=== PATIENT | female | born 1995 | race Caucasian/White ===

== ENCOUNTER 2020-05-17 14:33 | Emergency (ER) | payer OTHER, SELFPAY ==
[2020-05-17 14:35] VITALS: BP 129/78; PULSE 108; RESP 18; TEMP 36.8; O2SAT 99; BMI 38.2
--- NOTE | 2020-05-17 15:22 | XR_ITS ---
EXAMINATION: RIGHT FOOT AND RIGHT ANKLE. CLINICAL INFORMATION: Status post trauma. COMPARISON: None TECHNIQUE: 3 views right foot and 2 views right ankle. FINDINGS: RIGHT FOOT: There is no visible acute fracture, dislocation or subluxation. No bony erosive changes. The soft tissues are normal. RIGHT ANKLE: The ankle mortise and subtalar joints are normal. There is interim medullary tibial onesimo with 2 screws at the base posteriorly likely old tibial fracture not in the [id number]. The soft tissues are normal. XR/XR foot RT min 3V IMPRESSION: Unremarkable right foot exam. No visible fracture or dislocation seen. Unremarkable right ankle exam.
--- NOTE | 2020-05-17 15:22 | ED.LOWEXIN ---
HPI - Extremity Injury (Lower) General Chief Complaint: Extremity Injury, Lower Stated Complaint: FOOT INJ Time Seen by Provider: 05/17/20 15:21 Source: patient Mode of arrival: ambulatory Limitations: no limitations History of Present Illness HPI Narrative: 24 y/o female is presenting to the ER with right foot pain after she dropped a milk crate on in 2 days ago. She has been able to walk but with some discomfort. She had worsening pain today after being on her feet all day at work. She noticed some bruising to the top of her foot. She has history of ankle surgery on this foot and is worried about the hardware inside. She has no weakness, numbness, tingling. MD complaint: foot injury Related Data Allergies Allergy/AdvReac Type Severity Reaction Status Date / Time apricot [APRICOT] Allergy Unknown RASH Unverified 03/30/20 19:20 cephalexin [From KEFLEX] Allergy Unknown RASH Unverified 03/30/20 19:20 Review of Systems Review of Systems: Constitutional: No Fever, No Chills Cardiovascular: No Chest Pain, No SOB Respiratory: No Cough, No Sputum Gastrointestinal: No Nausea, No Vomiting, No Diarrhea, No abdominal Pain Musculoskeletal: + joint pain, No Myalgias Skin: No Skin Lesions, No rash, +bruising Neuro: No Weakness, No Numbness, No Dizziness, No Headache Psych: No Anxiety/Panic, No Depression Heme/Lymph: + Bruising, No Lymphadenopathy PMFSH Past Medical History Medical History Arthritis Asthma Surgical History (Updated 05/17/20 @ 14:36 by Mendy Lee) H/O foot surgery Social History Social History Alcohol intake: never Smoked in Last 30 Days: No Use of substances other than those prescribed or required for medical reasons: No Advance Directives: No Advance Directives Information Provided: Yes Physical Exam Vital Signs: Vital Signs: Vital Signs Temp Pulse Resp BP Pulse Ox 05/17/20 15:29 98.9 F 90 16 119/67 99 05/17/20 14:35 98.2 F 108 H 18 129/78 99 Body Mass Index 38.2 Appearance: Alert. Oriented X3. No acute distress. HEENT: normal inspection CVS: Normal heart rate and rhythm. Pulses normal. Respiratory: No respiratory distress. Skin: Skin warm and dry. Normal skin color. Normal skin turgor. No rashes. Extremities: right ankle with normal ROM, no bony tenderness. NV intact. 3cm hematoma palpable on top of ankle anteriorly, tender to touch. Neuro: Oriented X 3. No motor deficit. No sensory deficit. Course Course Course Narrative: XR shows Unremarkable right foot exam. No visible fracture or dislocation seen. Unremarkable right ankle exam. will place in carmen wrap for comfort. ice/elevation/NSAID management discussed. she is off work tomorrow and able to stay off it. stable for d/c. Critical Care Time Critical Care Time Critical Care Time: No Discharge Plan Discharge Clinical Impression: Contusion of foot, right Qualifiers: Encounter type: initial encounter Qualified Code(s): S90.31XA - Contusion of right foot, initial encounter Patient Disposition: Home, Self-Care Instructions: Contusion in Adults (ED), Hematoma (ED) Additional Instructions: Use ice to the area for 20 minutes at a time several times per day for the next 24-48 hours. Elevate and use CARMEN wrap for compression to help with discomfort and swelling. Weight bearing as tolerated. Take ibuprofen and/or acetaminophen as needed for pain. Follow up with your primary care doctor as needed.
[2020-05-17 15:29] VITALS: BP 119/67; PULSE 90; RESP 16; TEMP 37.2; O2SAT 99
--- NOTE | 2020-05-17 15:31 | XR_ITS ---
EXAMINATION: RIGHT FOOT AND RIGHT ANKLE. CLINICAL INFORMATION: Status post trauma. COMPARISON: None TECHNIQUE: 3 views right foot and 2 views right ankle. FINDINGS: RIGHT FOOT: There is no visible acute fracture, dislocation or subluxation. No bony erosive changes. The soft tissues are normal. RIGHT ANKLE: The ankle mortise and subtalar joints are normal. There is interim medullary tibial onesimo with 2 screws at the base posteriorly likely old tibial fracture not in the [id number]. The soft tissues are normal. XR/XR ankle RT min 3V IMPRESSION: Unremarkable right foot exam. No visible fracture or dislocation seen. Unremarkable right ankle exam.
== END 2020-05-17 17:18 | disposition home or self-care (01) ==
PROVIDERS: Emergency Provider Emergency Medicine
DX: M79.671 Pain in right foot (principal); M25.571 Pain in right ankle and joints of right foot; Z79.899 Other long term (current) drug therapy
CPT/HCPCS: 73610; 73630; 99283; 99284

== ENCOUNTER 2020-07-22 00:05 | Emergency (ER) | payer OTHER, SELFPAY ==
[2020-07-22 00:10] VITALS: BP 101/62; PULSE 110; RESP 22; TEMP 38.6; O2SAT 99; BMI 35.5
--- NOTE | 2020-07-22 00:26 | XR_ITS ---
EXAMINATION: XR CHEST CLINICAL INFORMATION: Chest pain COMPARISON: 04/12/2017 TECHNIQUE: Frontal view of the chest was obtained. FINDINGS: The lungs are well expanded. There is no focal consolidation, edema, or effusion. No pneumothorax. The cardiomediastinal silhouette is within normal limits. No acute osseous abnormality. XR/XR chest 1V IMPRESSION: Clear lungs.
[2020-07-22] MEDS: predniSONE 20 MG TABLET 60 MG PO (01:24)
[2020-07-22] MEDS: Ibuprofen 800 MG TABLET PO (01:24)
--- NOTE | 2020-07-22 01:33 | ED_ITS ---
HPI - URI/Sore Throat General Chief Complaint: Dyspnea Stated Complaint: fever sob body aches Time Seen by Provider: 07/22/20 00:26 Source: EMS Mode of arrival: EMS (Given albuterol neb, Tylenol by EMS.) Limitations: no limitations History of Present Illness HPI Narrative: 24-year-old female presenting via EMS with complaint of cough states yesterday started with rhinorrhea, nasal congestion today developed body aches sense of loss of taste and smell and has been working with patient is to [facility]. She does have history of asthma. MD elicited complaint: cough Consistency: intermittent Severity: moderate Description of mucous: clear Able to tolerate fluids by mouth: Yes Associated symptoms: nasal congestion Related Data Home Medications Medication Instructions Recorded Confirmed albuterol sulfate 90 mcg/actuation INHALATION 05/26/20 aerosol inhaler azithromycin 250 mg tablet mg PO DIRECTED 05/26/20 buspirone 10 mg tablet mg PO 05/26/20 fluticasone furoate 50 2 inh INHALATION DAILY 05/26/20 mcg/actuation blister powder for inhalation ipratropium 0.5 mg-albuterol 3 mg ml INHALATION QID PRN 05/26/20 (2.5 mg base)/3 mL nebulization soln mirtazapine 30 mg tablet 30 mg PO BEDTIME 05/26/20 prednisone 10 mg tablet 10 mg PO BID 05/26/20 prednisone 20 mg tablet mg PO 05/26/20 prednisone 50 mg tablet 50 mg PO DAILY 05/26/20 Previous Rx's Medication Instructions Recorded azithromycin [Zithromax Z-Rashaad] 250 mg PO DAILY 5 Days #6 tab 07/22/20 prednisone 40 mg PO DAILY 5 Days #10 tab 07/22/20 Allergies Allergy/AdvReac Type Severity Reaction Status Date / Time apricot [APRICOT] Allergy Unknown RASH Verified 07/22/20 00:20 cephalexin [From KEFLEX] Allergy Unknown RASH Verified 07/22/20 00:20 Review of Systems Review of Systems: Constitutional: No Weight loss, No Fever, + Chills, No Night Sweats, No Fatigue, No Malaise ENT/Mouth: No Hearing loss, No Ear Pain, No Nasal Congestion, No Sinus Pain, No Hoarseness, No sore throat, + Rhinorrhea, No Swallowing Difficulty Eyes: No Eye Pain, No Swelling, No Redness, No Foreign Body, No Discharge, No Vision Changes Cardiovascular: No Chest Pain, No SOB, No Dyspnea on Exertion, No Orthopnea, No Edema, No Palpitations Respiratory: No Cough, No Sputum, No Wheezing, No Smoke Exposure, No Dyspnea Gastrointestinal: No Nausea, No Vomiting, No Diarrhea, No Constipation, No abdominal Pain, No Hematochezia, No Melena Genitourinary: no irregular bleeding, No Dysuria, No Urinary Frequency, No Hematuria, No Urinary Incontinence, No Urgency Musculoskeletal: No joint pain, No Myalgias, No Joint Swelling Skin: No Skin Lesions, No rash Neuro: No Weakness, No Numbness, No Paresthesias, No Loss of Consciousness, No Dizziness, No Headache Psych: No Social Issues Heme/Lymph: No Bruising, No Bleeding,No Lymphadenopathy Endocrine: No Polyuria, No Polydipsia, No Temperature Intolerance Yes all other systems are reviewed and are negative [facility] Past Medical History Medical History Arthritis Asthma Surgical History H/O foot surgery Social History Social History Alcohol intake: never Advance Directives: No Physical Exam Vital Signs: Vital Signs: Last Vital Signs Temp 101.4 F H 07/22/20 00:10 Pulse 110 H 07/22/20 00:10 Resp 22 H 07/22/20 00:10 BP 101/62 07/22/20 00:10 Pulse Ox 99 07/22/20 00:10 Body Mass Index 35.5 Reviewed Course Course Course Narrative: BIBA from workplace with upper respiratory symptoms and sense of loss of taste and smell for past 1 day for with complaint of cough and body aches for 1 day as well. Given neb treatment in room 4 will we will follow for low-grade tip. For overall nontoxic appearing. Will get chest x-ray, COVID/RSV/flu swab. Hemodynamically stable. Not hypoxic, not tachycardic. Reevaluation(s) Reevaluation #1: Chest x-ray unremarkable. Ambulatory status with gait. Will discharge with prednisone, inhaler and advised to start antibiotic she does not feel better next several days. Will call with COVID/RSV/small results. Given her symptoms could be false early negative if the test is negative and she will quarantine for the full duration. She is comfortable with agreeable plan. Stable for discharge. MDM - URI/Sore Throat Differential Diagnosis Differential diagnosis: Likely upper respiratory infection, viral infection, bronchitis and influenza; Unlikely croup, otitis media, sinusitis and pharyngitis Medical Records Attestation: I reviewed the patient's medical records. Lab Data Attestation: I reviewed the patient's lab results. Discharge Plan Discharge Clinical Impression: Acute viral syndrome Patient Disposition: Home, Self-Care Instructions: Viral Syndrome (ED) Additional Instructions: Based on your symptoms and history we have sent a COVID-19. Although your RESULT IS PENDING at this time. RESULTS should return within 72 hours. At this time you will be contacted with either NEGATIVE OR POSITIVE results. -Please wait until we contact you for your results. At this time you will be okay for discharge. Please plan for self quarantine for up to 14 days. Do not expose yourself to others. You may not go to work. If testing does come back negative you may return to activities as long as you are no longer having any symptoms for at least 3 days. Please continue to follow cold instructions and wash your hands frequently. You may take Tylenol as directed on the bottle for pain or fever. Patient seen in the emergency department and should be excused from work until negative test results AND until 72 hours without any symptoms AND at least 10 days have passed since symptoms first appeared or since last exposure to COVID- 19 positive patient CDC Guidelines for home isolation: - Stay away from others - WEAR A MASK if you are sick AND STAY HOME - Cover your mouth and nose with a tissue when you cough or sneeze. Dispose of tissues in a lined trash can and wash your hands immediately with soap and water for at least 20 seconds. If soap and water are not available, clean hands with alcohol-based hand aluminum boat inspector that contains at least 60% alcohol. - Clean your hands often with soap and water for at least 20 seconds - Avoid touching your eyes, nose and mouth with unwashed hands - Do not share dishes, drinking glasses, cups, eating utensils, towels, or bedding with other people in your home. After using these items, wash them thoroughly with soap and water or put in the capacitor pack press operator. - Clean high-touch surfaces in your isolation area ( sick room and bathroom) every day; let a caregiver clean and disinfect high-touch surfaces in other areas of the home. Clean the area or item with soap and water or another detergent if it is dirty. Then, use a household disinfectant. - Limit contact with pets and animals: If you must care for a pet, wash your hands before and after interacting with them Prescriptions: New azithromycin [Zithromax Z-Rashaad] 250 mg tablet 250 mg PO DAILY 5 Days Qty: 6 RF: 0 prednisone 20 mg tablet 40 mg PO DAILY 5 Days Qty: 10 RF: 0 No Action Arnuity Ellipta 50 mcg/actuation blister with device 2 inh inhalation DAILY RF: 0 prednisone 50 mg tablet 50 mg PO DAILY RF: 0 ipratropium-albuterol 0.5 mg-3 mg(2.5 mg base)/3 mL solution for nebulization inhalation QID PRN (Reason: wheezing) RF: 0 buspirone 10 mg tablet PO RF: 0 mirtazapine 30 mg tablet 30 mg PO BEDTIME RF: 0 prednisone 20 mg tablet PO RF: 0 azithromycin 250 mg tablet PO DIRECTED RF: 0 albuterol sulfate 90 mcg/actuation HFA aerosol inhaler inhalation RF: 0 prednisone 10 mg tablet 10 mg PO BID RF: 0 Referrals: Physician,Unknown [Primary Care Provider] - 1 week (Phone visit with primary care) Stand Alone Forms: Work/School Release
[2020-07-22 02:18] LABS: Influenza A PCR NEGATIVE (Negative); Influenza B PCR NEGATIVE (Negative); Resp Syncy Virus RNA Qual PCR NEGATIVE (Negative)
[2020-07-22 02:22] LABS: SARS COV2 PCR INHOUSE POSITIVE (Negative)
== END 2020-07-22 01:59 | disposition home or self-care (01) ==
PROVIDERS: Nurse Practitioner Primary Care; Emergency Provider Emergency Medicine
DX: U07.1 COVID-19 (principal); J45.909 Unspecified asthma, uncomplicated
CPT/HCPCS: 0241U; 36415; 71045; 99283

== ENCOUNTER 2020-09-13 15:15 | Emergency (ER) | payer OTHER, SELFPAY ==
--- NOTE | ~2020-09-13 | XR_ITS ---
EXAMINATION: XR KNEE, RIGHT CLINICAL INFORMATION: Pain and swelling. COMPARISON: No priors. TECHNIQUE: Four views of the right knee. FINDINGS: Postsurgical changes of intramedullary tibial nail and proximal fixation screws. Hardware components are intact. No perihardware lucency. Lucency through an inferior patellar pole enthesophyte is noted. Mild thickening of the patella tendon. Patella remains approximated. No joint effusion. Alignment is anatomic. Joint spaces are well maintained. No abnormal soft tissue calcification. No soft tissue gas. XR/XR knee RT 3V IMPRESSION: Right knee: 1. Lucency through an inferior patellar pole enthesophyte may reflect sequelae enthesophyte fracture. 2. Patellar tendinosis. 3. No joint effusion. 4. Tibial fixation hardware without abnormality.
[2020-09-13 16:40] VITALS: BP 129/79; PULSE 83; RESP 18; TEMP 36.8; O2SAT 100; BMI 34.7
[2020-09-13 18:40] LABS: MANUAL DIFF FLAG NO
[2020-09-13 18:42] LABS: Basophils Percent Auto 0.4 % (0-2); Eosinophils Absolute Auto 0.1 X10*3/uL (0.0-0.4); Hemoglobin 10.5 g/dl (12.0-16.0); Imm Gran Abs Auto 0.02 X10*3/uL (0.00-0.03); Imm Gran Pct Auto 0.3 % (0.0-0.4); Lymphocytes Absolute Auto 1.9 X10*3/uL (1.2-4.9); Lymphocytes Percent Auto 24.2 % (20-40); Mean Corpuscular HGB Conc 30.9 g/dl (31.0-35.0); Mean Corpuscular Volume 74.4 fL (80-98); Mean Platelet Volume 10.3 fL (9.4-12.3); Monocytes Absolute Auto 0.5 X10*3/uL (0.1-1.2); Monocytes Percent Auto 6.5 % (2-11); Neutrophils Absolute Auto 5.3 X10*3/uL (2.0-8.3); Neutrophils Percent Auto 67.6 % (45-73); Platelet Count 402 X10*3/uL (160-400); Red Blood Count 4.57 X10*6/uL (4.20-5.50); Red Cell Distribution Width 18.6 % (11.0-16.0); White Blood Count 7.8 X10*3/uL (4.8-10.8)
[2020-09-13 19:06] LABS: Anion Gap 12 (12-20); Blood Urea Nitrogen 10 mg/dL (9-16); Calcium 9.4 mg/dL (8.4-10.2); Carbon Dioxide 26 mmol/L (22-29); Chloride 103 mmol/L (96-108); Creatinine Clr Calc Pharmacy 143.8; Estimated Glomerular Filt Rate > 60; Glucose Random 80 mg/dL (60-115); Sodium 137 mmol/L (135-145)
[2020-09-13 20:16] VITALS: BP 127/78; PULSE 83; RESP 18; TEMP 36.8
--- NOTE | 2020-09-13 20:23 | ED.EXTPRO ---
HPI - Extremity Problem General Chief complaint: Extremity Problem Stated complaint: knee swelling Time Seen by Provider: 09/13/20 19:58 Source: patient Mode of arrival: ambulatory Limitations: no limitations History of Present Illness HPI Narrative: This is a 24-year-old female with history of ARIELLA occasionally on iron and history of traumatic proximal tibial fracture from fall while bowling 3 years ago requiring plating who presents ambulatory with complaint of right knee giving out and falling on it which has been going on for some time now last time she fell was 3 weeks ago and has tried to call her orthopedics which is [facility] has long wait times and lives here in [place] and given the knee given out and pain she came to the emergency room today. MD Complaint: extremity pain Onset (ago): week(s) Pain Consistency: intermittent (Mostly worse when she goes upstairs) Location: right Radiation: none Relieving factors: immobilization Exacerbating factors: other (Mostly when she goes upstairs) Associated symptoms: denies other symptoms Related Data Home Medications Medication Instructions Recorded Confirmed albuterol sulfate 90 mcg/actuation INHALATION 05/26/20 aerosol inhaler azithromycin 250 mg tablet mg PO DIRECTED 05/26/20 buspirone 10 mg tablet mg PO 05/26/20 fluticasone furoate 50 2 inh INHALATION DAILY 05/26/20 mcg/actuation blister powder for inhalation ipratropium 0.5 mg-albuterol 3 mg ml INHALATION QID PRN 05/26/20 (2.5 mg base)/3 mL nebulization soln mirtazapine 30 mg tablet 30 mg PO BEDTIME 05/26/20 prednisone 10 mg tablet 10 mg PO BID 05/26/20 prednisone 20 mg tablet mg PO 05/26/20 prednisone 50 mg tablet 50 mg PO DAILY 05/26/20 Previous Rx's Medication Instructions Recorded azithromycin [Zithromax Z-Rashaad] 250 mg PO DAILY 5 Days #6 tab 07/22/20 prednisone 40 mg PO DAILY 5 Days #10 tab 07/22/20 ferrous sulfate 325 mg PO DAILY #30 tab 09/13/20 Allergies Allergy/AdvReac Type Severity Reaction Status Date / Time apricot [APRICOT] Allergy Unknown RASH Verified 07/22/20 00:20 cephalexin [From KEFLEX] Allergy Unknown RASH Verified 07/22/20 00:20 Review of Systems Review of Systems: Constitutional: No Weight loss, No Fever, No Chills, No Night Sweats, No Fatigue, No Malaise ENT/Mouth: No Hearing loss, No Ear Pain, No Nasal Congestion, No Sinus Pain, No Hoarseness, No sore throat, No Rhinorrhea, No Swallowing Difficulty Eyes: No Eye Pain, No Swelling, No Redness, No Foreign Body, No Discharge, No Vision Changes Cardiovascular: No Chest Pain, No SOB, No Dyspnea on Exertion, No Orthopnea, No Edema, No Palpitations Respiratory: No Cough, No Sputum, No Wheezing, No Smoke Exposure, No Dyspnea Gastrointestinal: No Nausea, No Vomiting, No Diarrhea, No Constipation, No abdominal Pain, No Hematochezia, No Melena Genitourinary: No Dysuria, No Urinary Frequency, No Hematuria, No Urinary Incontinence, No Urgency, No Flank Pain, No Urinary Flow Changes, No Hesitancy Musculoskeletal: No joint pain, No Myalgias, No Joint Swelling, as noted per HPI Skin: No Skin Lesions, No rash Neuro: No Weakness, No Numbness, No Paresthesias, No Loss of Consciousness, No Dizziness, No Headache Psych: No Social Issues Heme/Lymph: No Bruising, No Bleeding,No Lymphadenopathy Endocrine: No Polyuria, No Polydipsia, No Temperature Intolerance Yes all other systems are reviewed and are negative [facility] Past Medical History Medical History (Updated 09/13/20 @ 20:30 by Robert Gamboa NP) Anemia Arthritis Asthma Tibia/fibula fracture Surgical History H/O foot surgery Social History Social History Alcohol intake: never Advance Directives: No Advance Directives Information Provided: Yes Physical Exam Vital Signs: Vital Signs: Last Vital Signs Temp 98.2 F 09/13/20 20:16 Pulse 83 09/13/20 20:16 Resp 18 09/13/20 20:16 BP 127/78 09/13/20 20:16 Pulse Ox 100 09/13/20 16:40 Body Mass Index 34.7 Reviewed Const: General: cooperative and healthy appearing; No acute distress or intoxicated appearing Nutritional Appearance: average body habitus Orientation/consciousness: patient oriented x3 HENMT: Head: Yes normal to inspection Ears: hearing grossly normal bilaterally Chest: Chest palpation & inspection: normal inspection of the chest Resp: Effort & Inspection: normal respiratory effort Auscultation: clear to auscultation bilaterally Cardio: Jugular venous distension: no JVD Rhythm: regular rhythm Heart sounds: S1 normal heart sound present and S2 normal heart sound present Skin: General skin exam: no rashes or lesions noted Neuro: General: patient oriented x3 Extrem: General: Yes normal to inspection Right lower extremity: full ROM, normal capillary refill and knee (Negative Homans) Details: normal ROM and other (Well-healed previously surgical scar); no tenderness and no swelling; no edema and joint enlargement noted Course Course Course Narrative: Presenting with right knee given out at times and falling on in less than 3 weeks ago x-ray findings that are not acute also had protocol labs done in triage which shows anemia history of anemia needs a prescription refill for iron. She has no related complaints. No systemic symptoms specifically no dizziness weakness, vaginal or rectal bleeding. Given right knee immobilizer and crutches MDM - Extremity (Nontraumatic) Lab Data Result diagrams: 09/13/20 18:31 09/13/20 18:31 Labs: Lab Results 09/13/20 09/13/20 09/13/20 Range/Units 18:31 18:31 18:31 WBC 7.8 (4.8-10.8) X10*3/uL RBC 4.57 (4.20-5.50) X10*6/uL Hgb 10.5 L (12.0-16.0) g/dl Hct 34.0 L (37-47) % MCV 74.4 L (80-98) fL MCH 23.0 L (27.0-33.0) pg MCHC 30.9 L (31.0-35.0) g/dl RDW 18.6 H (11.0-16.0) % Plt Count 402 H (160-400) X10*3/uL MPV 10.3 (9.4-12.3) fL Immature Gran % (Auto) 0.3 (0.0-0.4) % Neut % (Auto) 67.6 (45-73) % Lymph % (Auto) 24.2 (20-40) % Pershing % (Auto) 6.5 (2-11) % Eos % (Auto) 1.0 (0-4) % Baso % (Auto) 0.4 (0-2) % Lymph # (Auto) 1.9 (1.2-4.9) X10*3/uL Pershing # (Auto) 0.5 (0.1-1.2) X10*3/uL Eos # (Auto) 0.1 (0.0-0.4) X10*3/uL Baso # (Auto) 0.0 (0.0-0.2) X10*3/uL Abs Immat Gran (auto) 0.02 (0.00-0.03) X10*3/uL Absolute Neuts (auto) 5.3 (2.0-8.3) X10*3/uL Absolute Nucleated RBC 0.000 (0.0-0.012) X10*3/uL Nucleated RBC % (auto) 0.0 (0.0-0.2) /100WBC Hold Blue Top SEE NOTE Sodium 137 (135-145) mmol/L Potassium 4.0 (3.3-5.1) mmol/L Chloride 103 (96-108) mmol/L Carbon Dioxide 26 (22-29) mmol/L Anion Gap 12 (12-20) BUN 10 (9-16) mg/dL Creatinine 0.71 (0.5-1.4) mg/dL Estim Creat Clear Calc 143.8 Estimated GFR > 60 Random Glucose 80 (60-115) mg/dL Calcium 9.4 (8.4-10.2) mg/dL Discharge Plan Discharge Clinical Impression: Acute pain of right knee, Anemia Patient Disposition: Home, Self-Care Instructions: Knee Pain (ED), Anemia (ED) Additional Instructions: Knee immobilizer for comfort Crutches for comfort Ice, elevate Remove for exercises and at night Follow-up with orthopedics as discussed Return if any concerns or worsening symptoms Thank you Prescriptions: New ferrous sulfate 325 mg (65 mg iron) tablet 325 mg PO DAILY Qty: 30 RF: 0 No Action azithromycin [Zithromax Z-Rashaad] 250 mg tablet 250 mg PO DAILY 5 Days Qty: 6 RF: 0 prednisone 20 mg tablet 40 mg PO DAILY 5 Days Qty: 10 RF: 0 Arnuity Ellipta 50 mcg/actuation blister with device 2 inh inhalation DAILY RF: 0 prednisone 50 mg tablet 50 mg PO DAILY RF: 0 ipratropium-albuterol 0.5 mg-3 mg(2.5 mg base)/3 mL solution for nebulization inhalation QID PRN (Reason: wheezing) RF: 0 buspirone 10 mg tablet PO RF: 0 mirtazapine 30 mg tablet 30 mg PO BEDTIME RF: 0 prednisone 20 mg tablet PO RF: 0 azithromycin 250 mg tablet PO DIRECTED RF: 0 albuterol sulfate 90 mcg/actuation HFA aerosol inhaler inhalation RF: 0 prednisone 10 mg tablet 10 mg PO BID RF: 0 Referrals: Obie Shanks MD [Physician] - 1 week
== END 2020-09-13 21:44 | disposition home or self-care (01) ==
PROVIDERS: Emergency Provider Emergency Medicine; PCP Internal Medicine
DX: M25.561 Pain in right knee (principal); D64.9 Anemia, unspecified
CPT/HCPCS: 36415; 73562; 80048; 85025; 99283

== ENCOUNTER 2020-10-04 14:26 | Outpatient (REF) | payer OTHER, SELFPAY ==
--- NOTE | ~2020-10-04 | US_ITS ---
EXAMINATION: US VENOUS ULTRASOUND WITH DOPPLER LOWER EXTREMITY, RIGHT CLINICAL INFORMATION: Pain COMPARISON: None TECHNIQUE: Ultrasound of the deep veins is performed from the hip to the calf with compression sonography and color and pulse Doppler assessment. Spectral analysis with color-flow imaging is performed. FINDINGS: There is normal venous compression and respiratory variation and augmented flow. The visualized common femoral vein, superficial femoral vein, profunda femoral vein, popliteal vein, and the trifurcation region shows no evidence of deep venous thrombosis. There is no significant popliteal fossa cyst. US/US venous duplex LE RT IMPRESSION: No DVT demonstrated in the right lower extremity.
== END 2020-10-04 14:27 | disposition home or self-care (01) ==
LOC: HO.HMGCX 14:26
PROVIDERS: PCP Internal Medicine; Visit Provider Internal Medicine
DX: M79.661 Pain in right lower leg (principal)
CPT/HCPCS: 93971

== ENCOUNTER 2020-10-26 10:09 | Outpatient (REF) | payer OTHER, SELFPAY ==
[2020-10-26 12:23] LABS: Alanine Aminotransferase 23 U/L (0-31); Aspartate Amino Transferase 13 U/L (5-31); Cholesterol 157 mg/dL; HDL Cholesterol 38 mg/dL; Iron 20 mcg/dL (30-160); LDL Cholesterol Calculated 106 mg/dl; Percent Iron Saturation 5 % (15-50); Total Iron Binding Capacity 444 mcg/dL (228-428); Triglycerides 65 mg/dL; Unsaturated Iron Binding 424 ug/dL
[2020-10-26 13:02] LABS: Ferritin 15 ng/mL (10-122); Thyroid Stimulating Hormone 0.96 uIU/mL (0.32-4.0); Vitamin D 25-OH Total 12.6 ng/mL (>30)
[2020-10-26 15:16] LABS: CT PCR NOT DETECTED (Not Detect.); NG PCR NOT DETECTED (Not Detect.)
[2020-10-27 07:46] LABS: HBc Num1 0.05 S/CO (0.00-0.79); HIV AB/AG Nonreactive (Nonreactive); HIV Num 1 0.06 S/CO (0.00-0.99); Hepatitis B Core Antibody Nonreactive (Nonreactive); ~HepC Num1 0.19 S/CO (0.00-0.79); ~Hepatitis C Antibody Nonreactive (Nonreactive)
[2020-10-27 08:55] LABS: Syphilis Screen Nonreactive (Nonreactive)
[2020-10-27 10:59] LABS: BV Int Neg Control Negative (Negative); BV Int Pos Control Positive (Positive)
[2020-11-09 05:47] LABS: HPV 16 RNA NOT DETECTED (NOT DETECTED); HPV mRNA E6/E7 rflx Detected (Not Detected)
== END 2020-10-26 10:10 | disposition home or self-care (01) ==
LOC: HO.LAB 10:09
PROVIDERS: PCP Internal Medicine; Visit Provider Advanced Practice Midwife
DX: Z01.419 Encounter for gynecological examination (general) (routine) without abnormal findings (principal); Z11.51 Encounter for screening for human papillomavirus (HPV); Z11.4 Encounter for screening for human immunodeficiency virus [HIV]; D64.9 Anemia, unspecified; Z11.3 Encounter for screening for infections with a predominantly sexual mode of transmission; R10.2 Pelvic and perineal pain; Z20.2 Contact with and (suspected) exposure to infections with a predominantly sexual mode of transmission; N92.0 Excessive and frequent menstruation with regular cycle; M79.661 Pain in right lower leg; M79.89 Other specified soft tissue disorders
CPT/HCPCS: 36415; 80061; 82306; 82728; 83540; 84443; 84450; 84460; 86704; 86780; 86803; 87389; 87480; 87491; 87510; 87591; 87624; 87625; 87660; 88141; 88142

== ENCOUNTER → 2020-11-10 15:22 | Outpatient (BNVA) | payer OTHER, SELFPAY | PROVIDERS: Visit Provider Advanced Practice Midwife ==

== ENCOUNTER 2020-12-13 08:55 | Outpatient (REF) | payer OTHER, SELFPAY ==
--- NOTE | ~2020-12-13 | XR_ITS ---
EXAMINATION: XR LUMBOSACRAL SPINE CLINICAL INFORMATION: Low back pain. COMPARISON: None TECHNIQUE: Three views of the lumbosacral spine. FINDINGS: Mild disc space narrowing is seen at L5-S1. There is normal lumbar lordosis and spinal alignment. The vertebral bodies are intact. The soft tissues are unremarkable. XR/XR lumbar spine 2-3V IMPRESSION: L5-S1 mild disc space narrowing may be degenerative in nature.
--- NOTE | ~2020-12-13 | XR_ITS ---
EXAMINATION: XR PELVIS CLINICAL INFORMATION: Pelvic pain. COMPARISON: None TECHNIQUE: AP view of the pelvis. FINDINGS: The bones and soft tissues are normal. No fracture. Sacroiliac and hip joints are normal. Pubic symphysis is normal. No abnormal soft tissue calcifications. XR/XR pelvis 1-2V IMPRESSION: Unremarkable pelvis.
[2020-12-13 10:56] LABS: MANUAL DIFF FLAG NO
[2020-12-13 11:17] LABS: Basophils Percent Auto 0.3 % (0-2); Eosinophils Absolute Auto 0.1 X10*3/uL (0.0-0.4); Eosinophils Percent Auto 1.4 % (0-4); Hematocrit 30.5 % (37-47); Hemoglobin 9.5 g/dl (12.0-16.0); Imm Gran Abs Auto 0.04 X10*3/uL (0.00-0.03); Imm Gran Pct Auto 0.4 % (0.0-0.4); Lymphocytes Absolute Auto 1.6 X10*3/uL (1.2-4.9); Lymphocytes Percent Auto 17.6 % (20-40); Mean Corpuscular HGB Conc 31.1 g/dl (31.0-35.0); Mean Corpuscular Hemoglobin 22.2 pg (27.0-33.0); Mean Corpuscular Volume 71.3 fL (80-98); Monocytes Absolute Auto 0.6 X10*3/uL (0.1-1.2); Monocytes Percent Auto 6.3 % (2-11); Neutrophils Absolute Auto 6.7 X10*3/uL (2.0-8.3); Platelet Count 407 X10*3/uL (160-400); Red Blood Count 4.28 X10*6/uL (4.20-5.50); Red Cell Distribution Width 17.1 % (11.0-16.0)
[2020-12-13 12:00] LABS: Thyroid Stimulating Hormone 2.33 uIU/mL (0.32-4.0)
[2020-12-13 12:14] LABS: Erythrocyte Sedimentation Rate 38 MM/HR (0-20)
[2020-12-13 12:29] LABS: Alanine Aminotransferase 31 U/L (0-31); Albumin Level 4.3 g/dL (3.5-5.0); Alkaline Phosphatase 80 U/L (39-117); Anion Gap 13 (12-20); Aspartate Amino Transferase 21 U/L (5-31); Bilirubin Total 0.5 mg/dL (0.0-1.0); Blood Urea Nitrogen 10 mg/dL (9-16); C Reactive Protein 3.28 mg/dL (< or = 0.50); Calcium 9.4 mg/dL (8.4-10.2); Carbon Dioxide 27 mmol/L (22-29); Chloride 103 mmol/L (96-108); Estimated Glomerular Filt Rate > 60; Glucose Random 103 mg/dL (60-115); Potassium 4.1 mmol/L (3.3-5.1); Rheumatoid Factor < 15.0 IU/mL (<15.0); Sodium 139 mmol/L (135-145); Total Protein 6.9 g/dL (6.5-8.0)
[2020-12-14 11:47] LABS: Complement C3 169 mg/dL (83-193)
[2020-12-14 12:37] LABS: Anti DNA DS Antibody <1 IU/mL; Antibody to SS-A Antigen <1.0 NEG AI (<1.0 NEG); Antibody to SS-B Antigen <1.0 NEG AI (<1.0 NEG); SM/Ribonucleoprotein Ab <1.0 NEG AI (<1.0 NEG); Smith Protein <1.0 NEG AI (<1.0 NEG)
[2020-12-16 00:11] LABS: HLA B27 Negative (Negative)
[2020-12-17 23:02] LABS: Cyclic Citrullinated Peptide <16 UNITS
[2020-12-18 14:12] LABS: Anti Nuclear Antibody Screen POSITIVE (NEGATIVE)
== END 2020-12-13 08:56 | disposition home or self-care (01) ==
LOC: HO.LAB 08:55
PROVIDERS: Advanced Practice Midwife; PCP Internal Medicine; Visit Provider Student in an Organized Health Care Education/Training Program
DX: M47.819 Spondylosis without myelopathy or radiculopathy, site unspecified (principal); N92.1 Excessive and frequent menstruation with irregular cycle
CPT/HCPCS: 36415; 72100; 72170; 80053; 84443; 85025; 85652; 86038; 86039; 86140; 86160; 86200; 86225; 86235; 86431; 86812; 99202

== ENCOUNTER 2020-12-13 10:20 | Emergency (ER) | payer OTHER, SELFPAY ==
--- NOTE | ~2020-12-13 | XR_ITS ---
EXAMINATION: XR HAND WRIST, LEFT CLINICAL INFORMATION: Pain COMPARISON: None TECHNIQUE: Left hand and wrist are imaged together in 3 large [id number] images. Navicular view of the wrist is also included for a total of 4 views. FINDINGS: Bony mineralization is within normal. The ulnar variance is neutral. There is no fracture or dislocation or destructive process. The carpus, MCP joints, and interphalangeal joints show no focal narrowing or erosive change or chondrocalcinosis. XR/XR hand wrist LT IMPRESSION: Unremarkable left hand and wrist.
[2020-12-13 10:44] VITALS: BP 111/69; PULSE 82; RESP 16; TEMP 36.5; O2SAT 98; BMI 38.2
--- NOTE | 2020-12-13 11:29 | ED.EXTPRO ---
HPI - Extremity Problem General Chief complaint: Extremity Injury, Upper Stated complaint: wrist pain Time Seen by Provider: 12/13/20 11:29 History of Present Illness HPI Narrative: Patient complains of left wrist pain and occasional tingling in the fingers of left 2nd 3rd 4th fingers over past 4-5 days, no acute injury, no numbness or weakness no redness Related Data Home Medications Medication Instructions Recorded Confirmed albuterol sulfate 90 mcg/actuation INHALATION 05/26/20 10/04/20 aerosol inhaler fluticasone furoate 50 2 inh INHALATION DAILY 05/26/20 10/04/20 mcg/actuation blister powder for inhalation ipratropium 0.5 mg-albuterol 3 mg ml INHALATION QID PRN 05/26/20 10/04/20 (2.5 mg base)/3 mL nebulization soln Previous Rx's Medication Instructions Recorded ferrous fumarate 324 mg (106 mg 324 mg PO DAILY #30 tab 10/04/20 iron) tablet fluticasone propionate 110 1 puff INHALATION Q12H #12 g 10/04/20 mcg/actuation HFA aerosol inhaler cholecalciferol (vitamin D3) 1,250 1,250 mcg PO QWEEK 90 Days #13 cap 10/27/20 mcg (50,000 unit) capsule ibuprofen 600 mg PO Q6H PRN #20 tab 12/13/20 Allergies Allergy/AdvReac Type Severity Reaction Status Date / Time apricot [APRICOT] Allergy Unknown RASH Verified 12/13/20 08:59 cephalexin [From KEFLEX] Allergy Unknown RASH Verified 12/13/20 08:59 Review of Systems Review of Systems: Positive for left wrist pain No fever no chills no swelling no redness no warmth no skin rash no weakness no other joint pains Yes all other systems are reviewed and are negative PMFSH Past Medical History Source: nursing notes reviewed Medical History Anemia Arthritis Asthma Closed right tibial fracture COVID-19 Knee pain, right Mild intermittent asthma Pain and swelling of right lower leg Spondyloarthropathy Tibia/fibula fracture Surgical History H/O foot surgery Hx of section Family History Family History Father Diabetes Mother Thyroid disease Social History Social History Alcohol intake: current Patient Tobacco Use Status: Never used Tobacco Gender identity: female Physical Exam Vital Signs: Vital Signs: Last Vital Signs Temp 97.7 F 12/13/20 10:44 Pulse 82 12/13/20 10:44 Resp 16 12/13/20 10:44 BP 111/69 12/13/20 10:44 Pulse Ox 98 12/13/20 10:44 Body Mass Index 38.2 General appearance no acute distress The head is normocephalic atraumatic Neck is supple Respiratory no distress The wrist has normal appearance it does have a full range of motion, there is some tenderness on the volar surface of the wrist it is neurovascular intact distal, there is no redness to the skin no wounds no rashes no motor or sensory deficit, no tendon deficit Skin no rashes Neuro no motor sensory deficit Course Course Course Narrative: X-ray was nondiagnostic Patient is given a Velcro wrist splint and advised it is possible this is tendinitis or carpal tunnel and to follow with Orthopedics for further evaluation Discharge Plan Discharge Clinical Impression: Carpal tunnel syndrome on left Patient Disposition: Home, Self-Care Additional Instructions: Your symptoms could be from carpal tunnel, or possibly tendinitis We gave you a wrist splint use it at night, carpal tunnel sometimes improves if you prevent small movements of the wrist Follow with hand doctor Return any concerns Prescriptions: New ibuprofen 600 mg tablet 600 mg PO Q6H PRN (Reason: pain) Qty: 20 RF: 0 No Action cholecalciferol (vitamin D3) 1,250 mcg (50,000 unit) capsule 1,250 mcg PO QWEEK 90 Days Qty: 13 RF: 0 Arnuity Ellipta 50 mcg/actuation blister with device 2 inh inhalation DAILY RF: 0 ipratropium-albuterol 0.5 mg-3 mg(2.5 mg base)/3 mL solution for nebulization inhalation QID PRN (Reason: wheezing) RF: 0 albuterol sulfate 90 mcg/actuation HFA aerosol inhaler inhalation RF: 0 ferrous fumarate 324 mg (106 mg iron) tablet 324 mg PO DAILY Qty: 30 RF: 5 fluticasone propionate 110 mcg/actuation HFA aerosol inhaler 1 puff inhalation Q12H Qty: 12 RF: 5 Referrals: Lucy Velázquez MD [Physician] - 2 days (Left wrist pain possible carpal tunnel) Stand Alone Forms: Work/School Release Interventions: ED Discharge Assessment Last Done: 12/13/20 12:24 Discharge Date/Time: 12/13/20 12:24
== END 2020-12-13 12:24 | disposition home or self-care (01) ==
PROVIDERS: Emergency Provider Emergency Medicine; PCP Internal Medicine
DX: G56.02 Carpal tunnel syndrome, left upper limb (principal)
CPT/HCPCS: 73110; 73130; 99283

== ENCOUNTER 2021-01-12 10:23 | Emergency (ER) | payer OTHER, SELFPAY ==
--- NOTE | ~2021-01-12 | XR_ITS ---
EXAMINATION: XR ANKLE, RIGHT CLINICAL INFORMATION: Pain COMPARISON: None TECHNIQUE: AP, lateral, and mortise views of the right ankle. FINDINGS: There is an intramedullary tibial onesimo and screws, old intervention. The ankle mortise and subtalar joints are normal. No visible acute fracture or dislocation seen. No abdominal soft tissue swelling seen.. XR/XR ankle RT 2V IMPRESSION: Unremarkable right ankle exam. No visible acute fracture or dislocation seen.
[2021-01-12 10:25] VITALS: BP 137/74; PULSE 73; RESP 18; TEMP 36.9; O2SAT 98; BMI 39.9
--- NOTE | 2021-01-12 12:34 | ED.EXTPRO ---
HPI - Extremity Problem General Chief complaint: Extremity Problem Stated complaint: R FOOT PAIN Time Seen by Provider: 01/12/21 11:03 Source: patient Mode of arrival: ambulatory Limitations: no limitations History of Present Illness HPI Narrative: 25-year-old female here with complaints of right ankle pain since last night with some mild swelling. No injury or trauma recently. She does have a history of a distal tibial fracture with screws and onesimo placement 3 years ago. This was performed out near [place] at a orthopedic office there. She has not followed up with them since. No redness, fevers or chills. Related Data Home Medications Medication Instructions Recorded Confirmed albuterol sulfate 90 mcg/actuation INHALATION 05/26/20 10/04/20 aerosol inhaler fluticasone furoate 50 2 inh INHALATION DAILY 05/26/20 10/04/20 mcg/actuation blister powder for inhalation ipratropium 0.5 mg-albuterol 3 mg ml INHALATION QID PRN 05/26/20 10/04/20 (2.5 mg base)/3 mL nebulization soln Previous Rx's Medication Instructions Recorded ferrous fumarate 324 mg (106 mg 324 mg PO DAILY #30 tab 10/04/20 iron) tablet fluticasone propionate 110 1 puff INHALATION Q12H #12 g 10/04/20 mcg/actuation HFA aerosol inhaler cholecalciferol (vitamin D3) 1,250 1,250 mcg PO QWEEK 90 Days #13 cap 10/27/20 mcg (50,000 unit) capsule ibuprofen 600 mg PO Q6H PRN #20 tab 12/13/20 Allergies Allergy/AdvReac Type Severity Reaction Status Date / Time apricot [APRICOT] Allergy Unknown RASH Verified 12/13/20 08:59 cephalexin [From KEFLEX] Allergy Unknown RASH Verified 12/13/20 08:59 Review of Systems Review of Systems: Yes all other systems are reviewed and are negative Constitutional: Constitutional: Reports no additional constitutional complaints, Denies body ache(s), Denies chills, Denies fever(s), Denies headache(s) and Denies weakness Eyes: Eyes: Reports no additional eye complaints and Denies change in vision ENT: Reports system reviewed and no additional complaints, except as documented, Denies dizziness, Denies headache(s), Denies nasal congestion, Denies nasal discharge and Denies neck pain Cardiovascular: Cardiovascular: Reports no additional cardiovascular complaints, Denies chest pain, Denies leg edema and Denies dyspnea Respiratory: Respiratory: Reports no additional respiratory complaints, Denies cough and Denies dyspnea Gastrointestinal: Gastrointestinal: Reports no additional gastrointestinal complaints, Denies abdominal pain, Denies diarrhea, Denies nausea and Denies vomiting Genitourinary: Genitourinary: Reports no additional female genitourinary complaints and Denies urinary incontinence Musculoskeletal: Musculoskeletal: Reports no additional musculoskeletal complaints, Denies back pain, Reports arthralgias, Denies joint swelling, Denies neck pain, Denies numbness and Denies tingling Integumentary/Breasts: Skin/Breast: Reports system reviewed and no additional complaints, except as docu and Denies rash Neurologic: Reports system reviewed and no additional complaints, except as documented, Denies Abnormal speech present, Denies dizziness, Denies headache(s), Denies numbness, Denies tingling and Denies weakness PMFSH Past Medical History Attestation statement: The following information was validated with the patient. Source: old records reviewed and nursing notes reviewed Medical History Anemia Arthritis Asthma Closed right tibial fracture COVID-19 Knee pain, right Mild intermittent asthma Pain and swelling of right lower leg Spondyloarthropathy Tibia/fibula fracture Surgical History H/O foot surgery Hx of section Family History Family History Father Diabetes Mother Thyroid disease Social History Social History Alcohol intake: current Patient Tobacco Use Status: Never used Tobacco Advance Directives: Yes Advance Directives Information Provided: No Advance Directives on File: No Patient : No Gender identity: female Physical Exam Vital Signs: Vital Signs: Last Vital Signs Temp 98.5 F 01/12/21 10:25 Pulse 73 01/12/21 10:25 Resp 18 01/12/21 10:25 BP 137/74 01/12/21 10:25 Pulse Ox 98 01/12/21 10:25 Body Mass Index 39.9 Const: General: cooperative, healthy appearing, comfortable and no acute distress Orientation/consciousness: patient oriented x3 Limitations: no limitations HENMT: Head: Yes normal to inspection Ears: hearing grossly normal bilaterally General nose exam: Normal external nose present Face and sinus: Yes normal facial exam Mouth: Normal oral and palatal mucosa present Throat: Yes posterior oropharynx normal Eyes: General: appearance normal, both eyes and all related structures Pupils: Equal, round and reactive pupils present Neck: Neck: Yes normal visual inspection Chest: Chest palpation & inspection: normal inspection of the chest Resp: Effort & Inspection: normal respiratory effort Auscultation: clear to auscultation bilaterally Cardio: Rate: regular rate Rhythm: regular rhythm Peripheral pulses: Peripheral pulses 2+ throughout GI: Inspection: Yes normal to inspection Palpation (GI): Soft to palpation and nontender Auscultation: normal bowel sounds Back/Spine/Pelvis: Thoracic/Lumbar Spine: thoracic and lumbar spine normal to inspection Skin: General skin exam: no rashes or lesions noted Neuro: General: patient oriented x3, no focal motor deficits and normal sensation to monofilament Cranial nerves: Yes Equal, round and reactive pupils present Cognition (Neuro): normal cognition Speech: No Abnormal speech present Gait exam (Neuro): Normal gait present Motor exam (neuro): 5/5 motor strength present throughout Extrem: Other: No appreciable swelling there is tenderness to the right anterior ankle and just proximal to this with no obvious deformity or swelling or warmth or redness. Pain with flexion of the foot but is able. Distal pulses palpated General: Yes normal to inspection, Yes no pedal edema and Yes no calf tenderness Course Course Course Narrative: atraumatic right ankle pain with a history of ORIF with rods and screws placed 3 years ago. X-rays reviewed from triage. They show no acute bony abnormality. ?discomfort from hardware. does not appear infected. recommended follow-up outpatient with orthopedics. Placed an Jose wrap and given crutches with instruction. Reviewed worrisome signs and symptoms and [place] to [place] [facility] [place] Comfortable discharge home. Procedures Procedure Narrative Procedure Narrative: Jose wrap, crutches MDM - Extremity (Nontraumatic) Medical Records Attestation: I reviewed the patient's medical records. Lab Data Attestation: I reviewed the patient's lab results. Imaging Data right ankle x-ray: Attestation: I personally reviewed and interpreted this imaging study as follows: Radiologist's impression: FINDINGS: There is an intramedullary tibial onesimo and screws, old intervention. The ankle mortise and subtalar joints are normal. No visible acute fracture or dislocation seen. No abdominal soft tissue swelling seen.. XR/XR ankle RT 2V IMPRESSION: Unremarkable right ankle exam. No visible acute fracture or dislocation seen. Discharge Plan Discharge Clinical Impression: Acute ankle pain Qualifiers: Laterality: right Qualified Code(s): M25.571 - Pain in right ankle and joints of right foot Patient Disposition: Home, Self-Care Instructions: Arthralgia (ED) Additional Instructions: the hardware is intact Ice, elevation, motrin/tylenol as needed Jose wrap and crutches for comfort Prescriptions: No Action cholecalciferol (vitamin D3) 1,250 mcg (50,000 unit) capsule 1,250 mcg PO QWEEK 90 Days Qty: 13 RF: 0 ibuprofen 600 mg tablet 600 mg PO Q6H PRN (Reason: pain) Qty: 20 RF: 0 Arnuity Ellipta 50 mcg/actuation blister with device 2 inh inhalation DAILY RF: 0 ipratropium-albuterol 0.5 mg-3 mg(2.5 mg base)/3 mL solution for nebulization inhalation QID PRN (Reason: wheezing) RF: 0 albuterol sulfate 90 mcg/actuation HFA aerosol inhaler inhalation RF: 0 ferrous fumarate 324 mg (106 mg iron) tablet 324 mg PO DAILY Qty: 30 RF: 5 fluticasone propionate 110 mcg/actuation HFA aerosol inhaler 1 puff inhalation Q12H Qty: 12 RF: 5 Referrals: Obie Shanks MD [Physician] - 2 days Stand Alone Forms: Work/School Release Interventions: ED Discharge Assessment Last Done: 01/12/21 11:43 Discharge Date/Time: 01/12/21 11:44
== END 2021-01-12 11:44 | disposition home or self-care (01) ==
PROVIDERS: Emergency Provider Emergency Medicine Emergency Medical Services; PCP Internal Medicine
DX: M25.571 Pain in right ankle and joints of right foot (principal); J45.20 Mild intermittent asthma, uncomplicated; Z79.899 Other long term (current) drug therapy
CPT/HCPCS: 73600; 99283

== ENCOUNTER 2021-02-08 14:37 | Emergency (ER) | payer OTHER, SELFPAY ==
--- NOTE | ~2021-02-08 | XR_ITS ---
EXAMINATION: XR LUMBOSACRAL SPINE CLINICAL INFORMATION: Pain COMPARISON: None TECHNIQUE: Three views of the lumbosacral spine. FINDINGS: There is normal lumbar segmentation with 5 nonrib-bearing lumbar vertebrae of normal height and normal lumbar lordosis. There is no lumbar vertebral compression, spondylolisthesis, destructive process, or disc narrowing. No erosive changes. The SI joints and visualized sacrum are unremarkable. XR/XR lumbar spine 2-3V IMPRESSION: Unremarkable examination.
[2021-02-08 14:54] VITALS: BP 120/78; PULSE 83; RESP 16; TEMP 36.8; O2SAT 97; BMI 38.2
[2021-02-08] MEDS: Ketorolac Tromethamine 15 MG/ML VIAL 30 MG IM (15:48)
--- NOTE | 2021-02-08 15:48 | ED.BACK ---
HPI - Back Pain/Injury General Chief Complaint: Back Pain/Injury Stated Complaint: low back pain Time Seen by Provider: 02/08/21 15:22 Source: patient Mode of arrival: ambulatory Limitations: no limitations History of Present Illness HPI Narrative: 25-year-old female here with low back pain since last evening. No radiation pain. No numbness or tingling. No bowel or bladder incontinence. No fevers or chills. The patient is ambulatory. Taking Motrin with continued pain. Is complaining some urinary frequency. No dysuria, hematuria. 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 Does not recall any injury. Related Data Home Medications Medication Instructions Recorded Confirmed albuterol sulfate 90 mcg/actuation INHALATION 05/26/20 10/04/20 aerosol inhaler fluticasone furoate 50 2 inh INHALATION DAILY 05/26/20 10/04/20 mcg/actuation blister powder for inhalation ipratropium 0.5 mg-albuterol 3 mg ml INHALATION QID PRN 05/26/20 10/04/20 (2.5 mg base)/3 mL nebulization soln Previous Rx's Medication Instructions Recorded ferrous fumarate 324 mg (106 mg 324 mg PO DAILY #30 tab 10/04/20 iron) tablet fluticasone propionate 110 1 puff INHALATION Q12H #12 g 10/04/20 mcg/actuation HFA aerosol inhaler cholecalciferol (vitamin D3) 1,250 1,250 mcg PO QWEEK 90 Days #13 cap 10/27/20 mcg (50,000 unit) capsule ibuprofen 600 mg tablet 600 mg PO Q6H PRN #20 tab 12/13/20 cyclobenzaprine 10 mg tablet 10 mg PO TID PRN #10 tab 02/08/21 lidocaine 5 % topical patch 1 patch TOPICAL DAILY #15 ea 02/08/21 (Lidoderm) naproxen 500 mg tablet 500 mg PO BID PRN #14 tab 02/08/21 Allergies Allergy/AdvReac Type Severity Reaction Status Date / Time apricot [APRICOT] Allergy Unknown RASH Verified 12/13/20 08:59 cephalexin [From KEFLEX] Allergy Unknown RASH Verified 12/13/20 08:59 Review of Systems Review of Systems: Yes all other systems are reviewed and are negative Constitutional: Constitutional: Reports no additional constitutional complaints, Denies body ache(s), Denies chills, Denies fever(s), Denies headache(s) and Denies weakness Eyes: Eyes: Reports no additional eye complaints and Denies change in vision ENT: Reports system reviewed and no additional complaints, except as documented, Denies dizziness, Denies headache(s), Denies nasal congestion, Denies nasal discharge and Denies neck pain Cardiovascular: Cardiovascular: Reports no additional cardiovascular complaints, Denies chest pain, Denies leg edema and Denies dyspnea Respiratory: Respiratory: Reports no additional respiratory complaints, Denies cough and Denies dyspnea Gastrointestinal: Gastrointestinal: Reports no additional gastrointestinal complaints, Denies abdominal pain, Denies diarrhea, Denies nausea and Denies vomiting Genitourinary: Genitourinary: Reports no additional female genitourinary complaints and Denies urinary incontinence Musculoskeletal: Musculoskeletal: Reports no additional musculoskeletal complaints, Reports back pain, Denies arthralgias, Denies joint swelling, Denies neck pain, Denies numbness and Denies tingling Integumentary/Breasts: Skin/Breast: Reports system reviewed and no additional complaints, except as docu and Denies rash Neurologic: Reports system reviewed and no additional complaints, except as documented, Denies Abnormal speech present, Denies dizziness, Denies headache(s), Denies numbness, Denies tingling and Denies weakness PMFSH Past Medical History Attestation statement: The following information was validated with the patient. Source: old records reviewed and nursing notes reviewed Medical History Anemia Arthritis Asthma Closed right tibial fracture COVID-19 Knee pain, right Mild intermittent asthma Pain and swelling of right lower leg Spondyloarthropathy Tibia/fibula fracture Surgical History H/O foot surgery Hx of section Family History Family History Father Diabetes Mother Thyroid disease Social History Social History Alcohol intake: current Patient Tobacco Use Status: Never used Tobacco Advance Directives: No Advance Directives Information Provided: No Patient : No Gender identity: female Physical Exam Vital Signs: Vital Signs: Last Vital Signs Temp 98.3 F 07/29/21 14:54 Pulse 83 02/08/21 14:54 Resp 16 02/08/21 14:54 BP 120/78 02/08/21 14:54 Pulse Ox 97 02/08/21 14:54 Body Mass Index 38.2 Const: General: cooperative, healthy appearing, comfortable and no acute distress Orientation/consciousness: patient oriented x3 Limitations: no limitations HENMT: Head: Yes normal to inspection Ears: hearing grossly normal bilaterally General nose exam: Normal external nose present Face and sinus: Yes normal facial exam Mouth: Normal oral and palatal mucosa present Throat: Yes posterior oropharynx normal Eyes: General: appearance normal, both eyes and all related structures Pupils: Equal, round and reactive pupils present Neck: Neck: Yes normal visual inspection Chest: Chest palpation & inspection: normal inspection of the chest Resp: Effort & Inspection: normal respiratory effort Auscultation: clear to auscultation bilaterally Cardio: Rate: regular rate Rhythm: regular rhythm Peripheral pulses: Peripheral pulses 2+ throughout GI: Inspection: Yes normal to inspection Palpation (GI): Soft to palpation and nontender Auscultation: normal bowel sounds : General: Yes no CVA tenderness Back/Spine/Pelvis: Other: Midline lumbar tenderness with no step-offs or deformities Pain with lumbar flexion/extension Back: no CVA tenderness Thoracic/Lumbar Spine: thoracic and lumbar spine normal to inspection Skin: General skin exam: no rashes or lesions noted Neuro: General: patient oriented x3, no focal motor deficits and normal sensation to monofilament Cranial nerves: Yes Equal, round and reactive pupils present, Yes Bilaterally intact EOM present, Yes Nystagmus not present and Yes Normal facial strength present Cognition (Neuro): normal cognition Speech: No Abnormal speech present Gait exam (Neuro): Normal gait present Motor exam (neuro): 5/5 motor strength present throughout Sensory Exam: Normal double simultaneous stimulation for sensation Deep tendon reflexes (DTR's): Right patellar reflex intensity grade: 2+ and Left patellar reflex intensity grade: 2+ Extrem: General: Yes normal to inspection Course Course Course Narrative: Atraumatic low back pain for 24 hours. Also complaining of some urinary frequency.. Normal neuro exam. No deficits or red flag symptoms. Will check urine, x-ray and provide analgesia -X-ray shows no acute finding. UA shows micropscopic hematuria. No CVAT, pt currently on her menses so renal colic less likely. Likely lumbar strain Reviewed worrisome signs and symptoms of when to return to the emergency department. Comfortable with discharge home. MDM - Back Pain/Injury Medical Records Attestation: I reviewed the patient's medical records. Lab Data Attestation: I reviewed the patient's lab results. Labs: Lab Results 02/08/21 02/08/21 Range/Units 15:47 15:48 Urine Color YELLOW Urine Appearance HAZY Urine pH 7.0 (5.0-8.0) Ur Specific Mitchell 1.010 (1.005-1.025) Urine Protein TRACE (NEG-TRACE) MG/DL Urine Glucose (UA) NEG (NEG) MG/DL Urine Ketones NEG (NEG) MG/DL Urine Blood 3+ H (NEG) Urine Nitrite NEG (NEG) Ur Leukocyte Esterase NEG (NEG) Urine RBC TNTC H (0) /HPF Urine WBC 0-2 (0-4) /HPF Ur Squamous Epith Cells 2+ /LPF Urine Bacteria NONE /LPF Urine Test NEGATIVE (NEGATIVE) Discharge Plan Discharge Clinical Impression: Strain of lumbar region Patient Disposition: Home, Self-Care Instructions: Low Back Strain (ED), Lower Back Exercises (ED), Core Strengthening Exercises (ED) Additional Instructions: Heat to the area Gentle stretching See PCP Friday if still having pain Prescriptions: New naproxen 500 mg tablet 500 mg PO BID PRN (Reason: pain) Qty: 14 RF: 0 cyclobenzaprine 10 mg tablet 10 mg PO TID PRN (Reason: muscle spasm) Qty: 10 RF: 0 lidocaine [Lidoderm] 5 % adhesive patch,medicated 1 patch topical DAILY Qty: 15 RF: 0 No Action cholecalciferol (vitamin D3) 1,250 mcg (50,000 unit) capsule 1,250 mcg PO QWEEK 90 Days Qty: 13 RF: 0 ibuprofen 600 mg tablet 600 mg PO Q6H PRN (Reason: pain) Qty: 20 RF: 0 Arnuity Ellipta 50 mcg/actuation blister with device 2 inh inhalation DAILY RF: 0 ipratropium-albuterol 0.5 mg-3 mg(2.5 mg base)/3 mL solution for nebulization inhalation QID PRN (Reason: wheezing) RF: 0 albuterol sulfate 90 mcg/actuation HFA aerosol inhaler inhalation RF: 0 ferrous fumarate 324 mg (106 mg iron) tablet 324 mg PO DAILY Qty: 30 RF: 5 fluticasone propionate 110 mcg/actuation HFA aerosol inhaler 1 puff inhalation Q12H Qty: 12 RF: 5 Referrals: Rylie Dawson MD [Primary Care Provider] - 2 days Stand Alone Forms: Work/School Release
[2021-02-08 16:09] LABS: Glucose Urine UA NEG (NEG); Leukocyte Esterase Urine NEG (NEG); Nitrite Urine NEG (NEG); UACC Culture Trigger NO; Urine Blood 3+ (NEG); Urine Ketones NEG (NEG); Urine Protein TRACE MG/DL (NEG-TRACE)
[2021-02-08 16:12] LABS: Appearance Urine HAZY; Color Urine YELLOW
[2021-02-08 16:13] LABS: UPreg QC Valid YES; Urine Pregnancy NEGATIVE (NEGATIVE)
[2021-02-08 16:22] LABS: RBC Urine TNTC /HPF (0); Squamous Epithelial Cell Urine 2+ /LPF; WBC Urine 0-2 /HPF (0-4)
== END 2021-02-08 16:46 | disposition home or self-care (01) ==
PROVIDERS: Nurse Practitioner Family; Emergency Provider Emergency Medicine; PCP Internal Medicine
DX: S39.012A Strain of muscle, fascia and tendon of lower back, initial encounter (principal); X58.XXXA Exposure to other specified factors, initial encounter; Y93.9 Activity, unspecified; Y92.9 Unspecified place or not applicable; Y99.9 Unspecified external cause status; Z79.899 Other long term (current) drug therapy
CPT/HCPCS: 72100; 81001; 81025; 96372; 99283; 99284; J1885

== ENCOUNTER 2021-03-14 13:47 | Outpatient (REF) | payer OTHER, SELFPAY ==
[2021-03-15 02:42] LABS: CT PCR NOT DETECTED (Not Detect.); NG PCR NOT DETECTED (Not Detect.)
== END 2021-03-14 13:48 | disposition home or self-care (01) ==
LOC: HO.LAB 13:47
PROVIDERS: PCP Internal Medicine; Visit Provider Advanced Practice Midwife
DX: Z30.430 Encounter for insertion of intrauterine contraceptive device (principal); Z20.2 Contact with and (suspected) exposure to infections with a predominantly sexual mode of transmission
CPT/HCPCS: 58300; 81025; 87491; 87591

== ENCOUNTER 2021-04-22 03:10 | Emergency (ER) | payer OTHER, SELFPAY ==
[2021-04-22 03:13] VITALS: BP 135/64; PULSE 92; RESP 16; TEMP 36.9; O2SAT 95; BMI 38.9
--- NOTE | 2021-04-22 03:38 | ED.PREGNANCY ---
HPI - General Chief complaint: Vaginal Bleeding Stated complaint: pelvic pain, vaginal bleeding Time Seen by Provider: 04/22/21 03:15 Source: patient Mode of arrival: ambulatory Limitations: no limitations History of Present Illness HPI Narrative: Patient comes to the emergency room complaining of pelvic pain. Patient states that she has had an IUD placed 6 weeks now. Patient states she has had constant cervical pain, but today at work it got much worse. Patient reports intermittent vaginal bleeding, sometimes spotting, sometimes no bleeding, sometimes heavy bleeding. Patient states that the reason that she came to the emergency room is because she wants her IUD to be removed. She can no longer stand it. Patient denies vaginal discharge Related Data Home Medications Medication Instructions Recorded Confirmed albuterol sulfate 90 mcg/actuation INHALATION 05/26/20 10/04/20 aerosol inhaler fluticasone furoate 50 2 inh INHALATION DAILY 05/26/20 10/04/20 mcg/actuation blister powder for inhalation ipratropium 0.5 mg-albuterol 3 mg ml INHALATION QID PRN 05/26/20 10/04/20 (2.5 mg base)/3 mL nebulization soln Previous Rx's Medication Instructions Recorded ferrous fumarate 324 mg (106 mg 324 mg PO DAILY #30 tab 10/04/20 iron) tablet fluticasone propionate 110 1 puff INHALATION Q12H #12 g 10/04/20 mcg/actuation HFA aerosol inhaler cholecalciferol (vitamin D3) 1,250 1,250 mcg PO QWEEK 90 Days #13 cap 10/27/20 mcg (50,000 unit) capsule ibuprofen 600 mg tablet 600 mg PO Q6H PRN #20 tab 12/13/20 cyclobenzaprine 10 mg tablet 10 mg PO TID PRN #10 tab 02/08/21 lidocaine 5 % topical patch 1 patch TOPICAL DAILY #15 ea 02/08/21 (Lidoderm) naproxen 500 mg tablet 500 mg PO BID PRN #14 tab 02/08/21 ibuprofen 600 mg tablet 600 mg PO TID PRN #10 tab 04/22/21 Allergies Allergy/AdvReac Type Severity Reaction Status Date / Time apricot [APRICOT] Allergy Unknown RASH Verified 04/22/21 03:12 cephalexin [From KEFLEX] Allergy Unknown RASH Verified 04/22/21 03:12 Review of Systems Review of Systems: Constitutional : No Weight loss, No Fever, No Chills, No Night Sweats, No Fatigue, No Malaise ENT/Mouth : No Hearing loss, No Ear Pain, No Nasal Congestion, No Sinus Pain, No Hoarseness, No sore throat, No Rhinorrhea, No Swallowing Difficulty Eyes: No Eye Pain, No Swelling, No Redness, No Foreign Body, No Discharge, No Vision Changes Cardiovascular : No Chest Pain, No SOB, No Dyspnea on Exertion, No Orthopnea, No Edema, No Palpitations Respiratory : No Cough, No Sputum, No Wheezing, No Smoke Exposure, No Dyspnea Gastrointestinal : No Nausea, No Vomiting, No Diarrhea, No Constipation, No abdominal Pain, No Hematochezia, No Melena Genitourinary : Complaining of irregular bleeding, No Dysuria, No Urinary Frequency, No Hematuria, No Urinary Incontinence, No Urgency, No Flank Pain, No Urinary Flow Changes, No Hesitancy Musculoskeletal : No joint pain, No Myalgias, No Joint Swelling Skin : No Skin Lesions, No rash Neuro : No Weakness, No Numbness, No Paresthesias, No Loss of Consciousness, No Dizziness, No Headache Psych : No Anxiety/Panic, No Depression, No SI/HI/AH/VH, No Social Issues, Heme/Lymph: No Bruising, No Bleeding,No Lymphadenopathy Endocrine : No Polyuria, No Polydipsia, No Temperature Intolerance PMFSH Past Medical History Medical History Anemia Arthritis Asthma Closed right tibial fracture COVID-19 Knee pain, right Mild intermittent asthma Pain and swelling of right lower leg Spondyloarthropathy Tibia/fibula fracture Surgical History H/O foot surgery Hx of section Family History Family History Father Diabetes Mother Thyroid disease Social History Social History Alcohol intake: current Patient Tobacco Use Status: Never used Tobacco Advance Directives: No Advance Directives Information Provided: Yes Gender identity: Female Physical Exam Vital Signs: Vital Signs: Last Vital Signs Temp 98.4 F 10/10/21 03:13 Pulse 92 04/22/21 03:13 Resp 16 04/22/21 03:13 BP 135/64 04/22/21 03:13 Pulse Ox 95 04/22/21 03:13 Body Mass Index 38.9 Const: Other: Appearance: Alert. Oriented X3. No acute distress. Eyes: Pupils equal, round and reactive to light. ENT: Pharynx normal. Neck: Normal inspection. Neck supple. No lymph nodes noted. No crepitus CVS: Normal heart rate and rhythm. Pulses normal. Normal S1 and S2 Respiratory: No respiratory distress. Breath sounds normal. No Wheezing. No rales Abdomen: Soft and nontender. No rigidity. No distention : Moderate amount of blood in vaginal vault, strings of the IUD are visible Skin: Skin warm and dry. Normal skin color. Normal skin turgor. Extremities: No lower extremity edema. No Lacerations. No Rash Neuro: Oriented X 3. No motor deficit. No sensory deficit. Moving all extermities. No slurred speech. Course Course Course Narrative: I discussed with the patient that if she is having discomfort, we can do imaging to check for IUD position. Patient states that whether the IUDs place correctly, she wants to have it removed. Patient states she has an appointment coming up in 5 days with her OBGYN, but states she cannot wait until then due to the severe discomfort of her IUD. I discussed with the patient that she will have intermittent and likely heavy bleeding, trying to discourage her from doing the procedure today, and encouraged to talk to her curatorial assistant 1st. Patient refused, states that she would really want to have the IUD taken out today. Patient's IUD was removed easily, patient was provided with 600 mg of ibuprofen. Patient instructed to use control such as condoms to prevent MDM - OB/Uterine Contractions Lab Data Labs: Lab Results 04/22/21 04/22/21 Range/Units 03:44 03:44 Urine Color DK YELLOW Urine Appearance HAZY Urine pH 6.0 (5.0-8.0) Ur Specific [place] >= 1.030 H (1.005-1.025) Urine Protein 1+ H (NEG-TRACE) MG/DL Urine Glucose (UA) NEG (NEG) MG/DL Urine Ketones NEG (NEG) MG/DL Urine Blood 3+ H (NEG) Urine Nitrite NEG (NEG) Ur Leukocyte Esterase NEG (NEG) Urine RBC 15-29 H (0) /HPF Urine WBC 0-2 (0-4) /HPF Ur Squamous Epith Cells 2+ /LPF Urine Bacteria NONE /LPF Urine Mucus 2+ /LPF Urine Test NEGATIVE (NEGATIVE) Discharge Plan Discharge Clinical Impression: Encounter for IUD removal Patient Disposition: Home, Self-Care Instructions: Pelvic Pain (ED) Additional Instructions: Please follow-up with your primary care physician tomorrow. If you have any worsening or new symptoms, please return to the emergency room or call 911 Prescriptions: New ibuprofen 600 mg tablet 600 mg PO TID PRN (Reason: fever) Qty: 10 RF: 0 No Action cholecalciferol (vitamin D3) 1,250 mcg (50,000 unit) capsule 1,250 mcg PO QWEEK 90 Days Qty: 13 RF: 0 ibuprofen 600 mg tablet 600 mg PO Q6H PRN (Reason: pain) Qty: 20 RF: 0 naproxen 500 mg tablet 500 mg PO BID PRN (Reason: pain) Qty: 14 RF: 0 cyclobenzaprine 10 mg tablet 10 mg PO TID PRN (Reason: muscle spasm) Qty: 10 RF: 0 lidocaine [Lidoderm] 5 % adhesive patch,medicated 1 patch topical DAILY Qty: 15 RF: 0 Arnuity Ellipta 50 mcg/actuation blister with device 2 inh inhalation DAILY RF: 0 ipratropium-albuterol 0.5 mg-3 mg(2.5 mg base)/3 mL solution for nebulization inhalation QID PRN (Reason: wheezing) RF: 0 albuterol sulfate 90 mcg/actuation HFA aerosol inhaler inhalation RF: 0 ferrous fumarate 324 mg (106 mg iron) tablet 324 mg PO DAILY Qty: 30 RF: 5 fluticasone propionate 110 mcg/actuation HFA aerosol inhaler 1 puff inhalation Q12H Qty: 12 RF: 5
--- NOTE | 2021-04-22 03:45 | PC.NURSE ---
pt to room, chg into gown and MD at bedside for eval. pt requesting the IUD to be removed at this time. pt up to restroom for urine sample sent to lab. will continue to monitor pt.
[2021-04-22 03:54] LABS: Appearance Urine HAZY; Color Urine DK YELLOW; Glucose Urine UA NEG (NEG); Leukocyte Esterase Urine NEG (NEG); Nitrite Urine NEG (NEG); Specific Gravity - Urine >= 1.030 (1.005-1.025); UACC Culture Trigger NO; Urine Blood 3+ (NEG); Urine Ketones NEG (NEG); Urine Protein 1+ MG/DL (NEG-TRACE)
[2021-04-22 04:01] LABS: UPreg QC Valid YES; Urine Pregnancy NEGATIVE (NEGATIVE)
[2021-04-22 04:06] LABS: Squamous Epithelial Cell Urine 2+ /LPF; WBC Urine 0-2 /HPF (0-4)
[2021-04-22 04:07] LABS: Mucus Urine 2+ /LPF
[2021-04-22] MEDS: Ibuprofen 600 MG TABLET PO (04:31)
--- NOTE | 2021-04-22 04:34 | PC.NURSE ---
in room to removed the IUD. Pt tolerated well. pt medicated as per emar for abd pain and cramping. pt awaiting for discharge instructions.
== END 2021-04-22 04:47 | disposition home or self-care (01) ==
PROVIDERS: Emergency Provider Emergency Medicine; PCP Internal Medicine
DX: R10.2 Pelvic and perineal pain (principal); Z30.432 Encounter for removal of intrauterine contraceptive device
CPT/HCPCS: 58301; 81001; 81003; 81025; 99283; 99284

== ENCOUNTER 2021-06-28 18:58 | Emergency (ER) | payer OTHER, SELFPAY ==
[2021-06-28 19:01] VITALS: BP 138/92; PULSE 115; RESP 20; TEMP 36.3; O2SAT 97; BMI 39.1
[2021-06-28 20:21] LABS: Basophils Percent Auto 0.5 % (0-2); Eosinophils Absolute Auto 0.2 X10*3/uL (0.0-0.4); Eosinophils Percent Auto 2.3 % (0-4); Hematocrit 34.4 % (37.0-47.0); Hemoglobin 10.9 g/dl (12.0-16.0); Imm Gran Abs Auto 0.02 X10*3/uL (0.00-0.03); Imm Gran Pct Auto 0.2 % (0.0-0.4); Lymphocytes Absolute Auto 1.3 X10*3/uL (1.2-4.9); Lymphocytes Percent Auto 14.4 % (20-40); MANUAL DIFF FLAG NO; Mean Corpuscular HGB Conc 31.7 g/dl (31.0-35.0); Mean Corpuscular Hemoglobin 23.1 pg (27.0-33.0); Mean Corpuscular Volume 72.9 fL (80.0-98.0); Mean Platelet Volume 9.5 fL (9.4-12.3); Monocytes Absolute Auto 0.6 X10*3/uL (0.1-1.2); Monocytes Percent Auto 7.2 % (2-11); Neutrophils Absolute Auto 6.7 x10*3/uL (2.0-8.3); Neutrophils Percent Auto 75.4 % (45-73); Platelet Count 416 X10*3/uL (160-400); Red Blood Count 4.72 X10*6/uL (4.20-5.50); Red Cell Distribution Width 17.5 % (11.0-16.0); White Blood Count 8.8 X10*3/uL (4.8-10.8)
[2021-06-28 20:34] LABS: Anion Gap 10 (12-20); Blood Urea Nitrogen 10 mg/dL (9-16); Calcium 9.6 mg/dL (8.4-10.2); Carbon Dioxide 29 mmol/L (22-29); Chloride 103 mmol/L (96-108); Estimated Glomerular Filt Rate > 60; Glucose Random 87 mg/dL (60-115); Potassium 3.9 mmol/L (3.3-5.1); Sodium 138 mmol/L (135-145)
[2021-06-28 20:41] LABS: HCG Quantitative < 2 mIU/mL
[2021-06-28 22:55] VITALS: BP 124/73; PULSE 91; RESP 20; O2SAT 99
--- NOTE | 2021-06-28 23:24 | ED_ITS ---
HPI - Female Genitourinary General Chief complaint: Urogenital-Female Stated complaint: abnormal vaginal bleeding Time Seen by Provider: 06/28/21 23:24 Source: patient Mode of arrival: ambulatory Limitations: no limitations History of Present Illness HPI Narrative: 25 years old female not known , who came in for evaluation of excessive Menstrual period. Patient normally get her. At the end of the months yesterday unexpectedly patient had her. , patient is concerned because the. With heavier than normal with more painful cramps than usual, patient also complained of lightheadedness since yesterday, no chest pain no shortness of breath. Related Data Home Medications Medication Instructions Recorded Confirmed albuterol sulfate 90 mcg/actuation INHALATION 05/26/20 10/04/20 aerosol inhaler fluticasone furoate 50 2 inh INHALATION DAILY 05/26/20 10/04/20 mcg/actuation blister powder for inhalation ipratropium 0.5 mg-albuterol 3 mg ml INHALATION QID PRN 05/26/20 10/04/20 (2.5 mg base)/3 mL nebulization soln Previous Rx's Medication Instructions Recorded ferrous fumarate 324 mg (106 mg 324 mg PO DAILY #30 tab 10/04/20 iron) tablet fluticasone propionate 110 1 puff INHALATION Q12H #12 g 10/04/20 mcg/actuation HFA aerosol inhaler cholecalciferol (vitamin D3) 1,250 1,250 mcg PO QWEEK 90 Days #13 cap 10/27/20 mcg (50,000 unit) capsule ibuprofen 600 mg tablet 600 mg PO Q6H PRN #20 tab 12/13/20 cyclobenzaprine 10 mg tablet 10 mg PO TID PRN #10 tab 02/08/21 lidocaine 5 % topical patch 1 patch TOPICAL DAILY #15 ea 02/08/21 (Lidoderm) naproxen 500 mg tablet 500 mg PO BID PRN #14 tab 02/08/21 ibuprofen 600 mg tablet 600 mg PO TID PRN #10 tab 04/22/21 Allergies Allergy/AdvReac Type Severity Reaction Status Date / Time apricot [APRICOT] Allergy Unknown RASH Verified 04/22/21 03:12 cephalexin [From KEFLEX] Allergy Unknown RASH Verified 04/22/21 03:12 Review of Systems Review of Systems: All other systems are reviewed and are negative Constitutional: Reports as per HPI and Reports no additional constitutional complaints Eyes: Reports as per HPI and Reports no additional eye complaints Reports system reviewed and no additional complaints, except as documented Cardiovascular: Reports as per HPI and Reports no additional cardiovascular complaints Respiratory: Reports as per HPI and Reports no additional respiratory complaints Gastrointestinal: Reports as per HPI and Reports no additional gastrointestinal complaints Genitourinary: Reports no additional female genitourinary complaints Musculoskeletal: Reports no additional musculoskeletal complaints Skin/Breast: Reports system reviewed and no additional complaints, except as docu Psychiatric: Reports no additional psychiatric complaints Endocrine: Reports no additional endocrine complaints Hematologic/Lymphatic: Reports no additional hematologic/lymphatic complaints Allergic/Immunologic: Reports no additional allergic/immunologic complaints Reports system reviewed and no additional complaints, except as documented and Reports Abnormal speech present [facility] Past Medical History Medical History Anemia Arthritis Asthma Closed right tibial fracture COVID-19 Knee pain, right Mild intermittent asthma Pain and swelling of right lower leg Spondyloarthropathy Tibia/fibula fracture Surgical History H/O foot surgery Hx of section Family History Family History Father Diabetes Mother Thyroid disease Social History Social History Alcohol intake: current Patient Tobacco Use Status: Never used Tobacco Advance Directives: No Advance Directives Information Provided: No Gender identity: Female Physical Exam Vital Signs: Vital Signs: Last Vital Signs Temp 98.1 F 06/29/21 00:46 Pulse 94 06/29/21 00:46 Resp 16 06/29/21 00:46 BP 119/70 06/29/21 00:46 Pulse Ox 100 06/29/21 00:46 BMI result Body Mass Index 39.1 vital signs have been reviewed as appeared to be correct. Blood pressure normal. Heart rate normal. Respiration rate normal. Temperature normal. Oxygen saturation normal. Appearance: Alert. Oriented X3. No acute distress. Head: Normal external exam. Normocephalic. Atraumatic. No Guillen signs noted. No raccoon eyes noted Eyes: PERRLA. EOMI. Conjunctiva and sclera normal. Eyelids normal. ENT: TM's Normal. Pharynx normal. Uvula midline. Moist mucous membranes. No trismus noted. No drooling noted. No muffled voice noted. Neck: Normal inspection. Neck supple. FROM. No adenopathy. Thyroid Normal. No meningeal signs. No neck mass noted. CVS: Normal heart rate and rhythm. Heart sound normal. No murmurs noted. Pulses normal throughout. Respiratory: No respiratory distress. Painless inspiration. Breath sounds normal. No wheezes/rales/rhonchi noted. Chest nontender. No accessory muscle usage noted or decreased air movement noted. Abdomen: Soft and nontender. Bowel sounds normal in all 4 quadrants. No distention noted. No organomegaly noted. No visible injury noted. pelvic exam: Normal external genitalia inspection, small amount of blood in the vault, no active bleeding from the cervix, no CMT, no palpable adnexa. Back: No CVA tenderness. Full range of motion noted. Skin: Skin warm and dry. Normal skin color. Normal skin turgor. No rashes/lesions/lacerations noted. Extremities: No lower extremity edema. Extremities exhibit normal range of motion. Extremities nontender. Neuro: Oriented X 3. Cranial nerve exam: II-XII are grossly intact No motor deficit. No sensory deficit. Reflexes normal. Course Course Course Narrative: Assessment and plan. 25-year-old female came in for evaluation of menorrhagia, patient hemodynamically stable, no orthostatic discrepancy, CBC appears stable at baseline. test is negative. Discharge the patient follow-up with OBGYN [facility] - Female Genitourinary Medical Records Attestation: I reviewed the patient's medical records. Lab Data Attestation: I reviewed the patient's lab results. Result diagrams: 06/28/21 20:15 06/28/21 20:15 Labs: Lab Results 06/28/21 06/28/21 06/28/21 Range/Units 20:15 20:15 20:15 WBC 8.8 (4.8-10.8) X10*3/uL RBC 4.72 (4.20-5.50) X10*6/uL Hgb 10.9 L (12.0-16.0) g/dl Hct 34.4 L (37.0-47.0) % MCV 72.9 L (80.0-98.0) fL MCH 23.1 L (27.0-33.0) pg MCHC 31.7 (31.0-35.0) g/dl RDW 17.5 H (11.0-16.0) % Plt Count 416 H (160-400) X10*3/uL MPV 9.5 (9.4-12.3) fL Immature Gran % (Auto) 0.2 (0.0-0.4) % Neut % (Auto) 75.4 H (45-73) % Lymph % (Auto) 14.4 L (20-40) % [place] % (Auto) 7.2 (2-11) % Eos % (Auto) 2.3 (0-4) % Baso % (Auto) 0.5 (0-2) % Lymph # (Auto) 1.3 (1.2-4.9) X10*3/uL [place] # (Auto) 0.6 (0.1-1.2) X10*3/uL Eos # (Auto) 0.2 (0.0-0.4) X10*3/uL Baso # (Auto) 0.0 (0.0-0.2) X10*3/uL Abs Immat Gran (auto) 0.02 (0.00-0.03) X10*3/uL Absolute Neuts (auto) 6.7 (2.0-8.3) x10*3/uL Absolute Nucleated RBC 0.000 (0.0-0.012) X10*3/uL Nucleated RBC % (auto) 0.0 (0.0-0.2) /100WBC Sodium 138 (135-145) mmol/L Potassium 3.9 (3.3-5.1) mmol/L Chloride 103 (96-108) mmol/L Carbon Dioxide 29 (22-29) mmol/L Anion Gap 10 L (12-20) BUN 10 (9-16) mg/dL Creatinine 0.74 (0.5-1.4) mg/dL Estim Creat Clear Calc 151.0 Estimated GFR > 60 Random Glucose 87 (60-115) mg/dL Calcium 9.6 (8.4-10.2) mg/dL Beta HCG, Quant < 2 mIU/mL Urine Color Urine Appearance Urine pH (5.0-8.0) Ur Specific [place] (1.005-1.025) Urine Protein (NEG-TRACE) MG/DL Urine Glucose (UA) (NEG) MG/DL Urine Ketones (NEG) MG/DL Urine Blood (NEG) Urine Nitrite (NEG) Ur Leukocyte Esterase (NEG) Urine RBC (0) /HPF Urine WBC (0-4) /HPF Ur Squamous Epith Cells /LPF Urine Bacteria /LPF Urine Test (NEGATIVE) 06/28/21 06/28/21 Range/Units 23:30 23:30 WBC (4.8-10.8) X10*3/uL RBC (4.20-5.50) X10*6/uL Hgb (12.0-16.0) g/dl Hct (37.0-47.0) % MCV (80.0-98.0) fL MCH (27.0-33.0) pg MCHC (31.0-35.0) g/dl RDW (11.0-16.0) % Plt Count (160-400) X10*3/uL MPV (9.4-12.3) fL Immature Gran % (Auto) (0.0-0.4) % Neut % (Auto) (45-73) % Lymph % (Auto) (20-40) % [place] % (Auto) (2-11) % Eos % (Auto) (0-4) % Baso % (Auto) (0-2) % Lymph # (Auto) (1.2-4.9) X10*3/uL [place] # (Auto) (0.1-1.2) X10*3/uL Eos # (Auto) (0.0-0.4) X10*3/uL Baso # (Auto) (0.0-0.2) X10*3/uL Abs Immat Gran (auto) (0.00-0.03) X10*3/uL Absolute Neuts (auto) (2.0-8.3) x10*3/uL Absolute Nucleated RBC (0.0-0.012) X10*3/uL Nucleated RBC % (auto) (0.0-0.2) /100WBC Sodium (135-145) mmol/L Potassium (3.3-5.1) mmol/L Chloride (96-108) mmol/L Carbon Dioxide (22-29) mmol/L Anion Gap (12-20) BUN (9-16) mg/dL Creatinine (0.5-1.4) mg/dL Estim Creat Clear Calc Estimated GFR Random Glucose (60-115) mg/dL Calcium (8.4-10.2) mg/dL Beta HCG, Quant mIU/mL Urine Color STRAW Urine Appearance HAZY Urine pH 6.0 (5.0-8.0) Ur Specific [place] 1.020 (1.005-1.025) Urine Protein TRACE (NEG-TRACE) MG/DL Urine Glucose (UA) NEG (NEG) MG/DL Urine Ketones NEG (NEG) MG/DL Urine Blood 3+ H (NEG) Urine Nitrite NEG (NEG) Ur Leukocyte Esterase NEG (NEG) Urine RBC 76-150 H (0) /HPF Urine WBC 1-4 (0-4) /HPF Ur Squamous Epith Cells 2+ /LPF Urine Bacteria 2+ /LPF Urine Test NEGATIVE (NEGATIVE) Discharge Plan Discharge Clinical Impression: Menorrhagia Patient Disposition: Home, Self-Care Instructions: Menorrhagia (ED) Additional Instructions: follow-up with your OBGYN, return to the emergency departmen if symptoms is getting worse. Prescriptions: No Action cholecalciferol (vitamin D3) 1,250 mcg (50,000 unit) capsule 1,250 mcg PO QWEEK 90 Days Qty: 13 RF: 0 ibuprofen 600 mg tablet 600 mg PO Q6H PRN (Reason: pain) Qty: 20 RF: 0 naproxen 500 mg tablet 500 mg PO BID PRN (Reason: pain) Qty: 14 RF: 0 cyclobenzaprine 10 mg tablet 10 mg PO TID PRN (Reason: muscle spasm) Qty: 10 RF: 0 lidocaine [Lidoderm] 5 % adhesive patch,medicated 1 patch topical DAILY Qty: 15 RF: 0 ibuprofen 600 mg tablet 600 mg PO TID PRN (Reason: fever) Qty: 10 RF: 0 Arnuity Ellipta 50 mcg/actuation blister with device 2 inh inhalation DAILY RF: 0 ipratropium-albuterol 0.5 mg-3 mg(2.5 mg base)/3 mL solution for nebulization inhalation QID PRN (Reason: wheezing) RF: 0 albuterol sulfate 90 mcg/actuation HFA aerosol inhaler inhalation RF: 0 ferrous fumarate 324 mg (106 mg iron) tablet 324 mg PO DAILY Qty: 30 RF: 5 fluticasone propionate 110 mcg/actuation HFA aerosol inhaler 1 puff inhalation Q12H Qty: 12 RF: 5 Referrals: Rylie Dawson MD [Primary Care Provider] - 2 days
[2021-06-28 23:40] LABS: Appearance Urine HAZY; Color Urine STRAW; Glucose Urine UA NEG (NEG); Leukocyte Esterase Urine NEG (NEG); Nitrite Urine NEG (NEG); UACC Culture Trigger NO; Urine Blood 3+ (NEG); Urine Ketones NEG (NEG); Urine Protein TRACE MG/DL (NEG-TRACE)
[2021-06-28 23:42] LABS: UPreg QC Valid YES; Urine Pregnancy NEGATIVE (NEGATIVE)
[2021-06-28 23:45] VITALS: BP 121/83; PULSE 89
[2021-06-28 23:47] VITALS: BP 122/76; PULSE 87
[2021-06-28 23:48] VITALS: BP 116/84; PULSE 92
[2021-06-28 23:50] LABS: Bacteria Urine 2+ /LPF; Squamous Epithelial Cell Urine 2+ /LPF
[2021-06-29 00:46] VITALS: BP 119/70; PULSE 94; RESP 16; TEMP 36.7; O2SAT 100
== END 2021-06-29 01:29 | disposition home or self-care (01) ==
PROVIDERS: Emergency Provider Emergency Medicine; PCP Internal Medicine
DX: N92.0 Excessive and frequent menstruation with regular cycle (principal)
CPT/HCPCS: 36415; 80048; 81001; 81025; 84702; 85025; 99283; 99284

== ENCOUNTER 2021-07-09 10:25 | Outpatient (REF) | payer OTHER, SELFPAY ==
[2021-07-10 09:07] LABS: Rubella IgG Antibody 4.84 Index; Rubeola IgG (Measles) >300.00 AU/mL
[2021-07-11 21:12] LABS: TS Negative Control Passed; TS Panel A 0; TS Panel B 0; TS Positive Control Passed; TSpotTB Negative (Negative)
== END 2021-07-09 10:26 | disposition home or self-care (01) ==
LOC: HO.HMGCLDS 10:25
PROVIDERS: PCP Internal Medicine; Visit Provider Internal Medicine
DX: Z01.84 Encounter for antibody response examination (principal); Z11.1 Encounter for screening for respiratory tuberculosis; Z78.9 Other specified health status
CPT/HCPCS: 36415; 86481; 86735; 86762; 86765

== ENCOUNTER 2021-07-28 04:26 | Emergency (ER) | payer OTHER, SELFPAY ==
--- NOTE | ~2021-07-28 | XR_ITS ---
EXAMINATION: XR CHEST CLINICAL INFORMATION: Cough COMPARISON: 07.22.2020 TECHNIQUE: Frontal view of the chest was obtained. FINDINGS: No significant abnormality is noted involving the heart, lungs, mediastinum, bony thorax or soft tissues. XR/XR chest 1V IMPRESSION: Unremarkable examination.
[2021-07-28 04:34] VITALS: BP 133/77; PULSE 97; RESP 16; TEMP 36.2; O2SAT 95; BMI 37.9
[2021-07-28 04:57] LABS: COVID-19 Test Negative (Negative)
--- NOTE | 2021-07-28 07:58 | ED.URI ---
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 A patient reports that 2 of her patients at work have been positive for COVID. Patient has a past history of asthma, but her albuterol inhaler has her in her nebulizer machine has broken. Patient has been vaccinated and boosted for COVID, and has also had her flu shot. MD elicited complaint: cough Pertinent past history: asthma Onset (ago): day(s) (2) Consistency: constant Severity: moderate Able to tolerate fluids by mouth: Yes Exacerbating factors: nothing Relieving factors: nothing Context: sick contacts Associated symptoms: fever, myalgias, rhinorrhea, nasal congestion, cough, nausea, vomiting and diarrhea Treatments prior to arrival: acetaminophen Related Data Home Medications Medication Instructions Recorded Confirmed albuterol sulfate 90 mcg/actuation INHALATION 05/26/20 10/04/20 aerosol inhaler fluticasone furoate 50 2 inh INHALATION DAILY 05/26/20 10/04/20 mcg/actuation blister powder for inhalation ipratropium 0.5 mg-albuterol 3 mg ml INHALATION QID PRN 05/26/20 10/04/20 (2.5 mg base)/3 mL nebulization soln Previous Rx's Medication Instructions Recorded ferrous fumarate 324 mg (106 mg 324 mg PO DAILY #30 tab 10/04/20 iron) tablet fluticasone propionate 110 1 puff INHALATION Q12H #12 g 10/04/20 mcg/actuation HFA aerosol inhaler cholecalciferol (vitamin D3) 1,250 1,250 mcg PO QWEEK 90 Days #13 cap 10/27/20 mcg (50,000 unit) capsule ibuprofen 600 mg tablet 600 mg PO Q6H PRN #20 tab 12/13/20 cyclobenzaprine 10 mg tablet 10 mg PO TID PRN #10 tab 02/08/21 lidocaine 5 % topical patch 1 patch TOPICAL DAILY #15 ea 02/08/21 (Lidoderm) naproxen 500 mg tablet 500 mg PO BID PRN #14 tab 02/08/21 ibuprofen 600 mg tablet 600 mg PO TID PRN #10 tab 04/22/21 albuterol sulfate 90 mcg/actuation 2 puff INHALATION Q4-6H PRN #8.5 g 07/28/21 aerosol inhaler (ProAir HFA) dexamethasone 6 mg tablet 6 mg PO DAILY 3 Days #3 tab 07/28/21 ondansetron 4 mg disintegrating 4 mg PO Q8H 3 Days #9 tab 07/28/21 tablet Allergies Allergy/AdvReac Type Severity Reaction Status Date / Time apricot [APRICOT] Allergy Unknown RASH Verified 07/28/21 04:34 cephalexin [From KEFLEX] Allergy Unknown RASH Verified 07/28/21 04:34 Review of Systems Constitutional: Constitutional: Reports body ache(s), Reports chills, Reports fatigue, Reports fever(s), Denies headache(s), Reports malaise and Denies weakness Eyes: Eyes: Denies diplopia ENT: Denies dizziness, Denies otalgia, Denies headache(s), Reports nasal congestion, Reports nasal discharge, Reports post nasal drip, Denies sinus pain and Denies sore throat Cardiovascular: Cardiovascular: Denies chest pain, Denies syncope, Denies leg edema, Denies lightheadedness, Denies Loss of Consciousness, Denies palpitations and Denies dyspnea Respiratory: Respiratory: Denies chest congestion, Reports cough, Denies dyspnea and Reports wheezing Gastrointestinal: Gastrointestinal: Denies abdominal pain, Denies hematochezia, Denies constipation, Reports diarrhea, Reports nausea and Reports vomiting Genitourinary: Genitourinary: Reports no additional female genitourinary complaints Musculoskeletal: Musculoskeletal: Reports myalgias Integumentary/Breasts: Skin/Breast: Denies erythema and Denies rash Neurologic: Denies confusion, Denies dizziness, Denies syncope, Denies headache(s) and Denies weakness Psychiatric: Psychiatric: Denies anxiety, Denies confusion and Denies depression Endocrine: Endocrine: Reports fatigue and Denies palpitations Allergic/Immunologic: Allergic/Immunologic: Reports wheezing PMFSH Past Medical History Medical History Anemia Arthritis Asthma Closed right tibial fracture COVID-19 Knee pain, right Mild intermittent asthma Pain and swelling of right lower leg Spondyloarthropathy Tibia/fibula fracture Surgical History H/O foot surgery Hx of section Family History Family History Father Diabetes Mother Thyroid disease Social History Social History Alcohol intake: current Patient Tobacco Use Status: Never used Tobacco Advance Directives: No Patient : No Gender identity: Female Physical Exam Vital Signs: Vital Signs: Last Vital Signs Temp 97.2 F 07/28/21 04:34 Pulse 97 07/28/21 08:47 Resp 20 07/28/21 08:47 BP 133/77 07/28/21 04:34 Pulse Ox 95 07/28/21 04:34 BMI result Body Mass Index 37.9 Const: General: alert, awake and ill appearing (mildly) acutely; No confusion Nutritional Appearance: obese centrally obese Orientation/consciousness: patient oriented x3 and No confusion Limitations: no limitations HENMT: Head: Yes normal to inspection, Yes normocephalic and Yes atraumatic Ears: hearing grossly normal bilaterally, external ears normal, TM normal on the right, EAC's normal and TM abnormal dull and with fluid behind the TM on the left General nose exam: Normal external nose present Face and sinus: Yes normal facial exam and Yes sinuses nontender Mouth: Normal oral and palatal mucosa present and moist mucous membranes Throat: Yes posterior oropharynx abnormal (erythema posteriorally) and Yes postnasal drainage Eyes: Conjunctivae: conjunctivae normal Pupils: Equal, round and reactive pupils present EOM: EOMs intact bilaterally Neck: Neck: Yes full ROM, Yes no lymphadenopathy and Yes supple Resp: Effort & Inspection: normal respiratory effort, able to speak in complete sentences, no audible wheezes, not labored, no nasal flaring and not tachypneic Auscultation: no crackles, no rales, no rhonchi and wheezes inspiratory wheezes and throughout Cardio: Rate: regular rate Rhythm: regular rhythm Heart sounds: S1 normal heart sound present and S2 normal heart sound present GI: Inspection: Yes normal to inspection Palpation (GI): Soft to palpation, nontender, no guarding and not rigid Percussion: Yes normal to percussion Auscultation: normal bowel sounds Skin: General skin exam: no rashes or lesions noted Neuro: General: patient oriented x3 and No confusion Cranial nerves: Yes Equal, round and reactive pupils present Extrem: General: Yes normal to inspection and Yes full ROM Psych: Appearance: grossly normal Affect: normal affect Attitude: cooperative Thought process: Normal thought process present Course Course Course Narrative: 25-year-old female with COVID exposure and COVID like symptoms for 2 the last 48 hours presents for evaluation. On exam, patient looks mildly ill, vital signs are stable, she is RR of 16, and is satting 95% on room air. Not hypoxic, tachypneic, or tachycardic. Afebrile Patient has inspiratory wheezes diffusely throughout. Patient has mild posterior erythema, postnasal drip. Abdominal exam is benign. A rapid antigen COVID test is negative today. Chest x-ray is unremarkable. Will test for flu, given inhaler, Zofran. I would assume this is COVID, and that patient will most likely test positive for COVID in the next 2-3 days Reevaluation(s) Reevaluation #1: Flu negative. On repeat exam, patient is moving more air, but still has inspiratory fine wheezes with rhonchi. Will treat with dexamethasone, prescribe Zofran and albuterol inhaler, will write note for patient to stay out of work for 10 days, as I presume this is COVID, and counseled patient to get a pulse oximeter to monitor her oxygen saturation, and to return if it goes below 89 %, she feels short of breath, or cause chest pain, or worsening symptoms MDM - URI/Sore Throat Lab Data Labs: Lab Results 07/28/21 07/28/21 Range/Units 04:30 08:44 COVID-19 ([facility]) Negative (Negative) COVID-19 Clin Com See Note Influenza Type A ([facility]) Negative (Negative) Influenza Type B ([facility]) Negative (Negative) Influenza A & B Note See Note Discharge Plan Discharge Clinical Impression: COVID-19 Patient Disposition: Home, Self-Care Instructions: COVID-19 (Coronavirus Disease 2019) (ED) Additional Instructions: Although your rapid COVID test came back negative today, you have the symptoms of COVID-19, and you have been exposed to COVID. I would expect in the next 2-3 days, another rapid COVID test will return positive. Therefore, we will treat you as if this is COVID-19, and have the stay out of work for 10 days He stay home nicely, if you are able to buy a pulse oximeter, please monitor oxygen saturation. If you feel worsening shortness of breath or chest pain, please return to the emergency room. Please drink plenty of fluids, take Tylenol. I would like you to use your albuterol inhaler, 2 puffs every 4 hours while your await for the next 3-4 days. Also take Zofran every 8 hours with the next 2 days, this will help with your nausea. Please also take dexamethasone, starting tomorrow morning, this is a steroid suppository to be on his own, this will help with the wheezing. Please call your primary care provider on Friday for follow-up appointment. Please return to emergency room for any other new or concerning symptoms Prescriptions: New dexamethasone 6 mg tablet 6 mg PO DAILY 3 Days Qty: 3 RF: 0 ondansetron 4 mg tablet,disintegrating 4 mg PO Q8H 3 Days Qty: 9 RF: 0 albuterol sulfate [ProAir HFA] 90 mcg/actuation HFA aerosol inhaler 2 puff inhalation Q4-6H PRN (Reason: shortness of breath or wheezing) Qty: 8.5 RF: 0 No Action cholecalciferol (vitamin D3) 1,250 mcg (50,000 unit) capsule 1,250 mcg PO QWEEK 90 Days Qty: 13 RF: 0 ibuprofen 600 mg tablet 600 mg PO Q6H PRN (Reason: pain) Qty: 20 RF: 0 naproxen 500 mg tablet 500 mg PO BID PRN (Reason: pain) Qty: 14 RF: 0 cyclobenzaprine 10 mg tablet 10 mg PO TID PRN (Reason: muscle spasm) Qty: 10 RF: 0 lidocaine [Lidoderm] 5 % adhesive patch,medicated 1 patch topical DAILY Qty: 15 RF: 0 ibuprofen 600 mg tablet 600 mg PO TID PRN (Reason: fever) Qty: 10 RF: 0 Arnuity Ellipta 50 mcg/actuation blister with device 2 inh inhalation DAILY RF: 0 ipratropium-albuterol 0.5 mg-3 mg(2.5 mg base)/3 mL solution for nebulization inhalation QID PRN (Reason: wheezing) RF: 0 albuterol sulfate 90 mcg/actuation HFA aerosol inhaler inhalation RF: 0 ferrous fumarate 324 mg (106 mg iron) tablet 324 mg PO DAILY Qty: 30 RF: 5 fluticasone propionate 110 mcg/actuation HFA aerosol inhaler 1 puff inhalation Q12H Qty: 12 RF: 5 Stand Alone Forms: Work/School Release
[2021-07-28] MEDS: Ondansetron ODT 4 MG TAB.RAPDIS TRANSLINGU (08:40)
[2021-07-28 08:47] VITALS: PULSE 97; RESP 20; O2SAT 95
[2021-07-28] MEDS: Albuterol Sulfate 90 MCG 8 GM INHALER 2 PUFF INHALE (08:47)
[2021-07-28 09:07] LABS: IDNOW Serial# 9DD0AD1C; Influenza A Negative (Negative); Influenza B2 Negative (Negative)
[2021-07-28] MEDS: dexAMETHasone 6 MG TABLET PO (09:56)
[2021-07-28 10:05] VITALS: PULSE 75; RESP 18; O2SAT 99
== END 2021-07-28 10:06 | disposition home or self-care (01) ==
PROVIDERS: Physician Assistant; Emergency Provider Emergency Medicine; PCP Internal Medicine
DX: U07.1 COVID-19 (principal); J45.909 Unspecified asthma, uncomplicated
CPT/HCPCS: 71045; 87502; 87635; 94640; 99283; 99284; J8540

== ENCOUNTER 2021-08-23 19:57 | Emergency (ER) | payer OTHER, SELFPAY ==
[2021-08-23 21:09] VITALS: BP 138/67; PULSE 87; RESP 16; TEMP 36.6; O2SAT 98; BMI 41.6
[2021-08-24 02:00] VITALS: BP 122/82; PULSE 91; RESP 16; TEMP 36.2; O2SAT 99
--- NOTE | 2021-08-24 02:17 | ED.SKABFB ---
HPI - Skin/Abscess/Foreign Bdy General Chief complaint: Skin/Abscess/Foreign Body Stated complaint: rash on back of neck Time Seen by Provider: 08/24/21 02:17 Source: patient Mode of arrival: ambulatory Limitations: no limitations History of Present Illness complaint: rash Onset (ago): day(s) (2) Tetanus up to date: yes Location: neck Severity: mild Quality: pruritic Relieving factors: none Exacerbating factors: none Context: none Associated symptoms: denies other symptoms Treatments prior to arrival: none Related Data Home Medications Medication Instructions Recorded Confirmed albuterol sulfate 90 mcg/actuation INHALATION 05/26/20 10/04/20 aerosol inhaler fluticasone furoate 50 2 inh INHALATION DAILY 05/26/20 10/04/20 mcg/actuation blister powder for inhalation ipratropium 0.5 mg-albuterol 3 mg ml INHALATION QID PRN 05/26/20 10/04/20 (2.5 mg base)/3 mL nebulization soln Previous Rx's Medication Instructions Recorded ferrous fumarate 324 mg (106 mg 324 mg PO DAILY #30 tab 10/04/20 iron) tablet fluticasone propionate 110 1 puff INHALATION Q12H #12 g 10/04/20 mcg/actuation HFA aerosol inhaler cholecalciferol (vitamin D3) 1,250 1,250 mcg PO QWEEK 90 Days #13 cap 10/27/20 mcg (50,000 unit) capsule ibuprofen 600 mg tablet 600 mg PO Q6H PRN #20 tab 12/13/20 cyclobenzaprine 10 mg tablet 10 mg PO TID PRN #10 tab 02/08/21 lidocaine 5 % topical patch 1 patch TOPICAL DAILY #15 ea 02/08/21 (Lidoderm) naproxen 500 mg tablet 500 mg PO BID PRN #14 tab 02/08/21 ibuprofen 600 mg tablet 600 mg PO TID PRN #10 tab 04/22/21 albuterol sulfate 90 mcg/actuation 2 puff INHALATION Q4-6H PRN #8.5 g 07/28/21 aerosol inhaler (ProAir HFA) dexamethasone 6 mg tablet 6 mg PO DAILY 3 Days #3 tab 07/28/21 ondansetron 4 mg disintegrating 4 mg PO Q8H 3 Days #9 tab 07/28/21 tablet hydrocortisone 1 % topical cream 1 appl TOPICAL BID 7 Days #28.35 g 08/24/21 (Cortisone (hydrocortisone)) Allergies Allergy/AdvReac Type Severity Reaction Status Date / Time apricot [APRICOT] Allergy Unknown RASH Verified 07/28/21 04:34 cephalexin [From KEFLEX] Allergy Unknown RASH Verified 07/28/21 04:34 Review of Systems Review of Systems: Constitutional : No Fever, No Chills ENT/Mouth : No sore throat, No Rhinorrhea Eyes: No Eye Pain, No Swelling, No Redness Cardiovascular : No Chest Pain, No SOB Respiratory : No Cough, No Sputum Gastrointestinal : No Nausea, No Vomiting, No Diarrhea, No abdominal Pain Genitourinary : No Dysuria, No Hematuria Musculoskeletal : No joint pain, No Myalgias, No Joint Swelling Skin : No Skin Lesions, positive skin rash Neuro : No Weakness, No Numbness, No Headache PMFSH Past Medical History Attestation statement: The following information was validated with the patient. Medical History Anemia Arthritis Asthma Closed right tibial fracture COVID-19 Knee pain, right Mild intermittent asthma Pain and swelling of right lower leg Spondyloarthropathy Tibia/fibula fracture Surgical History H/O foot surgery Hx of section Family History Family History Father Diabetes Mother Thyroid disease Social History Social History Alcohol intake: current Patient Tobacco Use Status: Never used Tobacco Advance Directives: No Advance Directives Information Provided: No Patient : No Gender identity: Female Physical Exam Vital Signs: Vital Signs: Last Vital Signs Temp 97.2 F 08/24/21 02:00 Pulse 91 08/24/21 02:00 Resp 16 08/24/21 02:00 BP 122/82 08/24/21 02:00 Pulse Ox 99 08/24/21 02:00 BMI result Body Mass Index 41.6 Appearance: Alert. Oriented X3. No acute distress. Eyes: Pupils equal, round and reactive to light. ENT: Pharynx normal. Neck: Normal inspection. Posterior neck small red raised bumps in circular pattern around neck almost like a necklace posteriorly CVS: Normal heart rate and rhythm. Pulses normal. Respiratory: No respiratory distress. Abdomen: Atraumatic Skin: Skin warm and dry. Normal skin color. Normal skin turgor. Extremities: No lower extremity edema. Neuro: Oriented X 3. No motor deficit. No sensory deficit. MDM - Skin/Abscess/Foreign Bdy MDM Narrative Medical decision making narrative: 25 yo female with a couple days of itching raised red rash to back of neck in pattern appears like a contact dermatitis no signs of infection no vesicles cannot think of a reason or trigger will place on topical steroids and refer to PCP. No other areas of concern. Discharge Plan Discharge Clinical Impression: Contact dermatitis Qualifiers: Contact dermatitis type: unspecified Contact dermatitis trigger: unspecified trigger Qualified Code(s): L25.9 - Unspecified contact dermatitis, unspecified cause Patient Disposition: Home, Self-Care Instructions: Contact Dermatitis (ED) Additional Instructions: return to ED for any worsening symptoms or concerns Prescriptions: New hydrocortisone [Cortisone (hydrocortisone)] 1 % cream 1 appl topical BID 7 Days Qty: 28.35 0RF No Action cholecalciferol (vitamin D3) 1,250 mcg (50,000 unit) capsule 1,250 mcg PO QWEEK 90 Days Qty: 13 0RF ibuprofen 600 mg tablet 600 mg PO Q6H PRN (Reason: pain) Qty: 20 0RF naproxen 500 mg tablet 500 mg PO BID PRN (Reason: pain) Qty: 14 0RF cyclobenzaprine 10 mg tablet 10 mg PO TID PRN (Reason: muscle spasm) Qty: 10 0RF lidocaine [Lidoderm] 5 % adhesive patch,medicated 1 patch topical DAILY Qty: 15 0RF Rx Instructions: leave on most painful area for up to 12 hrs ibuprofen 600 mg tablet 600 mg PO TID PRN (Reason: fever) Qty: 10 0RF dexamethasone 6 mg tablet 6 mg PO DAILY 3 Days Qty: 3 0RF ondansetron 4 mg tablet,disintegrating 4 mg PO Q8H 3 Days Qty: 9 0RF albuterol sulfate [ProAir HFA] 90 mcg/actuation HFA aerosol inhaler 2 puff inhalation Q4-6H PRN (Reason: shortness of breath or wheezing) Qty: 8.5 0RF Arnuity Ellipta 50 mcg/actuation blister with device 2 inh inhalation DAILY 0RF ipratropium-albuterol 0.5 mg-3 mg(2.5 mg base)/3 mL solution for nebulization inhalation QID PRN (Reason: wheezing) 0RF albuterol sulfate 90 mcg/actuation HFA aerosol inhaler inhalation 0RF ferrous fumarate 324 mg (106 mg iron) tablet 324 mg PO DAILY Qty: 30 5RF fluticasone propionate 110 mcg/actuation HFA aerosol inhaler 1 puff inhalation Q12H Qty: 12 5RF Referrals: Rylie Dawson MD [Primary Care Provider] - 5 days (if not better)
== END 2021-08-24 02:53 | disposition home or self-care (01) ==
PROVIDERS: Emergency Provider Emergency Medicine; PCP Internal Medicine
DX: L25.9 Unspecified contact dermatitis, unspecified cause (principal); Z79.899 Other long term (current) drug therapy
CPT/HCPCS: 99283; 99284

== ENCOUNTER 2021-09-18 07:07 | Emergency (ER) | payer OTHER, SELFPAY ==
[2021-09-18 07:27] VITALS: BP 128/77; PULSE 93; RESP 18; TEMP 37.5; O2SAT 96; BMI 35.7
--- NOTE | 2021-09-18 07:48 | ED.URI ---
HPI - URI/Sore Throat General Chief Complaint: Upper Respiratory Symptoms Stated Complaint: Sore throat/headache Time Seen by Provider: 09/18/21 07:40 Source: patient Mode of arrival: ambulatory Limitations: no limitations History of Present Illness HPI Narrative: 25-year-old female presents to the emergency department with fever and sore throat. 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 She states while she was working started having fever she has been unable to take anything states he has been increasingly more difficult for her to swell. She denies chest pain nausea vomiting or diarrhea. MD elicited complaint: fever and sore throat Related Data Home Medications Medication Instructions Recorded Confirmed albuterol sulfate 90 mcg/actuation INHALATION 05/26/20 10/04/20 aerosol inhaler fluticasone furoate 50 2 inh INHALATION DAILY 05/26/20 10/04/20 mcg/actuation blister powder for inhalation ipratropium 0.5 mg-albuterol 3 mg ml INHALATION QID PRN 05/26/20 10/04/20 (2.5 mg base)/3 mL nebulization soln Previous Rx's Medication Instructions Recorded ferrous fumarate 324 mg (106 mg 324 mg PO DAILY #30 tab 10/04/20 iron) tablet fluticasone propionate 110 1 puff INHALATION Q12H #12 g 10/04/20 mcg/actuation HFA aerosol inhaler cholecalciferol (vitamin D3) 1,250 1,250 mcg PO QWEEK 90 Days #13 cap 10/27/20 mcg (50,000 unit) capsule ibuprofen 600 mg tablet 600 mg PO Q6H PRN #20 tab 12/13/20 cyclobenzaprine 10 mg tablet 10 mg PO TID PRN #10 tab 02/08/21 lidocaine 5 % topical patch 1 patch TOPICAL DAILY #15 ea 02/08/21 (Lidoderm) naproxen 500 mg tablet 500 mg PO BID PRN #14 tab 02/08/21 ibuprofen 600 mg tablet 600 mg PO TID PRN #10 tab 04/22/21 albuterol sulfate 90 mcg/actuation 2 puff INHALATION Q4-6H PRN #8.5 g 07/28/21 aerosol inhaler (ProAir HFA) dexamethasone 6 mg tablet 6 mg PO DAILY 3 Days #3 tab 07/28/21 ondansetron 4 mg disintegrating 4 mg PO Q8H 3 Days #9 tab 07/28/21 tablet hydrocortisone 1 % topical cream 1 appl TOPICAL BID 7 Days #28.35 g 08/24/21 (Cortisone (hydrocortisone)) Allergies Allergy/AdvReac Type Severity Reaction Status Date / Time apricot [APRICOT] Allergy Unknown RASH Verified 07/28/21 04:34 cephalexin [From KEFLEX] Allergy Unknown RASH Verified 07/28/21 04:34 Review of Systems Review of Systems: Review of systems: General: Fever Patient denies any recent illness or falls Musculoskeletal: Denies back pain or body aches or other injuries HEENT: denies headache, runny nose, ear pain Respiratory: denies shortness of breath, cough Cardiovascular: no chest pain or palpitations : denies dysuria, frequency Abdomen: no nausea vomiting denies abdominal pain Extremities: no swelling, no pain Skin: no diaphoresis Yes all other systems are reviewed and are negative PMFSH Past Medical History Medical History Anemia Arthritis Asthma Closed right tibial fracture COVID-19 Knee pain, right Mild intermittent asthma Pain and swelling of right lower leg Spondyloarthropathy Tibia/fibula fracture Surgical History H/O foot surgery Hx of section Family History Family History Father Diabetes Mother Thyroid disease Social History Social History Alcohol intake: current Patient Tobacco Use Status: Never used Tobacco Advance Directives: No Advance Directives Information Provided: No Gender identity: Female Physical Exam Vital Signs: Vital Signs: Last Vital Signs Temp 99.5 F 09/18/21 07:27 Pulse 93 09/18/21 07:27 Resp 18 09/18/21 07:27 BP 128/77 09/18/21 07:27 Pulse Ox 96 09/18/21 07:27 BMI result Body Mass Index 35.7 General: Well-appearing well-nourished in no signs of distress HEENT: Normocephalic atraumatic Neck: No signs of JVD, no masses no tenderness or lymphadenopathy Cardiovascular: Regular rate and rhythm Respiratory: Clear to auscultation bilaterally Abdomen: Soft nontender no masses 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 Extremities: Normal pedal pulses no signs of edema Skin: Dry warm no rashes Back: No tenderness full ROM MDM - URI/Sore Throat MDM Narrative Medical decision making narrative: I will send off a strept and covid swab. Patient looks otherwise well Covid and stept both are negative she wants to have flu checked. 0945 flu also negative. I will send home with a note for work. Differential Diagnosis Differential diagnosis: Likely upper respiratory infection and viral infection Lab Data Labs: Lab Results 09/18/21 09/18/21 09/18/21 Range/Units 07:41 07:41 08:38 COVID-19 ([facility]) Negative (Negative) COVID-19 Clin Com See Note Influenza Type A ([facility]) Negative (Negative) Influenza Type B ([facility]) Negative (Negative) Influenza A & B Note See Note S. pyogenes GrpA [facility] Negative (Negative) Discharge Plan Discharge Clinical Impression: Fever, Pharyngitis Patient Disposition: Home, Self-Care Instructions: Fever in Adults (ED), Pharyngitis (ED) Additional Instructions: Your flu covid and strept swabs are all negative. Please call to follow up with your doctor. Prescriptions: No Action cholecalciferol (vitamin D3) 1,250 mcg (50,000 unit) capsule 1,250 mcg PO QWEEK 90 Days Qty: 13 0RF ibuprofen 600 mg tablet 600 mg PO Q6H PRN (Reason: pain) Qty: 20 0RF naproxen 500 mg tablet 500 mg PO BID PRN (Reason: pain) Qty: 14 0RF cyclobenzaprine 10 mg tablet 10 mg PO TID PRN (Reason: muscle spasm) Qty: 10 0RF lidocaine [Lidoderm] 5 % adhesive patch,medicated 1 patch topical DAILY Qty: 15 0RF Rx Instructions: leave on most painful area for up to 12 hrs ibuprofen 600 mg tablet 600 mg PO TID PRN (Reason: fever) Qty: 10 0RF dexamethasone 6 mg tablet 6 mg PO DAILY 3 Days Qty: 3 0RF ondansetron 4 mg tablet,disintegrating 4 mg PO Q8H 3 Days Qty: 9 0RF albuterol sulfate [ProAir HFA] 90 mcg/actuation HFA aerosol inhaler 2 puff inhalation Q4-6H PRN (Reason: shortness of breath or wheezing) Qty: 8.5 0RF hydrocortisone [Cortisone (hydrocortisone)] 1 % cream 1 appl topical BID 7 Days Qty: 28.35 0RF Arnuity Ellipta 50 mcg/actuation blister with device 2 inh inhalation DAILY 0RF ipratropium-albuterol 0.5 mg-3 mg(2.5 mg base)/3 mL solution for nebulization inhalation QID PRN (Reason: wheezing) 0RF albuterol sulfate 90 mcg/actuation HFA aerosol inhaler inhalation 0RF ferrous fumarate 324 mg (106 mg iron) tablet 324 mg PO DAILY Qty: 30 5RF fluticasone propionate 110 mcg/actuation HFA aerosol inhaler 1 puff inhalation Q12H Qty: 12 5RF Stand Alone Forms: Work/School Release
[2021-09-18 08:01] LABS: IDNOW Serial# 08D9AD1C; Strep A Nucleic Acid Negative (Negative)
[2021-09-18 08:15] LABS: COVID-19 Test Negative (Negative); IDNOW Serial# 16C4AD1C
[2021-09-18 09:32] LABS: Influenza A Negative (Negative); Influenza B2 Negative (Negative)
[2021-09-18 10:44] VITALS: BP 111/61; PULSE 100; RESP 16; TEMP 36.7; O2SAT 97
== END 2021-09-18 10:43 | disposition home or self-care (01) ==
PROVIDERS: Emergency Provider Student in an Organized Health Care Education/Training Program; PCP Internal Medicine
DX: J02.9 Acute pharyngitis, unspecified (principal); R50.9 Fever, unspecified; Z20.822 Contact with and (suspected) exposure to COVID-19
CPT/HCPCS: 87502; 87635; 87651; 99283; 99284

== ENCOUNTER 2021-09-20 02:42 | Observation (INO) | payer OTHER, SELFPAY ==
[2021-09-20] VITALS (13 sets, daily range): BP systolic 92–148; BP diastolic 53–90; PULSE 84–135; RESP 16–24; TEMP 36.4–37.1; O2SAT 66–100; BMI 41.5
--- NOTE | ~2021-09-20 | XR_ITS ---
EXAMINATION: XR HUMERUS, LEFT CLINICAL INFORMATION: Cystic lesion left humerus COMPARISON: Chest x-ray from earlier today TECHNIQUE: AP and lateral views of the left humerus. FINDINGS: Region of lucency is present in the proximal humerus, extending from the humeral neck to the mid diaphysis, approximately 14 cm in total length. This has a multicystic lucent appearance. No periosteal reaction is seen. Transition zone in the region of the midhumerus is not clearly defined. Alignment at the elbow and shoulder appears anatomic. No evidence of acute fracture. No appreciable soft tissue abnormality. XR/XR humerus LT IMPRESSION: Lucent lesion in the proximal humerus extending for approximately 14 cm in length. 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
--- NOTE | ~2021-09-20 | XR_ITS ---
EXAMINATION: XR CHEST CLINICAL INFORMATION: Shortness of breath COMPARISON: 07/28/2021 TECHNIQUE: Frontal view of the chest was obtained. FINDINGS: Lung volumes are symmetric. No focal consolidation is seen. No evidence of pneumothorax, pleural effusion, or pulmonary edema. The cardiomediastinal contour is unremarkable. Partially visualized left humerus demonstrates a multicystic lucent appearance. XR/XR chest 1V IMPRESSION: 1. No acute cardiac pulmonary findings. 2. Multicystic lucent appearance of the visualized proximal left humerus, not fully included in the [id number]. Further assessment with dedicated humeral radiographs is recommended if not already performed.
--- NOTE | ~2021-09-20 | CT_ITS ---
EXAMINATION: CT SOFT TISSUE NECK WITHOUT CONTRAST CLINICAL INFORMATION: Wheezing. Rule out epiglottitis. Assess airway. COMPARISON: None TECHNIQUE: Helical imaging was performed in the axial plane with generation of coronal and sagittal reformatted images. This CT examination was performed using dose optimization techniques as appropriate, variously including the following: *Automated exposure control *Adjustment of mA and/or kV according to patient size (this includes techniques or standardized protocols for targeted exams where dose is matched to indication/reason for exam; i.e. extremities or head) *Use of iterative reconstruction technique DLP: 967 mGy-cm FINDINGS: Mildly prominent cervical lymph nodes. For instance there is a left jugular chain node with a long axis dimension on series 2 image 46. This has normal morphology. The parotid glands are homogeneous in attenuation. The submandibular glands are normal. No contour abnormality or pathologic enhancement is seen within the oral cavity or pharyngeal mucosal space. The laryngeal structures are normal. Normal epiglottis. The parapharyngeal fat is preserved. No extra mucosal soft tissue mass or fluid collection is seen. No retropharyngeal fluid collection is seen. The thyroid gland is normal. The superior mediastinum is unremarkable. The lung apices are clear. Left mastoid air cell effusion. The right mastoid air cells and visualized portions of the paranasal sinuses are well-aerated. The temporomandibular joints are normal. No periapical disease is identified. No osseous abnormalities are seen. The imaged portions of the brain parenchyma are unremarkable. CT/CT soft tissue neck wo con IMPRESSION: Normal epiglottis. The airways patent. Mildly prominent cervical lymph nodes may be reactive.
--- NOTE | 2021-09-20 03:28 | ED.URI ---
HPI - URI/Sore Throat General Chief Complaint: Upper Respiratory Symptoms Stated Complaint: sob, chest pain, sore throat, fever, headache Time Seen by Provider: 09/20/21 03:25 Source: patient Mode of arrival: ambulatory Limitations: no limitations History of Present Illness HPI Narrative: 25-year-old female came in for evaluation of upper respiratory symptoms and difficulty breathing. Patient was seen and evaluated in the emergency department 2 days ago for upper respiratory symptoms patient tested negative for strep pharyngitis, negative for flu/RSV/COVID 19+ patient received 3 vaccination for COVID. Patient returned today for worsening of her symptoms and feeling difficult to breathe with increased wheezing, subjective fever and chills. 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 No lower extremity swelling or tenderness, no recent travel, no chest pain. Related Data Home Medications Medication Instructions Recorded Confirmed albuterol sulfate 90 mcg/actuation INHALATION 05/26/20 10/04/20 aerosol inhaler fluticasone furoate 50 2 inh INHALATION DAILY 05/26/20 10/04/20 mcg/actuation blister powder for inhalation ipratropium 0.5 mg-albuterol 3 mg ml INHALATION QID PRN 05/26/20 10/04/20 (2.5 mg base)/3 mL nebulization soln Previous Rx's Medication Instructions Recorded ferrous fumarate 324 mg (106 mg 324 mg PO DAILY #30 tab 10/04/20 iron) tablet fluticasone propionate 110 1 puff INHALATION Q12H #12 g 10/04/20 mcg/actuation HFA aerosol inhaler cholecalciferol (vitamin D3) 1,250 1,250 mcg PO QWEEK 90 Days #13 cap 10/27/20 mcg (50,000 unit) capsule ibuprofen 600 mg tablet 600 mg PO Q6H PRN #20 tab 12/13/20 cyclobenzaprine 10 mg tablet 10 mg PO TID PRN #10 tab 02/08/21 lidocaine 5 % topical patch 1 patch TOPICAL DAILY #15 ea 02/08/21 (Lidoderm) naproxen 500 mg tablet 500 mg PO BID PRN #14 tab 02/08/21 ibuprofen 600 mg tablet 600 mg PO TID PRN #10 tab 04/22/21 albuterol sulfate 90 mcg/actuation 2 puff INHALATION Q4-6H PRN #8.5 g 07/28/21 aerosol inhaler (ProAir HFA) dexamethasone 6 mg tablet 6 mg PO DAILY 3 Days #3 tab 07/28/21 ondansetron 4 mg disintegrating 4 mg PO Q8H 3 Days #9 tab 07/28/21 tablet hydrocortisone 1 % topical cream 1 appl TOPICAL BID 7 Days #28.35 g 08/24/21 (Cortisone (hydrocortisone)) albuterol sulfate 90 mcg/actuation 1 inh INHALATION QID PRN #6.7 g 09/20/21 aerosol inhaler azithromycin 250 mg tablet See Rx Instructions .ROUTE 09/20/21 (Zithromax Z-Rashaad) .COMPLEX #6 tab prednisone 20 mg tablet 20 mg PO BID #10 tab 09/20/21 Allergies Allergy/AdvReac Type Severity Reaction Status Date / Time apricot [APRICOT] Allergy Unknown RASH Verified 07/28/21 04:34 cephalexin [From KEFLEX] Allergy Unknown RASH Verified 07/28/21 04:34 Review of Systems Review of Systems: All other systems are reviewed and are negative Constitutional: Reports as per HPI and Reports no additional constitutional complaints Eyes: Reports as per HPI and Reports no additional eye complaints Reports system reviewed and no additional complaints, except as documented Cardiovascular: Reports as per HPI and Reports no additional cardiovascular complaints Respiratory: Reports as per HPI and Reports no additional respiratory complaints Gastrointestinal: Reports as per HPI and Reports no additional gastrointestinal complaints Genitourinary: Reports no additional female genitourinary complaints Musculoskeletal: Reports no additional musculoskeletal complaints Skin/Breast: Reports system reviewed and no additional complaints, except as docu Psychiatric: Reports no additional psychiatric complaints Endocrine: Reports no additional endocrine complaints Hematologic/Lymphatic: Reports no additional hematologic/lymphatic complaints Allergic/Immunologic: Reports no additional allergic/immunologic complaints Reports system reviewed and no additional complaints, except as documented and Reports Abnormal speech present FOR[facility]LY [facility] Past Medical History Medical History Anemia Arthritis Asthma Closed right tibial fracture COVID-19 Knee pain, right Mild intermittent asthma Pain and swelling of right lower leg Spondyloarthropathy Tibia/fibula fracture Surgical History H/O foot surgery Hx of section Family History Family History Father Diabetes Mother Thyroid disease Social History Social History Alcohol intake: current Patient Tobacco Use Status: Never used Tobacco Advance Directives: No Patient : No Gender identity: Female Physical Exam Vital Signs: Vital Signs: Last Vital Signs Temp 98.1 F 09/20/21 02:45 Pulse 135 H 09/20/21 06:06 Resp 18 09/20/21 06:06 BP 114/75 09/20/21 03:58 Pulse Ox 98 09/20/21 03:58 BMI result Body Mass Index 41.5 Vital signs have been reviewed as appeared to be correct. Blood pressure normal. Heart rate elevated.Respiration rate normal. Temperature normal. Oxygen saturation normal. Appearance: Anxious. Oriented X3. No acute distress. Barking cough Head: Normal external exam. Normocephalic. Atraumatic. No Guillen signs noted. No raccoon eyes noted Eyes: PERRLA. EOMI. Conjunctiva and sclera normal. Eyelids normal. ENT: TM's Normal. Pharynx normal. Uvula midline. Moist mucous membranes. No trismus noted. No drooling noted. No muffled voice noted. Neck: Normal inspection. Neck supple. FROM. No adenopathy. Thyroid Normal. No meningeal signs. No neck mass noted. CVS: Normal heart rate and rhythm. Heart sound normal. No murmurs noted. Pulses normal throughout. Respiratory: No respiratory distress. Painless inspiration. Breath sounds normal. Diffuse mild expiratory wheezing, prolonged expiration. Chest nontender. No accessory muscle usage noted or decreased air movement noted. Abdomen: Soft and nontender. Bowel sounds normal in all 4 quadrants. No distention noted. No organomegaly noted. No visible injury noted. Back: No CVA tenderness. Full range of motion noted. Skin: Skin warm and dry. Normal skin color. Normal skin turgor. No rashes/lesions/lacerations noted. Extremities: No lower extremity edema. Extremities exhibit normal range of motion. Extremities nontender. Neuro: Oriented X 3. Cranial nerve exam: II-XII are grossly intact No motor deficit. No sensory deficit. Reflexes normal. Course Course Course Narrative: Assessment and plan. 25-year-old female with acute bronchitis, has normal room air O2 sat. Start the patient on albuterol/prednisone/course of Z-Rashaad. Reevaluation(s) Reevaluation #1: Patient appears very anxious now, complaining of more difficulty breathing, possible croup on top of her asthma, we will give her racemic epinephrine to inhale, dexamethasone and consider CT of the neck rule out upper airway infection and assess for airway and admit. Incidental left humerus cystic lesion patient should get urgent orthopedic evaluation. Signed out to Dr. Preciado to check on CT of the neck. Time: 06:05 MDM - URI/Sore Throat Lab Data Result diagrams: 09/20/21 03:55 09/20/21 03:55 Labs: Lab Results 09/20/21 09/20/21 09/20/21 Range/Units 03:55 03:55 03:56 WBC 10.6 (4.8-10.8) X10*3/uL RBC 4.59 (4.20-5.50) X10*6/uL Hgb 10.2 L (12.0-16.0) g/dl Hct 33.3 L (37.0-47.0) % MCV 72.5 L (80.0-98.0) fL MCH 22.2 L (27.0-33.0) pg MCHC 30.6 L (31.0-35.0) g/dl RDW 18.1 H (11.0-16.0) % Plt Count 382 (160-400) X10*3/uL MPV 10.0 (9.4-12.3) fL Immature Gran % (Auto) 0.2 (0.0-0.4) % Neut % (Auto) 65.8 (45-73) % Lymph % (Auto) 25.2 (20-40) % [place] % (Auto) 6.7 (2-11) % Eos % (Auto) 1.7 (0-4) % Baso % (Auto) 0.4 (0-2) % Lymph # (Auto) 2.7 (1.2-4.9) X10*3/uL [place] # (Auto) 0.7 (0.1-1.2) X10*3/uL Eos # (Auto) 0.2 (0.0-0.4) X10*3/uL Baso # (Auto) 0.0 (0.0-0.2) X10*3/uL Abs Immat Gran (auto) 0.02 (0.00-0.03) X10*3/uL Absolute Neuts (auto) 7.0 (2.0-8.3) x10*3/uL Absolute Nucleated RBC 0.000 (0.0-0.012) X10*3/uL Nucleated RBC % (auto) 0.0 (0.0-0.2) /100WBC Sodium 140 (135-145) mmol/L Potassium 3.9 (3.3-5.1) mmol/L Chloride 103 (96-108) mmol/L Carbon Dioxide 29 (22-29) mmol/L Anion Gap 12 (12-20) BUN 12 (9-16) mg/dL Creatinine 0.78 (0.5-1.4) mg/dL Estim Creat Clear Calc 138.5 Estimated GFR > 60 Random Glucose 137 H (60-115) mg/dL Calcium 9.7 (8.4-10.2) mg/dL Urine Color Urine Appearance Urine pH (5.0-8.0) Ur Specific [place] (1.005-1.025) Urine Protein (NEG-TRACE) MG/DL Urine Glucose (UA) (NEG) MG/DL Urine Ketones (NEG) MG/DL Urine Blood (NEG) Urine Nitrite (NEG) Ur Leukocyte Esterase (NEG) Urine RBC (0) /HPF Urine WBC (0-4) /HPF Ur Squamous Epith Cells /LPF Urine Bacteria /LPF Urine Test (NEGATIVE) Influenza Type A (PCR) NEGATIVE (Negative) Influenza Type B (PCR) NEGATIVE (Negative) RSV RNA Qual (PCR) NEGATIVE (Negative) SARS-CoV-2 RNA (RT-PCR) NEGATIVE (Negative) S. pyogenes GrpA RAMONA (Negative) 09/20/21 09/20/21 09/20/21 Range/Units 04:09 05:50 05:50 WBC (4.8-10.8) X10*3/uL RBC (4.20-5.50) X10*6/uL Hgb (12.0-16.0) g/dl Hct (37.0-47.0) % MCV (80.0-98.0) fL MCH (27.0-33.0) pg MCHC (31.0-35.0) g/dl RDW (11.0-16.0) % Plt Count (160-400) X10*3/uL MPV (9.4-12.3) fL Immature Gran % (Auto) (0.0-0.4) % Neut % (Auto) (45-73) % Lymph % (Auto) (20-40) % [place] % (Auto) (2-11) % Eos % (Auto) (0-4) % Baso % (Auto) (0-2) % Lymph # (Auto) (1.2-4.9) X10*3/uL [place] # (Auto) (0.1-1.2) X10*3/uL Eos # (Auto) (0.0-0.4) X10*3/uL Baso # (Auto) (0.0-0.2) X10*3/uL Abs Immat Gran (auto) (0.00-0.03) X10*3/uL Absolute Neuts (auto) (2.0-8.3) x10*3/uL Absolute Nucleated RBC (0.0-0.012) X10*3/uL Nucleated RBC % (auto) (0.0-0.2) /100WBC Sodium (135-145) mmol/L Potassium (3.3-5.1) mmol/L Chloride (96-108) mmol/L Carbon Dioxide (22-29) mmol/L Anion Gap (12-20) BUN (9-16) mg/dL Creatinine (0.5-1.4) mg/dL Estim Creat Clear Calc Estimated GFR Random Glucose (60-115) mg/dL Calcium (8.4-10.2) mg/dL Urine Color YELLOW Urine Appearance HAZY Urine pH 6.5 (5.0-8.0) Ur Specific [place] 1.015 (1.005-1.025) Urine Protein TRACE (NEG-TRACE) MG/DL Urine Glucose (UA) NEG (NEG) MG/DL Urine Ketones NEG (NEG) MG/DL Urine Blood TRACE (NEG) Urine Nitrite NEG (NEG) Ur Leukocyte Esterase NEG (NEG) Urine RBC 1-4 (0) /HPF Urine WBC 0-2 (0-4) /HPF Ur Squamous Epith Cells 2+ /LPF Urine Bacteria 2+ /LPF Urine Test NEGATIVE (NEGATIVE) Influenza Type A (PCR) (Negative) Influenza Type B (PCR) (Negative) RSV RNA Qual (PCR) (Negative) SARS-CoV-2 RNA (RT-PCR) (Negative) S. pyogenes GrpA RAMONA Negative (Negative) Critical Care Time Critical Care Time Critical Care Time: Yes Total Critical Care Time: 60 Attestation: I spent 60 minutes providing critical care service to the patient, this including time spent at the bedside to evaluate the patient, reassess the patient, monitoring vital signs, review labs, and radiographic studies, counseling the patient/family, discussing the case with consultants, disposition the patient. Discharge Plan Discharge Clinical Impression: Bronchitis, Croup, Acute asthma exacerbation, Mass of left upper extremity Patient Disposition: Admitted As Inpatient
[2021-09-20] MEDS: Albuterol Sulfate (0.083%) 2.5 MG/3 ML VIAL.NEB INHALE ×4 (03:39→19:14)
[2021-09-20] MEDS: Albuterol/Iprat 2.5/0.5MG 3 ML AMPUL.NEB INHALE (03:40)
[2021-09-20 04:03] LABS: Basophils Percent Auto 0.4 % (0-2); Eosinophils Absolute Auto 0.2 X10*3/uL (0.0-0.4); Eosinophils Percent Auto 1.7 % (0-4); Hematocrit 33.3 % (37.0-47.0); Hemoglobin 10.2 g/dl (12.0-16.0); Imm Gran Abs Auto 0.02 X10*3/uL (0.00-0.03); Imm Gran Pct Auto 0.2 % (0.0-0.4); Lymphocytes Absolute Auto 2.7 X10*3/uL (1.2-4.9); Lymphocytes Percent Auto 25.2 % (20-40); MANUAL DIFF FLAG NO; Mean Corpuscular HGB Conc 30.6 g/dl (31.0-35.0); Mean Corpuscular Hemoglobin 22.2 pg (27.0-33.0); Mean Corpuscular Volume 72.5 fL (80.0-98.0); Monocytes Absolute Auto 0.7 X10*3/uL (0.1-1.2); Monocytes Percent Auto 6.7 % (2-11); Neutrophils Percent Auto 65.8 % (45-73); Platelet Count 382 X10*3/uL (160-400); Red Blood Count 4.59 X10*6/uL (4.20-5.50); Red Cell Distribution Width 18.1 % (11.0-16.0); White Blood Count 10.6 X10*3/uL (4.8-10.8)
[2021-09-20] MEDS: predniSONE 20 MG TABLET 40 MG PO (04:14)
[2021-09-20 04:16] LABS: Anion Gap 12 (12-20); Blood Urea Nitrogen 12 mg/dL (9-16); Calcium 9.7 mg/dL (8.4-10.2); Carbon Dioxide 29 mmol/L (22-29); Chloride 103 mmol/L (96-108); Creatinine Clr Calc Pharmacy 138.5; Estimated Glomerular Filt Rate > 60; Glucose Random 137 mg/dL (60-115); Potassium 3.9 mmol/L (3.3-5.1); Sodium 140 mmol/L (135-145)
[2021-09-20 04:21] LABS: IDNOW Serial# 08D9AD1C; Strep A Nucleic Acid Negative (Negative)
[2021-09-20 04:40] LABS: Influenza A PCR NEGATIVE (Negative); Influenza B PCR NEGATIVE (Negative); Resp Syncy Virus RNA Qual PCR NEGATIVE (Negative); SARS COV2 PCR INHOUSE NEGATIVE (Negative)
[2021-09-20 05:55] LABS: Appearance Urine HAZY; Color Urine YELLOW; Glucose Urine UA NEG (NEG); Leukocyte Esterase Urine NEG (NEG); Nitrite Urine NEG (NEG); PH 6.5 (5.0-8.0); Specific Gravity - Urine 1.015 (1.005-1.025); UACC Culture Trigger NO; UPreg QC Valid YES; Urine Blood TRACE (NEG); Urine Ketones NEG (NEG); Urine Pregnancy NEGATIVE (NEGATIVE); Urine Protein TRACE MG/DL (NEG-TRACE)
[2021-09-20 06:01] LABS: Bacteria Urine 2+ /LPF; Squamous Epithelial Cell Urine 2+ /LPF; WBC Urine 0-2 /HPF (0-4)
[2021-09-20] MEDS: Racepinephrine HCL 0.5 ML VIAL.NEB INHALE (06:06)
[2021-09-20] MEDS: dexAMETHasone sod phosphate 10 MG/ML VIAL IVPUSH (07:49)
--- NOTE | 2021-09-20 07:51 | PHA.MEDREC ---
Pharmacy Consult ? Medication Reconciliation Pharmacy has completed the medication reconciliation. Patient only has an albuterol inhaler. Pepper Lewis, EdwardD
--- NOTE | 2021-09-20 08:09 | PC.NURSE ---
pt aware of plan of care for admission to hosp. a/o x 3 no sob/keanu noted lungs slight exp wheezing noted in all lobes.
--- NOTE | 2021-09-20 09:35 | P.HPHOSP_ITS ---
History of Present Illness Date of Service: 09/20/21 Chief Complaint: cough, wheezing, fevers This is a 25 year old female with a PMH of asthma (mild intermittent by history), season allergies (Pollen) who presents to [facility] [place] ED today with multiple complaints including cough (non-productive), subjective fevers without chills, shortness of breath, wheezing, nausea without vomiting and several episodes of diarrhea. 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 At that time, she reports she had URI symptoms of rhinorrhea, sore throat and headaches. She came to the ED at that time and was she was diagnosed with pharyngitis (strep testing negative) and was discharged home on steriods + antibiotics. She reports that since they have progressed to a non-productive cough, fevers and more recently shortness of breath with associated wheezing. She denies any known sick contacts at home. She reports being vaccinated for COVID (mRNA 2 dose series + booster). She does report that she had been diagnosed with COVID last year. In the ED today, she was noted to have diffuse wheezing and increased work of breathing. She was given nasalized bronchodilators x2 , recemic epi, decadron + prednisone. Flu/RSV/COVID are negative, as is repeat rapid strep. She remains symptomatic with difficulty breathing and hence, will be admitted for further treatment. Review of Systems Review of Systems: negative except HPI [facility] Medical History Anemia Arthritis Asthma Closed right tibial fracture COVID-19 Knee pain, right Mild intermittent asthma Pain and swelling of right lower leg Spondyloarthropathy Tibia/fibula fracture Family History Father Diabetes Mother Thyroid disease Surgical History H/O foot surgery Hx of section Social History Alcohol intake: never Patient Tobacco Use Status: Never used Tobacco Use of substances other than those prescribed or required for medical reasons: No Advance Directives: No Patient : No Gender identity: Female Meds Allergies Allergy/AdvReac Type Severity Reaction Status Date / Time apricot [APRICOT] Allergy Unknown RASH Verified 07/28/21 04:34 cephalexin [From KEFLEX] Allergy Unknown RASH Verified 07/28/21 04:34 Active Medications: Current Medications Acetaminophen (Acetaminophen 325 Mg Tablet) 650 mg PO Q6H PRN PRN Reason: Pain, Mild (Pain Scale 1-3) Albuterol Sulfate (Albuterol Sulfate (0.083%) 2.5 Mg/3 Ml Vial.Neb) 2.5 mg INHALE RQ4H WHILE AWAKE NICK Albuterol Sulfate (Albuterol Sulfate (0.083%) 2.5 Mg/3 Ml Vial.Neb) 2.5 mg INHALE Q3H PRN PRN Reason: Shortness of Breath Methylprednisolone Sodium Succinate (Methylprednisolone Sod Succ 40 Mg/Ml Vial) 40 mg IVPUSH Q8H NICK Ondansetron HCl (Ondansetron Hcl 4 Mg/2 Ml Vial) 4 mg IVPUSH Q8H PRN PRN Reason: Nausea and Vomiting Pharmacy Consult (Consult Rx Perform Med Rec) 1 each MISCELLANE ONCE PRN PRN Reason: Consult order Home Medications Medication Instructions Recorded Confirmed Last Taken Type acetaminophen 325 mg tablet 650 mg PO Q6H PRN 09/20/21 09/20/21 Unknown History ibuprofen 200 mg tablet 400 mg PO Q6H PRN 09/20/21 09/20/21 Unknown History Physical Exam Vital Signs and Narrative: Vital Signs: Last Vital Signs Temp 98.7 F 09/20/21 09:31 Pulse 84 09/20/21 09:31 Resp 16 09/20/21 09:31 BP 114/69 09/20/21 09:31 Pulse Ox 95 09/20/21 09:31 BMI result Body Mass Index 41.5 Const: Other: Constitutional - Awake and Alert, hoarse voice HEENT - PERRLA, EOMI, no pharyngeal exudates or erythema appreciated Cardiovascular - S1S2, RRR, No edema Respiratory - diffuse rhonchi with scattered trace exp. wheezing Gastrointestinal - NT / ND; +BS; No rebound or guarding - No CVA tenderness Extremities - no calf tenderness bilaterally, no swelling Musculoskeletal - Normal inspection, normal ROM Skin - Warm/Dry Neurological - Alert & oriented x3, No focal deficit Psychological - Appropriate affect Results Labs CBC and Chem 7: 09/20/21 03:55 09/20/21 03:55 Labs: Laboratory Results - last 24 hr 09/20/21 09/20/21 09/20/21 03:55 03:55 03:56 MCV 72.5 L MCH 22.2 L MCHC 30.6 L RDW 18.1 H Plt Count 382 MPV 10.0 Immature Gran % (Auto) 0.2 Neut % (Auto) 65.8 Lymph % (Auto) 25.2 [place] % (Auto) 6.7 Eos % (Auto) 1.7 Baso % (Auto) 0.4 Lymph # (Auto) 2.7 [place] # (Auto) 0.7 Eos # (Auto) 0.2 Baso # (Auto) 0.0 Abs Immat Gran (auto) 0.02 Absolute Neuts (auto) 7.0 Absolute Nucleated RBC 0.000 Nucleated RBC % (auto) 0.0 Anion Gap 12 Estim Creat Clear Calc 138.5 Estimated GFR > 60 Random Glucose 137 H Calcium 9.7 Urine Color Urine Appearance Urine pH Ur Specific [place] Urine Protein Urine Glucose (UA) Urine Ketones Urine Blood Urine Nitrite Ur Leukocyte Esterase Urine RBC Urine WBC Ur Squamous Epith Cells Urine Bacteria Urine Test COVID-19 (ALEX) COVID-19 Clin Com Influenza Type A (PCR) NEGATIVE Influenza Type B (PCR) NEGATIVE RSV RNA Qual (PCR) NEGATIVE SARS-CoV-2 RNA (RT-PCR) NEGATIVE S. pyogenes GrpA RAMONA 09/20/21 09/20/21 09/20/21 04:09 05:50 05:50 MCV MCH MCHC RDW Plt Count MPV Immature Gran % (Auto) Neut % (Auto) Lymph % (Auto) [place] % (Auto) Eos % (Auto) Baso % (Auto) Lymph # (Auto) [place] # (Auto) Eos # (Auto) Baso # (Auto) Abs Immat Gran (auto) Absolute Neuts (auto) Absolute Nucleated RBC Nucleated RBC % (auto) Anion Gap Estim Creat Clear Calc Estimated GFR Random Glucose Calcium Urine Color YELLOW Urine Appearance HAZY Urine pH 6.5 Ur Specific [place] 1.015 Urine Protein TRACE Urine Glucose (UA) NEG Urine Ketones NEG Urine Blood TRACE Urine Nitrite NEG Ur Leukocyte Esterase NEG Urine RBC 1-4 Urine WBC 0-2 Ur Squamous Epith Cells 2+ Urine Bacteria 2+ Urine Test NEGATIVE COVID-19 (ALEX) COVID-19 Clin Com Influenza Type A (PCR) Influenza Type B (PCR) RSV RNA Qual (PCR) SARS-CoV-2 RNA (RT-PCR) S. pyogenes GrpA RAMONA Negative 09/20/21 07:41 MCV MCH MCHC RDW Plt Count MPV Immature Gran % (Auto) Neut % (Auto) Lymph % (Auto) [place] % (Auto) Eos % (Auto) Baso % (Auto) Lymph # (Auto) [place] # (Auto) Eos # (Auto) Baso # (Auto) Abs Immat Gran (auto) Absolute Neuts (auto) Absolute Nucleated RBC Nucleated RBC % (auto) Anion Gap Estim Creat Clear Calc Estimated GFR Random Glucose Calcium Urine Color Urine Appearance Urine pH Ur Specific [place] Urine Protein Urine Glucose (UA) Urine Ketones Urine Blood Urine Nitrite Ur Leukocyte Esterase Urine RBC Urine WBC Ur Squamous Epith Cells Urine Bacteria Urine Test COVID-19 (ALEX) Cancelled COVID-19 Clin Com Cancelled Influenza Type A (PCR) Influenza Type B (PCR) RSV RNA Qual (PCR) SARS-CoV-2 RNA (RT-PCR) S. pyogenes GrpA RAMONA Imaging Radiologist's Impressions: Impressions Chest X-Ray 09/20/21 03:39 IMPRESSION: 1. No acute cardiac pulmonary findings. 2. Multicystic lucent appearance of the visualized proximal left humerus, not fully included in the [id number]. Further assessment with dedicated humeral radiographs is recommended if not already performed. Humerus X-Ray 09/20/21 05:15 IMPRESSION: Lucent lesion in the proximal humerus extending for approximately 14 cm in length. 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 Soft Tissue Neck CT 09/20/21 08:40 IMPRESSION: Normal epiglottis. The airways patent. Mildly prominent cervical lymph nodes may be reactive. Assessment and Plan (1) Acute asthma exacerbation: Status: Acute Plan This is a 25 year asthmatic (mild-intermittent), who presents to the hospital who initially likely had upper respiratory symptoms, but now has progressed to suspected viral bronchitis causing acute exacerbation of asthma. She will be admitted for further treatment. 1. Acute Exacerbation of Mild-intermittent asthma Likely secondary to viral bronchitis IV solu-medrol and scheduled + PRN bronchodilators supportive care with expectorants RSV/Flu/COVID negative 2. Cervical lymphadenopathy likely reactive to viral infection Full Code DVT pptx, low risk -- early ambulation Quality Stroke Does the patient have a stroke diagnosis?: No VTE Prior VTE?: No VTE Risk Level:: Medical - low VTE Device Contraindication: Treatment Not Indicated VTE Drug Contraindication: Treatment Not Indicated
--- NOTE | 2021-09-20 10:58 | ECG_ITS ---
Test Reason : chest pain Blood Pressure : / mmHG Vent. Rate : 081 BPM Atrial Rate : 081 BPM P-R Int : 166 ms QRS Dur : 096 ms QT Int : 366 ms P-R-T Axes : 001 000 016 degrees QTc Int : 425 ms Normal sinus rhythm Normal ECG No previous ECGs available Referred By: Yo Burnette Electronically Signed By:WILFREDO BATISTA MD
--- NOTE | 2021-09-20 11:07 | MHC.CM.PN ---
Met with patient in regards to discharge planning. Patient lives with a roommate, ambulates independently and had no services prior to coming to the hospital. No services anticipated because patient is not homebound. PCP verified. Patient denies having a HCP. Information provided. Patient not interested in completing one at this time because patient is not sure who she would name as her agent. Obs notice explained and signed. Patient has transportation at d/c. Continue to monitor for d/c needs.
[2021-09-20] MEDS: Acetaminophen 325 MG TABLET 650 MG PO ×2 (11:20→17:30)
[2021-09-20] MEDS: methylPREDNISolone Sod Succ 40 MG/ML VIAL IVPUSH (15:54)
[2021-09-20] MEDS: Morphine Sulfate 2 MG/ML CARTRIDGE IVPUSH (20:54)
[2021-09-20] MEDS: guaiFENesin DM 100/10/5 ML 5 ML SYRUP PO (21:55)
[2021-09-21] VITALS (10 sets, daily range): BP systolic 104–132; BP diastolic 51–70; PULSE 74–114; RESP 6–20; TEMP 36.1–36.9; O2SAT 92–100; BMI 42.3
[2021-09-21] MEDS: methylPREDNISolone Sod Succ 40 MG/ML VIAL IVPUSH ×3 (00:17→15:54)
[2021-09-21] MEDS: Albuterol Sulfate (0.083%) 2.5 MG/3 ML VIAL.NEB INHALE ×5 (00:45→19:45)
[2021-09-21] MEDS: oxyCODONE HCl Immed Release 5 MG TABLET PO ×3 (00:47→17:26)
[2021-09-21] MEDS: Acetaminophen 325 MG TABLET 650 MG PO ×2 (05:06→11:02)
--- NOTE | 2021-09-21 13:00 | P.PNIM_ITS ---
Subjective Subjective Date of Service: 09/21/21 Interval History: Seen and examined this morning Continues to have sore throat, intermittent coughing, especially at night Feels wheezy, no shortness of breath Review of Systems Review of Systems: Yes all other systems are reviewed and are negative Constitutional Constitutional: Denies chills and Denies fever(s) Cardiovascular Cardiovascular: Denies chest pain, Denies palpitations and Denies dyspnea Respiratory Respiratory: Reports cough and Denies dyspnea Gastrointestinal Gastrointestinal: Denies abdominal pain Endocrine Endocrine: Denies palpitations Physical Exam Vital Signs: Vital Signs: Last Vital Signs Temp 97.5 F 09/21/21 11:34 Pulse 101 H 09/21/21 11:34 Resp 16 09/21/21 11:34 BP 110/57 L 09/21/21 11:34 Pulse Ox 99 09/21/21 11:34 BMI result Body Mass Index 42.3 Const: General: cooperative, comfortable, no acute distress, alert and awake Nutritional Appearance: obese Orientation/consciousness: patient oriented x3 Eyes: Sclerae: sclerae normal Pupils: Equal, round and reactive pupils present Resp: Other: inspiratory wheezing Effort & Inspection: normal respiratory effort, able to speak in complete sentences and Actively coughing Cardio: Rate: tachycardic Heart sounds: S1 normal heart sound present and S2 normal heart sound present GI: Inspection: No Abdominal wall edema Palpation (GI): Soft to palpation and nontender Neuro: General: patient oriented x3 Cranial nerves: Yes Equal, round and reactive pupils present Extrem: Other: no leg edema Objective Data Active Medications Acetaminophen (Acetaminophen 325 Mg Tablet) 650 mg PO Q6H PRN PRN Reason: Pain, Mild (Pain Scale 1-3) Last Admin: 09/21/21 11:02 Dose: 650 mg Documented by: NATHAN Albuterol Sulfate (Albuterol Sulfate (0.083%) 2.5 Mg/3 Ml Vial.Neb) 2.5 mg INHALE RQ4H WHILE AWAKE NICK Last Admin: 09/21/21 11:25 Dose: 2.5 mg Documented by: CELY Albuterol Sulfate (Albuterol Sulfate (0.083%) 2.5 Mg/3 Ml Vial.Neb) 2.5 mg INHALE Q3H PRN PRN Reason: Shortness of Breath Last Admin: 09/21/21 00:45 Dose: 2.5 mg Documented by: ALYSSA Benzocaine (Throat Lozenge, Medicated Lozenge) 1 lozenge MUCOUS MEM Q2H PRN PRN Reason: Sore Throat Guaifenesin/Dextromethorphan (Guaifenesin Dm 100/10/5 Ml 5 Ml Syrup) 5 ml PO Q4H PRN PRN Reason: cough Last Admin: 09/20/21 21:55 Dose: 5 ml Documented by: ENOCH Methylprednisolone Sodium Succinate (Methylprednisolone Sod Succ 40 Mg/Ml Vial) 40 mg IVPUSH Q8H NICK Last Admin: 09/21/21 08:23 Dose: 40 mg Documented by: NATHAN Ondansetron HCl (Ondansetron Hcl 4 Mg/2 Ml Vial) 4 mg IVPUSH Q8H PRN PRN Reason: Nausea and Vomiting Oxycodone HCl (Oxycodone Hcl Immed Release 5 Mg Tablet) 5 mg PO Q4H PRN PRN Reason: Pain, Severe (Pain Scale 7-10) Last Admin: 09/21/21 08:22 Dose: 5 mg Documented by: NATHAN Pharmacy Consult (Consult Rx Perform Med Rec) 1 each MISCELLANE ONCE PRN PRN Reason: Consult order Labs CBC & Chem 7: 09/20/21 03:55 09/20/21 03:55 Assessment and Plan (1) Acute asthma exacerbation: Status: Acute Plan This is a 25 year asthmatic (mild-intermittent), who presents to the hospital who initially likely had upper respiratory symptoms, but now has progressed to suspected viral bronchitis causing acute exacerbation of asthma. She will be a dmitted for further treatment. 1. Acute Exacerbation of Mild-intermittent asthma Likely secondary to viral bronchitis IV solu-medrol and scheduled + PRN bronchodilators supportive care with expectorants RSV/Flu/COVID negative 2. Cervical lymphadenopathy likely reactive to viral infection Full Code DVT pptx, low risk -- early ambulation Attending: Dr. Burnette Requires ongoing hospitalization due to ongoing asthma exacerbation requiring IV steroids and frequent breathing treatments Quality Stroke Does the patient have a stroke diagnosis?: No VTE Prior VTE?: No VTE Risk Level:: Medical - low VTE Device Contraindication: Treatment Not Indicated VTE Drug Contraindication: Treatment Not Indicated
[2021-09-21] MEDS: Throat Lozenge, Medicated LOZENGE 1 LOZENGE MUCOUS MEM (20:44)
[2021-09-21] MEDS: guaiFENesin DM 100/10/5 ML 5 ML SYRUP PO (20:44)
[2021-09-22] VITALS (11 sets, daily range): BP systolic 90–127; BP diastolic 50–66; PULSE 69–98; RESP 17–18; TEMP 36–36.8; O2SAT 95–98
[2021-09-22] MEDS: methylPREDNISolone Sod Succ 40 MG/ML VIAL IVPUSH ×4 (00:21→23:01)
[2021-09-22] MEDS: oxyCODONE HCl Immed Release 5 MG TABLET PO ×2 (00:58→07:59)
[2021-09-22] MEDS: Acetaminophen 325 MG TABLET 650 MG PO ×3 (00:58→23:00)
[2021-09-22] MEDS: guaiFENesin DM 100/10/5 ML 5 ML SYRUP PO ×2 (08:00→15:08)
[2021-09-22] MEDS: Albuterol Sulfate (0.083%) 2.5 MG/3 ML VIAL.NEB INHALE ×4 (08:03→19:46)
--- NOTE | 2021-09-22 12:19 | P.PNIM_ITS ---
Subjective Subjective Date of Service: 09/22/21 Interval History: seen and examined this morning still with significant coughing, throat pain Review of Systems Review of Systems: Yes all other systems are reviewed and are negative Constitutional Constitutional: Denies chills and Denies fever(s) ENT Ears, Nose, Mouth, and Throat: Reports sore throat Cardiovascular Cardiovascular: Denies chest pain and Denies palpitations Respiratory Respiratory: Reports cough Endocrine Endocrine: Denies palpitations Physical Exam Vital Signs: Vital Signs: Last Vital Signs Temp 96.8 F 09/22/21 12:00 Pulse 69 09/22/21 12:01 Resp 18 09/22/21 12:01 BP 100/58 L 09/22/21 12:00 Pulse Ox 98 09/22/21 12:00 BMI result Body Mass Index 42.3 Const: General: cooperative, comfortable, no acute distress, alert and awake Nutritional Appearance: obese Orientation/consciousness: patient oriented x3 Eyes: Sclerae: sclerae normal Pupils: Equal, round and reactive pupils present Resp: Other: inspiratory wheezing Effort & Inspection: normal respiratory effort, able to speak in complete sentences and Actively coughing Cardio: Rate: tachycardic Heart sounds: S1 normal heart sound present and S2 normal heart sound present GI: Inspection: No Abdominal wall edema Palpation (GI): Soft to palpation and nontender Neuro: General: patient oriented x3 Cranial nerves: Yes Equal, round and reactive pupils present Extrem: Other: no leg edema Objective Data Active Medications Acetaminophen (Acetaminophen 325 Mg Tablet) 650 mg PO Q6H PRN PRN Reason: Pain, Mild (Pain Scale 1-3) Last Admin: 09/22/21 00:58 Dose: 650 mg Documented by: PEG Albuterol Sulfate (Albuterol Sulfate (0.083%) 2.5 Mg/3 Ml Vial.Neb) 2.5 mg INHALE RQ4H WHILE AWAKE NICK Last Admin: 09/22/21 12:01 Dose: 2.5 mg Documented by: RIMA Albuterol Sulfate (Albuterol Sulfate (0.083%) 2.5 Mg/3 Ml Vial.Neb) 2.5 mg INHALE Q3H PRN PRN Reason: Shortness of Breath Last Admin: 09/21/21 00:45 Dose: 2.5 mg Documented by: ALYSSA Benzocaine (Throat Lozenge, Medicated Lozenge) 1 lozenge MUCOUS MEM Q2H PRN PRN Reason: Sore Throat Last Admin: 09/21/21 20:44 Dose: 1 lozenge Documented by: RESHMA Benzonatate (Benzonatate 100 Mg Capsule) 100 mg PO TID [facility] Guaifenesin/Dextromethorphan (Guaifenesin Dm 100/10/5 Ml 5 Ml Syrup) 5 ml PO Q4H PRN PRN Reason: cough Last Admin: 09/22/21 08:00 Dose: 5 ml Documented by: CORINA Methylprednisolone Sodium Succinate (Methylprednisolone Sod Succ 40 Mg/Ml Vial) 40 mg IVPUSH Q8H NICK Last Admin: 09/22/21 07:56 Dose: 40 mg Documented by: CORINA Ondansetron HCl (Ondansetron Hcl 4 Mg/2 Ml Vial) 4 mg IVPUSH Q8H PRN PRN Reason: Nausea and Vomiting Pharmacy Consult (Consult Rx Perform Med Rec) 1 each MISCELLANE ONCE PRN PRN Reason: Consult order Labs CBC & Chem 7: 09/20/21 03:55 09/20/21 03:55 Assessment and Plan (1) Acute asthma exacerbation: Status: Acute Plan This is a 25 year asthmatic (mild-intermittent), who presents to the hospital who initially likely had upper respiratory symptoms, but now has progressed to suspected viral bronchitis causing acute exacerbation of asthma. She will be admitted for further treatment. 1. Acute Exacerbation of Mild-intermittent asthma. persistant cough, sore throat and subjective dyspnea Likely secondary to viral bronchitis IV solu-medrol and scheduled + PRN bronchodilators supportive care with expectorants/ cough suppressants RSV/Flu/COVID negative 2. Cervical lymphadenopathy likely reactive to viral infection 3. left humerus lesion xray showing probable cyst can consider outpatient MRI for further characterization Full Code DVT pptx, low risk -- early ambulation Attending: Dr. Diaz Requires ongoing hospitalization due to ongoing asthma exacerbation requiring IV steroids and frequent breathing treatments Quality Stroke Does the patient have a stroke diagnosis?: No VTE Prior VTE?: No VTE Risk Level:: Medical - low VTE Device Contraindication: Treatment Not Indicated VTE Drug Contraindication: Treatment Not Indicated
[2021-09-22] MEDS: Benzonatate 100 MG CAPSULE PO ×2 (14:12→21:07)
[2021-09-22] MEDS: Throat Lozenge, Medicated LOZENGE 1 LOZENGE MUCOUS MEM ×2 (15:08→21:07)
[2021-09-23 03:34] VITALS: BP 121/65; PULSE 70; RESP 17; TEMP 36.1; O2SAT 96
[2021-09-23 06:54] VITALS: BP 107/55; PULSE 62; RESP 16; TEMP 36; O2SAT 97
[2021-09-23] MEDS: Albuterol Sulfate (0.083%) 2.5 MG/3 ML VIAL.NEB INHALE (08:08)
[2021-09-23 08:09] VITALS: PULSE 71; RESP 18; O2SAT 99
[2021-09-23] MEDS: Acetaminophen 325 MG TABLET 650 MG PO (09:32)
[2021-09-23] MEDS: methylPREDNISolone Sod Succ 40 MG/ML VIAL IVPUSH (09:32)
[2021-09-23] MEDS: Benzonatate 100 MG CAPSULE PO (09:32)
--- NOTE | 2021-09-23 10:03 | P.DS_ITS ---
DS: Providers Provider Date of Service: 09/23/21 <YAZ Durand - Last Filed: 09/23/21 15:49> Date of admission: 09/20/21 09:31 <YAZ Durand - Last Filed: 09/23/21 15:49> Date of discharge: 09/23/21 <YAZ Durand - Last Filed: 09/23/21 15:49> Primary care physician: Rylie Dawson MD <YAZ Durand - Last Filed: 09/23/21 15:49> Attending physician on discharge: Omar Chamorro <YAZ Durand - Last Filed: 09/23/21 15:49> Discharging clinician: Sandee Coley <YAZ Durand - Last Filed: 09/23/21 15:49> DS: Diagnosis Discharge Diagnosis (1) Acute asthma exacerbation: Status: Acute <YAZ Durand - Last Filed: 09/23/21 15:49> (2) Bronchitis: Status: Acute <YAZ Durand - Last Filed: 09/23/21 15:49> DS: Summary Hospital Course Hospital Course: From H&P on day of admission This is a 25 year old female with a PMH of asthma (mild intermittent by history), season allergies (Pollen) who presents to [facility] ED today with multiple complaints including cough (non-productive), subjective fevers without chills, shortness of breath, wheezing, nausea without vomiting and several episodes of diarrhea. 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 At that time, she reports she had URI symptoms of rhinorrhea, sore throat and headaches. She came to the ED at that time and was she was diagnosed with pharyngitis (strep testing negative) and was discharged home on steriods + antibiotics. She reports that since they have progressed to a non-productive cough, fevers and more recently shortness of breath with associated wheezing. She denies any known sick contacts at home. She reports being vaccinated for COVID (mRNA 2 dose series + booster). She does report that she had been diagnosed with COVID last year. In the ED today, she was noted to have diffuse wheezing and increased work of breathing. She was given nasalized bronchodilators x2 , recemic epi, decadron + prednisone. Flu/RSV/COVID are negative, as is repeat rapid strep. She remains symptomatic with difficulty breathing and hence, will be admitted for further treatment. Acute asthma exacerbation secondary to probable viral bronchitis Soft tissue neck CT showed no evidence of epiglottitis. Chest x-ray was negative for pneumonia. Influenza, RSV, COVID swab was negative as well as strep test. She was treated with scheduled breathing treatments as well as systemic steroids. She had persistent sore throat, dry cough which was treated with throat lozenges and cough syrup. Her wheezing and breathing have improved and she is now stable for discharge home. She will be discharged home to complete short burst of oral steroids as well as nebulized albuterol every 4-6 hours as needed for shortness of breath or wheezing. She is encouraged to call her PCP to schedule a follow-up appointment. 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 <YAZ Durand - Last Filed: 09/23/21 15:49> Time Spent with Patient Time attestation: Total time spent providing and/or coordinating discharge services: <YAZ Durand Last Filed: 09/23/21 15:49> Discharge coordination time: Greater than 30 minutes <YAZ Durand Last Filed: 09/23/21 15:49> Quality: Stroke Does the patient have a stroke diagnosis?: No <YAZ Durand Last Filed: 09/23/21 15:49> Physical Exam Vital Signs: Vital Signs: Last Vital Signs Temp 96.8 F 09/23/21 06:54 Pulse 71 09/23/21 08:09 Resp 18 09/23/21 08:09 BP 107/55 L 09/23/21 06:54 Pulse Ox 97 09/23/21 06:54 BMI result Body Mass Index 42.3 <YAZ Durand Last Filed: 09/23/21 15:49> Const: General: cooperative, comfortable, no acute distress, alert and awake <YAZ Durand Last Filed: 09/23/21 15:49> Nutritional Appearance: obese <YAZ Durand - Last Filed: 09/23/21 15:49> Orientation/consciousness: patient oriented x3 <YAZ Durand - Last Filed: 09/23/21 15:49> Eyes: Sclerae: sclerae normal <YAZ Durand - Last Filed: 09/23/21 15:49> Pupils: Equal, round and reactive pupils present <YAZ Durand - Last Filed: 09/23/21 15:49> Resp: Effort & Inspection: normal respiratory effort and able to speak in complete sentences <YAZ Durand - Last Filed: 09/23/21 15:49> Cardio: Heart sounds: S1 normal heart sound present and S2 normal heart sound present <YAZ Durand - Last Filed: 09/23/21 15:49> GI: Inspection: No Abdominal wall edema <YAZ Durand - Last Filed: 09/23/21 15:49> Palpation (GI): Soft to palpation and nontender <YAZ Durand - Last Filed: 09/23/21 15:49> Neuro: General: patient oriented x3 <YAZ Durand - Last Filed: 09/23/21 15:49> Cranial nerves: Yes Equal, round and reactive pupils present <YAZ Durand - Last Filed: 09/23/21 15:49> Extrem: Other: no leg edema <YAZ Durand - Last Filed: 09/23/21 15:49> Discharge Plan Discharge Patient Disposition: Home, Self-Care <YAZ Durand - Last Filed: 09/23/21 15:49> Discharge Diagnosis: asthma exacerbation viral bronchitis <YAZ Durand - Last Filed: 09/23/21 15:49> Referrals: Rylie Dawson MD [Primary Care Provider] - 2 days <YAZ Durand - Last Filed: 09/23/21 15:49> Discharge Medications: New albuterol sulfate 90 mcg/actuation HFA aerosol inhaler 1 inh inhalation QID PRN (Reason: shortness of breath or wheezing) Qty: 6.7 0RF prednisone 20 mg tablet 20 mg PO BID Qty: 10 0RF azithromycin [Zithromax Z-Rashaad] 250 mg tablet See Rx Instructions .ROUTE .COMPLEX Qty: 6 0RF Rx Instructions: For 250 mg dose pack: take 500 mg today (day 1), then 250 mg for 4 days (days 2-5) prednisone 20 mg tablet 40 mg PO DAILY 5 Days Qty: 10 0RF benzonatate 100 mg capsule 100 mg PO TID PRN (Reason: cough) Qty: 20 0RF (DME) nebulizers Misc See Rx Instructions .Route Qty: 1 0RF Rx Instructions: As directed albuterol sulfate 0.63 mg/3 mL solution for nebulization 0.63 mg inhalation Q4-6H PRN (Reason: shortness of breath or wheezing) Qty: 75 0RF Continued acetaminophen 325 mg Tablet 650 mg PO Q6H PRN (Reason: Pain) 0RF ibuprofen 200 mg Tablet 400 mg PO Q6H PRN (Reason: Pain) 0RF No Action (DME) nebulizers Misc See Rx Instructions .Route Qty: 1 0RF Rx Instructions: Use for updraft treatments as prescribed <YAZ Durand - Last Filed: 09/23/21 15:49> Discharge Orders: Discharge Order (Routine); Ordered 09/23/21 Ordered By: Sandee Coley <YAZ Durand - Last Filed: 09/23/21 15:49> Activity on Discharge: As tolerated <YAZ Durand - Last Filed: 09/23/21 15:49> Stand Alone Forms: Patient Portal Discharge page, Work/School Release <YAZ Durand Last Filed: 09/23/21 15:49> Care Plan Goals: resolution of symptoms <YAZ Durand Last Filed: 09/23/21 15:49> Health Concerns: asthma exacerbation probable viral bronchitis <YAZ Durand Last Filed: 09/23/21 15:49> Plan of Treatment: complete course of steroids cough medicine as needed albuterol every 4-6 hours as needed for sob/wheezing call to schedule follow up appointment with your PCP <YAZ Durand - Last Filed: 09/23/21 15:49> Assessment: asthma exacerbation <YAZ Durand - Last Filed: 09/23/21 15:49> Patient Instructions: Acute Bronchitis (ED) <YAZ Durand - Last Filed: 09/23/21 15:49> Discharge Date/Time: 09/23/21 11:40 <YAZ Durand - Last Filed: 09/23/21 15:49>
--- NOTE | 2021-09-23 10:05 | MHC.CM.PN ---
D/C order for home, self care. TAMARA fonseca.
== END 2021-09-23 11:40 | disposition home or self-care (01) ==
LOC: HO.ED 06:10 → HO.EDOVER 09:39 → HO.IMC 09-21 01:07 → HO.S3 09-22 00:19
PROVIDERS: Admitting Provider Family Medicine; Emergency Provider Emergency Medicine; PCP Internal Medicine; Visit Provider Physician Assistant Medical
DX: J45.21 Mild intermittent asthma with (acute) exacerbation (principal); J40 Bronchitis, not specified as acute or chronic; J05.0 Acute obstructive laryngitis [croup]; R07.9 Chest pain, unspecified; M85.422 Solitary bone cyst, left humerus; Z20.822 Contact with and (suspected) exposure to COVID-19; Z88.1 Allergy status to other antibiotic agents; Z91.018 Allergy to other foods; Z79.899 Other long term (current) drug therapy
CPT/HCPCS: 0241U; 70490; 71045; 73060; 80048; 81001; 81025; 85025; 87635; 87651; 93005; 94640; 96361; 96374; 96375; 99218; 99285; 99291; J1100; J2270; J2920

== ENCOUNTER 2021-10-03 07:04 | Emergency (ER) | payer OTHER, SELFPAY ==
--- NOTE | ~2021-10-03 | XR_ITS ---
EXAMINATION: XR ANKLE, LEFT CLINICAL INFORMATION: Swelling. Pain COMPARISON: None TECHNIQUE: AP, lateral, and mortise views of the left ankle. FINDINGS: The bones and soft tissues are normal. No fracture. Alignment is anatomic. Joint spaces are maintained. No joint effusion. XR/XR ankle LT 2V IMPRESSION: Unremarkable left ankle.
[2021-10-03 07:16] VITALS: BP 111/75; PULSE 90; RESP 16; TEMP 36.6; O2SAT 97; BMI 42.3
--- NOTE | 2021-10-03 07:34 | ED_ITS ---
HPI - Extremity Injury (Lower) General Chief Complaint: Extremity Injury, Lower Stated Complaint: swollen L ankle Time Seen by Provider: 10/03/21 07:34 Source: patient Mode of arrival: ambulatory Limitations: no limitations History of Present Illness HPI Narrative: Atraumatic ankle swelling and pain. Patient had a history of arthritis and had been on methotrexate. Onset (ago): day(s) Relieving factors: NSAID Treatments prior to arrival: NSAIDS Related Data Home Medications Medication Instructions Recorded Confirmed acetaminophen 325 mg tablet 650 mg PO Q6H PRN 09/20/21 09/20/21 ibuprofen 200 mg tablet 400 mg PO Q6H PRN 09/20/21 09/20/21 Previous Rx's Medication Instructions Recorded albuterol sulfate 90 mcg/actuation 1 inh INHALATION QID PRN #6.7 g 09/20/21 aerosol inhaler azithromycin 250 mg tablet See Rx Instructions .ROUTE 09/20/21 (Zithromax Z-Rashaad) .COMPLEX #6 tab prednisone 20 mg tablet 20 mg PO BID #10 tab 09/20/21 albuterol sulfate 0.63 mg/3 mL 0.63 mg (3 mL) INHALATION Q4-6H 09/23/21 solution for nebulization PRN #75 ml benzonatate 100 mg capsule 100 mg PO TID PRN #20 cap 09/23/21 nebulizers #1 ea 09/23/21 prednisone 20 mg tablet 40 mg PO DAILY 5 Days #10 tab 09/23/21 nebulizers #1 ea 09/25/21 naproxen 500 mg tablet (Naprosyn) 500 mg PO BID #20 tab 10/03/21 Allergies Allergy/AdvReac Type Severity Reaction Status Date / Time apricot [APRICOT] Allergy Unknown RASH Verified 07/28/21 04:34 cephalexin [From KEFLEX] Allergy Unknown RASH Verified 07/28/21 04:34 Review of Systems Constitutional: Constitutional: Reports no additional constitutional complaints Eyes: Eyes: Reports no additional eye complaints ENT: Denies dizziness Cardiovascular: Cardiovascular: Reports no additional cardiovascular complaints Respiratory: Respiratory: Reports as per HPI Gastrointestinal: Gastrointestinal: Reports no additional gastrointestinal complaints Genitourinary: Genitourinary: Reports no additional female genitourinary complaints Musculoskeletal: Musculoskeletal: Reports no additional musculoskeletal complaints Integumentary/Breasts: Skin/Breast: Denies rash Neurologic: Reports system reviewed and no additional complaints, except as documented, Denies dizziness and Denies Sensory deficit (Neuro) Psychiatric: Psychiatric: Denies anxiety [facility] Past Medical History Medical History Anemia Arthritis Asthma Closed right tibial fracture COVID-19 Knee pain, right Mass of left upper extremity Mild intermittent asthma Pain and swelling of right lower leg Spondyloarthropathy Tibia/fibula fracture Surgical History H/O foot surgery Hx of section Family History Family History Father Diabetes Mother Thyroid disease Social History Social History Household Members: Other Housing: House Do you presently have visiting nurse or other home services: No Alcohol intake: never Patient Tobacco Use Status: Never used Tobacco Advance Directives: No Advance Directives Information Provided: No Patient : No service: No Current occupational status: employed Gender identity: Female Physical Exam Vital Signs: Vital Signs: Last Vital Signs Temp 98 F 10/03/21 07:16 Pulse 90 10/03/21 07:16 Resp 16 10/03/21 07:16 BP 111/75 10/03/21 07:16 Pulse Ox 97 10/03/21 07:16 BMI result Body Mass Index 42.3 Const: General: healthy appearing Nutritional Appearance: average body habitus Orientation/consciousness: oriented to person and patient oriented x3 Limitations: no limitations HEENT: Head: Yes normal to inspection Ears: external ears normal General nose exam: Normal external nose present Mouth: Normal oral and palatal mucosa present and oropharynx normal Throat: Yes posterior oropharynx normal Eyes: General: appearance normal, both eyes and all related structures Neck: Other: supple Neck: Yes normal visual inspection Chest: Chest palpation & inspection: normal inspection of the chest Resp: Auscultation: clear to auscultation bilaterally Cardio: Jugular venous distension: no JVD Rate: regular rate Rhythm: regular rhythm Heart sounds: S1 normal heart sound present and S2 normal heart sound present GI: Inspection: Yes normal to inspection Palpation (GI): Soft to palpation, nontender and No hepatosplenomegaly present Auscultation: normal bowel sounds : General: Yes no CVA tenderness Back/Spine/Pelvis: Back: no CVA tenderness Skin: General skin exam: no rashes or lesions noted Neuro: General: oriented to person and patient oriented x3 Cranial nerves: Yes CN's II-XII intact bilaterally Motor exam (neuro): 5/5 motor strength present throughout Sensory Exam: No Sensory deficit (Neuro) Extrem: Other: tender with range of motion, slight swelling, and tender to the lateral malleolous. Discolaration to dorsum of ankle and foot Psych: Appearance: grossly normal Course Reevaluation(s) Reevaluation #1: Impression is arthritis. with similar history of prior this is likely just the same inflammatory process. will dc on nsaids and have patient follow up with rheumatololgy. Time: 09:28 MDM - Extremity Injury (Lower) Imaging Data ankle left: Radiologist's impression: IMPRESSION: Unremarkable left ankle. Discharge Plan Discharge Clinical Impression: Arthritis Patient Disposition: Home, Self-Care Instructions: Swollen Ankle Joint (ED) Prescriptions: New naproxen [Naprosyn] 500 mg tablet 500 mg PO BID Qty: 20 0RF No Action (DME) nebulizers Misc See Rx Instructions .Route Qty: 1 0RF Rx Instructions: Use for updraft treatments as prescribed albuterol sulfate 90 mcg/actuation HFA aerosol inhaler 1 inh inhalation QID PRN (Reason: shortness of breath or wheezing) Qty: 6.7 0RF prednisone 20 mg tablet 20 mg PO BID Qty: 10 0RF azithromycin [Zithromax Z-Rashaad] 250 mg tablet See Rx Instructions .ROUTE .COMPLEX Qty: 6 0RF Rx Instructions: For 250 mg dose pack: take 500 mg today (day 1), then 250 mg for 4 days (days 2-5) acetaminophen 325 mg Tablet 650 mg PO Q6H PRN (Reason: Pain) 0RF ibuprofen 200 mg Tablet 400 mg PO Q6H PRN (Reason: Pain) 0RF prednisone 20 mg tablet 40 mg PO DAILY 5 Days Qty: 10 0RF benzonatate 100 mg capsule 100 mg PO TID PRN (Reason: cough) Qty: 20 0RF (DME) nebulizers Misc See Rx Instructions .Route Qty: 1 0RF Rx Instructions: As directed albuterol sulfate 0.63 mg/3 mL solution for nebulization 0.63 mg inhalation Q4-6H PRN (Reason: shortness of breath or wheezing) Qty: 75 0RF Referrals: Rylie Dawson MD [Primary Care Provider] - 5 days
[2021-10-03] MEDS: Ibuprofen 800 MG TABLET PO (08:54)
== END 2021-10-03 09:43 | disposition home or self-care (01) ==
PROVIDERS: Emergency Provider Emergency Medicine; PCP Internal Medicine
DX: M25.472 Effusion, left ankle (principal); Z79.899 Other long term (current) drug therapy
CPT/HCPCS: 73600; 99283; 99284

== ENCOUNTER 2021-12-08 09:33 | Emergency (ER) | payer OTHER, SELFPAY ==
--- NOTE | ~2021-12-08 | XR_ITS ---
EXAMINATION: XR FOOT, LEFT CLINICAL INFORMATION: Pain. Difficulty ambulating. COMPARISON: Left ankle radiographs dated 10/03/2021. TECHNIQUE: AP, lateral, and oblique views of the left foot. FINDINGS: No acute fracture or dislocation. No joint space narrowing or marginal osteophytes. No osseous erosion. Along the plantar aspect of the heel, there is a linear 0.2 cm density which may represent a small radiopaque foreign body in the appropriate clinical setting. XR/XR foot LT min 3V IMPRESSION: Possible tiny, linear radiopaque foreign body measuring up to 0.2 cm along the plantar aspect of the heel. No acute osseous abnormality.
[2021-12-08 09:41] VITALS: BP 122/84; PULSE 108; RESP 18; TEMP 37; O2SAT 98; BMI 43.2
--- NOTE | 2021-12-08 09:50 | ED.GENADULT ---
HPI - General Adult General Chief complaint: Extremity Injury, Lower Stated complaint: L Foot Heel Pain Time Seen by Provider: 12/08/21 09:50 Source: patient Mode of arrival: ambulatory Limitations: no limitations History of Present Illness HPI narrative: Patient is a 25 year old female presenting to the emergency department today with left foot pain. Patient states that when she steps onto her left heel, she has a sharp pain go through her entire foot. Patient states that she does not remember stepping on anything or doing anything to it. Patient denies any dizziness, lightheadedness, abdominal pain, nausea, vomiting, fever, chills, blurry vision, double vision, loss of vision, chest pain, difficulty breathing, shortness of breath, back pain, night sweats, pain with urination, increased urinary frequency, increased urinary urgency, blood in her urine or stool, syncope or a near syncopal episode, recent trauma or falls, bowel incontinence, bladder incontinence, bowel retention, bladder retention, or any other complaints at this time. Onset (ago): day(s) Location: left and lower extremity (foot) Radiation: non-radiation Severity: mild Severity scale (1-10): 3 Quality: sharp Pain Consistency: intermittent Relieving factors: rest Exacerbating factors: movement (stepping on it) Associated symptoms: denies other symptoms Treatments prior to arrival: none Related Data Home Medications Medication Instructions Recorded Confirmed acetaminophen 325 mg tablet 650 mg PO Q6H PRN 09/20/21 09/20/21 ibuprofen 200 mg tablet 400 mg PO Q6H PRN 09/20/21 09/20/21 Previous Rx's Medication Instructions Recorded albuterol sulfate 90 mcg/actuation 1 inh INHALATION QID PRN #6.7 g 09/20/21 aerosol inhaler azithromycin 250 mg tablet See Rx Instructions .ROUTE 09/20/21 (Zithromax Z-Rashaad) .COMPLEX #6 tab prednisone 20 mg tablet 20 mg PO BID #10 tab 09/20/21 albuterol sulfate 0.63 mg/3 mL 0.63 mg (3 mL) INHALATION Q4-6H 09/23/21 solution for nebulization PRN #75 ml benzonatate 100 mg capsule 100 mg PO TID PRN #20 cap 09/23/21 nebulizers #1 ea 09/23/21 prednisone 20 mg tablet 40 mg PO DAILY 5 Days #10 tab 09/23/21 nebulizers #1 ea 09/25/21 naproxen 500 mg tablet (Naprosyn) 500 mg PO BID #20 tab 10/03/21 cefuroxime axetil 500 mg tablet 500 mg PO BID 5 Days #10 tab 12/08/21 Allergies Allergy/AdvReac Type Severity Reaction Status Date / Time apricot [APRICOT] Allergy Unknown RASH Verified 07/28/21 04:34 cephalexin [From KEFLEX] Allergy Unknown RASH Verified 07/28/21 04:34 Review of Systems Constitutional: Constitutional: Reports no additional constitutional complaints, Denies chills, Denies fever(s) and Denies night sweats Eyes: Eyes: Reports no additional eye complaints, Denies blurry vision, Denies change in vision, Denies diplopia, Denies eye discharge, Denies loss of vision and Denies eye pain ENT: Denies dizziness Cardiovascular: Cardiovascular: Reports no additional cardiovascular complaints, Denies chest pain, Denies lightheadedness, Denies Loss of Consciousness and Denies dyspnea Respiratory: Respiratory: Reports no additional respiratory complaints and Denies dyspnea Gastrointestinal: Gastrointestinal: Reports no additional gastrointestinal complaints, Denies abdominal pain, Denies melena, Denies hematochezia, Denies change in bowel habits and Denies change in stool character Genitourinary: Genitourinary: Denies hematuria, Denies urinary frequency, Denies dysuria, Denies urinary incontinence, Denies urinary hesitancy and Denies urinary urgency Musculoskeletal: Musculoskeletal: Reports no additional musculoskeletal complaints, Denies numbness and Denies tingling Comments: left foot pain Neurologic: Denies dizziness, Denies loss of vision, Denies numbness and Denies tingling Psychiatric: Psychiatric: Reports no additional psychiatric complaints Endocrine: Endocrine: Reports no additional endocrine complaints Hematologic/Lymphatic: Hematologic/Lymphatic: Reports no additional hematologic/lymphatic complaints Allergic/Immunologic: Allergic/Immunologic: Reports no additional allergic/immunologic complaints PMFSH Past Medical History Attestation statement: The following information was validated with the patient. Source: old records reviewed Medical History Anemia Arthritis Asthma Closed right tibial fracture COVID-19 Knee pain, right Mass of left upper extremity Mild intermittent asthma Pain and swelling of right lower leg Spondyloarthropathy Tibia/fibula fracture Surgical History H/O foot surgery Hx of section Family History Family History Father Diabetes Mother Thyroid disease Social History Social History Household Members: Other Housing: House Do you presently have visiting nurse or other home services: No Alcohol intake: never Patient Tobacco Use Status: Never used Tobacco Advance Directives: No Advance Directives Information Provided: No service: No Current occupational status: employed Gender identity: Female Physical Exam ED Vital Signs: Vital Signs - 24 hr 12/08/21 09:41 Temperature 98.6 F Pulse Rate 108 H Respiratory Rate 18 Blood Pressure 122/84 Pulse Oximetry 98 BMI result Body Mass Index 43.2 Const General: cooperative, no acute distress, alert and awake Nutritional Appearance: well nourished Orientation/consciousness: patient oriented x3 Limitations: no limitations HENMT Head: Yes normal to inspection and Yes atraumatic Ears: hearing grossly normal bilaterally and external ears normal General nose exam: Normal external nose present, no nasal discharge noted and no epistaxis Face and sinus: Yes normal facial exam, No abrasion and No laceration Mouth: Normal oral and palatal mucosa present, no drooling and no muffled voice Eyes General: appearance normal, both eyes and all related structures Periorbital: periorbital findings normal Eyelids: Yes eyelids normal Conjunctivae: conjunctivae normal Pupils: Equal, round and reactive pupils present EOM: EOMs intact bilaterally Neck Neck: Yes normal visual inspection, Yes full ROM and Yes no lymphadenopathy Chest Chest palpation & inspection: normal inspection of the chest Resp Effort & Inspection: normal respiratory effort and able to speak in complete sentences Auscultation: clear to auscultation bilaterally Cardio Rate: regular rate Rhythm: regular rhythm GI Inspection: Yes normal to inspection Neuro General: patient oriented x3 and moves all extremities Cranial nerves: Yes Equal, round and reactive pupils present Cognition (Neuro): normal cognition Motor exam (neuro): 5/5 motor strength present throughout Sensory Exam: Normal double simultaneous stimulation for sensation Coordination: [id number] test normal Extrem Other: small puncture wound visualized on the plantar aspect of the left heel that is somewhat callused over General: Yes full ROM and Yes capillary refill normal Psych Appearance: grossly normal Mental Status: mental status grossly normal Affect: normal affect Attitude: cooperative Thought process: Normal thought process present Thought content: Normal thought content present Insight: Good insight present (Psych) Medical Decision Making MDM Narrative Medical decision making narrative: Patient is a 25 year old female presenting to the emergency department today with left heel pain. Patient's physical exam showed a very small puncture wound to the left heel along the plantar aspect that is callused over. Patient's left foot x-ray showed no acute bony process however, it did show a radiopaque foreign body. I explained my physical exam findings as well as all test results to the patient. I answered all questions asked by the patient. Patient received PO Ibuprofen which she stated helped her symptoms significantly. I spoke to Randee, the ortho PA-C extension service specialist, who recommended the patient follow up with podiatry. I explained to the patient that the item is too deep to perform extraction in the ER. Patient was brought up to date on tetanus. Patient was given crutches to assist her in not putting pressure down onto the left foot. I stressed the importance of the patient taking her medication as prescribed. I stressed the importance of the patient following up with her primary care provider and podiatry. I stressed the importance of the patient returning to the emergency department immediately if her symptoms were to worsen or if she were to develop any dizziness, shortness of breath, difficulty breathing, chest pain, blurry vision, loss of vision, nausea, vomiting, abdominal pain, fever, chills, back pain, or any other complaints. Patient verbalized agreement and understanding with this treatment plan and discharge. Differential Diagnosis Differential Diagnosis: foreign body in left foot, plantar fasciitis Medical Records Medical records reviewed: Yes I reviewed the patient's medical records. Imaging Data Left foot x-ray: Attestation: I personally reviewed and interpreted this imaging study as follows: My impression: Foreign body present. Radiologist's impression: EXAMINATION: XR FOOT, LEFT CLINICAL INFORMATION: Pain. Difficulty ambulating.? COMPARISON: Left ankle radiographs dated 10/03/2021.? TECHNIQUE: AP, lateral, and oblique views of the left foot. FINDINGS: No acute fracture or dislocation. No joint space narrowing or marginal osteophytes. No osseous erosion. Along the plantar aspect of the heel, there is a linear 0.2 cm density which may represent a small radiopaque foreign body in the appropriate clinical setting.? XR/XR foot LT min 3V IMPRESSION: Possible tiny, linear radiopaque foreign body measuring up to 0.2 cm along the plantar aspect of the heel. ? No acute osseous abnormality. Dictated By: Jeffrey Tong MD Signed By: Electronically signed by Jeffrey Tong MD 12/08/21 1056 Discharge Plan Discharge Clinical Impression: Acute foreign body of left foot Patient Disposition: Home, Self-Care Instructions: Puncture Wound (DC) Additional Instructions: Follow up with your primary care provider and a alpine guide. Return to the emergency department immediately if your symptoms worsen or if you develop any dizziness, shortness of breath, difficulty breathing, chest pain, blurry vision, loss of vision, nausea, vomiting, abdominal pain, fever, chills, back pain, or any other complaints. Prescriptions: New cefuroxime axetil 500 mg tablet 500 mg PO BID 5 Days Qty: 10 0RF No Action (DME) nebulizers Misc See Rx Instructions .Route Qty: 1 0RF Rx Instructions: Use for updraft treatments as prescribed albuterol sulfate 90 mcg/actuation HFA aerosol inhaler 1 inh inhalation QID PRN (Reason: shortness of breath or wheezing) Qty: 6.7 0RF prednisone 20 mg tablet 20 mg PO BID Qty: 10 0RF azithromycin [Zithromax Z-Rashaad] 250 mg tablet See Rx Instructions .ROUTE .COMPLEX Qty: 6 0RF Rx Instructions: For 250 mg dose pack: take 500 mg today (day 1), then 250 mg for 4 days (days 2-5) acetaminophen 325 mg Tablet 650 mg PO Q6H PRN (Reason: Pain) 0RF ibuprofen 200 mg Tablet 400 mg PO Q6H PRN (Reason: Pain) 0RF prednisone 20 mg tablet 40 mg PO DAILY 5 Days Qty: 10 0RF benzonatate 100 mg capsule 100 mg PO TID PRN (Reason: cough) Qty: 20 0RF (DME) nebulizers Misc See Rx Instructions .Route Qty: 1 0RF Rx Instructions: As directed albuterol sulfate 0.63 mg/3 mL solution for nebulization 0.63 mg inhalation Q4-6H PRN (Reason: shortness of breath or wheezing) Qty: 75 0RF naproxen [Naprosyn] 500 mg tablet 500 mg PO BID Qty: 20 0RF Referrals: Ken Du DPM [Physician] - Rylie Dawson MD [Primary Care Provider] - Stand Alone Forms: Work/School Release Interventions: ED Discharge Assessment Last Done: 12/08/21 11:41 Discharge Date/Time: 12/08/21 11:42 Print Language: Sinhala
[2021-12-08] MEDS: Diphth,Pertus(ACell),Tet Adult 0.5 ML SYRINGE IM (11:16)
[2021-12-08] MEDS: Ibuprofen 600 MG TABLET PO (11:33)
== END 2021-12-08 11:42 | disposition home or self-care (01) ==
PROVIDERS: Emergency Provider Emergency Medicine; PCP Internal Medicine
DX: S90.812A Abrasion, left foot, initial encounter (principal); M79.672 Pain in left foot; R26.2 Difficulty in walking, not elsewhere classified; X58.XXXA Exposure to other specified factors, initial encounter; Y93.9 Activity, unspecified; Y92.9 Unspecified place or not applicable; Y99.9 Unspecified external cause status; Z79.899 Other long term (current) drug therapy
CPT/HCPCS: 73630; 90471; 90715; 96372; 99283; 99284

== ENCOUNTER 2022-05-08 22:03 | Emergency (ER) | payer OTHER, SELFPAY ==
[2022-05-08 22:23] VITALS: BP 131/95; PULSE 94; RESP 15; TEMP 36.9; O2SAT 99; BMI 42.3
[2022-05-08 22:37] LABS: MANUAL DIFF FLAG NO
[2022-05-08 22:39] LABS: Basophils Absolute Auto 0.1 X10*3/uL (0.0-0.2); Basophils Percent Auto 0.5 % (0-2); Eosinophils Absolute Auto 0.2 X10*3/uL (0.0-0.4); Eosinophils Percent Auto 1.7 % (0-4); Hematocrit 32.9 % (37.0-47.0); Hemoglobin 10.1 g/dl (12.0-16.0); Imm Gran Abs Auto 0.03 X10*3/uL (0.00-0.03); Imm Gran Pct Auto 0.3 % (0.0-0.4); Lymphocytes Percent Auto 19.4 % (20-40); Mean Corpuscular HGB Conc 30.7 g/dl (31.0-35.0); Mean Corpuscular Hemoglobin 22.2 pg (27.0-33.0); Mean Corpuscular Volume 72.3 fL (80.0-98.0); Mean Platelet Volume 9.4 fL (9.4-12.3); Monocytes Absolute Auto 0.7 X10*3/uL (0.1-1.2); Monocytes Percent Auto 7.1 % (2-11); Neutrophils Absolute Auto 7.3 x10*3/uL (2.0-8.3); Platelet Count 407 X10*3/uL (160-400); Red Blood Count 4.55 X10*6/uL (4.20-5.50); Red Cell Distribution Width 18.3 % (11.0-16.0); White Blood Count 10.3 X10*3/uL (4.8-10.8)
[2022-05-08 22:53] LABS: Alanine Aminotransferase 28 U/L (0-31); Albumin Level 4.4 g/dL (3.5-5.0); Alkaline Phosphatase 85 U/L (39-117); Anion Gap 14 (12-20); Aspartate Amino Transferase 19 U/L (5-31); Bilirubin Total 0.2 mg/dL (0.0-1.0); Blood Urea Nitrogen 11 mg/dL (9-16); Calcium 9.5 mg/dL (8.4-10.2); Carbon Dioxide 28 mmol/L (22-29); Chloride 104 mmol/L (96-108); Estimated Glomerular Filt Rate > 60; Glucose Random 90 mg/dL (60-115); Potassium 4.2 mmol/L (3.3-5.1); Sodium 142 mmol/L (135-145); Total Protein 7.1 g/dL (6.5-8.0)
[2022-05-09 00:33] VITALS: BP 128/72; PULSE 87; RESP 19; TEMP 36.7; O2SAT 98
--- NOTE | 2022-05-09 00:33 | PC.NURSE ---
Care of patient assumed now. She endorses BRBPR that began this morning. Hx hemrrhoids and anemia, but she states she still has blood in her underwear which is abnormal for her usual hemrrhoids.
--- NOTE | 2022-05-09 01:33 | ED.GIBLEED ---
HPI - GI Bleed General Chief complaint: GI Bleed Stated complaint: anal bleeding, Time Seen by Provider: 05/09/22 01:31 Source: patient Mode of arrival: ambulatory Limitations: no limitations History of Present Illness HPI Narrative: patient came with bright red blood per rectum started earlier today after bowel movement patient has loose bowels earlier no history of hemorrhoids no rectal pain no blood clots no significant abdominal pain patient never had similar problem in the past Related Data Home Medications Medication Instructions Recorded Confirmed acetaminophen 325 mg tablet 650 mg PO Q6H PRN Pain 09/20/21 09/20/21 ibuprofen 200 mg tablet 400 mg PO Q6H PRN Pain 09/20/21 09/20/21 Previous Rx's Medication Instructions Recorded albuterol sulfate 90 mcg/actuation 1 inh inhalation QID PRN shortness 09/20/21 aerosol inhaler of breath or wheezing #6.7 grams azithromycin 250 mg tablet See Rx Instructions PO .COMPLEX #6 09/20/21 (Zithromax Z-Rashaad) tabs prednisone 20 mg tablet 20 mg PO BID #10 tabs 09/20/21 albuterol sulfate 0.63 mg/3 mL 0.63 mg (3 mL) inhalation Q4-6H 09/23/21 solution for nebulization PRN shortness of breath or wheezing #75 mL benzonatate 100 mg capsule 100 mg PO TID PRN cough #20 caps 09/23/21 nebulizers #1 ea 09/23/21 prednisone 20 mg tablet 40 mg PO DAILY 5 days #10 tabs 09/23/21 nebulizers #1 ea 09/25/21 naproxen 500 mg tablet (Naprosyn) 500 mg PO BID #20 tabs 10/03/21 cefuroxime axetil 500 mg tablet 500 mg PO BID 5 days #10 tabs 12/08/21 hydrocortisone acetate 25 mg 25 mg [place] BID #12 ea 05/09/22 rectal suppository (Anusol-HC) Allergies Allergy/AdvReac Type Severity Reaction Status Date / Time apricot [APRICOT] Allergy Unknown RASH Verified 05/08/22 22:22 cephalexin [From KEFLEX] Allergy Unknown RASH Verified 05/08/22 22:22 Review of Systems Review of Systems: Yes all other systems are reviewed and are negative PMFSH Past Medical History Medical History Anemia Arthritis Asthma Closed right tibial fracture COVID-19 Knee pain, right Mass of left upper extremity Mild intermittent asthma Pain and swelling of right lower leg Spondyloarthropathy Tibia/fibula fracture Surgical History H/O foot surgery Hx of section Family History Family History Father Diabetes Mother Thyroid disease Social History Social History Household Members: Other Housing: House Do you presently have visiting nurse or other home services: No Alcohol intake: never Patient Tobacco Use Status: Never used Tobacco Advance Directives: No Advance Directives Information Provided: No service: No Current occupational status: employed Gender identity: Female Physical Exam Vital Signs: Vital Signs: Last Vital Signs Temp 98.1 F 05/09/22 00:33 Pulse 87 05/09/22 00:33 Resp 19 05/09/22 00:33 BP 128/72 05/09/22 00:33 Pulse Ox 98 05/09/22 00:33 O2 Del Method 05/09/22 00:33 BMI result Body Mass Index 42.3 Appearance: Alert. Oriented X3. No acute distress. Eyes: no pallor or icterus ENT: Pharynx normal. Oral Mucosa moist Neck: Normal inspection. Neck supple. CVS: Normal heart rate and rhythm. Pulses normal. Respiratory: No respiratory distress. Equal air entry bilateral, no wheezing/rales/rhonchi Abdomen: Soft and nontender. Bowel sounds are present, no mass palpable, no CVA tenderness rectal: small nonbleeding external hemorrhoid palpable slight tender Skin: Skin warm and dry. Normal skin color. Normal skin turgor. Extremities: No lower extremity edema. No calf tenderness Neuro: Oriented X 3. No motor deficit. MDM - GI Bleed MDM Narrative Medical decision making narrative: patient has stable vitals came with minor rectal bleed on exertion patient had hemorrhoid discharge patient home on Anusol suppository patient H&H is stable Lab Data Attestation: I reviewed the patient's lab results. Result diagrams: 05/08/22 22:31 05/08/22 22:31 Labs: Lab Results 05/08/22 05/08/22 Range/Units 22:31 22:31 WBC 10.3 (4.8-10.8) X10*3/uL RBC 4.55 (4.20-5.50) X10*6/uL Hgb 10.1 L (12.0-16.0) g/dl Hct 32.9 L (37.0-47.0) % MCV 72.3 L (80.0-98.0) fL MCH 22.2 L (27.0-33.0) pg MCHC 30.7 L (31.0-35.0) g/dl RDW 18.3 H (11.0-16.0) % Plt Count 407 H (160-400) X10*3/uL MPV 9.4 (9.4-12.3) fL Immature Gran % (Auto) 0.3 (0.0-0.4) % Neut % (Auto) 71.0 (45-73) % Lymph % (Auto) 19.4 L (20-40) % Pettis % (Auto) 7.1 (2-11) % Eos % (Auto) 1.7 (0-4) % Baso % (Auto) 0.5 (0-2) % Lymph # (Auto) 2.0 (1.2-4.9) X10*3/uL Pettis # (Auto) 0.7 (0.1-1.2) X10*3/uL Eos # (Auto) 0.2 (0.0-0.4) X10*3/uL Baso # (Auto) 0.1 (0.0-0.2) X10*3/uL Abs Immat Gran (auto) 0.03 (0.00-0.03) X10*3/uL Absolute Neuts (auto) 7.3 (2.0-8.3) x10*3/uL Absolute Nucleated RBC 0.000 (0.0-0.012) X10*3/uL Nucleated RBC % (auto) 0.0 (0.0-0.2) /100WBC Sodium 142 (135-145) mmol/L Potassium 4.2 (3.3-5.1) mmol/L Chloride 104 (96-108) mmol/L Carbon Dioxide 28 (22-29) mmol/L Anion Gap 14 (12-20) BUN 11 (9-16) mg/dL Creatinine 0.75 (0.5-1.4) mg/dL Estim Creat Clear Calc 144.0 Estimated GFR > 60 Random Glucose 90 (60-115) mg/dL Calcium 9.5 (8.4-10.2) mg/dL Total Bilirubin 0.2 (0.0-1.0) mg/dL AST 19 (5-31) U/L ALT 28 (0-31) U/L Alkaline Phosphatase 85 (39-117) U/L Total Protein 7.1 (6.5-8.0) g/dL Albumin 4.4 (3.5-5.0) g/dL Discharge Plan Discharge Clinical Impression: Hemorrhoids Patient Disposition: Home, Self-Care Instructions: Hemorrhoids (ED) Additional Instructions: avoid straining /constipation rectal suppository as advised follow-up with PCP as needed Prescriptions: New hydrocortisone acetate [Anusol-HC] 25 mg suppository 25 mg [place] BID Qty: 12 0RF No Action (DME) nebulizers Misc See Rx Instructions .Route Qty: 1 0RF Rx Instructions: Use for updraft treatments as prescribed albuterol sulfate 90 mcg/actuation HFA aerosol inhaler 1 inh inhalation QID PRN (Reason: shortness of breath or wheezing) Qty: 6.7 0RF prednisone 20 mg tablet 20 mg PO BID Qty: 10 0RF azithromycin [Zithromax Z-Rashaad] 250 mg tablet See Rx Instructions .ROUTE .COMPLEX Qty: 6 0RF Rx Instructions: For 250 mg dose pack: take 500 mg today (day 1), then 250 mg for 4 days (days 2-5) acetaminophen 325 mg Tablet 650 mg PO Q6H PRN (Reason: Pain) ibuprofen 200 mg Tablet 400 mg PO Q6H PRN (Reason: Pain) prednisone 20 mg tablet 40 mg PO DAILY 5 Days Qty: 10 0RF benzonatate 100 mg capsule 100 mg PO TID PRN (Reason: cough) Qty: 20 0RF (DME) nebulizers Misc See Rx Instructions .Route Qty: 1 0RF Rx Instructions: As directed albuterol sulfate 0.63 mg/3 mL solution for nebulization 0.63 mg inhalation Q4-6H PRN (Reason: shortness of breath or wheezing) Qty: 75 0RF naproxen [Naprosyn] 500 mg tablet 500 mg PO BID Qty: 20 0RF cefuroxime axetil 500 mg tablet 500 mg PO BID 5 Days Qty: 10 0RF Interventions: ED Discharge Assessment Last Done: 05/09/22 01:59 Discharge Date/Time: 05/09/22 02:00
== END 2022-05-09 02:00 | disposition home or self-care (01) ==
PROVIDERS: Emergency Provider Internal Medicine; PCP Internal Medicine
DX: K64.9 Unspecified hemorrhoids (principal); Z79.899 Other long term (current) drug therapy
CPT/HCPCS: 36415; 80053; 85025; 99283

== ENCOUNTER 2022-06-26 10:57 | Emergency (ER) | payer OTHER, SELFPAY ==
[2022-06-26 11:52] VITALS: BP 134/87; PULSE 83; RESP 19; TEMP 36.3; O2SAT 98; BMI 42.3
--- NOTE | 2022-06-26 11:53 | ED_ITS ---
HPI - URI/Sore Throat General Chief Complaint: Upper Respiratory Symptoms <Michelle Pinto NP - Last Filed: 06/26/22 11:55> Stated Complaint: flu like symptoms <Michelle Pinto NP - Last Filed: 06/26/22 11:55> Time Seen by Provider: 06/26/22 14:06 <Michelle Pinto NP - Last Filed: 06/26/22 11:55> Source: patient <Linda Zavala NP - Last Filed: 06/26/22 15:40> Mode of arrival: ambulatory <Linda Zavala NP - Last Filed: 06/26/22 15:40> Limitations: no limitations <Linda Zavala NP - Last Filed: 06/26/22 15:40> History of Present Illness HPI Narrative: 26-year-old female with a past medical history anemia, asthma, and history of bronchitis and COVID-19 presents to the emergency department today with complaints of difficulty breathing, coughing up mucus, general body aches, fever, sore throat, headache, nausea, diarrhea. She states symptoms began yesterday. She states she used her nebulizer and her MDI inhaler without relief symptoms. She last took Tylenol at 6:00 a.m. with moderate relief and body aches and temperature. 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 She denies any rhinorrhea, nasal congestion, sore throat. She denies any vomiting, chest pain, vision changes. <Linda Zavala NP - Last Filed: 06/26/22 15:40> MD elicited complaint: fever and cough <Linda Zavala NP - Last Filed: 06/26/22 15:40> Onset (ago): day(s) (1) <Linda Zavala NP - Last Filed: 06/26/22 15:40> Consistency: constant <Linda Zavala NP - Last Filed: 06/26/22 15:40> Severity: moderate <Linda Zavala NP - Last Filed: 06/26/22 15:40> Description of mucous: yellow <Linda Zavala NP - Last Filed: 06/26/22 15:40> Able to tolerate fluids by mouth: Yes <Linda Zavala NP - Last Filed: 06/26/22 15:40> Exacerbating factors: deep breaths <Linda Zavala NP - Last Filed: 06/26/22 15:40> Relieving factors: nothing <Linda Zavala NP - Last Filed: 06/26/22 15:40> Context: sick contacts <Lnida Zavala NP - Last Filed: 06/26/22 15:40> Treatments prior to arrival: acetaminophen (@ 0600) <Linda Zavala NP - Last Filed: 06/26/22 15:40> Related Data Home Medications: Home Medications Medication Instructions Recorded Confirmed acetaminophen 325 mg tablet 650 mg PO Q6H PRN Pain 09/20/21 09/20/21 ibuprofen 200 mg tablet 400 mg PO Q6H PRN Pain 09/20/21 09/20/21 Previous Rx's Medication Instructions Recorded albuterol sulfate 90 mcg/actuation 1 inh inhalation QID PRN shortness 09/20/21 aerosol inhaler of breath or wheezing #6.7 grams azithromycin 250 mg tablet See Rx Instructions PO .COMPLEX #6 09/20/21 (Zithromax Z-Rashaad) tabs prednisone 20 mg tablet 20 mg PO BID #10 tabs 09/20/21 albuterol sulfate 0.63 mg/3 mL 0.63 mg (3 mL) inhalation Q4-6H 09/23/21 solution for nebulization PRN shortness of breath or wheezing #75 mL benzonatate 100 mg capsule 100 mg PO TID PRN cough #20 caps 09/23/21 nebulizers #1 ea 09/23/21 prednisone 20 mg tablet 40 mg PO DAILY 5 days #10 tabs 09/23/21 nebulizers #1 ea 09/25/21 naproxen 500 mg tablet (Naprosyn) 500 mg PO BID #20 tabs 10/03/21 cefuroxime axetil 500 mg tablet 500 mg PO BID 5 days #10 tabs 12/08/21 hydrocortisone acetate 25 mg 25 mg MI BID #12 ea 05/09/22 rectal suppository (Anusol-HC) <Michelle Pinto NP - Last Filed: 06/26/22 11:55> Allergies/Adverse Reactions: Allergies Allergy/AdvReac Type Severity Reaction Status Date / Time apricot [APRICOT] Allergy Unknown RASH Verified 05/08/22 22:22 cephalexin [From KEFLEX] Allergy Unknown RASH Verified 05/08/22 22:22 <Michelle Pinto NP - Last Filed: 06/26/22 11:55> Review of Systems Review of Systems: In addition to documented HPI above, the additional ROS was obtained: Constitutional: No Weight loss, No Chills ENT/Mouth: No Ear Pain, No Nasal Congestion, No Sinus Pain, No Hoarseness, No sore throat, No Rhinorrhea, No Swallowing Difficulty Cardiovascular: No Chest Pain Respiratory: No Wheezing Gastrointestinal: No Vomiting, No Constipation, No Abdominal pain Genitourinary: No Dysuria, No Urinary Frequency, No Hematuria, No Urinary Incontinence/retention, No Urgency, No Flank Pain Musculoskeletal: No joint pain, No Joint Swelling Skin: No Skin Lesions, No rash Neuro: No Weakness, No Numbness, No Paresthesias <Linda Zavala NP - Last Filed: 06/26/22 15:40> Yes all other systems are reviewed and are negative <Linda Zavala NP - Last Filed: 06/26/22 15:40> [facility] Past Medical History Attestation statement: The following information was validated with the patient. <Linda Zavala NP - Last Filed: 06/26/22 15:40> Source: old records reviewed <Linda Zavala NP - Last Filed: 06/26/22 15:40> Medical History: Medical History Anemia Arthritis Asthma Closed right tibial fracture COVID-19 Knee pain, right Mass of left upper extremity Mild intermittent asthma Pain and swelling of right lower leg Spondyloarthropathy Tibia/fibula fracture <Michelle Pinto NP - Last Filed: 06/26/22 11:55> Surgical History: Surgical History H/O foot surgery Hx of section <Michelle Pinto NP - Last Filed: 06/26/22 11:55> Family History Family History: Family History Father Diabetes Mother Thyroid disease <Michelle Pinto NP - Last Filed: 06/26/22 11:55> Social History Social History: Social History Household Members: Other Housing: House Do you presently have visiting nurse or other home services: No Alcohol intake: never Patient Tobacco Use Status: Never used Tobacco Advance Directives: No Advance Directives Information Provided: No service: No Current occupational status: employed Gender identity: Female <Michelle Pinto NP - Last Filed: 06/26/22 11:55> Physical Exam Vital Signs: Vital Signs: Last Vital Signs Temp 97.3 F 06/26/22 11:52 Pulse 83 06/26/22 11:52 Resp 19 06/26/22 11:52 BP 134/87 06/26/22 11:52 Pulse Ox 98 06/26/22 11:52 O2 Del Method 06/26/22 11:52 BMI result Body Mass Index 42.3 <Michelle Pinto NP - Last Filed: 06/26/22 11:55> Vital Signs: Last Vital Signs Temp 97.3 F 06/26/22 11:52 Pulse 83 06/26/22 11:52 Resp 19 06/26/22 11:52 BP 134/87 06/26/22 11:52 Pulse Ox 98 06/26/22 11:52 O2 Del Method 06/26/22 11:52 BMI result Body Mass Index 42.3 <Linda Zavala NP - Last Filed: 06/26/22 15:40> Const: General: cooperative, alert and awake <Linda Zavala NP - Last Filed: 06/26/22 15:40> Nutritional Appearance: well nourished <Linda Zavala NP - Last Filed: 06/26/22 15:40> Orientation/consciousness: patient oriented x3 <Linda Zavala NP - Last Filed: 06/26/22 15:40> Limitations: no limitations <Linda Zavala [employer] - Last Filed: 06/26/22 15:40> HEENT: Head: Yes normal to inspection, Yes normocephalic and Yes atraumatic <Linda Zavala [employer] - Last Filed: 06/26/22 15:40> Ears: hearing grossly normal bilaterally, external ears normal and TM's normal bilaterally <Linda Zavala [employer] DEVELOPER - Last Filed: 06/26/22 15:40> General nose exam: Normal external nose present <Linda Zavala [employer] DEVELOPER - Last Filed: 06/26/22 15:40> Face and sinus: Yes normal facial exam and Yes face symmetric <Linda Zavala, [employer] DEVELOPER - Last Filed: 06/26/22 15:40> Mouth: Normal oral and palatal mucosa present and moist mucous membranes <Linda Zavala, [employer] DEVELOPER - Last Filed: 06/26/22 15:40> Throat: Yes posterior oropharynx normal, Yes tonsils normal and Yes uvula midline <Linda Zavala, [employer] DEVELOPER - Last Filed: 06/26/22 15:40> Eyes: General: appearance normal, both eyes and all related structures <Linda Zavala [employer] DEVELOPER - Last Filed: 06/26/22 15:40> Visual Walker: normal visual walker by confrontation <Linda Zavala [employer]ELOPER - Last Filed: 06/26/22 15:40> Alignment and Position: alignment normal <Linda Zavala [employer] DEVELOPER - Last Filed: 06/26/22 15:40> Periorbital: periorbital findings normal <Linda Zavala, [employer] DEVELOPER - Last Filed: 06/26/22 15:40> Eyelids: Yes eyelids normal <Linda Zavala [employer] DEVELOPER - Last Filed: 06/26/22 15:40> Conjunctivae: conjunctivae normal <Linda Zavala, [employer] DEVELOPER - Last Filed: 06/26/22 15:40> Sclerae: sclerae normal <Linda Zavala, [employer] DEVELOPER - Last Filed: 06/26/22 15:40> Corneas: corneas normal <Linda Zavala, [employer] DEVELOPER - Last Filed: 06/26/22 15:40> Pupils: Equal, round and reactive pupils present <Linda Pldevyn, [employer] DEVELOPER - Last Filed: 06/26/22 15:40> EOM: EOMs intact bilaterally <Linda Pldevyn, [employer] DEVELOPER - Last Filed: 06/26/22 15:40> Neck: Neck: Yes normal visual inspection, Yes full ROM and Yes no lymphadenopathy <Linda Yeimyawilda, [employer] DEVELOPER - Last Filed: 06/26/22 15:40> Chest: Chest palpation & inspection: normal inspection of the chest <Linda Plucawilda, [employer] DEVELOPER - Last Filed: 06/26/22 15:40> Resp: Effort & Inspection: normal respiratory effort, Actively coughing and not labored <Linda Pljoelleawilda, [employer] DEVELOPER - Last Filed: 06/26/22 15:40> Auscultation: clear to auscultation bilaterally, no crackles, no rhonchi and no wheezes <Linda Pljoellehalliejacqui, [employer] DEVELOPER - Last Filed: 06/26/22 15:40> Cardio: Rate: regular rate <Linda Plucawilda, [employer] DEVELOPER - Last Filed: 06/26/22 15:40> Rhythm: regular rhythm <Linda Pluchallienik, [employer] DEVELOPER - Last Filed: 06/26/22 15:40> Skin: General skin exam: no rashes or lesions noted <Linda Pluchalliejacqui, [employer] DEVELOPER - Last Filed: 06/26/22 15:40> Neuro: General: patient oriented x3, tone normal and moves all extremities <Linda Pljoelleawilda, [employer] DEVELOPER - Last Filed: 06/26/22 15:40> Cranial nerves: Yes Equal, round and reactive pupils present <Linda Pluchallienik, [employer] DEVELOPER - Last Filed: 06/26/22 15:40> Cognition (Neuro): normal cognition <Linda Pluciennik, [employer] DEVELOPER - Last Filed: 06/26/22 15:40> Gait exam (Neuro): Normal gait present <Linda Plucawilda, [employer] DEVELOPER - Last Filed: 06/26/22 15:40> Motor exam (neuro): 5/5 motor strength present throughout <Linda Pluciennik, [employer] DEVELOPER - Last Filed: 06/26/22 15:40> Extrem: General: Yes normal to inspection, Yes full ROM and Yes capillary refill normal <Linda Zavala NP - Last Filed: 06/26/22 15:40> Course Course Course Narrative: This is a rapid medical exam. deferred additional HPI, ROS, PE to primary provider. 26 yo female with history of asthma presents with complaints of cough, back pain, sore throat, headache, tacticle temps, diarrhea since yesterday. Will obtain testing for flu, covid, rsv. LS CTA. VSS <Michelle Pinto NP - Last Filed: 06/26/22 11:55> Medications Administered Discontinued Medications Generic Name Dose Route Start Last Admin Trade Name Freq PRN Reason Stop Dose Admin Acetaminophen 650 mg 06/26/22 14:23 06/26/22 14:39 Acetaminophen 325 Mg Tablet PO 06/26/22 14:24 650 mg ONCE ONE Administration <Michelle Pinto NP - Last Filed: 06/26/22 11:55> Medications Administered Discontinued Medications Generic Name Dose Route Start Last Admin Trade Name Freq PRN Reason Stop Dose Admin Acetaminophen 650 mg 06/26/22 14:23 06/26/22 14:39 Acetaminophen 325 Mg Tablet PO 06/26/22 14:24 650 mg ONCE ONE Administration <Linda Zavala NP - Last Filed: 06/26/22 15:40> Medical Decision Making Medical Decision Making MDM Narrative: 26-year-old female with a past medical history anemia, asthma, and history of bronchitis and COVID-19 presents to the emergency department today with complaints of difficulty breathing, coughing up mucus, general body aches, fever, sore throat, headache, nausea, diarrhea beginning yesterday. Tylenol given for c/o body aches. Serology negative for flu, RSV, or covid. Plan to discharge home with symptom management with [id number] Tylenol and/or Motrin for discomfort, OTC cold medicines and to continue using her nebulizer and inhaler as needed. HPI, PE, diagnostics, and plan discussed with pt with no unanswered questions at this time. Educated to return to the emergency department with worsening difficulty breathing, fever despite taking Tylenol and/or Motrin, chills, inability to tolerate PO, and any other emergent concerns. Recommended to follow up with her primary care provider for further recommendations and treatment. <Linda Zavala NP - Last Filed: 06/26/22 15:40> Lab Data Labs: Lab Results 06/26/22 Range/Units 14:07 Influenza Type A (PCR) NEGATIVE (Negative) Influenza Type B (PCR) NEGATIVE (Negative) RSV RNA Qual (PCR) NEGATIVE (Negative) SARS-CoV-2 RNA (RT-PCR) NEGATIVE (Negative) <Michelle Pinto NP - Last Filed: 06/26/22 11:55> Lab Results 06/26/22 Range/Units 14:07 Influenza Type A (PCR) NEGATIVE (Negative) Influenza Type B (PCR) NEGATIVE (Negative) RSV RNA Qual (PCR) NEGATIVE (Negative) SARS-CoV-2 RNA (RT-PCR) NEGATIVE (Negative) <Linda Zavala NP - Last Filed: 06/26/22 15:40> Discharge Plan Discharge Clinical Impression: Upper respiratory infection <Michelle Pinto NP - Last Filed: 06/26/22 11:55> Patient Disposition: Home, Self-Care <Michelle Pinto NP - Last Filed: 06/26/22 11:55> Instructions: Upper Respiratory Infection (ED), Wheezing (ED) <Michelle Pinto NP - Last Filed: 06/26/22 11:55> Additional Instructions: Your swab in negative for Influenza A/B, RSV, and Covid-19. There are no prescriptions necessary at this time. Please manage symptoms with [id number] Tylenol and/or Motrin for discomfort, [id number] cold medicines and to continue using her nebulizer and inhaler as needed. Please return to the emergency department with worsening difficulty breathing, fever despite taking Tylenol and/or Motrin, chills, inability to tolerate PO, and any other emergent concerns. Recommended to follow up with your primary care provider for further recommendations and treatment. <Michelle Pinto NP - Last Filed: 06/26/22 11:55> Prescriptions: No Action (DME) nebulizers Misc See Rx Instructions .Route Qty: 1 0RF Rx Instructions: Use for updraft treatments as prescribed hydrocortisone acetate [Anusol-HC] 25 mg suppository 25 mg MI BID Qty: 12 0RF albuterol sulfate 90 mcg/actuation HFA aerosol inhaler 1 inh inhalation QID PRN (Reason: shortness of breath or wheezing) Qty: 6.7 0RF prednisone 20 mg tablet 20 mg PO BID Qty: 10 0RF azithromycin [Zithromax Z-Rashaad] 250 mg tablet See Rx Instructions .ROUTE .COMPLEX Qty: 6 0RF Rx Instructions: For 250 mg dose pack: take 500 mg today (day 1), then 250 mg for 4 days (days 2-5) acetaminophen 325 mg Tablet 650 mg PO Q6H PRN (Reason: Pain) ibuprofen 200 mg Tablet 400 mg PO Q6H PRN (Reason: Pain) prednisone 20 mg tablet 40 mg PO DAILY 5 Days Qty: 10 0RF benzonatate 100 mg capsule 100 mg PO TID PRN (Reason: cough) Qty: 20 0RF (DME) nebulizers Misc See Rx Instructions .Route Qty: 1 0RF Rx Instructions: As directed albuterol sulfate 0.63 mg/3 mL solution for nebulization 0.63 mg inhalation Q4-6H PRN (Reason: shortness of breath or wheezing) Qty: 75 0RF naproxen [Naprosyn] 500 mg tablet 500 mg PO BID Qty: 20 0RF cefuroxime axetil 500 mg tablet 500 mg PO BID 5 Days Qty: 10 0RF <Michelle Pinto NP - Last Filed: 06/26/22 11:55> Referrals: Rylie Dawson MD [Primary Care Provider] - <Michelle Pinto NP - Last Filed: 06/26/22 11:55> Stand Alone Forms: Work/School Release <Michelle Pinto NP - Last Filed: 06/26/22 11:55> Interventions: ED Discharge Assessment Last Done: 06/26/22 15:19 <Michelle Pinto NP - Last Filed: 06/26/22 11:55> Discharge Date/Time: 06/26/22 15:21 <Michelle Pinto NP - Last Filed: 06/26/22 11:55> Print Language: Upper Sorbian <Michelle Pinto NP - Last Filed: 12/14/22 11:55>
[2022-06-26] MEDS: Acetaminophen 325 MG TABLET 650 MG PO (14:39)
[2022-06-26 14:50] LABS: Influenza A PCR NEGATIVE (Negative); Influenza B PCR NEGATIVE (Negative); Resp Syncy Virus RNA Qual PCR NEGATIVE (Negative); SARS COV2 PCR INHOUSE NEGATIVE (Negative)
== END 2022-06-26 15:21 | disposition home or self-care (01) ==
PROVIDERS: Physician Assistant Medical; Emergency Provider Student in an Organized Health Care Education/Training Program; PCP Internal Medicine
DX: J06.9 Acute upper respiratory infection, unspecified (principal); Z20.822 Contact with and (suspected) exposure to COVID-19
CPT/HCPCS: 0241U; 99283

== ENCOUNTER 2022-09-15 12:47 | Emergency (ER) | payer OTHER, SELFPAY ==
--- NOTE | ~2022-09-15 | CT_ITS ---
EXAMINATION: CT ABDOMEN AND PELVIS WITHOUT CONTRAST CLINICAL INFORMATION: Left flank pain. Rule out kidney stone COMPARISON: None TECHNIQUE: Multidetector volumetric imaging was performed from the superior aspect of the liver through the pubic symphysis. Sagittal and coronal reformatted images were obtained on the technologist's workstation. This CT examination was performed using dose optimization techniques as appropriate, variously including the following: *Automated exposure control *Adjustment of mA and/or kV according to patient size (this includes techniques or standardized protocols for targeted exams where dose is matched to indication/reason for exam; i.e. extremities or head) *Use of iterative reconstruction technique DLP: 865 mGy-cm FINDINGS: LUNG BASES: The visualized lung bases are unremarkable. LIVER, GALLBLADDER, AND BILIARY TREE: The liver is normal in size, shape, and attenuation. No focal hepatic lesion or biliary ductal dilatation is present. The gallbladder is unremarkable with no evidence of radiopaque gallstones, gallbladder wall thickening, or obvious pericholecystic inflammatory changes. PANCREAS: Unremarkable. SPLEEN: Unremarkable. ADRENAL GLANDS: Unremarkable. KIDNEYS AND URETERS: The kidneys are normal in size, shape, and attenuation. No hydronephrosis, hydroureter, or calculi seen. No perinephric stranding. BLADDER: Unremarkable. GASTROINTESTINAL TRACT: There is scattered stool and gas seen throughout the colon without significant distention. The small bowel loops are normal caliber. The ileocecal junction is a left midabdomen. Appendix is not visualized. There is no free fluid in the cul-de-sac. ABDOMINAL WALL: No significant hernia is appreciated. LYMPH NODES: Normal. VASCULAR: Unremarkable. PELVIC VISCERA: The uterus is retroverted and appears unremarkable. There is no free fluid or free air. Small shotty lymph nodes are seen in bilateral inguinal region. OSSEOUS STRUCTURES: Unremarkable. CT/CT abdomen pelvis wo IV con IMPRESSION: No acute intra-abdominal process seen. No radiopaque renal calculi or hydronephrosis seen. Fleischner guidelines were followed.
--- NOTE | 2022-09-15 13:05 | ED_ITS ---
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 Patient declined any dysuria or frequency urination. Patient had 2 episodes of nonbloody loose diarrhea with normal color. No fever, no chills. <Geraldine Munguia MD - Last Filed: 09/15/22 16:18> Related Data Home Medications: Home Medications Medication Instructions Recorded Confirmed acetaminophen 325 mg tablet 650 mg PO Q6H PRN Pain 09/20/21 09/20/21 ibuprofen 200 mg tablet 400 mg PO Q6H PRN Pain 09/20/21 09/20/21 Previous Rx's Medication Instructions Recorded albuterol sulfate 90 mcg/actuation 1 inh inhalation QID PRN shortness 09/20/21 aerosol inhaler of breath or wheezing #6.7 grams azithromycin 250 mg tablet See Rx Instructions PO .COMPLEX #6 09/20/21 (Zithromax Z-Rashaad) tabs prednisone 20 mg tablet 20 mg PO BID #10 tabs 09/20/21 albuterol sulfate 0.63 mg/3 mL 0.63 mg (3 mL) inhalation Q4-6H 09/23/21 solution for nebulization PRN shortness of breath or wheezing #75 mL benzonatate 100 mg capsule 100 mg PO TID PRN cough #20 caps 09/23/21 nebulizers #1 ea 09/23/21 prednisone 20 mg tablet 40 mg PO DAILY 5 days #10 tabs 09/23/21 nebulizers #1 ea 09/25/21 naproxen 500 mg tablet (Naprosyn) 500 mg PO BID #20 tabs 10/03/21 cefuroxime axetil 500 mg tablet 500 mg PO BID 5 days #10 tabs 12/08/21 hydrocortisone acetate 25 mg 25 mg ND BID #12 ea 05/09/22 rectal suppository (Anusol-HC) ibuprofen 600 mg tablet 600 mg PO Q8H PRN pain #20 tabs 09/15/22 <Michelle Mc NP - Last Filed: 09/15/22 13:07> Allergies/Adverse Reactions: Allergies Allergy/AdvReac Type Severity Reaction Status Date / Time apricot [APRICOT] Allergy Unknown RASH Verified 05/08/22 22:22 cephalexin [From KEFLEX] Allergy Unknown RASH Verified 05/08/22 22:22 <Michelle Mc NP - Last Filed: 09/15/22 13:07> Review of Systems Review of Systems: All other systems are reviewed and are negative Constitutional: Reports as per HPI and Reports no additional constitutional complaints Eyes: Reports as per HPI and Reports no additional eye complaints Reports system reviewed and no additional complaints, except as documented Cardiovascular: Reports as per HPI and Reports no additional cardiovascular complaints Respiratory: Reports as per HPI and Reports no additional respiratory complaints Gastrointestinal: Reports as per HPI and Reports no additional gastrointestinal complaints Genitourinary: Reports no additional female genitourinary complaints Musculoskeletal: Reports no additional musculoskeletal complaints Skin/Breast: Reports system reviewed and no additional complaints, except as docu Psychiatric: Reports no additional psychiatric complaints Endocrine: Reports no additional endocrine complaints Hematologic/Lymphatic: Reports no additional hematologic/lymphatic complaints Allergic/Immunologic: Reports no additional allergic/immunologic complaints Reports system reviewed and no additional complaints, except as documented and Reports Abnormal speech present <Geraldine Munguia MD - Last Filed: 09/15/22 16:18> [facility] Past Medical History Medical History: Medical History Anemia Arthritis Asthma Closed right tibial fracture COVID-19 Knee pain, right Mass of left upper extremity Mild intermittent asthma Pain and swelling of right lower leg Spondyloarthropathy Tibia/fibula fracture <Michelle Mc NP - Last Filed: 09/15/22 13:07> Surgical History: Surgical History H/O foot surgery Hx of section <Michelle Mc NP - Last Filed: 09/15/22 13:07> Family History Family History: Family History Father Diabetes Mother Thyroid disease <Michelle Mc NP - Last Filed: 09/15/22 13:07> Social History Social History: Social History Household Members: Other Housing: House Do you presently have visiting nurse or other home services: No Alcohol intake: never Patient Tobacco Use Status: Never used Tobacco Smoked in Last 30 Days: No Substance Use Type: Marijuana Substance Use Frequency: Occasionally Advance Directives: No Advance Directives Information Provided: No service: No Current occupational status: employed Gender identity: Female <Michelle Mc NP - Last Filed: 09/15/22 13:07> Physical Exam Vital Signs: Vital Signs: Last Vital Signs Temp 98.4 F 09/15/22 13:06 Pulse 81 09/15/22 14:11 Resp 16 09/15/22 15:39 BP 100/71 09/15/22 14:11 Pulse Ox 98 09/15/22 14:11 O2 Del Method 09/15/22 14:11 BMI result Body Mass Index 39.9 <Michelle Mc NP - Last Filed: 09/15/22 13:07> Vital Signs: Last Vital Signs Temp 98.4 F 09/15/22 13:06 Pulse 81 09/15/22 14:11 Resp 16 09/15/22 15:39 BP 100/71 09/15/22 14:11 Pulse Ox 98 09/15/22 14:11 O2 Del Method 09/15/22 14:11 BMI result Body Mass Index 39.9 Vital signs have been reviewed as appeared to be correct. Blood pressure normal. Heart rate normal. Respiration rate normal. Temperature normal. Oxygen saturation normal. <Geraldine Munguia MD - Last Filed: 09/15/22 16:18> Appearance: Alert. Oriented X3. No acute distress. Head: Normal external exam. Normocephalic. Atraumatic. No Guillen signs noted. No raccoon eyes noted Eyes: PERRLA. EOMI. Conjunctiva and sclera normal. Eyelids normal. ENT: TM's Normal. Pharynx normal. Uvula midline. Moist mucous membranes. No trismus noted. No drooling noted. No muffled voice noted. Neck: Normal inspection. Neck supple. FROM. No adenopathy. Thyroid Normal. No meningeal signs. No neck mass noted. CVS: Normal heart rate and rhythm. Heart sound normal. No murmurs noted. Pulses normal throughout. Respiratory: No respiratory distress. Painless inspiration. Breath sounds normal. No wheezes/rales/rhonchi noted. Chest nontender. No accessory muscle usage noted or decreased air movement noted. Abdomen: Soft and nontender. Bowel sounds normal in all 4 quadrants. No distention noted. No organomegaly noted. No visible injury noted. Back: Left CVA tenderness. Full range of motion noted. Skin: Skin warm and dry. Normal skin color. Normal skin turgor. No rashes/lesions/lacerations noted. Extremities: No lower extremity edema. Extremities exhibit normal range of motion. Extremities nontender. Neuro: Oriented X 3. Cranial nerve exam: II-XII are grossly intact No motor deficit. No sensory deficit. Reflexes normal. <Geraldine Munguia MD - Last Filed: 09/15/22 16:18> Course Course Course Narrative: This is a rapid medical exam. Deferred additional HPI, ROS, PE to primary provider. 26 yo female with history of asthma here with left sided abdominal pain with radiation to the left back w/ diarrhea. No urinary symptoms, nausea, vomiting, fevers, chills. Will obtain labs, UA, ur preg, covid screen. VSS. <Michelle Mc NP - Last Filed: 09/15/22 13:07> Reevaluation(s) Reevaluation #1: Low back pain, unremarkable UA, CT abdomen pelvis is unremarkable for acute intra-abdominal pathology, physical exam and CT are consistent with myofascial back pain. Will discharge home on ibuprofen 800 mg to take every 6 hours and muscle relaxant with rest and heating pads. <Geraldine Munguia MD - Last Filed: 09/15/22 16:18> Time: 16:15 <Geraldine Munguia MD - Last Filed: 09/15/22 16:18> Medications Administered Discontinued Medications Generic Name Dose Route Start Last Admin Trade Name Freq PRN Reason Stop Dose Admin Sodium Chloride 1,000 mls @ 999 mls/hr 09/15/22 14:48 09/15/22 15:41 Ns IV 09/15/22 15:48 999 mls/hr .Q1H1M ONE Administration Ketorolac Tromethamine 30 mg 09/15/22 14:48 09/15/22 15:37 Ketorolac Tromethamine 30 Mg/Ml Vial IVPUSH 09/15/22 14:49 30 mg ONCE ONE Administration Morphine Sulfate 2 mg 09/15/22 14:48 09/15/22 15:39 Morphine Sulfate 2 Mg/Ml Cartridge IVPUSH 09/15/22 14:49 2 mg ONCE ONE Administration Protocol <Michelle Mc NP - Last Filed: 09/15/22 13:07> Medications Administered Discontinued Medications Generic Name Dose Route Start Last Admin Trade Name Freq PRN Reason Stop Dose Admin Sodium Chloride 1,000 mls @ 999 mls/hr 09/15/22 14:48 09/15/22 15:41 Ns IV 09/15/22 15:48 999 mls/hr .Q1H1M ONE Administration Ketorolac Tromethamine 30 mg 09/15/22 14:48 09/15/22 15:37 Ketorolac Tromethamine 30 Mg/Ml Vial IVPUSH 09/15/22 14:49 30 mg ONCE ONE Administration Morphine Sulfate 2 mg 09/15/22 14:48 09/15/22 15:39 Morphine Sulfate 2 Mg/Ml Cartridge IVPUSH 09/15/22 14:49 2 mg ONCE ONE Administration Protocol <Geraldine Munguia MD - Last Filed: 09/15/22 16:18> Medical Decision Making Differential Diagnosis Differential Diagnoses: The differential diagnosis associated with the presentation includes (Ureteric stone, pyelonephritis, UTI, myofascial back pain, colitis) <Geraldine Munguia MD - Last Filed: 09/15/22 16:18> Lab Data [facility] Lab Attestation statement: I reviewed the patient's lab results. <Geraldine Munguia MD - Last Filed: 09/15/22 16:18> Result Diagrams: 09/15/22 14:16 09/15/22 14:16 <Michelle Mc NP - Last Filed: 09/15/22 13:07> Labs: Lab Results 09/15/22 09/15/22 09/15/22 Range/Units 14:12 14:12 14:16 WBC 9.0 (4.8-10.8) X10*3/uL RBC 4.59 (4.20-5.50) X10*6/uL Hgb 10.0 L (12.0-16.0) g/dl Hct 32.5 L (37.0-47.0) % MCV 70.8 L (80.0-98.0) fL MCH 21.8 L (27.0-33.0) pg MCHC 30.8 L (31.0-35.0) g/dl RDW 18.2 H (11.0-16.0) % Plt Count 397 (160-400) X10*3/uL MPV 9.7 (9.4-12.3) fL Immature Gran % (Auto) 0.2 (0.0-0.4) % Neut % (Auto) 69.4 (45-73) % Lymph % (Auto) 18.8 L (20-40) % [place] % (Auto) 9.1 (2-11) % Eos % (Auto) 1.9 (0-4) % Baso % (Auto) 0.6 (0-2) % Lymph # (Auto) 1.7 (1.2-4.9) X10*3/uL [place] # (Auto) 0.8 (0.1-1.2) X10*3/uL Eos # (Auto) 0.2 (0.0-0.4) X10*3/uL Baso # (Auto) 0.1 (0.0-0.2) X10*3/uL Abs Immat Gran (auto) 0.02 (0.00-0.03) X10*3/uL Absolute Neuts (auto) 6.2 (2.0-8.3) x10*3/uL Absolute Nucleated RBC 0.000 (0.0-0.012) X10*3/uL Nucleated RBC % (auto) 0.0 (0.0-0.2) /100WBC Sodium (135-145) mmol/L Potassium (3.3-5.1) mmol/L Chloride (96-108) mmol/L Carbon Dioxide (22-29) mmol/L Anion Gap (12-20) BUN (9-16) mg/dL Creatinine (0.5-1.4) mg/dL Estim Creat Clear Calc Estimated GFR Random Glucose (60-115) mg/dL Calcium (8.4-10.2) mg/dL Total Bilirubin (0.0-1.0) mg/dL Direct Bilirubin (0.0-0.5) mg/dL AST (5-31) U/L ALT (0-31) U/L Alkaline Phosphatase (39-117) U/L Total Protein (6.5-8.0) g/dL Albumin (3.5-5.0) g/dL Urine Color Yellow Urine Appearance Clear Urine pH 6.5 (5.0-9.0) Ur Specific [place] >= 1.030 H (1.005-1.025) Urine Protein 30 (1+) H (Neg-Trace) mg/dL Urine Glucose (UA) Negative (Negative) mg/dL Urine Ketones Negative (Negative) mg/dL Urine Blood Small (1+) H (Negative) Urine Nitrite Negative (Negative) Ur Leukocyte Esterase Negative (Negative) Urine Test NEGATIVE (NEGATIVE) 09/15/22 Range/Units 14:16 WBC (4.8-10.8) X10*3/uL RBC (4.20-5.50) X10*6/uL Hgb (12.0-16.0) g/dl Hct (37.0-47.0) % MCV (80.0-98.0) fL MCH (27.0-33.0) pg MCHC (31.0-35.0) g/dl RDW (11.0-16.0) % Plt Count (160-400) X10*3/uL MPV (9.4-12.3) fL Immature Gran % (Auto) (0.0-0.4) % Neut % (Auto) (45-73) % Lymph % (Auto) (20-40) % [place] % (Auto) (2-11) % Eos % (Auto) (0-4) % Baso % (Auto) (0-2) % Lymph # (Auto) (1.2-4.9) X10*3/uL [place] # (Auto) (0.1-1.2) X10*3/uL Eos # (Auto) (0.0-0.4) X10*3/uL Baso # (Auto) (0.0-0.2) X10*3/uL Abs Immat Gran (auto) (0.00-0.03) X10*3/uL Absolute Neuts (auto) (2.0-8.3) x10*3/uL Absolute Nucleated RBC (0.0-0.012) X10*3/uL Nucleated RBC % (auto) (0.0-0.2) /100WBC Sodium 142 (135-145) mmol/L Potassium 3.7 (3.3-5.1) mmol/L Chloride 105 (96-108) mmol/L Carbon Dioxide 27 (22-29) mmol/L Anion Gap 14 (12-20) BUN 10 (9-16) mg/dL Creatinine 0.73 (0.5-1.4) mg/dL Estim Creat Clear Calc 148.2 Estimated GFR > 60 Random Glucose 87 (60-115) mg/dL Calcium 9.2 (8.4-10.2) mg/dL Total Bilirubin 0.5 (0.0-1.0) mg/dL Direct Bilirubin < 0.2 (0.0-0.5) mg/dL AST 15 (5-31) U/L ALT 21 (0-31) U/L Alkaline Phosphatase 80 (39-117) U/L Total Protein 6.5 (6.5-8.0) g/dL Albumin 4.2 (3.5-5.0) g/dL Urine Color Urine Appearance Urine pH (5.0-9.0) Ur Specific [place] (1.005-1.025) Urine Protein (Neg-Trace) mg/dL Urine Glucose (UA) (Negative) mg/dL Urine Ketones (Negative) mg/dL Urine Blood (Negative) Urine Nitrite (Negative) Ur Leukocyte Esterase (Negative) Urine Test (NEGATIVE) <Michelle Alexandro, PROCESSING [employer] SUPERVISOR - Last Filed: 09/15/22 13:07> Lab Results 09/15/22 09/15/22 09/15/22 Range/Units 14:12 14:12 14:16 WBC 9.0 (4.8-10.8) X10*3/uL RBC 4.59 (4.20-5.50) X10*6/uL Hgb 10.0 L (12.0-16.0) g/dl Hct 32.5 L (37.0-47.0) % MCV 70.8 L (80.0-98.0) fL MCH 21.8 L (27.0-33.0) pg MCHC 30.8 L (31.0-35.0) g/dl RDW 18.2 H (11.0-16.0) % Plt Count 397 (160-400) X10*3/uL MPV 9.7 (9.4-12.3) fL Immature Gran % (Auto) 0.2 (0.0-0.4) % Neut % (Auto) 69.4 (45-73) % Lymph % (Auto) 18.8 L (20-40) % [place] % (Auto) 9.1 (2-11) % Eos % (Auto) 1.9 (0-4) % Baso % (Auto) 0.6 (0-2) % Lymph # (Auto) 1.7 (1.2-4.9) X10*3/uL [place] # (Auto) 0.8 (0.1-1.2) X10*3/uL Eos # (Auto) 0.2 (0.0-0.4) X10*3/uL Baso # (Auto) 0.1 (0.0-0.2) X10*3/uL Abs Immat Gran (auto) 0.02 (0.00-0.03) X10*3/uL Absolute Neuts (auto) 6.2 (2.0-8.3) x10*3/uL Absolute Nucleated RBC 0.000 (0.0-0.012) X10*3/uL Nucleated RBC % (auto) 0.0 (0.0-0.2) /100WBC Sodium (135-145) mmol/L Potassium (3.3-5.1) mmol/L Chloride (96-108) mmol/L Carbon Dioxide (22-29) mmol/L Anion Gap (12-20) BUN (9-16) mg/dL Creatinine (0.5-1.4) mg/dL Estim Creat Clear Calc Estimated GFR Random Glucose (60-115) mg/dL Calcium (8.4-10.2) mg/dL Total Bilirubin (0.0-1.0) mg/dL Direct Bilirubin (0.0-0.5) mg/dL AST (5-31) U/L ALT (0-31) U/L Alkaline Phosphatase (39-117) U/L Total Protein (6.5-8.0) g/dL Albumin (3.5-5.0) g/dL Urine Color Yellow Urine Appearance Clear Urine pH 6.5 (5.0-9.0) Ur Specific [place] >= 1.030 H (1.005-1.025) Urine Protein 30 (1+) H (Neg-Trace) mg/dL Urine Glucose (UA) Negative (Negative) mg/dL Urine Ketones Negative (Negative) mg/dL Urine Blood Small (1+) H (Negative) Urine Nitrite Negative (Negative) Ur Leukocyte Esterase Negative (Negative) Urine Test NEGATIVE (NEGATIVE) 09/15/22 Range/Units 14:16 WBC (4.8-10.8) X10*3/uL RBC (4.20-5.50) X10*6/uL Hgb (12.0-16.0) g/dl Hct (37.0-47.0) % MCV (80.0-98.0) fL MCH (27.0-33.0) pg MCHC (31.0-35.0) g/dl RDW (11.0-16.0) % Plt Count (160-400) X10*3/uL MPV (9.4-12.3) fL Immature Gran % (Auto) (0.0-0.4) % Neut % (Auto) (45-73) % Lymph % (Auto) (20-40) % [place] % (Auto) (2-11) % Eos % (Auto) (0-4) % Baso % (Auto) (0-2) % Lymph # (Auto) (1.2-4.9) X10*3/uL [place] # (Auto) (0.1-1.2) X10*3/uL Eos # (Auto) (0.0-0.4) X10*3/uL Baso # (Auto) (0.0-0.2) X10*3/uL Abs Immat Gran (auto) (0.00-0.03) X10*3/uL Absolute Neuts (auto) (2.0-8.3) x10*3/uL Absolute Nucleated RBC (0.0-0.012) X10*3/uL Nucleated RBC % (auto) (0.0-0.2) /100WBC Sodium 142 (135-145) mmol/L Potassium 3.7 (3.3-5.1) mmol/L Chloride 105 (96-108) mmol/L Carbon Dioxide 27 (22-29) mmol/L Anion Gap 14 (12-20) BUN 10 (9-16) mg/dL Creatinine 0.73 (0.5-1.4) mg/dL Estim Creat Clear Calc 148.2 Estimated GFR > 60 Random Glucose 87 (60-115) mg/dL Calcium 9.2 (8.4-10.2) mg/dL Total Bilirubin 0.5 (0.0-1.0) mg/dL Direct Bilirubin < 0.2 (0.0-0.5) mg/dL AST 15 (5-31) U/L ALT 21 (0-31) U/L Alkaline Phosphatase 80 (39-117) U/L Total Protein 6.5 (6.5-8.0) g/dL Albumin 4.2 (3.5-5.0) g/dL Urine Color Urine Appearance Urine pH (5.0-9.0) Ur Specific [place] (1.005-1.025) Urine Protein (Neg-Trace) mg/dL Urine Glucose (UA) (Negative) mg/dL Urine Ketones (Negative) mg/dL Urine Blood (Negative) Urine Nitrite (Negative) Ur Leukocyte Esterase (Negative) Urine Test (NEGATIVE) <Geraldine Munguia MD - Last Filed: 03/05/23 16:18> Independent Interpretation I performed an independent interpretation of an: CT Scan (Abdomen and pelvis: No acute intra-abdominal pathology.) <Geraldine Munguia MD - Last Filed: 09/15/22 16:18> Radiology Impression Discussion of test interpretation with radiology: I have reviewed the radiologist's reading. <Geraldine Munguia MD - Last Filed: 09/15/22 16:18> Discharge Plan Discharge Clinical Impression: Myofascial low back pain <Michelle Mc NP - Last Filed: 09/15/22 13:07> Patient Disposition: Home, Self-Care <Michelle Mc NP - Last Filed: 09/15/22 13:07> Instructions: Acute Low Back Pain (ED) <Michelle Mc NP - Last Filed: 09/15/22 13:07> Prescriptions: New ibuprofen 600 mg tablet 600 mg PO Q8H PRN (Reason: pain) Qty: 20 0RF No Action (DME) nebulizers Misc See Rx Instructions .Route Qty: 1 0RF Rx Instructions: Use for updraft treatments as prescribed hydrocortisone acetate [Anusol-HC] 25 mg suppository 25 mg ND BID Qty: 12 0RF albuterol sulfate 90 mcg/actuation HFA aerosol inhaler 1 inh inhalation QID PRN (Reason: shortness of breath or wheezing) Qty: 6.7 0RF prednisone 20 mg tablet 20 mg PO BID Qty: 10 0RF azithromycin [Zithromax Z-Rashaad] 250 mg tablet See Rx Instructions .ROUTE .COMPLEX Qty: 6 0RF Rx Instructions: For 250 mg dose pack: take 500 mg today (day 1), then 250 mg for 4 days (days 2-5) acetaminophen 325 mg Tablet 650 mg PO Q6H PRN (Reason: Pain) ibuprofen 200 mg Tablet 400 mg PO Q6H PRN (Reason: Pain) prednisone 20 mg tablet 40 mg PO DAILY 5 Days Qty: 10 0RF benzonatate 100 mg capsule 100 mg PO TID PRN (Reason: cough) Qty: 20 0RF (DME) nebulizers Misc See Rx Instructions .Route Qty: 1 0RF Rx Instructions: As directed albuterol sulfate 0.63 mg/3 mL solution for nebulization 0.63 mg inhalation Q4-6H PRN (Reason: shortness of breath or wheezing) Qty: 75 0RF naproxen [Naprosyn] 500 mg tablet 500 mg PO BID Qty: 20 0RF cefuroxime axetil 500 mg tablet 500 mg PO BID 5 Days Qty: 10 0RF <Michelle Mc NP - Last Filed: 09/15/22 13:07> Referrals: Rylie Dawson MD [Primary Care Provider] - <Michelle Mc NP - Last Filed: 09/15/22 13:07> Stand Alone Forms: Work/School Release <Michelle Mc NP - Last Filed: 09/15/22 13:07>
[2022-09-15 13:06] VITALS: BP 139/89; PULSE 95; RESP 19; TEMP 36.9; O2SAT 98; BMI 39.9
[2022-09-15 14:11] VITALS: BP 100/71; PULSE 81; RESP 16; O2SAT 98
[2022-09-15 14:20] LABS: MANUAL DIFF FLAG NO
[2022-09-15 14:21] LABS: Basophils Absolute Auto 0.1 X10*3/uL (0.0-0.2); Basophils Percent Auto 0.6 % (0-2); Eosinophils Absolute Auto 0.2 X10*3/uL (0.0-0.4); Eosinophils Percent Auto 1.9 % (0-4); Hematocrit 32.5 % (37.0-47.0); Imm Gran Abs Auto 0.02 X10*3/uL (0.00-0.03); Imm Gran Pct Auto 0.2 % (0.0-0.4); Lymphocytes Absolute Auto 1.7 X10*3/uL (1.2-4.9); Lymphocytes Percent Auto 18.8 % (20-40); Mean Corpuscular HGB Conc 30.8 g/dl (31.0-35.0); Mean Corpuscular Hemoglobin 21.8 pg (27.0-33.0); Mean Corpuscular Volume 70.8 fL (80.0-98.0); Mean Platelet Volume 9.7 fL (9.4-12.3); Monocytes Absolute Auto 0.8 X10*3/uL (0.1-1.2); Monocytes Percent Auto 9.1 % (2-11); Neutrophils Absolute Auto 6.2 x10*3/uL (2.0-8.3); Neutrophils Percent Auto 69.4 % (45-73); Platelet Count 397 X10*3/uL (160-400); Red Blood Count 4.59 X10*6/uL (4.20-5.50); Red Cell Distribution Width 18.2 % (11.0-16.0)
[2022-09-15 14:29] LABS: UPreg QC Valid YES; Urine Pregnancy NEGATIVE (NEGATIVE)
[2022-09-15 14:33] LABS: Color Urine Yellow; Glucose Urine UA Negative (Negative); Leukocyte Esterase Urine Negative (Negative); Nitrite Urine Negative (Negative); PH 6.5 (5.0-9.0); Specific Gravity - Urine >= 1.030 (1.005-1.025); UMIC TRIGGER UACC YES; Urine Blood Small (1+) (Negative); Urine Ketones Negative (Negative); Urine Protein 30 (1+) mg/dL (Neg-Trace)
[2022-09-15 14:38] LABS: Appearance Urine Clear
[2022-09-15 14:41] LABS: Alanine Aminotransferase 21 U/L (0-31); Albumin Level 4.2 g/dL (3.5-5.0); Alkaline Phosphatase 80 U/L (39-117); Anion Gap 14 (12-20); Aspartate Amino Transferase 15 U/L (5-31); Bilirubin Direct < 0.2 mg/dL (0.0-0.5); Bilirubin Total 0.5 mg/dL (0.0-1.0); Blood Urea Nitrogen 10 mg/dL (9-16); Calcium 9.2 mg/dL (8.4-10.2); Carbon Dioxide 27 mmol/L (22-29); Chloride 105 mmol/L (96-108); Creatinine Clr Calc Pharmacy 148.2; Estimated Glomerular Filt Rate > 60; Glucose Random 87 mg/dL (60-115); Potassium 3.7 mmol/L (3.3-5.1); Sodium 142 mmol/L (135-145); Total Protein 6.5 g/dL (6.5-8.0)
[2022-09-15] MEDS: Ketorolac Tromethamine 30 MG/ML VIAL IVPUSH (15:37)
[2022-09-15 15:39] VITALS: RESP 16
[2022-09-15] MEDS: Morphine Sulfate 2 MG/ML CARTRIDGE IVPUSH (15:39)
[2022-09-15] MEDS: 0.9 % Sodium Chloride 1,000 ML 999 ML IV (15:41)
[2022-09-15 15:59] LABS: Bacteria Urine 1+ (None Seen); Hyaline Casts Urine 0-2 /LPF (0-2); WBC Urine 0-5 /HPF (0-5)
[2022-09-15 16:08] VITALS: BP 115/74; PULSE 70; RESP 16; O2SAT 98
== END 2022-09-15 17:04 | disposition home or self-care (01) ==
PROVIDERS: Nurse Practitioner Family; Emergency Provider Emergency Medicine; PCP Internal Medicine
DX: M54.50 Low back pain, unspecified (principal); R10.2 Pelvic and perineal pain; Z79.899 Other long term (current) drug therapy
CPT/HCPCS: 36415; 74176; 80048; 80076; 81001; 81025; 85025; 96361; 96374; 96375; 99284; J1885; J2270

== ENCOUNTER 2022-09-22 07:31 | Emergency (ER) | payer OTHER, SELFPAY ==
[2022-09-22 07:36] VITALS: BP 132/86; PULSE 105; RESP 16; TEMP 36.5; O2SAT 97; BMI 39.9
[2022-09-22] MEDS: Lidocaine 4 % Patch ADH..PATCH 1 PATCH TRANSDERMA (07:56)
[2022-09-22] MEDS: Acetaminophen 325 MG TABLET 975 MG PO (07:56)
[2022-09-22 08:00] VITALS: RESP 16
[2022-09-22 08:23] LABS: Appearance Urine Cloudy; Color Urine Dark Yellow; Glucose Urine UA Negative (Negative); Leukocyte Esterase Urine Trace (Negative); Nitrite Urine Negative (Negative); PH 5.5 (5.0-9.0); Specific Gravity - Urine >= 1.030 (1.005-1.025); UMIC TRIGGER UACC YES; Urine Blood Large (3+) (Negative); Urine Ketones Negative (Negative); Urine Protein 100 (2+) mg/dL (Neg-Trace)
[2022-09-22 08:24] LABS: UPreg QC Valid YES; Urine Pregnancy NEGATIVE (NEGATIVE)
[2022-09-22 08:25] LABS: Bacteria Urine Trace (None Seen); Hyaline Casts Urine 0-2 /LPF (0-2); RBC Urine >20 /HPF (0-2); WBC Urine 0-5 /HPF (0-5)
--- NOTE | 2022-09-22 08:26 | ED.BACK ---
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 Related Data Home Medications Medication Instructions Recorded Confirmed acetaminophen 325 mg tablet 650 mg PO Q6H PRN Pain 09/20/21 09/20/21 Previous Rx's Medication Instructions Recorded albuterol sulfate 90 mcg/actuation 1 inh inhalation QID PRN shortness 09/20/21 aerosol inhaler of breath or wheezing #6.7 grams azithromycin 250 mg tablet See Rx Instructions PO .COMPLEX #6 09/20/21 (Zithromax Z-Rasahad) tabs prednisone 20 mg tablet 20 mg PO BID #10 tabs 09/20/21 albuterol sulfate 0.63 mg/3 mL 0.63 mg (3 mL) inhalation Q4-6H 09/23/21 solution for nebulization PRN shortness of breath or wheezing #75 mL benzonatate 100 mg capsule 100 mg PO TID PRN cough #20 caps 09/23/21 nebulizers #1 ea 09/23/21 prednisone 20 mg tablet 40 mg PO DAILY 5 days #10 tabs 09/23/21 nebulizers #1 ea 09/25/21 cefuroxime axetil 500 mg tablet 500 mg PO BID 5 days #10 tabs 12/08/21 hydrocortisone acetate 25 mg 25 mg FL BID #12 ea 05/09/22 rectal suppository (Anusol-HC) cyclobenzaprine 5 mg tablet 5 mg PO BEDTIME PRN muscle spasm 09/22/22 #4 tabs ketorolac 10 mg tablet 10 mg PO Q6H PRN pain 5 days #20 09/22/22 tabs Allergies Allergy/AdvReac Type Severity Reaction Status Date / Time apricot [APRICOT] Allergy Unknown RASH Verified 09/22/22 07:36 cephalexin [From KEFLEX] Allergy Unknown RASH Verified 09/22/22 07:36 Review of Systems Review of Systems: Pertinent positives and negatives as stated in HPI PMFSH Past Medical History Source: nursing notes reviewed Medical History Anemia Arthritis Asthma Closed right tibial fracture COVID-19 Knee pain, right Mass of left upper extremity Mild intermittent asthma Pain and swelling of right lower leg Spondyloarthropathy Tibia/fibula fracture Surgical History H/O foot surgery Hx of section Family History Family History Father Diabetes Mother Thyroid disease Social History Social History Household Members: Other Housing: House Do you presently have visiting nurse or other home services: No Alcohol intake: unknown Patient Tobacco Use Status: Never used Tobacco Smoked in Last 30 Days: No Use of substances other than those prescribed or required for medical reasons: Unknown Substance Use Type: Marijuana Advance Directives: No Advance Directives Information Provided: No Patient : No service: No Current occupational status: employed Gender identity: Female Physical Exam Vital Signs: Vital Signs: Last Vital Signs Temp 97.6 F 09/22/22 09:38 Pulse 78 09/22/22 09:38 Resp 16 09/22/22 09:38 BP 114/76 09/22/22 09:38 Pulse Ox 97 09/22/22 09:38 O2 Del Method 09/22/22 09:38 BMI result Body Mass Index 39.9 VITAL SIGNS: Reviewed. GENERAL: Well developed, well nourished, in no acute distress. HEAD: Normocephalic/atraumatic EYES: PERRLA, EOMI EARS: Ext canals without abnormality NOSE: Nares patent bilateral OROPHARYNX: no oral lesions noted, posterior pharynx clear NECK: Supple, no adenopathy LUNGS: Normal breath sounds. No adventitious sounds or accessory muscle use. SpO2<97> CARDIOVASCULAR: Regular rate and rhythm without noted murmurs ABDOMEN: Soft, non-tender, non-distended with bowel sounds, no CVA tenderness BACK: no midline vertebral tenderness, no paraspinal tenderness the pain appears to be at the level of L4/L5 MUSCULOSKELETAL: No tenderness, deformities, or effusions noted on gross inspection. EXTREMITIES: No cyanosis, clubbing or edema. SKIN: Inspection of the skin reveals no rashes NEUROLOGIC: Alert and oriented x 4. Strength and sensation to light touch were grossly intact x 4. Medications Administered Discontinued Medications Generic Name Dose Route Start Last Admin Trade Name Candy PRN Reason Stop Dose Admin Acetaminophen 975 mg 09/22/22 07:42 09/22/22 07:56 Acetaminophen 325 Mg Tablet PO 09/22/22 07:43 975 mg ONCE ONE Administration Ketorolac Tromethamine 15 mg 09/22/22 08:26 09/22/22 08:43 Ketorolac Tromethamine 15 Mg/Ml Vial IM 09/22/22 08:27 15 mg ONCE ONE Administration Lidocaine 1 patch 09/22/22 07:42 09/22/22 07:56 Lidocaine 4 % Patch Adh..Patch TRANSDERMA 09/22/22 07:43 1 patch ONCE ONE Administration Protocol Medical Decision Making Medical Decision Making MDM Narrative: 26-year-old female with persistent left-sided lower back discomfort atraumatic in nature, was extensively evaluated last week with CT scan which did not show any acute abnormalities. No evidence of UTI but has presence of RBCs as well as protein in her urine. Will treat patient with combination analgesics, lidocaine patch as well as a script for Flexeril but given the hematuria in the absence menstrual bleeding or renal stone will give her referral to follow-up with urology. On re-evaluation, patient is feeling somewhat better, I discussed with her the results and she understands to stop all other NSAIDs and she will be started on Toradol and also given a script for Flexeril to take at night. She knows to follow-up with primary care provider and understands that she will receive a referral to Urology for increased presence of blood in the urine. Differential Diagnosis Please see the discussion above Lab Data please see the discussion above Labs: Lab Results 09/22/22 09/22/22 Range/Units 08:04 08:04 Urine Color Dark Yellow Urine Appearance Cloudy Urine pH 5.5 (5.0-9.0) Ur Specific [place] >= 1.030 H (1.005-1.025) Urine Protein 100 (2+) H (Neg-Trace) mg/dL Urine Glucose (UA) Negative (Negative) mg/dL Urine Ketones Negative (Negative) mg/dL Urine Blood Large (3+) H (Negative) Urine Nitrite Negative (Negative) Ur Leukocyte Esterase Trace H (Negative) Urine RBC >20 H (0-2) /HPF Urine WBC 0-5 (0-5) /HPF Ur Squamous Epith Cells 3-5 (0-2) /HPF Urine Bacteria Trace (None Seen) Hyaline Casts 0-2 (0-2) /LPF Urine Test NEGATIVE (NEGATIVE) External Record Review External record reviewed: Outpatient record and Prior outpatient labs Discharge Plan Discharge Clinical Impression: Muscle strain, Abdominal wall pain in left flank, Hematuria Patient Disposition: Home, Self-Care Instructions: Muscle Strain (ED), Back Pain (ED), Lower Back Exercises (ED) Additional Instructions: 1. Tylenol 1000 mg, orally, every 6 hours as needed for pain control. Do not exceed 4000 mg within 24 hours. 2. Lidocaine patch, apply to area of maximal tenderness as directed on the outside packaging. 3. Follow-up with your primary care provider by calling the office 1st thing in the morning to set up an appointment for re-evaluation further outpatient management. 4. Due to the increase hematuria you have been provided with a referral to follow-up with urology. increased amount of water intake. Return to the ER for any worsening symptoms. Prescriptions: New cyclobenzaprine 5 mg tablet 5 mg PO BEDTIME PRN (Reason: muscle spasm) Qty: 4 0RF ketorolac 10 mg tablet 10 mg PO Q6H PRN (Reason: pain) 5 Days Qty: 20 0RF Rx Instructions: Patient received Toradol in the emergency room. Discontinued ibuprofen 600 mg tablet 600 mg PO Q8H PRN (Reason: pain) Qty: 20 0RF ibuprofen 200 mg Tablet 400 mg PO Q6H PRN (Reason: Pain) naproxen [Naprosyn] 500 mg tablet 500 mg PO BID Qty: 20 0RF No Action (DME) nebulizers Misc See Rx Instructions .Route Qty: 1 0RF Rx Instructions: Use for updraft treatments as prescribed hydrocortisone acetate [Anusol-HC] 25 mg suppository 25 mg FL BID Qty: 12 0RF albuterol sulfate 90 mcg/actuation HFA aerosol inhaler 1 inh inhalation QID PRN (Reason: shortness of breath or wheezing) Qty: 6.7 0RF prednisone 20 mg tablet 20 mg PO BID Qty: 10 0RF azithromycin [Zithromax Z-Rashaad] 250 mg tablet See Rx Instructions .ROUTE .COMPLEX Qty: 6 0RF Rx Instructions: For 250 mg dose pack: take 500 mg today (day 1), then 250 mg for 4 days (days 2-5) acetaminophen 325 mg Tablet 650 mg PO Q6H PRN (Reason: Pain) prednisone 20 mg tablet 40 mg PO DAILY 5 Days Qty: 10 0RF benzonatate 100 mg capsule 100 mg PO TID PRN (Reason: cough) Qty: 20 0RF (DME) nebulizers Misc See Rx Instructions .Route Qty: 1 0RF Rx Instructions: As directed albuterol sulfate 0.63 mg/3 mL solution for nebulization 0.63 mg inhalation Q4-6H PRN (Reason: shortness of breath or wheezing) Qty: 75 0RF cefuroxime axetil 500 mg tablet 500 mg PO BID 5 Days Qty: 10 0RF Referrals: Rylie Dawson MD [Primary Care Provider] - Delta Soto MD [Physician] - (Hematuria, >20 RBCs, no stone, non-menstrual)
[2022-09-22] MEDS: Ketorolac Tromethamine 15 MG/ML VIAL IM (08:43)
--- NOTE | 2022-09-22 09:35 | PC.NURSE ---
pt AOx3, resting comfortably, states pain meds are having some effect.
[2022-09-22 09:38] VITALS: BP 114/76; PULSE 78; RESP 16; TEMP 36.4; O2SAT 97
== END 2022-09-22 10:10 | disposition home or self-care (01) ==
PROVIDERS: Emergency Provider Student in an Organized Health Care Education/Training Program; PCP Internal Medicine
DX: M54.50 Low back pain, unspecified (principal); R10.32 Left lower quadrant pain; R31.9 Hematuria, unspecified; Z79.899 Other long term (current) drug therapy
CPT/HCPCS: 81001; 81025; 96372; 99284; J1885

== ENCOUNTER 2022-09-30 11:09 | Emergency (ER) | payer OTHER, SELFPAY ==
--- NOTE | ~2022-09-30 | XR_ITS ---
EXAMINATION: XR HUMERUS, LEFT CLINICAL INFORMATION: Abnormal chest x-ray. Evaluate left humerus. COMPARISON: September 20, 2021. TECHNIQUE: AP and lateral views of the left humerus. XR/XR humerus LT FINDINGS/IMPRESSION: Examination demonstrates a poorly circumscribed, lytic lesion involving the proximal left humerus and humeral head, with associated cortical scalloping and thinning. No periosteal reaction is seen. The finding appears grossly similar compared with September 20, 2021. Please note that given the size of this lesion and associated cortical thinning, the patient is at significantly increased risk for pathological fracture. Although the finding appears relatively stable, orthopedic consultation is recommended. MRI may be of use for further evaluation if clinically desired.
--- NOTE | ~2022-09-30 | XR_ITS ---
EXAMINATION: XR CHEST CLINICAL INFORMATION: Cough, shortness of breath. COMPARISON: 09/20/2021 chest radiograph. TECHNIQUE: Frontal view of the chest was obtained. FINDINGS: The lungs are clear. The heart and mediastinal structures are unremarkable. Lytic changes are seen in the visualized proximal left humerus. The soft tissues are unremarkable. XR/XR chest 1V IMPRESSION: 1. No acute cardiopulmonary process. 2. Lytic changes in the visualized proximal left humerus. Correlate with patient history. Dedicated left humerus radiographs are recommended.
--- NOTE | 2022-09-30 11:11 | ED.GENADULT ---
HPI - General Adult General Chief complaint: Upper Respiratory Symptoms <YAZ Robert - Last Filed: 09/30/22 11:14> Stated complaint: trouble breathing, asthma, cough <YAZ Robert - Last Filed: 09/30/22 11:14> Time Seen by Provider: 09/30/22 12:13 <YAZ Robert - Last Filed: 09/30/22 11:14> Source: patient <Michelle Mc NP - Last Filed: 09/30/22 16:07> Mode of arrival: ambulatory <Michelle Mc NP - Last Filed: 09/30/22 16:07> Limitations: no limitations <Michelle Mc NP - Last Filed: 09/30/22 16:07> History of Present Illness HPI narrative: 26 yo female with history of intermittent asthma here with complaints of cough, wheezing, shortness of breath x 4 days, nausea/diarrhea yesterday. No abdominal pain/chest pain, leg swelling, fever, neck pain or stiffness. Works as [employer] with +exposure at work to COVID. <Michelle Mc NP - Last Filed: 09/30/22 16:07> Related Data Home medications: Home Medications Medication Instructions Recorded Confirmed acetaminophen 325 mg tablet 650 mg PO Q6H PRN Pain 09/20/21 09/20/21 Previous Rx's Medication Instructions Recorded albuterol sulfate 90 mcg/actuation 1 inh inhalation QID PRN shortness 09/20/21 aerosol inhaler of breath or wheezing #6.7 grams azithromycin 250 mg tablet See Rx Instructions PO .COMPLEX #6 09/20/21 (Zithromax Z-Rashaad) tabs prednisone 20 mg tablet 20 mg PO BID #10 tabs 09/20/21 albuterol sulfate 0.63 mg/3 mL 0.63 mg (3 mL) inhalation Q4-6H 09/23/21 solution for nebulization PRN shortness of breath or wheezing #75 mL benzonatate 100 mg capsule 100 mg PO TID PRN cough #20 caps 09/23/21 nebulizers #1 ea 09/23/21 prednisone 20 mg tablet 40 mg PO DAILY 5 days #10 tabs 09/23/21 nebulizers #1 ea 09/25/21 cefuroxime axetil 500 mg tablet 500 mg PO BID 5 days #10 tabs 12/08/21 hydrocortisone acetate 25 mg 25 mg CA BID #12 ea 05/09/22 rectal suppository (Anusol-HC) cyclobenzaprine 5 mg tablet 5 mg PO BEDTIME PRN muscle spasm 09/22/22 #4 tabs ketorolac 10 mg tablet 10 mg PO Q6H PRN pain 5 days #20 09/22/22 tabs <YAZ Robert - Last Filed: 09/30/22 11:14> Allergies/adverse reactions: Allergies Allergy/AdvReac Type Severity Reaction Status Date / Time apricot [APRICOT] Allergy Unknown RASH Verified 09/30/22 11:13 cephalexin [From KEFLEX] Allergy Unknown RASH Verified 09/30/22 11:13 <YAZ Robert - Last Filed: 09/30/22 11:14> Review of Systems Review of Systems: Yes all other systems are reviewed and are negative <Michelle Mc NP - Last Filed: 09/30/22 16:07> Constitutional: Constitutional: Reports no additional constitutional complaints, Denies body ache(s), Denies chills, Denies fever(s), Denies headache(s) and Denies weakness <Michelle Mc NP - Last Filed: 09/30/22 16:07> Eyes: Eyes: Reports no additional eye complaints and Denies change in vision <Michelle Mc NP - Last Filed: 09/30/22 16:07> ENT: Reports system reviewed and no additional complaints, except as documented, Denies dizziness, Denies headache(s), Denies nasal congestion, Denies nasal discharge and Denies neck pain <Michelle Mc NP - Last Filed: 09/30/22 16:07> Cardiovascular: Cardiovascular: Reports no additional cardiovascular complaints, Denies chest pain, Denies leg edema and Reports dyspnea <Michelle Mc NP - Last Filed: 09/30/22 16:07> Respiratory: Respiratory: Reports no additional respiratory complaints, Reports cough, Reports dyspnea and Reports wheezing <Michelle Mc NP - Last Filed: 09/30/22 16:07> Gastrointestinal: Gastrointestinal: Reports no additional gastrointestinal complaints, Denies abdominal pain, Reports diarrhea, Reports nausea and Denies vomiting <Michelle Mc NP - Last Filed: 09/30/22 16:07> Genitourinary: Genitourinary: Reports no additional female genitourinary complaints and Denies urinary incontinence <Michelle Mc NP - Last Filed: 09/30/22 16:07> Musculoskeletal: Musculoskeletal: Reports no additional musculoskeletal complaints, Denies back pain, Denies arthralgias, Denies joint swelling, Denies neck pain, Denies numbness and Denies tingling <Michelle Mc NP - Last Filed: 09/30/22 16:07> Integumentary/Breasts: Skin/Breast: Reports system reviewed and no additional complaints, except as docu and Denies rash <Michelle Mc NP - Last Filed: 09/30/22 16:07> Neurologic: Reports system reviewed and no additional complaints, except as documented, Denies dizziness, Denies headache(s), Denies numbness, Denies tingling and Denies weakness <Michelle Mc NP - Last Filed: 09/30/22 16:07> Allergic/Immunologic: Allergic/Immunologic: Reports wheezing <Michelle Mc NP - Last Filed: 09/30/22 16:07> PMFSH Past Medical History Attestation statement: The following information was validated with the patient. <Michelle Mc NP - Last Filed: 09/30/22 16:07> Source: old records reviewed and nursing notes reviewed <Michelle Mc NP - Last Filed: 09/30/22 16:07> Medical History: Medical History Anemia Arthritis Asthma Closed right tibial fracture COVID-19 Knee pain, right Mass of left upper extremity Mild intermittent asthma Pain and swelling of right lower leg Spondyloarthropathy Tibia/fibula fracture <YAZ Robert - Last Filed: 09/30/22 11:14> Surgical History: Surgical History H/O foot surgery Hx of section <YAZ Robert - Last Filed: 09/30/22 11:14> Family History Family History: Family History Father Diabetes Mother Thyroid disease <YAZ Robert - Last Filed: 09/30/22 11:14> Social History Social History: Social History Household Members: Other Housing: House Do you presently have visiting nurse or other home services: No Alcohol intake: unknown Patient Tobacco Use Status: Never used Tobacco Substance Use Type: Marijuana Advance Directives: No Advance Directives Information Provided: No service: No Current occupational status: employed Gender identity: Female <YAZ Robert - Last Filed: 09/30/22 11:14> Physical Exam ED Vital Signs: Vital Signs - 24 hr 09/30/22 11:13 09/30/22 15:36 Temperature 98 F 97.9 F Pulse Rate 107 H 75 Respiratory Rate 19 16 Blood Pressure 131/106 H 117/67 Pulse Oximetry 98 98 Oxygen Delivery Method Room Air Room Air BMI result Body Mass Index 39.9 <YAZ Robert - Last Filed: 09/30/22 11:14> Vital Signs - 24 hr 09/30/22 11:13 09/30/22 15:36 Temperature 98 F 97.9 F Pulse Rate 107 H 75 Respiratory Rate 19 16 Blood Pressure 131/106 H 117/67 Pulse Oximetry 98 98 Oxygen Delivery Method Room Air Room Air BMI result Body Mass Index 39.9 <Michelle Mc NP - Last Filed: 09/30/22 16:07> Const General: cooperative, healthy appearing, comfortable and no acute distress <Michelle Mc NP - Last Filed: 09/30/22 16:07> Orientation/consciousness: patient oriented x3 <Michelle Mc NP - Last Filed: 09/30/22 16:07> Limitations: no limitations <Michelle Mc NP - Last Filed: 09/30/22 16:07> HENMT Head: Yes normal to inspection <Michelle Mc [employer] [facility] - Last Filed: 09/30/22 16:07> Ears: hearing grossly normal bilaterally and TM's normal bilaterally <Michelle Mc [employer] - Last Filed: 09/30/22 16:07> General nose exam: Normal external nose present <Michelle Mc [facility] - Last Filed: 09/30/22 16:07> Face and sinus: Yes normal facial exam <Michelle Mc [facility] - Last Filed: 09/30/22 16:07> Mouth: Normal oral and palatal mucosa present <Michelle Mc [facility] - Last Filed: 09/30/22 16:07> Throat: Yes posterior oropharynx normal, Yes tonsils normal and Yes uvula midline <Michelle Mc [employer] - Last Filed: 09/30/22 16:07> Eyes General: appearance normal, both eyes and all related structures <Michelle Mc [facility] - Last Filed: 09/30/22 16:07> Pupils: Equal, round and reactive pupils present <Michelle Mc [employer] - Last Filed: 09/30/22 16:07> Neck Neck: Yes normal visual inspection, Yes full ROM, Yes no lymphadenopathy and Yes no meningeal signs <Michelle Mc [facility] - Last Filed: 09/30/22 16:07> Chest Chest palpation & inspection: normal inspection of the chest <Michelle Mc [employer] - Last Filed: 09/30/22 16:07> Resp Effort & Inspection: normal respiratory effort <Michelle Mc [facility] - Last Filed: 09/30/22 16:07> Auscultation: clear to auscultation bilaterally <Michelle Mc [facility] - Last Filed: 09/30/22 16:07> Cardio Rate: regular rate <Michelle Mc [facility] - Last Filed: 09/30/22 16:07> Rhythm: regular rhythm <Michelle Mc [facility] - Last Filed: 09/30/22 16:07> Peripheral pulses: Peripheral pulses 2+ throughout <Michelle Mc [facility] - Last Filed: 09/30/22 16:07> GI Inspection: Yes normal to inspection <Michelle Mc [facility] - Last Filed: 09/30/22 16:07> Palpation (GI): Soft to palpation and nontender <Michelle Mc [facility] - Last Filed: 09/30/22 16:07> Back/Spine/Pelvis Thoracic/Lumbar Spine: thoracic and lumbar spine normal to inspection <Michelle Mc [facility] - Last Filed: 09/30/22 16:07> Skin General skin exam: no rashes or lesions noted <Michelle Mc [facility] - Last Filed: 09/30/22 16:07> Neuro General: patient oriented x3, moves all extremities and no meningeal signs <Michelle Mc [facility] - Last Filed: 09/30/22 16:07> Cranial nerves: Yes Equal, round and reactive pupils present <Michelle Mc [facility] - Last Filed: 09/30/22 16:07> Cognition (Neuro): normal cognition <Michelle Mc [facility] - Last Filed: 09/30/22 16:07> Gait exam (Neuro): Normal gait present <Michelle Mc [facility] - Last Filed: 09/30/22 16:07> Extrem General: Yes normal to inspection, Yes no pedal edema and Yes no calf tenderness <Michelle Mc [facility] - Last Filed: 09/30/22 16:07> Course Course Course Narrative: This is an RME: Additional HPI, ROS, PE not included below will be deferred to primary provider. 26-year-old female history of asthma presents with cough, shortness of breath since this morning. Patient reports this feels like a typical asthma attack however not going away. Reports that previous to this she had upper respiratory symptoms as well as nausea, vomiting, headache, body aches and pains. Tells me with bothering her most is this cough. The cough is dry, and very uncomfortable. Physical exam benign however patient does have a dry intermittent cough that sounds barky Plan viral testing, x-ray. Will order Decadron and albuterol. <YAZ Robert - Last Filed: 09/30/22 11:14> Reevaluation(s) Reevaluation #1: 1520-x-ray of left humerus shows a lytic lesion that was seen on x-ray from September of 2021. It does not appear increased in size. It was previously recommended the patient follow-up for outpatient MRI and orthopedic follow-up. Patient states that she remembers being told that there was something abnormal on her x-ray but she did not follow-up. I spoke to the patient at length about how important is to follow-up with Orthopedics and get additional imaging to make sure that this is not malignancy. -COVID positive. No hypoxia or tachypnea. Lungs are improved after receiving a nebulizer here. <Michelle Mc NP - Last Filed: 09/30/22 16:07> Medications Administered Discontinued Medications Generic Name Dose Route Start Last Admin Trade Name Freq PRN Reason Stop Dose Admin Acetaminophen 975 mg 09/30/22 12:28 09/30/22 12:35 Acetaminophen 325 Mg Tablet PO 09/30/22 12:29 975 mg ONCE ONE Administration Albuterol Sulfate 5 mg 09/30/22 11:12 09/30/22 12:26 Albuterol Sulfate (0.083%) 2.5 Mg/3 Ml Vial.Neb INHALE 09/30/22 11:13 5 mg ONCE ONE Administration Dexamethasone Sodium Phosphate 10 mg 09/30/22 11:12 09/30/22 12:19 Dexamethasone Sod Phosphate 10 Mg/Ml Vial IVPUSH 09/30/22 11:13 10 mg ONCE ONE Administration <YAZ Robert - Last Filed: 09/30/22 11:14> Medications Administered Discontinued Medications Generic Name Dose Route Start Last Admin Trade Name Freq PRN Reason Stop Dose Admin Acetaminophen 975 mg 09/30/22 12:28 09/30/22 12:35 Acetaminophen 325 Mg Tablet PO 09/30/22 12:29 975 mg ONCE ONE Administration Albuterol Sulfate 5 mg 09/30/22 11:12 09/30/22 12:26 Albuterol Sulfate (0.083%) 2.5 Mg/3 Ml Vial.Neb INHALE 09/30/22 11:13 5 mg ONCE ONE Administration Dexamethasone Sodium Phosphate 10 mg 09/30/22 11:12 09/30/22 12:19 Dexamethasone Sod Phosphate 10 Mg/Ml Vial IVPUSH 09/30/22 11:13 10 mg ONCE ONE Administration <Michelle Mc NP - Last Filed: 09/30/22 16:07> Medical Decision Making Medical Decision Making MDM Narrative: 26 yo female with history of asthma here with 4 days of cough/wheezing/shortness of breath with diarrhea/nausea yesterday. Lungs are clear. Vitals are stable. Will obtain viral testing, chest x-ray, neb ordered from triage <Michelle Mc NP - Last Filed: 09/30/22 16:07> Differential Diagnosis Differential Diagnoses: The differential diagnosis associated with the presentation includes <Michelle Mc NP - Last Filed: 09/30/22 16:07> Asthma exacerbation, pneumonia, influenza, viral syndrome Less likely PE. Perc score is 0 <Michelle Mc NP - Last Filed: 09/30/22 16:07> Consult Healthcare Provider Management of the patient was discussed with: Batcher Operator <Michelle Mc NP - Last Filed: 09/30/22 16:07> Orthopedics YAZ [id number] lesion on x-ray needing outpatient urgent [id number] are happy to follow-up <Michelle Mc NP - Last Filed: 09/30/22 16:07> Lab Data MDM Lab Attestation statement: I reviewed the patient's lab results. <Michelle Mc NP - Last Filed: 09/30/22 16:07> Labs: Lab Results 09/30/22 09/30/22 Range/Units 11:16 11:16 COVID-19 (ALEX) Positive A (Negative) COVID-19 Clin Com See Note Influenza Type A (RAMONA) Negative (Negative) Influenza Type B ([facility]) Negative (Negative) Influenza A & B Note See Note <YAZ Robert - Last Filed: 09/30/22 11:14> Lab Results 09/30/22 09/30/22 Range/Units 11:16 11:16 COVID-19 (ALEX) Positive A (Negative) COVID-19 Clin Com See Note Influenza Type A ([facility]) Negative (Negative) Influenza Type B ([facility]) Negative (Negative) Influenza A & B Note See Note <Michelle Mc NP - Last Filed: 09/30/22 16:07> Independent Interpretation I performed an independent interpretation of an: Plain X-Ray <Michelle Mc NP - Last Filed: 09/30/22 16:07> Interpretation: I independently reviewed the x-ray and agree with radiologist's report-images of the left humerus were ordered <Michelle Mc NP - Last Filed: 09/30/22 16:07> Radiology Impression Discussion of test interpretation with radiology: I have reviewed the radiologist's reading. <Michelle Mc NP - Last Filed: 09/30/22 16:07> Radiologist Impression: [address] [address] XRay Report Signed Patient: Fatou Gonzalez MR#: [id number] : 1995 Acct:[id number] Age/Sex: 26 / F ADM Date: 09/30/22 Loc: HO.ED Attending Dr: Ordering Physician: Valencia Marquis Date of Service: 09/30/22 Procedure(s): XR chest 1V Accession Number(s): [id number] cc: Valencia Marquis~ EXAMINATION: XR CHEST CLINICAL INFORMATION: Cough, shortness of breath. COMPARISON: 09/20/2021 chest radiograph. TECHNIQUE: Frontal view of the chest was obtained. FINDINGS: The lungs are clear. The heart and mediastinal structures are unremarkable. Lytic changes are seen in the visualized proximal left humerus. The soft tissues are unremarkable. XR/XR chest 1V IMPRESSION: ? 1. No acute cardiopulmonary process. 2. Lytic changes in the visualized proximal left humerus. Correlate with patient history. Dedicated left humerus radiographs are recommended. [address] [address] XRay Report Signed Patient: Fatou Gonzalez MR#: [id number] : 1995 Acct:[id number] Age/Sex: 26 / F ADM Date: 09/30/22 Loc: HO.ED Attending Dr: Ordering Physician: Michelle Pinto NP Date of Service: 09/30/22 Procedure(s): XR humerus LT Accession Number(s): [id number] cc: Michelle Pinto NP~ EXAMINATION: XR HUMERUS, LEFT CLINICAL INFORMATION: Abnormal chest x-ray. Evaluate left humerus.? COMPARISON: September 20, 2021.? TECHNIQUE: AP and lateral views of the left humerus. XR/XR humerus LT FINDINGS/IMPRESSION: ? Examination demonstrates a poorly circumscribed, lytic lesion involving the proximal left humerus and humeral head, with associated cortical scalloping and thinning. No periosteal reaction is seen. The finding appears grossly similar compared with September 20, 2021. ? Please note that given the size of this lesion and associated cortical thinning, the patient is at significantly increased risk for pathological fracture. ? Although the finding appears relatively stable, orthopedic consultation is recommended. MRI may be of use for further evaluation if clinically desired. <Michelle Mc NP - Last Filed: 09/30/22 16:07> Prescription Management I considered prescription management with: Antiviral <Michelle Mc NP - Last Filed: 09/30/22 16:07> COVID positive-discussed Paxlovid with patient. At this point she is not interested in starting treatment <Michelle Mc NP - Last Filed: 09/30/22 16:07> Discharge Plan Discharge Clinical Impression: COVID-19, Abnormal x-ray <YAZ Robert - Last Filed: 09/30/22 11:14> Patient Disposition: Home, Self-Care <YAZ Robert - Last Filed: 09/30/22 11:14> Instructions: COVID-19 (Coronavirus Disease 2019) (ED) <YAZ Robert - Last Filed: 09/30/22 11:14> Additional Instructions: Your COVID test is positive. Please quarantine for 5 days. Alternate Motrin and Tylenol for pain or fever Increase fluids, rest Continue your albuterol as needed You receive steroids today which will last her system for several days. Return for worsening shortness of breath or chest pain We did discuss the current available treatment for COVID is Paxlovid. We discussed that it is not FDA approved and only has an emergency use authorization. At this time you declined treatment. Your x-ray of your left upper arm shows a lytic lesion that was seen on your x-ray from 1 year ago. It does not appear larger. However it is quite concerning and you do need additional imaging and Orthopedic follow-up urgently to make sure that this is not cancer. <YAZ Robert - Last Filed: 09/30/22 11:14> Prescriptions: No Action (DME) nebulizers [facility] – [place], [place] See Rx Instructions .Route Qty: 1 0RF Rx Instructions: Use for updraft treatments as prescribed hydrocortisone acetate [Anusol-HC] 25 mg suppository 25 mg CA BID Qty: 12 0RF cyclobenzaprine 5 mg tablet 5 mg PO BEDTIME PRN (Reason: muscle spasm) Qty: 4 0RF ketorolac 10 mg tablet 10 mg PO Q6H PRN (Reason: pain) 5 Days Qty: 20 0RF Rx Instructions: Patient received Toradol in the emergency room. albuterol sulfate 90 mcg/actuation HFA aerosol inhaler 1 inh inhalation QID PRN (Reason: shortness of breath or wheezing) Qty: 6.7 0RF prednisone 20 mg tablet 20 mg PO BID Qty: 10 0RF azithromycin [Zithromax Z-Rashaad] 250 mg tablet See Rx Instructions .ROUTE .COMPLEX Qty: 6 0RF Rx Instructions: For 250 mg dose pack: take 500 mg today (day 1), then 250 mg for 4 days (days 2-5) acetaminophen 325 mg Tablet 650 mg PO Q6H PRN (Reason: Pain) prednisone 20 mg tablet 40 mg PO DAILY 5 Days Qty: 10 0RF benzonatate 100 mg capsule 100 mg PO TID PRN (Reason: cough) Qty: 20 0RF (DME) nebulizers [facility] [place], [place] See Rx Instructions .Route Qty: 1 0RF Rx Instructions: As directed albuterol sulfate 0.63 mg/3 mL solution for nebulization 0.63 mg inhalation Q4-6H PRN (Reason: shortness of breath or wheezing) Qty: 75 0RF cefuroxime axetil 500 mg tablet 500 mg PO BID 5 Days Qty: 10 0RF <YAZ Robert - Last Filed: 09/30/22 11:14> Referrals: [facility] [place] Group] - 1 week <YAZ Robert - Last Filed: 09/30/22 11:14> Stand Alone Forms: Work/School Release <YAZ Robert - Last Filed: 09/30/22 11:14> Interventions: ED Discharge Assessment Last Done: 09/30/22 15:55 <YAZ Robert - Last Filed: 09/30/22 11:14> Discharge Date/Time: 09/30/22 15:55 <YAZ Robert - Last Filed: 09/30/22 11:14>
[2022-09-30 11:13] VITALS: BP 131/106; PULSE 107; RESP 19; TEMP 36.6; O2SAT 98; BMI 39.9
[2022-09-30 11:41] LABS: COVID-19 Test Positive (Negative); IDNOW Serial# BCCEAD1C
[2022-09-30 11:50] LABS: IDNOW Serial# 08D9AD1C; Influenza A Negative (Negative); Influenza B2 Negative (Negative)
[2022-09-30] MEDS: dexAMETHasone sod phosphate 10 MG/ML VIAL IVPUSH (12:19)
[2022-09-30] MEDS: Albuterol Sulfate (0.083%) 2.5 MG/3 ML VIAL.NEB 5 MG INHALE (12:26)
[2022-09-30] MEDS: Acetaminophen 325 MG TABLET 975 MG PO (12:35)
[2022-09-30 15:36] VITALS: BP 117/67; PULSE 75; RESP 16; TEMP 36.6; O2SAT 98
== END 2022-09-30 15:55 | disposition home or self-care (01) ==
PROVIDERS: Physician Assistant; Emergency Provider Emergency Medicine; PCP Internal Medicine
DX: U07.1 COVID-19 (principal); R05.9 Cough, unspecified; R06.2 Wheezing; R93.6 Abnormal findings on diagnostic imaging of limbs; M89.9 Disorder of bone, unspecified
CPT/HCPCS: 71045; 73060; 87502; 87635; 99283; 99284; J1100

== ENCOUNTER → 2022-10-16 08:54 | Outpatient (BNVA) | payer OTHER, SELFPAY | PROVIDERS: PCP Internal Medicine; Visit Provider Physician Assistant | DX: M75.92 Shoulder lesion, unspecified, left shoulder (principal) | CPT/HCPCS: 99202 ==

== ENCOUNTER 2022-10-22 20:16 | Emergency (ER) | payer OTHER, SELFPAY ==
[2022-10-22 21:45] VITALS: BP 118/77; PULSE 108; RESP 16; TEMP 36.1; O2SAT 98; BMI 41.0
[2022-10-23 00:06] VITALS: BP 111/79; PULSE 104; RESP 17; TEMP 36.2; O2SAT 100
--- NOTE | 2022-10-23 00:42 | ED.GENADULT ---
HPI - General Adult General Chief complaint: Dental/Oral Stated complaint: left side pain mouth/jaw Time Seen by Provider: 10/22/22 23:56 Source: patient Mode of arrival: ambulatory Limitations: no limitations History of Present Illness HPI narrative: 26-year-old female presenting with severe left-sided ear pain that radiates in to left cheek, teeth X 2 days. Patient reports pain is severe in nature, has intermittent ringing, patient reports at times feels like her ear feels muffled on the left side. Normal right ear. No recent sick contacts. She tells me she has a tube in her left ear. Patient denies fevers, chills, chest pain, shortness of breath, URI symptoms, nausea, vomiting abdominal pain, vision changes, dizziness. She used to recurrent otitis media as a child. No recent dental work Related Data Home Medications Medication Instructions Recorded Confirmed acetaminophen 325 mg tablet 650 mg PO Q6H PRN Pain 09/20/21 09/20/21 Previous Rx's Medication Instructions Recorded albuterol sulfate 90 mcg/actuation 1 inh inhalation QID PRN shortness 09/20/21 aerosol inhaler of breath or wheezing #6.7 grams albuterol sulfate 0.63 mg/3 mL 0.63 mg (3 mL) inhalation Q4-6H 09/23/21 solution for nebulization PRN shortness of breath or wheezing #75 mL nebulizers #1 ea 09/23/21 nebulizers #1 ea 09/25/21 ketorolac 10 mg tablet 10 mg PO Q6H PRN pain 5 days #20 09/22/22 tabs ciprofloxacin 0.3 %-dexamethasone 4 drp otic (ears) BID 7 days #7.5 10/23/22 0.1 % ear drops,suspension mL (Ciprodex) doxycycline hyclate 100 mg capsule 100 mg PO BID 10 days #20 caps 10/23/22 ketorolac 10 mg tablet 10 mg PO TID PRN pain 5 days #15 10/23/22 tabs prednisone 20 mg tablet 40 mg PO DAILY 5 days #10 tabs 10/23/22 Allergies Allergy/AdvReac Type Severity Reaction Status Date / Time apricot [APRICOT] Allergy Unknown RASH Verified 10/16/22 09:08 cephalexin [From KEFLEX] Allergy Unknown RASH Verified 10/16/22 09:08 Review of Systems Review of Systems: Constitutional : No Weight loss, No Fever, No Chills, No Fatigue, No Malaise ENT/Mouth : No sore throat, No Rhinorrhea, + ear pain Eyes: No Eye Pain, No Swelling, No Redness Cardiovascular : No Chest Pain, No SOB, No Dyspnea on Exertion, No Orthopnea, No Edema, No Palpitations Respiratory : No Cough, No Sputum, No Wheezing Gastrointestinal : No Nausea, No Vomiting, No Diarrhea, No Constipation, No abdominal Pain, No Hematochezia, No Melena Genitourinary : No Dysuria, No Urinary Frequency, No Hematuria, Musculoskeletal : No joint pain, No Myalgias, No Joint Swelling Skin : No Skin Lesions, No rash Neuro : No Weakness, No Numbness, No Dizziness, No Headache Psych : No Anxiety/Panic, No Depression All other systems reviewed and are negative Yes all other systems are reviewed and are negative [facility] Past Medical History Attestation statement: The following information was validated with the patient. Source: old records reviewed and nursing notes reviewed Medical History Anemia Arthritis Asthma Closed right tibial fracture COVID-19 Knee pain, right Mass of left upper extremity Mild intermittent asthma Pain and swelling of right lower leg Spondyloarthropathy Tibia/fibula fracture Surgical History H/O foot surgery Hx of section Family History Family History Father Diabetes Mother Thyroid disease Social History Social History Household Members: Other Housing: House Do you presently have visiting nurse or other home services: No Alcohol intake: unknown Patient Tobacco Use Status: Never used Tobacco Substance Use Type: Marijuana Advance Directives: No Advance Directives Information Provided: Yes service: No Current occupational status: employed 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 Oriented X3.? No acute distress.? Head: Normocephalic, atraumatic, no step-offs or deformities Eyes: Pupils equal, round and reactive to light.? ENT: Pharynx normal.? Uvula midline. No signs of peritonsillar abscess. Poor dentition throughout however no signs of dental abscess upper lower teeth bilaterally. No gingival abscess noted. No trismus. Speaking in full sentences controlling secretions well. Left-sided ear canal erythematous, edematous with pain with manipulation of external ear. Right ear within normal limits. No mastoid tenderness bilaterally. Ear tube in l ear. Normal R ear no FB. Neck: Normal inspection.? Neck supple.? CVS: Normal heart rate and rhythm.? Pulses normal.? Respiratory: No respiratory distress.? Breath sounds normal.? Abdomen: Soft and nontender.? Skin: Skin warm and dry.? Normal skin color.? Normal skin turgor.? Extremities: No lower extremity edema.? No calf ttp. 5/5 strength to bilateral upper and lower extremities Neuro: Oriented X 3.? No motor deficit.? No sensory deficit. CN 2-12 intact Course Reevaluation(s) Reevaluation #1: Patient was given Augmentin and Toradol. Will be discharged home on same. Will also discharged on prednisone and Ciprodex drops. Will give her ears nose and throat follow-up. Educated patient on diagnosis and treatment plan, answered all question, patient verbalizes understanding. At this time patient will be discharged home, advised to return with new or worsening symptoms. Educated on worrisome signs and symptoms and when to return. At this time I feel comfortable discharge home. Time: 01:42 Medications Administered Discontinued Medications Generic Name Dose Route Start Last Admin Trade Name Freq PRN Reason Stop Dose Admin Doxycycline Monohydrate 100 mg 10/23/22 00:52 10/23/22 01:29 Doxycycline Monohydrate 100 Mg Capsule PO 10/23/22 00:53 100 mg ONCE ONE Administration Ketorolac Tromethamine 30 mg 10/23/22 00:52 10/23/22 01:33 Ketorolac Tromethamine 15 Mg/Ml Vial IM 10/23/22 00:53 30 mg ONCE ONE Administration Medical Decision Making Medical Decision Making [facility] Narrative: 1344 26-year-old female presents with severe left-sided ear pain that radiates into left side of face times a few days. Physical exam significant for Pharynx normal.? Uvula midline. No signs of peritonsillar abscess. Poor dentition throughout however no signs of dental abscess upper lower teeth bilaterally. No gingival abscess noted. No trismus. Speaking in full sentences controlling secretions well. Left-sided ear canal erythematous, edematous with pain with manipulation of external ear. Right ear within normal limits. No mastoid tenderness bilaterally. Concerns for otitis media and possible otitis externa. No signs of mastoiditis or malignant otitis. No signs of dental abscess. No signs of threatened airway. No signs of abscess to cheek. Plan at this time will give patient antibiotics for otitis media and externa. No need for lab work at this time. I do not suspect abscess. No need for CT of soft tissue neck. Will advise her to follow-up with dentist for poor dentition. Differential Diagnosis Differential Diagnoses: The differential diagnosis associated with the presentation includes Concerns for otitis media and possible otitis externa. No signs of mastoiditis or malignant otitis. No signs of dental abscess. No signs of threatened airway. No signs of abscess to cheek. Admission/Observation Consideration of admission/observation: Escalation of care including admission/observation considered Core Measures AMI core measures followed: Yes Measure exclusions: not indicated Critical Care Time Critical Care Time Critical Care Time: No Discharge Plan Discharge Clinical Impression: Otitis media, Otitis externa Patient Disposition: Home, Self-Care Instructions: Otitis Externa (DC), How to Use Ear Drops (ED), Ear Infection (ED) Additional Instructions: Take your medications as prescribed. If you were prescribed antibiotics today, it is important that you take your medication to their entirety, do not skip any doses, do not finish them early. Follow-up with your primary care provider this week. Return to the emergency department with new or worsening symptoms. Such as fevers, chills, chest pain, shortness of breath, nausea, vomiting, dizziness, headache, vision changes, lethargy In case of emergency call 911 Please call to schedule an appointment with ears nose and throat tomorrow. Toradol has been sent to your pharmacy, you tolerated this well in the department. Please take this as prescribed do not take this with ibuprofen, or other NSAIDs, do not mix this with alcohol. Side effects of this medication including increased risk for bleeding and possible kidney injury. Prescriptions: New doxycycline hyclate 100 mg capsule 100 mg PO BID 10 Days Qty: 20 0RF ciprofloxacin-dexamethasone [Ciprodex] 0.3-0.1 % drops,suspension 4 drp otic (ears) BID 7 Days Qty: 7.5 0RF prednisone 20 mg tablet 40 mg PO DAILY 5 Days Qty: 10 0RF ketorolac 10 mg tablet 10 mg PO TID PRN (Reason: pain) 5 Days Qty: 15 0RF No Action (DME) nebulizers Mis See Rx Instructions .Route Qty: 1 0RF Rx Instructions: Use for updraft treatments as prescribed ketorolac 10 mg tablet 10 mg PO Q6H PRN (Reason: pain) 5 Days Qty: 20 0RF Rx Instructions: Patient received Toradol in the emergency room. albuterol sulfate 90 mcg/actuation HFA aerosol inhaler 1 inh inhalation QID PRN (Reason: shortness of breath or wheezing) Qty: 6.7 0RF acetaminophen 325 mg Tablet 650 mg PO Q6H PRN (Reason: Pain) (DME) nebulizers Mis See Rx Instructions .Route Qty: 1 0RF Rx Instructions: As directed albuterol sulfate 0.63 mg/3 mL solution for nebulization 0.63 mg inhalation Q4-6H PRN (Reason: shortness of breath or wheezing) Qty: 75 0RF Referrals: Rylie Dawson MD [Primary Care Provider] - 2 days Arvind Chamberlain [Physician] - 1 day Stand Alone Forms: Work/School Release
[2022-10-23] MEDS: Doxycycline Monohydrate 100 MG CAPSULE PO (01:29)
[2022-10-23] MEDS: Ketorolac Tromethamine 15 MG/ML VIAL 30 MG IM (01:33)
== END 2022-10-23 02:02 | disposition home or self-care (01) ==
PROVIDERS: Emergency Provider Internal Medicine; PCP Internal Medicine
DX: H66.93 Otitis media, unspecified, bilateral (principal); H60.503 Unspecified acute noninfective otitis externa, bilateral; Z79.899 Other long term (current) drug therapy
CPT/HCPCS: 96372; 99283; 99284; J1885

== ENCOUNTER 2022-11-07 17:15 | Outpatient (REF) | payer OTHER, SELFPAY ==
--- NOTE | ~2022-11-07 | MR_ITS ---
EXAMINATION: MR SHOULDER WITHOUT AND WITH CONTRAST, LEFT CLINICAL INFORMATION: Left shoulder/humeral lesion on radiographs. Pain around humerus. COMPARISON: Left humerus radiographs dated 09/30/2022 and 09/20/2021. TECHNIQUE: MRI of the shoulder was performed before and after the intravenous administration of 10 mL Gadavist on a high-field scanner. FINDINGS: ROTATOR CUFF: No measurable tear. There is lobulated fluid extending proximally along the subscapularis myotendinous junction measuring up to 0.9 x 3.3 x 1.2 cm, likely indicating an occult distal subscapularis tendon tear. The supraspinatus, infraspinatus, and teres minor tendons are intact. No muscle atrophy or fatty infiltration. BICEPS: Intact. CORACOACROMIAL ARCH: The undersurface of the acromion is minimally curved with no subacromial spur. The acromioclavicular joint is normal. LABRUM/CAPSULE: No displaced labral tear. Intact joint capsule. GLENOHUMERAL JOINT/MARROW: Within the marrow cavity of the proximal humeral diaphysis there is a cystic lesion with thin peripheral postcontrast enhancement and cortical scalloping and/cortical expansion. No associated soft tissue component. No periosteal reaction or edema. This abuts the proximal humeral physis and extends distally into the humeral diaphysis beyond the imaged field of view. The imaged portion of this lesion measures up to 10 cm in craniocaudal dimension. Findings likely represent a simple bone cyst. No associated pathologic fracture. MR/MR shoulder LT wo/w con IMPRESSION: 1. Cystic lesion within the proximal humeral diaphysis measuring up to 10 cm in craniocaudal dimension with thin peripheral postcontrast enhancement and cortical scalloping/cortical expansion. No associated soft tissue component or pathologic fracture. Findings likely represent a simple bone cyst. 2. Lobulated fluid extending proximally along the subscapularis myotendinous junction, likely indicating an occult distal subscapularis tendon tear. No full-thickness rotator cuff tendon tear.
== END 2022-11-07 17:16 | disposition home or self-care (01) ==
LOC: HO.MRI 17:15
PROVIDERS: PCP Internal Medicine; Visit Provider Physician Assistant
DX: M75.92 Shoulder lesion, unspecified, left shoulder (principal)
CPT/HCPCS: 73223; A9585

== ENCOUNTER → 2022-11-29 08:38 | Outpatient (BNVA) | payer OTHER, SELFPAY | PROVIDERS: PCP Internal Medicine; Visit Provider Physician Assistant | DX: S86.112A Strain of other muscle(s) and tendon(s) of posterior muscle group at lower leg level, left leg, initial encounter (principal); M85.6 Other cyst of bone | CPT/HCPCS: 99212 ==

== ENCOUNTER → 2022-12-05 12:21 | Outpatient (BNVA) | payer OTHER, SELFPAY | PROVIDERS: PCP Internal Medicine; Visit Provider Physician Assistant | DX: S86.112A Strain of other muscle(s) and tendon(s) of posterior muscle group at lower leg level, left leg, initial encounter (principal); X58.XXXA Exposure to other specified factors, initial encounter; Y93.9 Activity, unspecified; Y92.9 Unspecified place or not applicable; Y99.8 Other external cause status; Z46.89 Encounter for fitting and adjustment of other specified devices | CPT/HCPCS: 99212 ==

== ENCOUNTER 2023-01-03 13:07 | Outpatient (REF) | payer OTHER, SELFPAY ==
--- NOTE | ~2023-01-03 | XR_ITS ---
EXAMINATION: XR ANKLE, LEFT CLINICAL INFORMATION: Pain in left ankle and joints of foot. COMPARISON: 12/08/2021 TECHNIQUE: AP, lateral, and mortise views of the left ankle. FINDINGS: Previously identified 2 mm linear density along the plantar aspect of the left heel felt to represent a possible foreign body is not clearly visualized today. Tiny plantar calcaneal spur. Joint spaces are preserved. No displaced fracture. Redemonstration of sclerosis along the medial aspect of the talus. XR/XR ankle LT min 3V IMPRESSION: Redemonstration of sclerosis along the medial aspect of the talus. No displaced fracture. Additional imaging with CT scan or MRI should be considered for better visualization as these modalities are much more sensitive for detection of fracture or other underlying pathology.
== END 2023-01-03 13:08 | disposition home or self-care (01) ==
LOC: HO.HOSX 13:07
PROVIDERS: PCP Internal Medicine; Visit Provider Physician Assistant
DX: S86.112A Strain of other muscle(s) and tendon(s) of posterior muscle group at lower leg level, left leg, initial encounter (principal)
CPT/HCPCS: 73610; 99212

== ENCOUNTER 2023-03-03 08:03 | Outpatient (AMB) | payer OTHER, SELFPAY ==
--- NOTE | 2023-03-03 08:05 | A.OFFPC_ITS ---
Vital Signs 03/03/23 08:06 Height 5 ft 6 in Weight 254 lb 8 oz BMI 41.1 BP 112/76 Blood Pressure Location Rt brachial Position Sitting Pulse 86 Pulse Source Pulse Oximeter Pulse Oximetry (%) 95 Oxygen Delivery Method Room Air Intake Visit Reasons: Annual PE Intake Note: Pt is here today for her Annual PE. Is last menstrual period known: Yes Last menstrual period: 02/17/23 Allergies apricot [APRICOT] Allergy (Unknown, Verified 03/03/23 08:17) RASH cephalexin [From KEFLEX] Allergy (Unknown, Verified 03/03/23 08:17) RASH Medication List - Last Reconciled 03/03/23 by Rylie Dawson MD albuterol sulfate 90 mcg/actuation 1 inh inhalation QID PRN albuterol sulfate 0.63 mg (3 mL) inhalation Q4-6H PRN Tobacco use date assessed: 03/03/23 Dental Screening Dental Screen Date: 03/03/23 Did you have a dental visit in the last 12 months?: No Did you have a dental problem in the last 6 months where you did not have access to dental care?: No Was dental information given to patient?: No HPI Annual PE HPI Details Here today for her physical exam. She has microcytic hypochromic anemia currently not taking any iron supplements. Has history of heavy menstrual bleeding, has mild intermittent asthma currently taking albuterol inhaler as needed for episodes of bronchospasm and wheezing. She has had all her COVID vaccine including the bivalent booster, gets yearly flu shots and up-to-date with Tdap but has not yet had an updated pneumococcal vaccination. She goes to [facility] for her routine Pap and pelvic exam, last Pap was done in 2020 with normal findings. She has a mass on her left or upper arm, with an MRI done October 2022 showing possible by simple bone cyst on left humerus and evidence of possible oc cult distal subscapularis tendon tear. No full-thickness rotator cuff tendon tear. She has been referred to see another orthopedic surgeon at [facility] and has an appointment already scheduled for April 2023 ? [facility] Medical History (Updated 03/03/23 @ 16:50 by Rylie Dawson MD) Adjustment disorder in remission Arthritis Closed right tibial fracture Heavy menstrual bleeding History of adjustment disorder History of COVID-19 History of posttraumatic stress disorder (PTSD) Mass of left upper extremity Microcytic hypochromic anemia Mild intermittent asthma Morbid obesity Spondyloarthropathy Tibia/fibula fracture Surgical History H/O foot surgery Hx of section Family History Father Diabetes Mother Thyroid disease Social History Household Members: Other Housing: House Do you presently have visiting nurse or other home services: No Alcohol intake: unknown Patient Tobacco Use Status: Never used Tobacco e-Cigarette/Vaping Use: Never Used Substance Use Type: Marijuana service: No Current occupational status: employed 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 1. Little interest or pleasure in doing things: several days 2. Feeling down, depressed, or hopeless: several days 3. Trouble falling or staying asleep, or sleeping too much: several days 4. Feeling tired or having little energy: several days 5. Poor appetite or overeating: not at all 6. Feeling bad about yourself - or that you are a failure or have let yourself or your family down: not at all 7. Trouble concentrating on things, such as reading the newspaper or watching television: not at all 8. Moving or speaking so slowly that other people could have noticed. Or the opposite - being so fidgety or restless that you have been moving around a lot more than usual: not at all 9. Thoughts that you would be better off or of hurting yourself in some way: not at all Total score: 4 Depression Screening Interpretation: Negative 02933 - PHQ-9 Billing: Yes Source: Developed by Drs. Bhavik Perez, Dinorah Meyers, Ming Mercado and colleagues, with an educational alissa from [employer]. Thrive Questionnaire Date Thrive assessed: 03/03/23 I am a: Patient What is your living situation today?: I have a steady place to live Within the past 12 months, did the food you bought not last and you didn't have the money to get more?: Never true Within the past 12 months, did you worry whether your food would run out before you got money to buy more?: Never true Do you have trouble paying for medicines?: Yes Do you have trouble getting transportation to medical appointments?: No Do you have trouble paying your heating and electricity bill?: No Do you have trouble taking care of your child, family member or friend?: No Do you have trouble with day-to-day activities such as bathing, preparing meals, shopping, managing finances, etc.?: No Are you currently unemployed and looking for a job?: No Are you interested in more education?: Yes AUDIT C Alcohol Use Questionnaire (AUDIT-C) 1. How often do you have a drink containing alcohol?: Never 3. How often do you have six or more drinks on one occasion?: Never Total Score: 0 Score Reviewed/Action Taken: Yes IVELISSE-7 AMB Questionnaire IVELISSE-7 Date IVELISSE - 7 assessed: 03/03/23 Feeling nervous, anxious, or on edge: 1 = Several days Not being able to stop or control worryin = Not at all Worrying too much about different things: 1 = Several days Trouble relaxin = Several days Being so restless that it is hard to sit still: 0 = Not at all Becoming easily annoyed or irritable: 0 = Not at all Feeling afraid as if something awful might happen: 0 = Not at all Total IVELISSE-7 score (0-4 normal; 5-9 mild; 10-14 moderate; 15-21 severe): 3 Source: Developed by Drs. Bhavik Perez, Dinorah Meyers, Ming Mercado and colleagues, with an educational alissa from [employer]. IVELISSE-7 Assessment Billing IVELISSE-7 Assessment Tool: IVELISSE-7 Assessment 09967 Review of Systems Const Denies body aches, Denies fever(s), Denies headache(s) and Denies weakness Eyes Denies change in vision ENT Denies headache(s), Denies nasal congestion, Denies nasal discharge and Denies sore throat Card Denies chest pain, Denies palpitations and Denies dyspnea on exertion Resp Denies chest congestion and Denies dyspnea on exertion GI Denies abdominal pain, Denies change in bowel habits and Denies heartburn Denies urinary frequency, Denies dysuria and Denies urinary urgency Musc Reports as per HPI Skin/Breast Denies lesions and Denies rash Neuro Denies headache(s) and Denies weakness Psych Reports as per HPI Endo Denies polydipsia, Denies polyuria and Denies palpitations Romero/Lymph Denies easy bleeding and Denies easy bruising Aller/Immun Denies seasonal rhinorrhea Physical exam (Primary Care) Vital Signs: Last Vital Signs Pulse 86 03/03/23 08:06 BP 112/76 03/03/23 08:06 Pulse Ox 95 03/03/23 08:06 Oxygen Delivery Method Room Air 03/03/23 08:06 BMI result Body Mass Index 41.1 Tobacco/Smoking Status: Tobacco use Status Tobacco use date assessed 03/03/23 03/03/23 08:10 Patient Tobacco Use Status Never used Tobacco 03/03/23 08:09 e-Cigarette/Vaping Use Never Used 03/03/23 08:10 PHQ-9: PHQ-9 Score PHQ-9: Total score 4 03/03/23 08:46 Depression Screening Interpretation: Negative Thrive Assessment: Date of Thrive Assessment Date Thrive assessed 03/03/23 03/03/23 08:41 Const Other: Alert oriented x3, no acute cardiorespiratory distress noted ambulatory normal gait Nutritional Appearance: obese morbidly obese Orientation/consciousness: patient oriented x3 HENMT Head: Yes normocephalic Ears: hearing grossly normal bilaterally, external ears normal, TM's normal bilaterally and EAC's normal General nose exam: Normal external nose present Face and sinus: Yes face symmetric Mouth: Normal oral and palatal mucosa present, tongue normal, oropharynx normal and moist mucous membranes Eyes General: appearance normal, both eyes and all related structures Neck Neck: Yes full ROM, Yes no lymphadenopathy and Yes supple Chest Chest palpation & inspection: normal inspection of the chest and normal palpation of entire chest wall Resp Effort & Inspection: normal respiratory effort and able to speak in complete sentences Auscultation: clear to auscultation bilaterally Cardio Rate: regular rate Rhythm: regular rhythm Heart sounds: S1 normal heart sound present and S2 normal heart sound present GI Inspection: Yes normal to inspection and Yes obesity Palpation (GI): Soft to palpation, nontender, no guarding and no masses General: Yes no CVA tenderness and Yes deferred Back/Spine/Pelvis Back: no CVA tenderness and No back tenderness Skin General skin exam: no rashes or lesions noted Neuro General: patient oriented x3, gait normal, tone normal, moves all extremities, Normal light touch and pain sensation, no focal motor deficits and CN's II-XI intact bilaterally Gait exam (Neuro): Normal gait present Extrem General: Yes full ROM, Yes no joint enlargement, Yes no clubbing, cyanosis or edema and Yes normal gait Psych Appearance: grossly normal and well kempt Mental Status: mental status grossly normal Speech and movement: Normal speech and movement present Affect: normal affect Attitude: cooperative Thought process: Normal thought process present Thought content: Normal thought content present Immunizations pneumoc 20-doreen conj-dip cr(PF) Performing Provider: Rylie Dawson MD Administered by: Compa Zuniga CMA on 03/03/23 08:52 Dose Route Admin Location Lot Number Expiration Date [facility] Compensation Specialist 0.5 mL IM Right Deltoid [id number] 05/13/24 [id number] [employer] VIS Given Date VIS Provided VIS Publication Date 03/03/23 Single Vaccine 21 Eligibility Eligibility Date Funding Source Not [facility] Eligible 03/03/23 Private Assessment and Plan Assessment & Plan (1) Microcytic hypochromic anemia: Code(s): D50.9 - Iron deficiency anemia, unspecified Plan: Will check CBC and other iron panel (2) Mild intermittent asthma: Code(s): J45.20 - Mild intermittent asthma, uncomplicated Plan: Continue with albuterol inhaler as needed for episodes of wheezing and bronchospasm, Prevnar 20 given today advised to get yearly flu shots and recommend to get the updated COVID booster. (3) Annual visit for general adult medical examination with abnormal findings: Code(s): Z00.01 - Encounter for general adult medical examination with abnormal findings Plan: Will check appropriate labs. Recommended dental visit every 6 months and regular eye exams, at least every 2 years. Take adequate calcium in diet and vitamin-D 3 at 2000 IU per cap once a day, in addition to weight-bearing exercises to help maintain good muscle tone and weight control. Instructed to do self-breast exam, and recommended to get yearly mammogram, starting at age 40. Up-to-date with her cervical cancer screening and pelvic exam, goes to [facility], last Pap was done in 2020. She is up-to-date with her COVID vaccine but has not yet had updated booster, up-to-date with Tdap, gets yearly flu shots, Prevnar 20 given today (4) Bone cyst of humerus: Code(s): M85.629 - Other cyst of bone, unspecified upper arm Plan: Patient has been referred to [facility] orthopedics, and has an appointment already scheduled for April 2023 for further evaluation and management (5) Morbid obesity: Code(s): E66.01 - Morbid (severe) obesity due to excess calories Plan: Discussed need to increase activity and wt reduction. Recommended focusing on improving your health instead of dieting. : Eat Mediterranean diet, limit foods high in fat, sugar, and calories, eat slowly, pay attention to portion sizes, plan your meals ahead of time, start regular physical activity 150 minutes of moderate intensity exercise or 90 minutes/week of vigorous exercise and increase water intake. (6) Adjustment disorder in remission: Code(s): F43.20 - Adjustment disorder, unspecified Plan: She has completed 2 years of counseling, does not want to be on any medication at present time, able to manage her symptoms through behavioral techniques Orders: Orders Vitamin B12 and Folate Today D50.9 - Iron deficiency anemia, unspecified, E66.01 - Morbid (severe) obesity due to excess calories, F43.20 - Adjustment disorder, unspecified, J45.20 - Mild intermittent asthma, uncomplicated, Z00.01 - Encounter for general adult medical examination with abnormal findings Glucose Fasting Today D50.9 - Iron deficiency anemia, unspecified, E66.01 - Morbid (severe) obesity due to excess calories, F43.20 - Adjustment disorder, unspecified, J45.20 - Mild intermittent asthma, uncomplicated, Z00.01 - Encounter for general adult medical examination with abnormal findings IRON PROFILE Today D50.9 - Iron deficiency anemia, unspecified, E66.01 - Morbid (severe) obesity due to excess calories, F43.20 - Adjustment disorder, unspecified, J45.20 - Mild intermittent asthma, uncomplicated, Z00.01 - Encounter for general adult medical examination with abnormal findings Lipid Panel Today D50.9 - Iron deficiency anemia, unspecified, E66.01 - Morbid (severe) obesity due to excess calories, F43.20 - Adjustment disorder, unspecified, J45.20 - Mild intermittent asthma, uncomplicated, Z00.01 - Encounter for general adult medical examination with abnormal findings Thyroid Stimulating Hormone Today D50.9 - Iron deficiency anemia, unspecified, E66.01 - Morbid (severe) obesity due to excess calories, F43.20 - Adjustment disorder, unspecified, J45.20 - Mild intermittent asthma, uncomplicated, Z00.01 - Encounter for general adult medical examination with abnormal findings Vitamin D 25-OH Total Today D50.9 - Iron deficiency anemia, unspecified, E66.01 - Morbid (severe) obesity due to excess calories, F43.20 - Adjustment disorder, unspecified, J45.20 - Mild intermittent asthma, uncomplicated, Z00.01 - Encounter for general adult medical examination with abnormal findings Complete Blood Count Auto Diff Today D50.9 - Iron deficiency anemia, unspecified, E66.01 - Morbid (severe) obesity due to excess calories, F43.20 - Adjustment disorder, unspecified, J45.20 - Mild intermittent asthma, u ncomplicated, Z00.01 - Encounter for general adult medical examination with abnormal findings Pneumococcal 20 Immunization Today Z23 - Encounter for immunization Coding Level of Care Code Est Pt Prev Care 18-39y(12548) Diagnoses Microcytic hypochromic anemia D50.9 Mild intermittent asthma J45.20 Annual visit for general adult medical examination with abnormal findings Z00.01 Bone cyst of humerus M85.629 Morbid obesity E66.01 Adjustment disorder in remission F43.20 Additional Codes IVELISSE-7 Assessment Billing - IVELISSE-7 Assessment Tool: IVELISSE-7 Assessment [id number] ([id number])
[2023-03-03 08:06] VITALS: BP 112/76; PULSE 86; O2SAT 95; BMI 41.1
== END 2023-03-03 09:19 | disposition home or self-care (01) ==
PROVIDERS: Visit Provider Internal Medicine
DX: Z00.01 Encounter for general adult medical examination with abnormal findings (principal); F43.20 Adjustment disorder, unspecified; J45.20 Mild intermittent asthma, uncomplicated; Z23 Encounter for immunization; E66.01 Morbid (severe) obesity due to excess calories; Z68.41 Body mass index [BMI] 40.0-44.9, adult; D50.9 Iron deficiency anemia, unspecified; M85.6 Other cyst of bone
CPT/HCPCS: 90471; 90677; 99395

== ENCOUNTER 2023-03-03 08:40 | Outpatient (REF) | payer OTHER, SELFPAY ==
[2023-03-03 11:53] LABS: MANUAL DIFF FLAG NO
[2023-03-03 12:00] LABS: Basophils Percent Auto 0.4 % (0-2); Eosinophils Absolute Auto 0.2 X10*3/uL (0.0-0.4); Hematocrit 30.4 % (37.0-47.0); Hemoglobin 9.4 g/dl (12.0-16.0); Imm Gran Abs Auto 0.02 X10*3/uL (0.00-0.03); Imm Gran Pct Auto 0.3 % (0.0-0.4); Lymphocytes Absolute Auto 1.9 X10*3/uL (1.2-4.9); Lymphocytes Percent Auto 24.2 % (20-40); Mean Corpuscular HGB Conc 30.9 g/dl (31.0-35.0); Mean Corpuscular Hemoglobin 22.2 pg (27.0-33.0); Mean Corpuscular Volume 71.7 fL (80.0-98.0); Mean Platelet Volume 10.6 fL (9.4-12.3); Monocytes Absolute Auto 0.6 X10*3/uL (0.1-1.2); Monocytes Percent Auto 7.6 % (2-11); Neutrophils Percent Auto 65.5 % (45-73); Platelet Count 382 X10*3/uL (160-400); Red Blood Count 4.24 X10*6/uL (4.20-5.50); Red Cell Distribution Width 17.9 % (11.0-16.0); White Blood Count 7.7 X10*3/uL (4.8-10.8)
[2023-03-03 12:23] LABS: Cholesterol 145 mg/dL (<200); Glucose Fasting 94 mg/dL (60-99); HDL Cholesterol 38 mg/dL (>40); Iron 31 mcg/dL (30-160); LDL Cholesterol Calculated 95 mg/dL (<100); Percent Iron Saturation 9 % (15-50); Total Iron Binding Capacity 332 mcg/dL (228-428); Triglycerides 63 mg/dL (<150); Unsaturated Iron Binding 301 ug/dL
[2023-03-03 12:34] LABS: Thyroid Stimulating Hormone 2.91 uIU/mL (0.32-4.0); Vitamin D 25-OH Total 16.5 ng/mL (>30)
[2023-03-03 12:39] LABS: Folate 8.8 ng/mL (> or = 4.0); Vitamin B12 377 pg/mL (200-900)
== END 2023-03-03 08:41 | disposition home or self-care (01) ==
LOC: HO.HMGCLDS 08:40
PROVIDERS: PCP Internal Medicine; Visit Provider Internal Medicine
DX: D50.9 Iron deficiency anemia, unspecified (principal); E66.01 Morbid (severe) obesity due to excess calories; F43.20 Adjustment disorder, unspecified; J45.20 Mild intermittent asthma, uncomplicated; Z00.01 Encounter for general adult medical examination with abnormal findings
CPT/HCPCS: 36415; 80061; 82306; 82607; 82746; 82947; 83540; 84443; 85025

== ENCOUNTER 2023-06-03 02:28 | Emergency (ER) | payer OTHER, SELFPAY ==
--- NOTE | ~2023-06-03 | CT_ITS ---
EXAMINATION: CT SOFT TISSUE NECK WITH CONTRAST CLINICAL INFORMATION: Pain at left angle of the mandible COMPARISON: 09/20/2021 TECHNIQUE: Following the intravenous administration of 60 mL of Omnipaque 350 intravenous contrast, helical imaging was performed in the axial plane with generation of coronal and sagittal reformatted images. This CT examination was performed using dose optimization techniques as appropriate, variously including the following: *Automated exposure control *Adjustment of mA and/or kV according to patient size (this includes techniques or standardized protocols for targeted exams where dose is matched to indication/reason for exam; i.e. extremities or head) *Use of iterative reconstruction technique DLP: 808 mGy-cm FINDINGS: The nasopharynx, oropharynx, and hypopharynx are patent. No mucosal pharyngeal abnormality is seen. The parapharyngeal fat is preserved. The partner marketing manager, parotid, and submandibular spaces appear normal and symmetric bilaterally. Several bilateral subcentimeter cervical lymph nodes are seen without adenopathy. The carotid vasculature is patent. The thyroid gland is unremarkable. The lung apices are clear. Visualized portions of the brain parenchyma are unremarkable. Extensive opacification of the left mastoid air cells, similar to 09/20/2021. Partially opacified left middle ear cavity, also similar to prior. The paranasal sinuses are clear. The visualized orbits are unremarkable. The mandibular condyles are well-seated in the condylar fossa. No acute fracture is seen. CT/CT soft tissue neck w IV con IMPRESSION: No acute findings identified in the neck. Opacification of the left mastoid air cells and middle ear cavity, similar to 09/20/2021.
[2023-06-03 02:31] VITALS: BP 137/84; PULSE 102; RESP 18; TEMP 36.2; O2SAT 98; BMI 39.8
--- NOTE | 2023-06-03 02:59 | ED.GENADULT ---
HPI - General Adult General Chief complaint: General Medical Stated complaint: ?Jaw pain/ No Inj Time Seen by Provider: 06/03/23 02:48 History of Present Illness HPI narrative: patient is a 27-year-old female presents today with having pain to the left face area. There is no fever no chills. There is no chest pain or shortness breath no nausea no vomiting. There is no focal weakness. Pain is worse with chewing. There is no change in voice. There is no shortness of breath. there is no dental pain. No changes in medication no recent dental procedure Related Data Previous Rx's Medication Instructions Recorded albuterol sulfate 90 mcg/actuation 1 inh inhalation QID PRN shortness 09/20/21 aerosol inhaler of breath or wheezing #6.7 grams albuterol sulfate 0.63 mg/3 mL 0.63 mg (3 mL) inhalation Q4-6H 09/23/21 solution for nebulization PRN shortness of breath or wheezing #75 mL amoxicillin 875 mg-potassium 1 tab PO TID #21 tabs 06/03/23 clavulanate 125 mg tablet Allergies Allergy/AdvReac Type Severity Reaction Status Date / Time apricot [APRICOT] Allergy Unknown RASH Verified 06/03/23 02:31 cephalexin [From KEFLEX] Allergy Unknown RASH Verified 06/03/23 02:31 Review of Systems Review of Systems: Positive pain to the left face PMFSH Past Medical History Attestation statement: The following information was validated with the patient. Medical History History of COVID-19 Adjustment disorder in remission Morbid obesity History of posttraumatic stress disorder (PTSD) History of adjustment disorder Microcytic hypochromic anemia Mass of left upper extremity Heavy menstrual bleeding Spondyloarthropathy Mild intermittent asthma Closed right tibial fracture Tibia/fibula fracture Arthritis Surgical History Hx of section H/O foot surgery Family History Family History Father Diabetes Mother Thyroid disease Social History Social History Household Members: Other Housing: House Do you presently have visiting nurse or other home services: No Alcohol intake: unknown Patient Tobacco Use Status: Never used Tobacco e-Cigarette/Vaping Use: Never Used Use of substances other than those prescribed or required for medical reasons: No Substance Use Type: Marijuana Advance Directives: No Advance Directives Information Provided: Yes Patient : No service: No Current occupational status: employed Current occupation: [employer], 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 Gender identity: Female Cognitive needs: No Hearing needs: No Vision needs: No Physical Exam ED Vital Signs: Vital Signs - 24 hr 06/03/23 02:31 06/03/23 03:01 Temperature 97.1 F 98.3 F Pulse Rate 102 H 83 Respiratory Rate 18 18 Blood Pressure 137/84 118/78 Pulse Oximetry 98 97 Oxygen Delivery Method Room Air Room Air BMI result Body Mass Index 39.8 Appearance: Alert. Oriented X3. No acute distress. Eyes: Pupils equal, round and reactive to light. ENT: No change in voice,the floor of the mouth is soft. There is cavity noted in the upper inner left molar. There is pain on palpation of the parotid area. Posterior pharynx is normal. No difficulty swallowing. Neck: Normal inspection. Neck supple. No lymph nodes noted. No crepitus CVS: Normal heart rate and rhythm. Pulses normal. Normal S1 and S2 Respiratory: No respiratory distress. Breath sounds normal. No Wheezing. No rales Abdomen: Soft and nontender. No rigidity. No distention. good BS x4 Skin: Skin warm and dry. Normal skin color. Normal skin turgor. Extremities: No lower extremity edema. Neurovascular intact to all extremities. No Lacerations. No Rash Neuro: Oriented X 3. No motor deficit. No sensory deficit. Moving all extermities. No slurred speech Medications Administered Discontinued Medications Generic Name Dose Route Start Last Admin Trade Name Freq PRN Reason Stop Dose Admin Iohexol 60 ml 06/03/23 04:08 06/03/23 04:08 Iohexol 350 Mg/Ml 100 Ml Infus..Btl IV 06/03/23 04:09 60 ml ONCE ONE Administration Ketorolac Tromethamine 30 mg 06/03/23 02:54 06/03/23 03:13 Ketorolac Tromethamine 30 Mg/Ml Vial IVPUSH 06/03/23 02:55 30 mg ONCE ONE Administration Medical Decision Making Medical Decision Making [facility] Narrative: patient presents today with having possible left-sided facial swelling along with pain. CT scan of the soft tissue neck showed normal parotid gland patient's amylase was normal. Electrolytes unremarkable. test negative no related issue tolerate p.o.. No distress. Question middle ear infection. There is no mastoid tenderness elicited on palpation. Will start patient on Augmentin have patient follow-up. Encouraged fluids. In stable condition. Differential Diagnosis Differential Diagnoses: The differential diagnosis associated with the presentation includes sinusitis, otitis, dental cavities, strep pharyngitis Admission/Observation Consideration of admission/observation: Escalation of care including admission/observation considered well-appearing no need to admit Consult Healthcare Provider Management of the patient was discussed with: Primary Care Provider Lab Data MDM Lab Attestation statement: I reviewed the patient's lab results. 06/03/23 03:04 06/03/23 03:04 Labs: Lab Results 06/03/23 Range/Units 03:04 WBC 8.9 (4.8-10.8) X10*3/uL RBC 4.29 (4.20-5.50) X10*6/uL Hgb 9.6 L (12.0-16.0) g/dl Hct 30.9 L (37.0-47.0) % MCV 72.0 L (80.0-98.0) fL MCH 22.4 L (27.0-33.0) pg MCHC 31.1 (31.0-35.0) g/dl RDW 19.2 H (11.0-16.0) % Plt Count 356 (160-400) X10*3/uL MPV 9.8 (9.4-12.3) fL Immature Gran % (Auto) 0.2 (0.0-0.4) % Neut % (Auto) 65.5 (45-73) % Lymph % (Auto) 24.3 (20-40) % Ballard % (Auto) 8.1 (2-11) % Eos % (Auto) 1.5 (0-4) % Baso % (Auto) 0.4 (0-2) % Lymph # (Auto) 2.2 (1.2-4.9) X10*3/uL Ballard # (Auto) 0.7 (0.1-1.2) X10*3/uL Eos # (Auto) 0.1 (0.0-0.4) X10*3/uL Baso # (Auto) 0.0 (0.0-0.2) X10*3/uL Abs Immat Gran (auto) 0.02 (0.00-0.03) X10*3/uL Absolute Neuts (auto) 5.8 (2.0-8.3) x10*3/uL Absolute Nucleated RBC 0.000 (0.0-0.012) X10*3/uL Nucleated RBC % (auto) 0.0 (0.0-0.2) /100WBC Sodium 138 (135-145) mmol/L Potassium 3.7 (3.3-5.1) mmol/L Chloride 104 (96-108) mmol/L Carbon Dioxide 28 (22-29) mmol/L Anion Gap 10 L (12-20) BUN 11 (9-16) mg/dL Creatinine 0.73 (0.5-1.4) mg/dL Estim Creat Clear Calc 151.7 Estimated GFR > 60 Random Glucose 97 (60-115) mg/dL Calcium 9.3 (8.4-10.2) mg/dL Total Bilirubin 0.3 (0.0-1.0) mg/dL Direct Bilirubin 0.1 (0.0-0.5) mg/dL AST 18 (5-31) U/L ALT 22 (0-31) U/L Alkaline Phosphatase 65 (39-117) U/L Total Protein 7.0 (6.5-8.0) g/dL Albumin 4.1 (3.5-5.0) g/dL Amylase 40 (28-100) U/L Lipase 17 (8-78) U/L Urine Color Yellow Urine Appearance Clear Urine pH 6.0 (5.0-9.0) Ur Specific [place] >= 1.030 H (1.005-1.025) Urine Protein 30 (1+) H (Neg-Trace) mg/dL Urine Glucose (UA) Negative (Negative) mg/dL Urine Ketones Negative (Negative) mg/dL Urine Blood Trace H (Negative) Urine Nitrite Negative (Negative) Ur Leukocyte Esterase Negative (Negative) Urine RBC 3-5 H (0-2) /HPF Urine WBC 0-5 (0-5) /HPF Ur Squamous Epith Cells 3-5 (0-2) /HPF Urine Bacteria 1+ (None Seen) Hyaline Casts 0-2 (0-2) /LPF Urine Test NEGATIVE (NEGATIVE) Independent Interpretation I performed an independent interpretation of an: CT Scan ( CT scan of the face showed no parotid disease) Radiology Impression Discussion of test interpretation with radiology: I have reviewed the radiologist's reading. External Record Review External record reviewed: Office record previous primary care office record reviewed Discharge Plan Discharge Clinical Impression: Otitis media Patient Disposition: Home, Self-Care Instructions: Ear Infection (ED) Prescriptions: New amoxicillin-pot clavulanate 875-125 mg tablet 1 tab PO TID Qty: 21 0RF No Action albuterol sulfate 90 mcg/actuation HFA aerosol inhaler 1 inh inhalation QID PRN (Reason: shortness of breath or wheezing) Qty: 6.7 0RF albuterol sulfate 0.63 mg/3 mL solution for nebulization 0.63 mg inhalation Q4-6H PRN (Reason: shortness of breath or wheezing) Qty: 75 0RF Referrals: Rylie Dawson MD [Primary Care Provider] - 06/06/23
[2023-06-03 03:01] VITALS: BP 118/78; PULSE 83; RESP 18; TEMP 36.8; O2SAT 97
[2023-06-03 03:10] LABS: Basophils Percent Auto 0.4 % (0-2); Eosinophils Absolute Auto 0.1 X10*3/uL (0.0-0.4); Eosinophils Percent Auto 1.5 % (0-4); Hematocrit 30.9 % (37.0-47.0); Hemoglobin 9.6 g/dl (12.0-16.0); Imm Gran Abs Auto 0.02 X10*3/uL (0.00-0.03); Imm Gran Pct Auto 0.2 % (0.0-0.4); Lymphocytes Absolute Auto 2.2 X10*3/uL (1.2-4.9); Lymphocytes Percent Auto 24.3 % (20-40); MANUAL DIFF FLAG NO; Mean Corpuscular HGB Conc 31.1 g/dl (31.0-35.0); Mean Corpuscular Hemoglobin 22.4 pg (27.0-33.0); Mean Platelet Volume 9.8 fL (9.4-12.3); Monocytes Absolute Auto 0.7 X10*3/uL (0.1-1.2); Monocytes Percent Auto 8.1 % (2-11); Neutrophils Absolute Auto 5.8 x10*3/uL (2.0-8.3); Neutrophils Percent Auto 65.5 % (45-73); Platelet Count 356 X10*3/uL (160-400); Red Blood Count 4.29 X10*6/uL (4.20-5.50); Red Cell Distribution Width 19.2 % (11.0-16.0); White Blood Count 8.9 X10*3/uL (4.8-10.8)
[2023-06-03 03:12] LABS: Appearance Urine Clear; Color Urine Yellow; Glucose Urine UA Negative (Negative); Leukocyte Esterase Urine Negative (Negative); Nitrite Urine Negative (Negative); Specific Gravity - Urine >= 1.030 (1.005-1.025); UMIC TRIGGER UACC YES; Urine Blood Trace (Negative); Urine Ketones Negative (Negative); Urine Protein 30 (1+) mg/dL (Neg-Trace)
[2023-06-03] MEDS: Ketorolac Tromethamine 30 MG/ML VIAL IVPUSH (03:13)
[2023-06-03 03:14] LABS: Bacteria Urine 1+ (None Seen); Hyaline Casts Urine 0-2 /LPF (0-2); WBC Urine 0-5 /HPF (0-5)
[2023-06-03 03:15] LABS: UPreg QC Valid YES; Urine Pregnancy NEGATIVE (NEGATIVE)
--- NOTE | 2023-06-03 03:19 | PC.NURSE ---
Pt tar heat exchanger cleaner, medicated per Mar.
[2023-06-03 03:26] LABS: Alanine Aminotransferase 22 U/L (0-31); Albumin Level 4.1 g/dL (3.5-5.0); Alkaline Phosphatase 65 U/L (39-117); Amylase 40 U/L (28-100); Anion Gap 10 (12-20); Aspartate Amino Transferase 18 U/L (5-31); Bilirubin Direct 0.1 mg/dL (0.0-0.5); Bilirubin Total 0.3 mg/dL (0.0-1.0); Blood Urea Nitrogen 11 mg/dL (9-16); Calcium 9.3 mg/dL (8.4-10.2); Carbon Dioxide 28 mmol/L (22-29); Chloride 104 mmol/L (96-108); Creatinine Clr Calc Pharmacy 151.7; Estimated Glomerular Filt Rate > 60; Glucose Random 97 mg/dL (60-115); Lipase 17 U/L (8-78); Potassium 3.7 mmol/L (3.3-5.1); Sodium 138 mmol/L (135-145)
[2023-06-03] MEDS: iohexoL 350 MG/ML 100 ML INFUS..BTL 60 ML IV (04:08)
[2023-06-03 05:18] VITALS: BP 114/65; PULSE 75; RESP 16; O2SAT 98
== END 2023-06-03 05:42 | disposition home or self-care (01) ==
PROVIDERS: Emergency Provider Emergency Medicine Emergency Medical Services; PCP Internal Medicine
DX: R51.9 Headache, unspecified (principal); H66.93 Otitis media, unspecified, bilateral; M54.2 Cervicalgia; Z79.899 Other long term (current) drug therapy
CPT/HCPCS: 36415; 70491; 80048; 80076; 81001; 81025; 82150; 83690; 85025; 96374; 99284; J1885; Q9967

== ENCOUNTER 2023-06-12 13:39 | Emergency (ER) | payer OTHER, SELFPAY ==
[2023-06-12 14:37] VITALS: BP 143/80; PULSE 90; RESP 16; TEMP 36.7; O2SAT 98; BMI 40.2
--- NOTE | 2023-06-12 14:37 | ED_ITS ---
HPI - General Adult General Chief complaint: Upper Respiratory Symptoms Stated complaint: cough Time Seen by Provider: 06/12/23 17:27 Source: patient and RN notes reviewed Mode of arrival: ambulatory Limitations: no limitations History of Present Illness HPI narrative: This is a [id number]-female presenting to the ER with complaints of dry cough, headache, nausea, diarrhea, fatigue and subjective fevers since yesteray. 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 She has been taking over the counter medications with some relief. Denies chest pain, sore throat, and abdominal pain. No other complaints or concerns at this time. MD complaint: diarrhea, fatigue, cough, headache Onset (ago): day(s) Radiation: non-radiation Severity: moderate Relieving factors: none Exacerbating factors: none Associated symptoms: cough, fever/chills, headaches, loss of appetite and nausea/vomiting Treatments prior to arrival: none Related Data Previous Rx's Medication Instructions Recorded albuterol sulfate 90 mcg/actuation 1 inh inhalation QID PRN shortness 09/20/21 aerosol inhaler of breath or wheezing #6.7 grams albuterol sulfate 0.63 mg/3 mL 0.63 mg (3 mL) inhalation Q4-6H 09/23/21 solution for nebulization PRN shortness of breath or wheezing #75 mL amoxicillin 875 mg-potassium 1 tab PO TID #21 tabs 06/03/23 clavulanate 125 mg tablet benzonatate 100 mg capsule 100 mg PO TID PRN cough 5 days #14 06/12/23 caps Allergies Allergy/AdvReac Type Severity Reaction Status Date / Time apricot [APRICOT] Allergy Unknown RASH Verified 06/12/23 14:37 cephalexin [From KEFLEX] Allergy Unknown RASH Verified 06/12/23 14:37 Review of Systems 2 Review of Systems: Yes all other systems are reviewed and are negative Constitutional: Constitutional: Reports as per [facility] Past Medical History Medical History History of COVID-19 Adjustment disorder in remission Morbid obesity History of posttraumatic stress disorder (PTSD) History of adjustment disorder Microcytic hypochromic anemia Mass of left upper extremity Heavy menstrual bleeding Spondyloarthropathy Mild intermittent asthma Closed right tibial fracture Tibia/fibula fracture Arthritis Surgical History Hx of section H/O foot surgery Family History Family History Father Diabetes Mother Thyroid disease Social History Social History Household Members: Other Housing: House Do you presently have visiting nurse or other home services: No Alcohol intake: unknown Patient Tobacco Use Status: Never used Tobacco Smoked in Last 30 Days: No e-Cigarette/Vaping Use: Never Used Use of substances other than those prescribed or required for medical reasons: No Substance Use Type: Marijuana Advance Directives: No Advance Directives Information Provided: No Patient : No service: No Current occupational status: employed 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, 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 Gender identity: Female Cognitive needs: No Hearing needs: No Vision needs: No Physical Exam ED Vital Signs: BMI result Body Mass Index 40.2 Const General: cooperative, comfortable and no acute distress Orientation/consciousness: patient oriented x3 Limitations: no limitations HENMT Head: Yes normal to inspection, Yes normocephalic and Yes atraumatic Ears: hearing grossly normal bilaterally and TM's normal bilaterally General nose exam: Normal external nose present Face and sinus: Yes normal facial exam Mouth: Normal oral and palatal mucosa present, tongue normal, oropharynx normal and moist mucous membranes Throat: Yes posterior oropharynx normal, Yes tonsils normal and Yes uvula midline Eyes General: appearance normal, both eyes and all related structures Eyelids: Yes eyelids normal Conjunctivae: conjunctivae normal Sclerae: sclerae normal Pupils: Equal, round and reactive pupils present EOM: EOMs intact bilaterally Neck Neck: Yes normal visual inspection, Yes full ROM and Yes no lymphadenopathy Lymphatic: no lymphadenopathy noted Chest Chest palpation & inspection: normal inspection of the chest Resp Effort & Inspection: normal respiratory effort and able to speak in complete sentences Auscultation: clear to auscultation bilaterally, no crackles, no rales, no rhonchi and no wheezes Cardio Rate: regular rate Rhythm: regular rhythm Heart sounds: S1 normal heart sound present and S2 normal heart sound present GI Other: Abdomen is soft and nontender. Inspection: Yes normal to inspection Skin General skin exam: no rashes or lesions noted Trauma: no lacerations or abrasions Wounds: no wounds Neuro General: patient oriented x3 and moves all extremities Cranial nerves: Yes Equal, round and reactive pupils present Extrem General: Yes normal to inspection Right upper extremity: normal to inspection Left upper extremity: normal to inspection Right lower extremity: normal to inspection Left lower extremity: normal to inspection Course Course Course Narrative: This is a rapid medical exam: Additional HPI, ROS, PE not included below will be deferred to primary provider. Patient is a 27-year-old female with history of asthma presenting to the emergency department with complaint of nonproductive cough, headaches, loss of appetite, nausea, diarrhea. Reports contact with many patients with Covid at work. Plan: swab for covid, flu, rsv, basic labs Medical Decision Making Medical Decision Making [facility] Narrative: 27 y/o F presenting to the ER with complaints of dry cough, headahe, nausea, diarrhea, fatigue and fevers. On arrival, pt nontoxic appearing with normal vital signs. Lungs CTAB, abdomen is soft nontender, normal physical examination findings. Viral swabs were collected and are negative. Labs were performed - see below for comment. Pt symptoms likely viral in nature. Discussed with pt, given conservative measures to treat symptoms. Given return precautions. Pt understands and agrees with plan. Pt stable for d/c. Differential Diagnosis Differential Diagnoses: The differential diagnosis associated with the presentation includes URI, bronchitis, covid, flu, pneumonia - unlikely Lab Data [facility] Lab Attestation statement: I reviewed the patient's lab results. No leukocytosis. H&H low, consistent with microcytic anemia (pt has hx of this, and levels around baseline) - discussed with pt about this and advised to f/u with PCP for further evaluation and workup. 06/12/23 15:40 06/12/23 15:40 Labs: Lab Results 06/12/23 Range/Units 15:40 WBC 8.5 (4.8-10.8) X10*3/uL RBC 4.21 (4.20-5.50) X10*6/uL Hgb 9.5 L (12.0-16.0) g/dl Hct 30.3 L (37.0-47.0) % MCV 72.0 L (80.0-98.0) fL MCH 22.6 L (27.0-33.0) pg MCHC 31.4 (31.0-35.0) g/dl RDW 19.0 H (11.0-16.0) % Plt Count 372 (160-400) X10*3/uL MPV 9.9 (9.4-12.3) fL Immature Gran % (Auto) 0.2 (0.0-0.4) % Neut % (Auto) 69.8 (45-73) % Lymph % (Auto) 17.9 L (20-40) % [place] % (Auto) 7.7 (2-11) % Eos % (Auto) 3.9 (0-4) % Baso % (Auto) 0.5 (0-2) % Lymph # (Auto) 1.5 (1.2-4.9) X10*3/uL [place] # (Auto) 0.7 (0.1-1.2) X10*3/uL Eos # (Auto) 0.3 (0.0-0.4) X10*3/uL Baso # (Auto) 0.0 (0.0-0.2) X10*3/uL Abs Immat Gran (auto) 0.02 (0.00-0.03) X10*3/uL Absolute Neuts (auto) 6.0 (2.0-8.3) x10*3/uL Absolute Nucleated RBC 0.000 (0.0-0.012) X10*3/uL Nucleated RBC % (auto) 0.0 (0.0-0.2) /100WBC Sodium 140 (135-145) mmol/L Potassium 3.8 (3.3-5.1) mmol/L Chloride 107 (96-108) mmol/L Carbon Dioxide 28 (22-29) mmol/L Anion Gap 9 L (12-20) BUN 9 (9-16) mg/dL Creatinine 0.64 (0.5-1.4) mg/dL Estim Creat Clear Calc 174.2 Estimated GFR > 60 Random Glucose 85 (60-115) mg/dL Calcium 9.7 (8.4-10.2) mg/dL Influenza Type A (PCR) NEGATIVE (Negative) Influenza Type B (PCR) NEGATIVE (Negative) RSV RNA Qual (PCR) NEGATIVE (Negative) SARS-CoV-2 RNA (RT-PCR) NEGATIVE (Negative) Discharge Plan Discharge Clinical Impression: Viral infection Patient Disposition: Home, Self-Care Instructions: Viral Syndrome (ED) Additional Instructions: Your presenting to the emergency department for evaluation of sore throat, cough, diarrhea, since yesterday. You tested negative for COVID/RSV/Flu. Your symptoms are likely due a virus. Drink plenty of fluids and get plenty of rest. Please take Tylenol and ibuprofen as directed as needed for pain and fevers. Please also follow-up with your primary care physician as he of slight anemia. This is around your normal levels however you should follow-up with them to monitor this. If any new or worsening symptoms occur including but not limited to chest pain or shortness of breath, please return for re-evaluation. Prescriptions: New benzonatate 100 mg capsule 100 mg PO TID PRN (Reason: cough) 5 Days Qty: 14 0RF No Action albuterol sulfate 90 mcg/actuation HFA aerosol inhaler 1 inh inhalation QID PRN (Reason: shortness of breath or wheezing) Qty: 6.7 0RF albuterol sulfate 0.63 mg/3 mL solution for nebulization 0.63 mg inhalation Q4-6H PRN (Reason: shortness of breath or wheezing) Qty: 75 0RF amoxicillin-pot clavulanate 875-125 mg tablet 1 tab PO TID Qty: 21 0RF Stand Alone Forms: Work/School Release Interventions: ED Discharge Assessment Last Done: 06/12/23 18:55 Discharge Date/Time: 06/12/23 18:55
[2023-06-12 15:44] LABS: MANUAL DIFF FLAG NO
[2023-06-12 15:46] LABS: Basophils Percent Auto 0.5 % (0-2); Eosinophils Absolute Auto 0.3 X10*3/uL (0.0-0.4); Eosinophils Percent Auto 3.9 % (0-4); Hematocrit 30.3 % (37.0-47.0); Hemoglobin 9.5 g/dl (12.0-16.0); Imm Gran Abs Auto 0.02 X10*3/uL (0.00-0.03); Imm Gran Pct Auto 0.2 % (0.0-0.4); Lymphocytes Absolute Auto 1.5 X10*3/uL (1.2-4.9); Lymphocytes Percent Auto 17.9 % (20-40); Mean Corpuscular HGB Conc 31.4 g/dl (31.0-35.0); Mean Corpuscular Hemoglobin 22.6 pg (27.0-33.0); Mean Platelet Volume 9.9 fL (9.4-12.3); Monocytes Absolute Auto 0.7 X10*3/uL (0.1-1.2); Monocytes Percent Auto 7.7 % (2-11); Neutrophils Percent Auto 69.8 % (45-73); Platelet Count 372 X10*3/uL (160-400); Red Blood Count 4.21 X10*6/uL (4.20-5.50); White Blood Count 8.5 X10*3/uL (4.8-10.8)
[2023-06-12 15:57] LABS: Anion Gap 9 (12-20); Blood Urea Nitrogen 9 mg/dL (9-16); Calcium 9.7 mg/dL (8.4-10.2); Carbon Dioxide 28 mmol/L (22-29); Chloride 107 mmol/L (96-108); Creatinine Clr Calc Pharmacy 174.2; Estimated Glomerular Filt Rate > 60; Glucose Random 85 mg/dL (60-115); Potassium 3.8 mmol/L (3.3-5.1); Sodium 140 mmol/L (135-145)
[2023-06-12 16:41] LABS: Influenza A PCR NEGATIVE (Negative); Influenza B PCR NEGATIVE (Negative); Resp Syncy Virus RNA Qual PCR NEGATIVE (Negative); SARS COV2 PCR INHOUSE NEGATIVE (Negative)
[2023-06-12 18:04] VITALS: BP 115/72; PULSE 75; RESP 18; TEMP 36.4; O2SAT 100
--- NOTE | 2023-06-12 18:35 | ED_ITS ---
HPI - URI/Sore Throat General Chief Complaint: Upper Respiratory Symptoms Stated Complaint: cough Time Seen by Provider: 06/12/23 17:27 Source: patient and RN notes reviewed Mode of arrival: ambulatory Limitations: no limitations History of Present Illness HPI Narrative: This is a 27-year-old female, the history of asthma, presenting to the emergency department for evaluation of dry cough, sore throat, headache, nausea, diarrhea, shortness breath, fatigue, and fevers since last night. 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 She has been using her albuterol inhaler and Tylenol as directed with minimal relief. She also endorses multiple episodes of diarrhea, no bloody or black stool. Denies any ear pain, chest pain, abdominal pain, nausea or vomiting. No urinary symptoms. No abnormal vaginal discharge or bleeding. Denies risk of . No other complaints or concerns at this time. MD elicited complaint: fever, cough, sore throat and nasal congestion Pertinent past history: asthma Onset (ago): day(s) Consistency: constant Description of mucous: clear Able to tolerate fluids by mouth: Yes Exacerbating factors: nothing Relieving factors: NSAID Context: sick contacts Associated symptoms: fever, chills, myalgias, headache, nasal congestion, sore throat, cough, shortness of breath and diarrhea Treatments prior to arrival: acetaminophen Related Data Previous Rx's Medication Instructions Recorded albuterol sulfate 90 mcg/actuation 1 inh inhalation QID PRN shortness 09/20/21 aerosol inhaler of breath or wheezing #6.7 grams albuterol sulfate 0.63 mg/3 mL 0.63 mg (3 mL) inhalation Q4-6H 09/23/21 solution for nebulization PRN shortness of breath or wheezing #75 mL amoxicillin 875 mg-potassium 1 tab PO TID #21 tabs 06/03/23 clavulanate 125 mg tablet benzonatate 100 mg capsule 100 mg PO TID PRN cough 5 days #14 06/12/23 caps Allergies Allergy/AdvReac Type Severity Reaction Status Date / Time apricot [APRICOT] Allergy Unknown RASH Verified 06/12/23 14:37 cephalexin [From KEFLEX] Allergy Unknown RASH Verified 06/12/23 14:37 Review of Systems 2 Review of Systems: Yes all other systems are reviewed and are negative Constitutional: Constitutional: Reports as per [facility] Past Medical History Attestation statement: The following information was validated with the patient. Medical History History of COVID-19 Adjustment disorder in remission Morbid obesity History of posttraumatic stress disorder (PTSD) History of adjustment disorder Microcytic hypochromic anemia Mass of left upper extremity Heavy menstrual bleeding Spondyloarthropathy Mild intermittent asthma Closed right tibial fracture Tibia/fibula fracture Arthritis Surgical History Hx of section H/O foot surgery Family History Family History Father Diabetes Mother Thyroid disease Social History Social History Household Members: Other Housing: House Do you presently have visiting nurse or other home services: No Alcohol intake: unknown Patient Tobacco Use Status: Never used Tobacco Smoked in Last 30 Days: No e-Cigarette/Vaping Use: Never Used Use of substances other than those prescribed or required for medical reasons: No Substance Use Type: Marijuana Advance Directives: No Advance Directives Information Provided: No Patient : No service: No Current occupational status: employed 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, 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 Gender identity: Female Cognitive needs: No Hearing needs: No Vision needs: No Physical Exam 2 Vital Signs: Vital Signs: Last Vital Signs Temp 97.6 F 06/12/23 18:04 Pulse 75 06/12/23 18:04 Resp 18 06/12/23 18:04 BP 115/72 06/12/23 18:04 Pulse Ox 100 06/12/23 18:04 O2 Del Method Room Air 06/12/23 18:04 BMI result Body Mass Index 40.2 Const: General: cooperative, comfortable and no acute distress O rientation/consciousness: patient oriented x3 Limitations: no limitations HEENT: Head: Yes normal to inspection, Yes normocephalic and Yes atraumatic Ears: hearing grossly normal bilaterally and TM's normal bilaterally General nose exam: Normal external nose present Face and sinus: Yes normal facial exam Mouth: Normal oral and palatal mucosa present, oropharynx normal and moist mucous membranes Throat: Yes posterior oropharynx normal and Yes uvula midline Eyes: General: appearance normal, both eyes and all related structures E yelids: Yes eyelids normal Conjunctivae: conjunctivae normal Sclerae: s clerae normal Pupils: Equal, round and reactive pupils present EOM: EOMs intact bilaterally Neck: Neck: Yes normal visual inspection, Yes full ROM and Yes no lymphadenopathy Lymphatic: no lymphadenopathy noted Chest: Chest palpation & inspection: normal inspection of the chest Resp: Effort & Inspection: normal respiratory effort and able to speak in complete sentences Auscultation: clear to auscultation bilaterally, no crackles, no rales, no rhonchi and no wheezes Cardio: Rate: regular rate Rhythm: regular rhythm Heart sounds: S1 normal heart sound present and S2 normal heart sound present GI: Other: Abdomen is soft, nontender, nondistended, normoactive bowel sounds present in all 4 quadrants. Inspection: Yes normal to inspection Skin: General skin exam: no rashes or lesions noted Trauma: no lacerations or abrasions Wounds: no wounds Neuro: General: patient oriented x3 and moves all extremities Cranial nerves: Yes Equal, round and reactive pupils present Extrem: General: Yes normal to inspection Right upper extremity: normal to inspection Left upper extremity: normal to inspection Right lower extremity: normal to inspection Left lower extremity: normal to inspection Medical Decision Making Medical Decision Making MDM Narrative: This is a 27-year-old female presenting to the emergency department for evaluation dry cough, headaches nausea, sore throat, shortness breath, fatigue, and fever since last night. 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 On arrival, vital signs within normal limits, patient nontoxic appearing, in no acute respiratory distress. Patient has a normal physical exam. Lungs are clear to auscultation bilaterally, TMs nonerythematous nonbulging, abdomen is soft nontender. Patient's symptoms likely viral in etiology, will discharge patient on Tessalon and encouraged plenty of hydration and rest. Viral swabs normal. Patient with microcytic anemia, with an H&H of 9.5/30.3, patient has a history of anemia. This is around her baseline. I had a discussion with patient to follow-up with her primary care physician as she is currently not on iron. She states that she currently has her menses but reports that it is not heavy. No bloody or black stool. Advised to have this rechecked and followed by her primary care physician. Given return precautions. Patient understands and agrees with plan. Stable for discharge Differential Diagnosis Differential Diagnoses: The differential diagnosis associated with the presentation includes URI, flu, COVID, pneumonia Lab Data [facility] Lab Attestation statement: I reviewed the patient's lab results. See [facility] 06/12/23 15:40 06/12/23 15:40 Labs: Lab Results 06/12/23 Range/Units 15:40 WBC 8.5 (4.8-10.8) X10*3/uL RBC 4.21 (4.20-5.50) X10*6/uL Hgb 9.5 L (12.0-16.0) g/dl Hct 30.3 L (37.0-47.0) % MCV 72.0 L (80.0-98.0) fL MCH 22.6 L (27.0-33.0) pg MCHC 31.4 (31.0-35.0) g/dl RDW 19.0 H (11.0-16.0) % Plt Count 372 (160-400) X10*3/uL MPV 9.9 (9.4-12.3) fL Immature Gran % (Auto) 0.2 (0.0-0.4) % Neut % (Auto) 69.8 (45-73) % Lymph % (Auto) 17.9 L (20-40) % [place] % (Auto) 7.7 (2-11) % Eos % (Auto) 3.9 (0-4) % Baso % (Auto) 0.5 (0-2) % Lymph # (Auto) 1.5 (1.2-4.9) X10*3/uL [place] # (Auto) 0.7 (0.1-1.2) X10*3/uL Eos # (Auto) 0.3 (0.0-0.4) X10*3/uL Baso # (Auto) 0.0 (0.0-0.2) X10*3/uL Abs Immat Gran (auto) 0.02 (0.00-0.03) X10*3/uL Absolute Neuts (auto) 6.0 (2.0-8.3) x10*3/uL Absolute Nucleated RBC 0.000 (0.0-0.012) X10*3/uL Nucleated RBC % (auto) 0.0 (0.0-0.2) /100WBC Sodium 140 (135-145) mmol/L Potassium 3.8 (3.3-5.1) mmol/L Chloride 107 (96-108) mmol/L Carbon Dioxide 28 (22-29) mmol/L Anion Gap 9 L (12-20) BUN 9 (9-16) mg/dL Creatinine 0.64 (0.5-1.4) mg/dL Estim Creat Clear Calc 174.2 Estimated GFR > 60 Random Glucose 85 (60-115) mg/dL Calcium 9.7 (8.4-10.2) mg/dL Influenza Type A (PCR) NEGATIVE (Negative) Influenza Type B (PCR) NEGATIVE (Negative) RSV RNA Qual (PCR) NEGATIVE (Negative) SARS-CoV-2 RNA (RT-PCR) NEGATIVE (Negative) Discharge Plan Discharge Clinical Impression: Viral infection Patient Disposition: Home, Self-Care Instructions: Viral Syndrome (ED) Additional Instructions: Your presenting to the emergency department for evaluation of sore throat, cough, diarrhea, since yesterday. You tested negative for COVID/RSV/Flu. Your symptoms are likely due a virus. Drink plenty of fluids and get plenty of rest. Please take Tylenol and ibuprofen as directed as needed for pain and fevers. Please also follow-up with your primary care physician as he of slight anemia. This is around your normal levels however you should follow-up with them to monitor this. If any new or worsening symptoms occur including but not limited to chest pain or shortness of breath, please return for re-evaluation. Prescriptions: New benzonatate 100 mg capsule 100 mg PO TID PRN (Reason: cough) 5 Days Qty: 14 0RF No Action albuterol sulfate 90 mcg/actuation HFA aerosol inhaler 1 inh inhalation QID PRN (Reason: shortness of breath or wheezing) Qty: 6.7 0RF albuterol sulfate 0.63 mg/3 mL solution for nebulization 0.63 mg inhalation Q4-6H PRN (Reason: shortness of breath or wheezing) Qty: 75 0RF amoxicillin-pot clavulanate 875-125 mg tablet 1 tab PO TID Qty: 21 0RF Stand Alone Forms: Work/School Release Interventions: ED Discharge Assessment Last Done: 06/12/23 18:55 Discharge Date/Time: 06/12/23 18:55
== END 2023-06-12 18:55 | disposition home or self-care (01) ==
PROVIDERS: Registered Nurse Emergency; Emergency Provider Emergency Medicine; PCP Internal Medicine
DX: B34.9 Viral infection, unspecified (principal); R05.9 Cough, unspecified; R11.2 Nausea with vomiting, unspecified; R50.9 Fever, unspecified; Z20.822 Contact with and (suspected) exposure to COVID-19; Z20.828 Contact with and (suspected) exposure to other viral communicable diseases; Z79.899 Other long term (current) drug therapy
CPT/HCPCS: 0241U; 36415; 80048; 85025; 99283; 99284

== ENCOUNTER 2023-09-29 22:38 | Emergency (ER) | payer MEDICAID, SELFPAY ==
[2023-09-29 22:48] VITALS: BP 135/97; PULSE 112; RESP 17; TEMP 36.7; O2SAT 98; BMI 38.8
[2023-09-29 23:23] LABS: MANUAL DIFF FLAG NO
[2023-09-29 23:25] LABS: Basophils Percent Auto 0.2 % (0-2); Eosinophils Absolute Auto 0.1 X10*3/uL (0.0-0.4); Eosinophils Percent Auto 0.5 % (0-4); Hemoglobin 11.3 g/dl (12.0-16.0); Imm Gran Abs Auto 0.04 X10*3/uL (0.00-0.03); Imm Gran Pct Auto 0.4 % (0.0-0.4); Lymphocytes Absolute Auto 0.9 X10*3/uL (1.2-4.9); Mean Corpuscular HGB Conc 31.4 g/dl (31.0-35.0); Mean Corpuscular Hemoglobin 22.2 pg (27.0-33.0); Mean Corpuscular Volume 70.7 fL (80.0-98.0); Mean Platelet Volume 9.5 fL (9.4-12.3); Monocytes Absolute Auto 0.5 X10*3/uL (0.1-1.2); Monocytes Percent Auto 5.2 % (2-11); Neutrophils Absolute Auto 8.4 x10*3/uL (2.0-8.3); Neutrophils Percent Auto 84.7 % (45-73); Platelet Count 378 X10*3/uL (160-400); Red Blood Count 5.09 X10*6/uL (4.20-5.50); Red Cell Distribution Width 18.5 % (11.0-16.0); White Blood Count 9.9 X10*3/uL (4.8-10.8)
[2023-09-29 23:47] LABS: Alanine Aminotransferase 16 U/L (0-31); Albumin Level 4.3 g/dL (3.5-5.0); Alkaline Phosphatase 77 U/L (39-117); Anion Gap 12 (12-20); Aspartate Amino Transferase 13 U/L (5-31); Bilirubin Total 0.5 mg/dL (0.0-1.0); Blood Urea Nitrogen 7 mg/dL (9-16); Calcium 9.7 mg/dL (8.4-10.2); Carbon Dioxide 27 mmol/L (22-29); Chloride 102 mmol/L (96-108); Creatinine Clr Calc Pharmacy 131.6; Estimated Glomerular Filt Rate > 60; Glucose Random 99 mg/dL (60-115); Lipase 11 U/L (8-78); Potassium 3.8 mmol/L (3.3-5.1); Sodium 137 mmol/L (135-145); Total Protein 7.9 g/dL (6.5-8.0)
[2023-09-29 23:49] LABS: HCG Quantitative < 2 mIU/mL
[2023-09-30 00:03] LABS: Influenza A PCR NEGATIVE (Negative); Influenza B PCR NEGATIVE (Negative); Resp Syncy Virus RNA Qual PCR NEGATIVE (Negative); SARS COV2 PCR INHOUSE NEGATIVE (Negative)
[2023-09-30 00:58] LABS: Appearance Urine Clear; Color Urine Yellow; Glucose Urine UA Negative (Negative); Leukocyte Esterase Urine Trace (Negative); Nitrite Urine Negative (Negative); UMIC TRIGGER UACC YES; Urine Blood Large (3+) (Negative); Urine Ketones Negative (Negative); Urine Protein 30 (1+) mg/dL (Neg-Trace)
[2023-09-30 01:07] LABS: Bacteria Urine 1+ (None Seen); Hyaline Casts Urine 0-2 /LPF (0-2); RBC Urine >20 /HPF (0-2); UACC Culture Trigger YES
[2023-09-30 03:30] VITALS: BP 132/79; PULSE 110; RESP 18; O2SAT 99
[2023-09-30 04:34] VITALS: BP 123/83; PULSE 102; RESP 18; TEMP 37.5; O2SAT 95
--- NOTE | 2023-09-30 05:28 | ED_ITS ---
HPI - Nausea/Vomiting/Diarrhea General Chief complaint: Abdominal Pain Stated complaint: fever, dizzy, vomiting Time Seen by Provider: 09/30/23 05:22 Source: patient Mode of arrival: ambulatory Limitations: no limitations History of Present Illness HPI Narrative: Patient comes to the emergency room complaining of 3 hours of nausea vomiting and diarrhea. Patient states that her son and the father of her child have the same symptoms. Patient denies UTI symptoms. Denies flank pain. Denies fever chills. Patient states that she took Tylenol prior to arrival for the discomfort, no other medications. Related Data Previous Rx's Medication Instructions Recorded albuterol sulfate 90 mcg/actuation 1 inh inhalation QID PRN shortness 09/20/21 aerosol inhaler of breath or wheezing #6.7 grams albuterol sulfate 0.63 mg/3 mL 0.63 mg (3 mL) inhalation Q4-6H 09/23/21 solution for nebulization PRN shortness of breath or wheezing #75 mL amoxicillin 875 mg-potassium 1 tab PO TID #21 tabs 06/03/23 clavulanate 125 mg tablet benzonatate 100 mg capsule 100 mg PO TID PRN cough 5 days #14 06/12/23 caps ondansetron 4 mg disintegrating 4 mg PO Q6H PRN nausea and 09/30/23 tablet vomiting #10 tabs Allergies Allergy/AdvReac Type Severity Reaction Status Date / Time apricot [APRICOT] Allergy Unknown RASH Verified 09/29/23 22:48 cephalexin [From KEFLEX] Allergy Unknown RASH Verified 09/29/23 22:48 Review of Systems 2 Review of Systems: Constitutional : No Weight loss, No Fever, No Chills, No Night Sweats, No Fatigue, No Malaise ENT/Mouth : No Hearing loss, No Ear Pain, No Nasal Congestion, No Sinus Pain, No Hoarseness, No sore throat, No Rhinorrhea, No Swallowing Difficulty Eyes: No Eye Pain, No Swelling, No Redness, No Foreign Body, No Discharge, No Vision Changes Cardiovascular : No Chest Pain, No SOB, No Dyspnea on Exertion, No Orthopnea, No Edema, No Palpitations Respiratory : No Cough, No Sputum, No Wheezing, No Smoke Exposure, No Dyspnea Gastrointestinal : Complaining of nausea vomiting and diarrhea, No Constipation, No abdominal Pain, No Hematochezia, No Melena Genitourinary : no irregular bleeding, No Dysuria, No Urinary Frequency, No Hematuria, No Urinary Incontinence, No Urgency, No Flank Pain, No Urinary Flow Changes, No Hesitancy Musculoskeletal : No joint pain, No Myalgias, No Joint Swelling Skin : No Skin Lesions, No rash Neuro : No Weakness, No Numbness, No Paresthesias, No Loss of Consciousness, No Dizziness, No Headache Psych : No Anxiety/Panic, No Depression, No SI/HI/AH/VH, No Social Issues, Heme/Lymph: No Bruising, No Bleeding,No Lymphadenopathy Endocrine : No Polyuria, No Polydipsia, No Temperature Intolerance [facility] Past Medical History Medical History History of COVID-19 Adjustment disorder in remission Morbid obesity History of posttraumatic stress disorder (PTSD) History of adjustment disorder Microcytic hypochromic anemia Mass of left upper extremity Heavy menstrual bleeding Spondyloarthropathy Mild intermittent asthma Closed right tibial fracture Tibia/fibula fracture Arthritis Surgical History Hx of section H/O foot surgery Family History Family History Father Diabetes Mother Thyroid disease Social History Social History Household Members: Other Housing: House Do you presently have visiting nurse or other home services: No Alcohol intake: never Patient Tobacco Use Status: Never used Tobacco Smoked in Last 30 Days: No e-Cigarette/Vaping Use: Never Used Use of substances other than those prescribed or required for medical reasons: No Substance Use Type: Marijuana Advance Directives: No Advance Directives Information Provided: Yes Patient : No service: No Current occupational status: employed 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 Oriented X3. No acute distress. Eyes: Pupils equal, round and reactive to light. ENT: Pharynx normal. Neck: Normal inspection. Neck supple. No lymph nodes noted. No crepitus CVS: Normal heart rate and rhythm. Pulses normal. Normal S1 and S2 Respiratory: No respiratory distress. Breath sounds normal. No Wheezing. No rales Abdomen: Soft and nontender. No rigidity. No distention. Skin: Skin warm and dry. Normal skin color. Normal skin turgor. Extremities: No lower extremity edema. No Lacerations. No Rash Neuro: Oriented X 3. No motor deficit. No sensory deficit. Moving all extremities. No slurred speech. CN 2 through 12 grossly intact Psych: calm, cooperative, normal affect Medical Decision Making Medical Decision Making [facility] Narrative: -my interpretation of labs: Normal hematology and chemistry, UTI has a large amount of blood. Patient states that she is menstruating and has no UTI symptoms. Serology negative for influenza, RSV and COVID -patient receiving IV fluids, Zofran and loperamide. At this time, antibiotics for the analysis results is not indicated. Unlikely to be a UTI. Differential Diagnosis Differential Diagnoses: The differential diagnosis associated with the presentation includes (UTI, gastritis, gastroenteritis, viral syndrome) Admission/Observation Consideration of admission/observation: Escalation of care including admission/observation considered (Patient seems to be dehydrated, IV fluids being given, admission considered) Lab Data [facility] Lab Attestation statement: I reviewed the patient's lab results. 09/29/23 23:18 09/29/23 23:19 Labs: Lab Results 09/29/23 09/29/23 09/30/23 Range/Units 23:18 23:19 00:46 WBC 9.9 (4.8-10.8) X10*3/uL RBC 5.09 D (4.20-5.50) X10*6/uL Hgb 11.3 L (12.0-16.0) g/dl Hct 36.0 L (37.0-47.0) % MCV 70.7 L (80.0-98.0) fL MCH 22.2 L (27.0-33.0) pg MCHC 31.4 (31.0-35.0) g/dl RDW 18.5 H (11.0-16.0) % Plt Count 378 (160-400) X10*3/uL MPV 9.5 (9.4-12.3) fL Immature Gran % (Auto) 0.4 (0.0-0.4) % Neut % (Auto) 84.7 H (45-73) % Lymph % (Auto) 9.0 L (20-40) % [place] % (Auto) 5.2 (2-11) % Eos % (Auto) 0.5 (0-4) % Baso % (Auto) 0.2 (0-2) % Lymph # (Auto) 0.9 L (1.2-4.9) X10*3/uL [place] # (Auto) 0.5 (0.1-1.2) X10*3/uL Eos # (Auto) 0.1 (0.0-0.4) X10*3/uL Baso # (Auto) 0.0 (0.0-0.2) X10*3/uL Abs Immat Gran (auto) 0.04 H (0.00-0.03) X10*3/uL Absolute Neuts (auto) 8.4 H (2.0-8.3) x10*3/uL Absolute Nucleated RBC 0.000 (0.0-0.012) X10*3/uL Nucleated RBC % (auto) 0.0 (0.0-0.2) /100WBC Sodium 137 (135-145) mmol/L Potassium 3.8 (3.3-5.1) mmol/L Chloride 102 (96-108) mmol/L Carbon Dioxide 27 (22-29) mmol/L Anion Gap 12 (12-20) BUN 7 L (9-16) mg/dL Creatinine 0.83 (0.5-1.4) mg/dL Estim Creat Clear Calc 131.6 Estimated GFR > 60 Random Glucose 99 (60-115) mg/dL Calcium 9.7 (8.4-10.2) mg/dL Total Bilirubin 0.5 (0.0-1.0) mg/dL AST 13 (5-31) U/L ALT 16 (0-31) U/L Alkaline Phosphatase 77 (39-117) U/L Total Protein 7.9 (6.5-8.0) g/dL Albumin 4.3 (3.5-5.0) g/dL Lipase 11 (8-78) U/L Beta HCG, Quant < 2 mIU/mL Urine Color Yellow Urine Appearance Clear Urine pH 6.0 (5.0-9.0) Ur Specific [place] 1.010 (1.005-1.025) Urine Protein 30 (1+) H (Neg-Trace) mg/dL Urine Glucose (UA) Negative (Negative) mg/dL Urine Ketones Negative (Negative) mg/dL Urine Blood Large (3+) H (Negative) Urine Nitrite Negative (Negative) Ur Leukocyte Esterase Trace H (Negative) Urine RBC >20 H (0-2) /HPF Urine WBC 6-10 H (0-5) /HPF Ur Squamous Epith Cells 3-5 (0-2) /HPF Urine Bacteria 1+ (None Seen) Hyaline Casts 0-2 (0-2) /LPF Influenza Type A (PCR) NEGATIVE (Negative) Influenza Type B (PCR) NEGATIVE (Negative) RSV RNA Qual (PCR) NEGATIVE (Negative) SARS-CoV-2 RNA (RT-PCR) NEGATIVE (Negative) Tests considered The following testing was considered but not selected: Considering doing a CT scan. However, patient's physical exam was unremarkable. Critical Care Time Critical Care Time Critical Care Time: Yes Total Critical Care Time: 30 Attestation: I have personally provided critical care time. Time includes review of lab data, radiology results, discussion with consultants, and monitoring for potential decompensation. Intervention performed as documented. Discharge Plan Discharge Clinical Impression: Nausea & vomiting Patient Disposition: Home, Self-Care Instructions: Acute Nausea and Vomiting (ED) Additional Instructions: Please follow-up with your primary care physician tomorrow. If you have any worsening or new symptoms, please return to the emergency room or call 911 Prescriptions: New ondansetron 4 mg tablet,disintegrating 4 mg PO Q6H PRN (Reason: nausea and vomiting) Qty: 10 0RF No Action albuterol sulfate 90 mcg/actuation HFA aerosol inhaler 1 inh inhalation QID PRN (Reason: shortness of breath or wheezing) Qty: 6.7 0RF albuterol sulfate 0.63 mg/3 mL solution for nebulization 0.63 mg inhalation Q4-6H PRN (Reason: shortness of breath or wheezing) Qty: 75 0RF amoxicillin-pot clavulanate 875-125 mg tablet 1 tab PO TID Qty: 21 0RF benzonatate 100 mg capsule 100 mg PO TID PRN (Reason: cough) 5 Days Qty: 14 0RF Stand Alone Forms: Work/School Release
[2023-09-30] MEDS: 0.9 % Sodium Chloride 1,000 ML 999 ML IVCONT (05:54)
[2023-09-30] MEDS: Loperamide HCl 2 MG CAPSULE 4 MG PO (05:58)
[2023-09-30] MEDS: ondansetron HCL 4 MG/2 ML VIAL IVPUSH (05:58)
[2023-09-30] MEDS: Ketorolac Tromethamine 15 MG/ML VIAL IVPUSH (06:26)
[2023-09-30 08:02] VITALS: BP 107/71; PULSE 89; RESP 16; TEMP 37.1; O2SAT 96
[2023-09-30 08:24] VITALS: BP 107/71; PULSE 89; RESP 16; TEMP 37.1; O2SAT 96
== END 2023-09-30 08:25 | disposition home or self-care (01) ==
PROVIDERS: Emergency Provider Emergency Medicine
DX: R11.2 Nausea with vomiting, unspecified (principal); R50.9 Fever, unspecified; R42 Dizziness and giddiness; Z11.52 Encounter for screening for COVID-19; Z20.822 Contact with and (suspected) exposure to COVID-19; Z79.899 Other long term (current) drug therapy
CPT/HCPCS: 0241U; 80053; 81001; 81003; 83690; 84702; 85025; 87086; 96374; 96375; 99284; J1885; J2405

== ENCOUNTER 2023-10-07 19:13 | Emergency (ER) | payer MEDICAID, SELFPAY ==
--- NOTE | ~2023-10-07 | CT_ITS ---
EXAMINATION: CT head/brain wo IV con CLINICAL INFORMATION: Reason for Exam headache COMPARISON: None. TECHNIQUE: Contiguous axial imaging was performed from the skull base to vertex without intravenous contrast. Sagittal and coronal reformatted images were obtained. This CT examination was performed using dose optimization techniques as appropriate, variously including the following: * Automated exposure control * Adjustment of mA and/or kV according to patient size (this includes techniques or standardized protocols for targeted exams where dose is matched to indication/reason for exam; i.e. extremities or head) Use of iterative reconstruction technique DLP: 778.73 mGy-cm FINDINGS: No acute osseous or soft tissue abnormality. Left mastoid and middle ear opacification. Mild maxillary sinus mucosal thickening. There is no evidence of acute intracranial hemorrhage or territorial infarction. No abnormal mass effect or midline shift is seen. Rhodes to white matter differentiation is well preserved. No extra-axial fluid collections are identified. No hydrocephalus. No significant volume loss. There is no abnormal attenuation within the brain parenchyma. CT/CT head/brain wo IV con IMPRESSION: 1. No acute intracranial abnormality including hemorrhage, mass effect, hydrocephalus, or acute territorial edematous infarction. 2. Left mastoid and middle ear opacification.
[2023-10-07 20:14] VITALS: BP 134/102; PULSE 112; RESP 20; TEMP 36.7; O2SAT 96; BMI 39.2
--- NOTE | 2023-10-07 20:16 | ED.GENADULT ---
HPI - General Adult General Chief complaint: Headache Stated complaint: migraine Time Seen by Provider: 10/08/23 00:36 Source: patient Mode of arrival: ambulatory History of Present Illness HPI narrative: 27-year-old female who presents with intense headache with shooting pain down the back of her neck that started on Friday night but states that it has worsened today patient endorses some associated nausea with blurry vision and sensitivity to both light and sound. Patient states that prior to this she has been having decreased appetite and feeling unwell and otherwise denies any past medical history other than asthma. Related Data Previous Rx's Medication Instructions Recorded albuterol sulfate 90 mcg/actuation 1 inh inhalation QID PRN shortness 09/20/21 aerosol inhaler of breath or wheezing #6.7 grams albuterol sulfate 0.63 mg/3 mL 0.63 mg (3 mL) inhalation Q4-6H 09/23/21 solution for nebulization PRN shortness of breath or wheezing #75 mL amoxicillin 875 mg-potassium 1 tab PO TID #21 tabs 06/03/23 clavulanate 125 mg tablet benzonatate 100 mg capsule 100 mg PO TID PRN cough 5 days #14 06/12/23 caps ondansetron 4 mg disintegrating 4 mg PO Q6H PRN nausea and 09/30/23 tablet vomiting #10 tabs levofloxacin 750 mg tablet 750 mg PO DAILY #5 tabs 10/08/23 ondansetron 4 mg disintegrating 4 mg PO Q8H PRN nausea and 10/08/23 tablet vomiting 4 days #4 tabs Allergies Allergy/AdvReac Type Severity Reaction Status Date / Time apricot [APRICOT] Allergy Unknown RASH Verified 10/07/23 20:13 cephalexin [From KEFLEX] Allergy Unknown RASH Verified 10/07/23 20:13 Review of Systems Review of Systems: Pertinent positives and negatives as stated in HPI [facility] Past Medical History Source: nursing notes reviewed Medical History History of COVID-19 Adjustment disorder in remission Morbid obesity History of posttraumatic stress disorder (PTSD) History of adjustment disorder Microcytic hypochromic anemia Mass of left upper extremity Heavy menstrual bleeding Spondyloarthropathy Mild intermittent asthma Closed right tibial fracture Tibia/fibula fracture Arthritis Surgical History Hx of section H/O foot surgery Family History Family History Father Diabetes Mother Thyroid disease Social History Social History Household Members: Other Housing: House Do you presently have visiting nurse or other home services: No Alcohol intake: never Patient Tobacco Use Status: Never used Tobacco e-Cigarette/Vaping Use: Never Used Substance Use Type: Marijuana Advance Directives: No Advance Directives Information Provided: No service: No Current occupational status: employed 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, 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 Gender identity: Female Cognitive needs: No Hearing needs: No Vision needs: No Physical Exam ED Vital Signs: Vital Signs - 24 hr 10/07/23 20:14 10/08/23 01:24 10/08/23 01:53 Temperature 98.0 F 97.9 F 97.8 F Pulse Rate 112 H 75 73 Respiratory Rate 20 19 16 Blood Pressure 134/102 H 110/78 108/67 Pulse Oximetry 96 96 97 Oxygen Delivery Method Room Air Room Air Room Air 10/08/23 03:52 10/08/23 05:07 Temperature 97.4 F 97.4 F Pulse Rate 82 82 Respiratory Rate 16 16 Blood Pressure 109/69 109/69 Pulse Oximetry 95 95 Oxygen Delivery Method Room Air Room Air BMI result Body Mass Index 39.2 VITAL SIGNS: Reviewed. GENERAL: Well developed, well nourished, in no acute distress. HEAD: Normocephalic/atraumatic EYES: PERRLA, EOMI EARS: Ext canals without abnormality, unable to visualize TMs on both sides, denies ear pain on manipulation of tragus and pinna NOSE: Nares patent bilateral OROPHARYNX: no oral lesions noted, posterior pharynx clear and non-erythematous without noted tonsillar enlargement/erythema/exudates NECK: Supple, no adenopathy LUNGS: Normal breath sounds. No adventitious sounds or accessory muscle use. SpO2<96> CARDIOVASCULAR: Regular rate and rhythm without noted murmurs ABDOMEN: Soft, non-tender, non-distended with bowel sounds. MUSCULOSKELETAL: No tenderness, deformities, or effusions noted on gross inspection. EXTREMITIES: No cyanosis, clubbing or edema. SKIN: Inspection of the skin reveals no rashes NEUROLOGIC: Alert and oriented x 4. Strength and sensation to light touch were grossly intact x 4. Course Course Course Narrative: RME; 27 yold female presents to the ED for headache, photophobia, and phonobphobia sine last night. Denies trauma. labs and head CT scan ordered Medications Administered Discontinued Medications Generic Name Dose Route Start Last Admin Trade Name Hemanthq PRN Reason Stop Dose Admin Acetaminophen/Butalbital/Caffeine 1 tab 10/07/23 20:15 10/07/23 20:20 Butalb/Acetamin/Caff 50/325/40 Tablet PO 10/07/23 20:16 1 tab ONCE ONE Administration Diphenhydramine HCl 25 mg 10/08/23 03:23 10/08/23 04:17 Diphenhydramine Hcl 50 Mg/Ml Vial IVPUSH 10/08/23 03:24 25 mg ONCE ONE Administration Sodium Chloride 1,000 mls @ 999 mls/hr 10/08/23 01:30 10/08/23 03:21 Ns IV 10/08/23 02:30 Infused .Q1H1M NICK Infusion Sodium Chloride 1,000 mls @ 999 mls/hr 10/08/23 04:45 10/08/23 04:54 Ns IV 10/08/23 05:45 999 mls/hr .Q1H1M NICK Administration Ketorolac Tromethamine 15 mg 10/08/23 01:22 10/08/23 01:32 Ketorolac Tromethamine 30 Mg/Ml Vial IVPUSH 10/08/23 01:23 15 mg ONCE ONE Administration Levofloxacin 750 mg 10/08/23 04:36 10/08/23 04:54 Levofloxacin 750 Mg Tablet PO 10/08/23 04:37 750 mg ONCE ONE Administration Metoclopramide HCl 10 mg 10/08/23 03:23 10/08/23 04:13 Metoclopramide Hcl 10 Mg/2 Ml Vial IVPUSH 10/08/23 03:24 10 mg ONCE ONE Administration Ondansetron HCl 4 mg 10/08/23 01:22 10/08/23 01:32 Ondansetron Hcl 4 Mg/2 Ml Vial IVPUSH 10/08/23 01:23 4 mg ONCE ONE Administration Medical Decision Making Medical Decision Making MDM Narrative: 27-year-old female with history and clinical presentation, DDX: Viral illness, possible strep pharyngitis, dehydration, up-to-date on vaccines and given presentation at this time low clinical suspicion for meningitis. I reviewed all investigations and hematologic indices demonstrate a non infectious leukocytosis as patient is afebrile and there is a stable microcytic anemia and a slight elevation of platelets. Chemistry indices are negative for ADOLFO/electrolyte or liver enzyme derangements. Beta hCG is undetectable. CT scan demonstrates opacification noted left middle ear and will treat for AOM. Patient has received IV fluid resuscitation as well as Fioricet for which she states that she got good resolution of her symptoms but states that the headache has returned, patient received antinausea medication, Toradol, Reglan/Benadryl and will receive initial antibiotics and be discharged on remaining course. Patient is feeling much better and on review of CT scan will treat patient for AOM and she will receive initial antibiotics here in the emergency room. Differential Diagnosis Differential Diagnoses: The differential diagnosis associated with the presentation includes Please see the discussion above Admission/Observation Consideration of admission/observation: Escalation of care including admission/observation considered Please see the discussion above Lab Data MDM Lab Attestation statement: I reviewed the patient's lab results. Please see the discussion above 10/07/23 20:33 10/07/23 20:33 Labs: Lab Results 10/07/23 10/08/23 10/08/23 Range/Units 20:33 00:47 03:18 WBC 11.4 H (4.8-10.8) X10*3/uL RBC 4.65 (4.20-5.50) X10*6/uL Hgb 10.4 L (12.0-16.0) g/dl Hct 33.2 L (37.0-47.0) % MCV 71.4 L (80.0-98.0) fL MCH 22.4 L (27.0-33.0) pg MCHC 31.3 (31.0-35.0) g/dl RDW 18.1 H (11.0-16.0) % Plt Count 514 H D (160-400) X10*3/uL MPV 9.5 (9.4-12.3) fL Immature Gran % (Auto) 0.3 (0.0-0.4) % Neut % (Auto) 77.6 H (45-73) % Lymph % (Auto) 15.3 L (20-40) % [place] % (Auto) 5.5 (2-11) % Eos % (Auto) 0.9 (0-4) % Baso % (Auto) 0.4 (0-2) % Lymph # (Auto) 1.7 (1.2-4.9) X10*3/uL [place] # (Auto) 0.6 (0.1-1.2) X10*3/uL Eos # (Auto) 0.1 (0.0-0.4) X10*3/uL Baso # (Auto) 0.1 (0.0-0.2) X10*3/uL Abs Immat Gran (auto) 0.03 (0.00-0.03) X10*3/uL Absolute Neuts (auto) 8.8 H (2.0-8.3) x10*3/uL Absolute Nucleated RBC 0.000 (0.0-0.012) X10*3/uL Nucleated RBC % (auto) 0.0 (0.0-0.2) /100WBC Sodium 143 (135-145) mmol/L Potassium 3.7 (3.3-5.1) mmol/L Chloride 104 (96-108) mmol/L Carbon Dioxide 30 H (22-29) mmol/L Anion Gap 13 (12-20) BUN 15 (9-16) mg/dL Creatinine 0.80 (0.5-1.4) mg/dL Estim Creat Clear Calc 137.2 Estimated GFR > 60 Random Glucose 102 (60-115) mg/dL Calcium 9.9 (8.4-10.2) mg/dL Total Bilirubin 0.2 (0.0-1.0) mg/dL AST 16 (5-31) U/L ALT 17 (0-31) U/L Alkaline Phosphatase 76 (39-117) U/L Total Protein 7.6 (6.5-8.0) g/dL Albumin 4.3 (3.5-5.0) g/dL Beta HCG, Quant < 2 mIU/mL COVID-19 (ALEX) Negative (Negative) COVID-19 Clin Com See Note Influenza Type A (RAMONA) Negative (Negative) Influenza Type B (RAMONA) Negative (Negative) Influenza A & B Note See Note S. pyogenes GrpA RAMONA Negative (Negative) Radiology Impression Discussion of test interpretation with radiology: I have reviewed the radiologist's reading. Radiologist Impression: Please see the discussion above External Record Review External record reviewed: Outpatient record, Prior outpatient labs and Prior outpatient radiology Critical Care Time Critical Care Time Critical Care Time: Yes Total Critical Care Time: 30 Attestation: I personally attest to this time spent taking care of the patient. Discharge Plan Discharge Clinical Impression: Acute otitis media Patient Disposition: Home, Self-Care Instructions: Ear Infection (ED) Additional Instructions: 1. Complete the entire course of antibiotics as prescribed, recommend [id number] Tylenol/ibuprofen as needed for pain control, I have prescribed antinausea medication for additional symptom relief. 2. Follow-up with primary care doctor. Return to the ER for any worsening symptoms. Prescriptions: New levofloxacin 750 mg tablet 750 mg PO DAILY Qty: 5 0RF ondansetron 4 mg tablet,disintegrating 4 mg PO Q8H PRN (Reason: nausea and vomiting) 4 Days Qty: 4 0RF No Action albuterol sulfate 90 mcg/actuation HFA aerosol inhaler 1 inh inhalation QID PRN (Reason: shortness of breath or wheezing) Qty: 6.7 0RF albuterol sulfate 0.63 mg/3 mL solution for nebulization 0.63 mg inhalation Q4-6H PRN (Reason: shortness of breath or wheezing) Qty: 75 0RF amoxicillin-pot clavulanate 875-125 mg tablet 1 tab PO TID Qty: 21 0RF benzonatate 100 mg capsule 100 mg PO TID PRN (Reason: cough) 5 Days Qty: 14 0RF ondansetron 4 mg tablet,disintegrating 4 mg PO Q6H PRN (Reason: nausea and vomiting) Qty: 10 0RF Referrals: Rylie Dawson MD [Primary Care Provider] - Interventions: ED Discharge Assessment Last Done: 10/08/23 05:07 Discharge Date/Time: 10/08/23 05:09
[2023-10-07] MEDS: Butalb/Acetamin/Caff 50/325/40 TABLET 1 TAB PO (20:20)
[2023-10-07 20:43] LABS: MANUAL DIFF FLAG NO
[2023-10-07 20:45] LABS: Basophils Absolute Auto 0.1 X10*3/uL (0.0-0.2); Basophils Percent Auto 0.4 % (0-2); Eosinophils Absolute Auto 0.1 X10*3/uL (0.0-0.4); Eosinophils Percent Auto 0.9 % (0-4); Hematocrit 33.2 % (37.0-47.0); Hemoglobin 10.4 g/dl (12.0-16.0); Imm Gran Abs Auto 0.03 X10*3/uL (0.00-0.03); Imm Gran Pct Auto 0.3 % (0.0-0.4); Lymphocytes Absolute Auto 1.7 X10*3/uL (1.2-4.9); Lymphocytes Percent Auto 15.3 % (20-40); Mean Corpuscular HGB Conc 31.3 g/dl (31.0-35.0); Mean Corpuscular Hemoglobin 22.4 pg (27.0-33.0); Mean Corpuscular Volume 71.4 fL (80.0-98.0); Mean Platelet Volume 9.5 fL (9.4-12.3); Monocytes Absolute Auto 0.6 X10*3/uL (0.1-1.2); Monocytes Percent Auto 5.5 % (2-11); Neutrophils Absolute Auto 8.8 x10*3/uL (2.0-8.3); Neutrophils Percent Auto 77.6 % (45-73); Platelet Count 514 X10*3/uL (160-400); Red Blood Count 4.65 X10*6/uL (4.20-5.50); Red Cell Distribution Width 18.1 % (11.0-16.0); White Blood Count 11.4 X10*3/uL (4.8-10.8)
[2023-10-07 21:07] LABS: Alanine Aminotransferase 17 U/L (0-31); Albumin Level 4.3 g/dL (3.5-5.0); Alkaline Phosphatase 76 U/L (39-117); Anion Gap 13 (12-20); Aspartate Amino Transferase 16 U/L (5-31); Bilirubin Total 0.2 mg/dL (0.0-1.0); Blood Urea Nitrogen 15 mg/dL (9-16); Calcium 9.9 mg/dL (8.4-10.2); Carbon Dioxide 30 mmol/L (22-29); Chloride 104 mmol/L (96-108); Creatinine Clr Calc Pharmacy 137.2; Estimated Glomerular Filt Rate > 60; Glucose Random 102 mg/dL (60-115); Potassium 3.7 mmol/L (3.3-5.1); Sodium 143 mmol/L (135-145); Total Protein 7.6 g/dL (6.5-8.0)
[2023-10-07 21:10] LABS: HCG Quantitative < 2 mIU/mL
--- NOTE | 2023-10-08 01:08 | PC.NURSE ---
Pt is a pleasant 27 y/o female who presents for evaluation of a headache that has been ongoing since late Friday night. Denies any similar headaches in the past including migraines. Also denies family history of migraines. No known history of vertigo or inner ear problems and no recent illness or trauma. Pt describes pain as a pressure bilaterally and rated a 7-8/10. Has tried OTC medications at home with no relief. Headache is accompanied by nausea, photosensitivity and noise sensitivity, as well as some dizziness with movement. No other complaints reported at this time.
[2023-10-08 01:24] VITALS: BP 110/78; PULSE 75; RESP 19; TEMP 36.6; O2SAT 96
[2023-10-08] MEDS: 0.9 % Sodium Chloride 1,000 ML 999 ML IV ×2 (01:30→04:54)
[2023-10-08] MEDS: Ketorolac Tromethamine 30 MG/ML VIAL 15 MG IVPUSH (01:32)
[2023-10-08] MEDS: ondansetron HCL 4 MG/2 ML VIAL IVPUSH (01:32)
[2023-10-08 01:44] LABS: IDNOW Serial# 08D9AD1C; Influenza A Negative (Negative); Influenza B2 Negative (Negative)
[2023-10-08 01:45] LABS: COVID-19 Test Negative (Negative); IDNOW Serial# 152EDE1D
[2023-10-08 01:53] VITALS: BP 108/67; PULSE 73; RESP 16; TEMP 36.6; O2SAT 97
[2023-10-08 03:36] LABS: IDNOW Serial# 08D9AD1C; Strep A Nucleic Acid Negative (Negative)
[2023-10-08 03:52] VITALS: BP 109/69; PULSE 82; RESP 16; TEMP 36.3; O2SAT 95
--- NOTE | 2023-10-08 03:57 | PC.NURSE ---
Pt is awake and alert, answers questions appropriately. Pt is resting in bed, appears relatively comfortable, but reports returning pain and nausea, no vomiting. Pt is cooperative and uses the call light appropriately when needs arise. IV access is patent and flushes well, no indication of pain at site or signs of infiltration. Independent with toileting needs. Disposition is pending. Will continue to monitor for changes.
[2023-10-08] MEDS: Metoclopramide HCl 10 MG/2 ML VIAL IVPUSH (04:13)
[2023-10-08] MEDS: diphenhydrAMINE HCL 50 MG/ML VIAL 25 MG IVPUSH (04:17)
[2023-10-08] MEDS: levoFLOXacin 750 MG TABLET PO (04:54)
[2023-10-08 05:07] VITALS: BP 109/69; PULSE 82; RESP 16; TEMP 36.3; O2SAT 95
== END 2023-10-08 05:09 | disposition home or self-care (01) ==
PROVIDERS: Physician Assistant; Emergency Provider Student in an Organized Health Care Education/Training Program; PCP Internal Medicine
DX: H66.93 Otitis media, unspecified, bilateral (principal); G43.909 Migraine, unspecified, not intractable, without status migrainosus; R11.0 Nausea; M54.50 Low back pain, unspecified; M54.2 Cervicalgia; Z11.52 Encounter for screening for COVID-19; Z79.899 Other long term (current) drug therapy
CPT/HCPCS: 36415; 70450; 80053; 84702; 85025; 87502; 87635; 87651; 96361; 96374; 96375; 99284; J1200; J1885; J2405; J2765

== ENCOUNTER 2024-06-24 08:46 | Emergency (ER) | payer OTHER, SELFPAY ==
[2024-06-24] VITALS (11 sets, daily range): BP systolic 84–143; BP diastolic 45–89; PULSE 73–144; RESP 14–22; TEMP 36.7–37.2; O2SAT 88–100; BMI 40.3
--- NOTE | ~2024-06-24 | US_ITS ---
EXAMINATION: US PELVIS CLINICAL INFORMATION: Right lower quadrant pain. LMP approximately 2 months ago. COMPARISON: CT abdomen pelvis dated September 15, 2022. TECHNIQUE: Ultrasound of the pelvis is performed using both transabdominal and transvaginal transducers along with Doppler. Transvaginal imaging is performed due to inadequate visualization transabdominally. FINDINGS: Uterus: The uterus is anteverted and measures 11.3 x 3.4 x 5.8 cm. The double wall endometrial thickness is 0.6 mm. The uterus is smooth in contour and has normal myometrial echogenicity. No visible fibroid. Adnexa: Both ovaries are visualized. There is normal color flow to the adnexa. There is no ovarian torsion. There is no pelvic ascites or fluid collection. Right ovary measures 3.5 x 2.8 x 3.1 cm. 15.9 mL Left ovary measures 4.0 x 2.4 x 2.6 cm. 13.1 mL US/US pelvic ovarian doppler IMPRESSION: The uterus and ovaries are normal in appearance. Electronically signed by: Andrea Yañez DO 06/24/2024 06:12 PM [facility]
--- NOTE | ~2024-06-24 | US_ITS ---
EXAMINATION: US PELVIS CLINICAL INFORMATION: Right lower quadrant pain. LMP approximately 2 months ago. COMPARISON: CT abdomen pelvis dated September 15, 2022. TECHNIQUE: Ultrasound of the pelvis is performed using both transabdominal and transvaginal transducers along with Doppler. Transvaginal imaging is performed due to inadequate visualization transabdominally. FINDINGS: Uterus: The uterus is anteverted and measures 11.3 x 3.4 x 5.8 cm. The double wall endometrial thickness is 0.6 mm. The uterus is smooth in contour and has normal myometrial echogenicity. No visible fibroid. Adnexa: Both ovaries are visualized. There is normal color flow to the adnexa. There is no ovarian torsion. There is no pelvic ascites or fluid collection. Right ovary measures 3.5 x 2.8 x 3.1 cm. 15.9 mL Left ovary measures 4.0 x 2.4 x 2.6 cm. 13.1 mL US/US pelvic and transvaginal IMPRESSION: The uterus and ovaries are normal in appearance. Electronically signed by: Andrea Yañez DO 06/24/2024 06:12 PM [facility]
--- NOTE | ~2024-06-24 | CT_ITS ---
EXAMINATION: CT ABDOMEN AND PELVIS WITH CONTRAST CLINICAL INFORMATION: Right lower quadrant abdominal pain. COMPARISON: 09/15/2022. TECHNIQUE: Multidetector volumetric images were obtained from the superior aspect of the liver through the pubic symphysis following administration 85 mL of Omnipaque 350 intravenous contrast. Sagittal and coronal reformatted images were obtained on the technologist's workstation. Oral contrast: No This CT examination was performed using dose optimization techniques as appropriate, variously including the following: *Automated exposure control *Adjustment of mA and/or kV according to patient size (this includes techniques or standardized protocols for targeted exams where dose is matched to indication/reason for exam; i.e. extremities or head) *Use of iterative reconstruction technique DLP: 865 mGy-cm FINDINGS: LUNG BASES: The visualized lung bases are unremarkable. LIVER, GALLBLADDER, AND BILIARY TREE: The liver is normal in size, shape, and attenuation. No focal hepatic lesion or biliary ductal dilatation is present. The gallbladder is unremarkable with no evidence of radiopaque gallstones, gallbladder wall thickening, or obvious pericholecystic inflammatory changes. PANCREAS: Unremarkable. SPLEEN: Unremarkable. ADRENAL GLANDS: Unremarkable. KIDNEYS AND URETERS: The kidneys are normal in size, shape, and attenuation. No hydronephrosis, hydroureter, or calculi seen. No perinephric stranding. BLADDER: Unremarkable. GASTROINTESTINAL TRACT: The small and large bowel are unremarkable. The appendix is unremarkable. ABDOMINAL WALL: No significant hernia is appreciated. LYMPH NODES: Mildly prominent but not pathologically enlarged right external iliac lymph nodes measuring up to 0.9 cm short axis. These are likely reactive but nonspecific. VASCULAR: Unremarkable. PELVIC VISCERA: Unremarkable. OSSEOUS STRUCTURES: Unremarkable. CT/CT abdomen pelvis w IV con IMPRESSION: 1. No acute findings in the abdomen or pelvis. The appendix is normal. 2. Mildly prominent but non-pathologically enlarged right external iliac lymph nodes, measuring up to 0.9 cm short axis, most likely reactive in etiology. Consider mesenteric adenitis, among other infectious/inflammatory conditions. Fleischner guidelines were followed. Electronically signed by: Dagoberto Brewer MD 06/24/2024 04:01 PM [facility]
--- NOTE | ~2024-06-24 | US_ITS ---
EXAMINATION: US ABDOMEN LIMITED CLINICAL INFORMATION: Abdominal pain.. COMPARISON: None available. TECHNIQUE: Real-time imaging of the gallbladder using grayscale and color Doppler technique. FINDINGS: Gallbladder is fluid-filled. No pericholecystic fluid collection or gallbladder wall thickening. Common bile duct measures 3 mm. US/US abdomen limited IMPRESSION: Limited exam demonstrated no cholelithiasis or choledocholithiasis. Electronically signed by: Todd Garcia MD 06/24/2024 12:10 PM [facility] [place]
--- NOTE | 2024-06-24 09:53 | ECG_ITS ---
Test Reason : TACHY Blood Pressure : / mmHG Vent. Rate : 134 BPM Atrial Rate : 134 BPM P-R Int : 138 ms QRS Dur : 084 ms QT Int : 298 ms P-R-T Axes : 008 062 -08 degrees QTc Int : 445 ms Sinus tachycardia Nonspecific ST abnormality Abnormal ECG When compared with ECG of 20-SEP-2021 10:51, Vent. rate has increased BY 53 BPM Questionable change in QRS axis Referred By: Sharon Adams Electronically Signed By:WILFREDO BATISTA MD
--- NOTE | 2024-06-24 09:55 | ED.ABDPAIN ---
HPI - Abdominal Pain General Chief Complaint: Abdominal Pain Stated Complaint: abd pain Time Seen by Provider: 06/24/24 10:59 Source: patient, RN notes reviewed and old records reviewed Mode of arrival: ambulatory Limitations: no limitations History of Present Illness ED Provider: Chauncey KINCAID narrative: 28-year-old female with past medical history significant for obesity, asthma presents for of right-sided abdominal pain. Patient reports that her pain started on 7:00 a.m. this morning rather suddenly. Her pain has a right midabdomen that radiates up into her chest and her back. She rates her pain as 8/10, stabbing, constant Her pain is worse with movement She had associated nausea and vomiting. She reports a previous but no other abdominal surgeries The patient last ate 6:00 p.m. last night She denies any fevers, chills Related Data Previous Rx's ?Medication ?Instructions ?Recorded albuterol sulfate 90 mcg/actuation 1 inh inhalation QID PRN shortness 09/20/21 aerosol inhaler of breath or wheezing #6.7 grams albuterol sulfate 0.63 mg/3 mL 0.63 mg (3 mL) inhalation Q4-6H 09/23/21 solution for nebulization PRN shortness of breath or wheezing #75 mL amoxicillin 875 mg-potassium 1 tab PO TID #21 tabs 06/03/23 clavulanate 125 mg tablet benzonatate 100 mg capsule 100 mg PO TID PRN cough 5 days #14 06/12/23 caps ondansetron 4 mg disintegrating 4 mg PO Q6H PRN nausea and 09/30/23 tablet vomiting #10 tabs levofloxacin 750 mg tablet 750 mg PO DAILY #5 tabs 10/08/23 ondansetron 4 mg disintegrating 4 mg PO Q8H PRN nausea and 10/08/23 tablet vomiting 4 days #4 tabs ondansetron 4 mg disintegrating 4 mg PO Q8H PRN nausea and 06/24/24 tablet vomiting #20 tabs Allergies Allergy/AdvReac Type Severity Reaction Status Date / Time apricot [APRICOT] Allergy Unknown RASH Verified 06/24/24 09:50 cephalexin [From KEFLEX] Allergy Unknown RASH Verified 06/24/24 09:50 Review of Systems Constitutional: Denies body ache(s), Denies chills, Denies fever(s) and Denies frequent falls Denies vertigo Cardiovascular: Reports chest pain, Denies chest pain at rest and Denies dyspnea Respiratory: Denies cough and Denies dyspnea Gastrointestinal: Reports abdominal pain, Reports nausea and Reports vomiting Genitourinary: Denies dysuria Musculoskeletal: Reports back pain Skin/Breast: Denies rash Denies vertigo and Denies frequent falls Psychiatric: Denies anxiety PMFSH Past Medical History Medical History History of COVID-19 Adjustment disorder in remission Morbid obesity History of posttraumatic stress disorder (PTSD) History of adjustment disorder Microcytic hypochromic anemia Mass of left upper extremity Heavy menstrual bleeding Spondyloarthropathy Mild intermittent asthma Closed right tibial fracture Tibia/fibula fracture Arthritis Surgical History Hx of section H/O foot surgery Family History Family History Father Diabetes Mother Thyroid disease Social History Social History Household Members: Other Housing: House Do you presently have visiting nurse or other home services: No Alcohol intake: never Patient Tobacco Use Status: Never used Tobacco e-Cigarette/Vaping Use: Never Used Substance Use Type: Marijuana Advance Directives: No Do you have a plan to hurt others: No Plan service: No Current occupational status: employed 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, 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 Gender identity: Female Cognitive needs: No Hearing needs: No Vision needs: No Physical Exam ED Vital Signs: Vital Signs - 24 hr 06/24/24 09:45 06/24/24 11:21 06/24/24 13:06 Temperature 99.0 F Pulse Rate 144 H 102 H Respiratory Rate 22 H 16 18 Blood Pressure 143/89 H 98/60 Pulse Oximetry 100 97 Oxygen Delivery Method Room Air Room Air Oxygen Flow Rate 06/24/24 14:29 06/24/24 14:31 06/24/24 14:37 Temperature Pulse Rate 104 H 92 Respiratory Rate 16 18 14 Blood Pressure 85/49 L 103/57 L Pulse Oximetry 98 88 L Oxygen Delivery Method Room Air Room Air Oxygen Flow Rate 06/24/24 16:26 06/24/24 18:00 06/24/24 19:34 Temperature 98.0 F Pulse Rate 78 73 73 Respiratory Rate 18 14 22 H Blood Pressure 99/68 84/45 L 98/57 L Pulse Oximetry 97 97 100 Oxygen Delivery Method Room Air Room Air Nasal Cannula Oxygen Flow Rate 1 BMI result Body Mass Index 40.3 Const General: healthy appearing, no acute distress, alert and awake Nutritional Appearance: well nourished Orientation/consciousness: patient oriented x3 HENMT Head: Yes normocephalic and Yes atraumatic Eyes Eyelids: Yes eyelids normal Conjunctivae: conjunctivae normal Sclerae: sclerae normal Corneas: corneas normal Pupils: Equal, round and reactive pupils present EOM: EOMs intact bilaterally Neck Neck: Yes full ROM Resp Effort & Inspection: normal respiratory effort, able to speak in complete sentences and not labored Cardio Rate: regular rate Rhythm: regular rhythm GI Inspection: No distended Palpation (GI): Soft to palpation, not firm, Tenderness to palpation present (GI) in the RLQ and in the RUQ; Alfredo's sign negative, Guarding due to palpation present (GI) in the RLQ and in the RUQ and not rigid Auscultation: normoactive bowel sounds Skin General skin exam: elasticity normal Neuro General: patient oriented x3 Cranial nerves: Yes Equal, round and reactive pupils present and Yes Bilaterally intact EOM present Cognition (Neuro): normal cognition Extrem Other: Moving all extremities well without any obvious deformities Course Course Course Narrative: This is a rapid medical exam performed by Sharon Adams PA-C. The patient is a 28-year-old female with a history of obesity, adjustment disorder who presents with right upper quadrant abdominal pain since yesterday. Pain radiates across mid right abdomen up into the chest at times. Associated nausea vomiting diarrhea. On exam, patient has focal right upper quadrant discomfort, she is tearful, anxious, and tachycardic. We will be ordering screening labs including LFTs, lipase, EKG due to tachycardia, and an ultrasound of the right upper quadrant. She is overall hemodynamically stable, she can return to the waiting room pending her full medical assessment, we will be expediting her care given the tachycardia. Reevaluation(s) Reevaluation #1: Still awaiting patient's CT report. The patient is complaining of worsening pain after morphine wore off. Her blood pressure is 85/49 and this may be a result of the morphine. She was also hypoxic to 88%, could also be a side effect of narcotics.. We will give her a dose of fentanyl. I ordered a 2 L of IV fluids. She was placed on 2 L via nasal cannula with improvement of her oxygen saturation Time: 14:24 Reevaluation #2: The patient's blood pressure has improved with IV fluids, her pain is still present but significantly improved. Her workup was largely unremarkable, she denies any vaginal bleeding or discharge, declines pelvic examination. I discussed return precautions with the patient, her symptoms are possibly related to viral syndrome. She will be discharged with Zofran Time: 21:01 Medical Decision Making Medical Decision Making [facility] Narrative: This is a healthy 28-year-old female presenting for evaluation of right-sided abdominal pain associated nausea and vomiting. She is tender and guarding in the right upper and lower quadrants. She has GI symptoms. Biliary disease and acute appendicitis are likely diagnosis at this time. She denies any symptoms, we will attempt to get a urinalysis to evaluate for hematuria. The gallbladder ultrasound was ordered in triage. I ordered a CT scan of the abdomen pelvis as well given her level of discomfort Differential Diagnosis Differential Diagnoses: The differential diagnosis associated with the presentation includes Acute appendicitis Cholecystitis Cholelithiasis Pancreatitis Abdominal pain Bowel obstruction Diverticulitis Polyp perforation Lab Data [facility] Lab Attestation statement: I reviewed [place] [address] with a left shift. The patient has a chronic microcytic anemia. Chemistries without significant abnormalities. Electrolytes within normal limits, the patient is random glucose is 116. She was not a diabetic. LFTs are within normal limits, lipase normal. The patient is not 06/24/24 10:05 06/24/24 10:05 Labs: Lab Results 06/24/24 06/24/24 Range/Units 10:05 20:02 WBC 20.0 H (4.8-10.8) X10*3/uL RBC 4.78 (4.20-5.50) X10*6/uL Hgb 9.8 L (12.0-16.0) g/dl Hct 31.4 L (37.0-47.0) % MCV 65.7 L (80.0-98.0) fL MCH 20.5 L (27.0-33.0) pg MCHC 31.2 (31.0-35.0) g/dl RDW 20.2 H (11.0-16.0) % Plt Count 406 H (160-400) X10*3/uL MPV 9.6 (9.4-12.3) fL Immature Gran % (Auto) 0.4 (0.0-0.4) % Neut % (Auto) 89.6 H (45-73) % Lymph % (Auto) 5.4 L (20-40) % [place] % (Auto) 3.8 (2-11) % Eos % (Auto) 0.4 (0-4) % Baso % (Auto) 0.4 (0-2) % Lymph # (Auto) 1.1 L (1.2-4.9) X10*3/uL [place] # (Auto) 0.8 (0.1-1.2) X10*3/uL Eos # (Auto) 0.1 (0.0-0.4) X10*3/uL Baso # (Auto) 0.1 (0.0-0.2) X10*3/uL Abs Immat Gran (auto) 0.09 H (0.00-0.03) X10*3/uL Absolute Neuts (auto) 17.9 H (2.0-8.3) x10*3/uL Absolute Nucleated RBC 0.000 (0.0-0.012) X10*3/uL Nucleated RBC % (auto) 0.0 (0.0-0.2) /100WBC Sodium 141 (135-145) mmol/L Potassium 3.7 (3.3-5.1) mmol/L Chloride 103 (96-108) mmol/L Carbon Dioxide 25 (22-29) mmol/L Anion Gap 17 (12-20) BUN 11 (9-16) mg/dL Creatinine 0.77 (0.5-1.4) mg/dL Estim Creat Clear Calc 143.7 Estimated GFR > 60 Random Glucose 116 H (60-115) mg/dL Calcium 9.6 (8.4-10.2) mg/dL Magnesium 1.8 (1.6-2.6) mg/dL Total Bilirubin 0.4 (0.0-1.0) mg/dL AST 22 (5-31) U/L ALT 29 (0-31) U/L Alkaline Phosphatase 78 (39-117) U/L Total Protein 7.3 (6.5-8.0) g/dL Albumin 4.4 (3.5-5.0) g/dL Lipase 17 (8-78) U/L Beta HCG, Quant < 2 mIU/mL Urine Color Yellow Urine Appearance Cloudy Urine pH 6.0 (5.0-9.0) Ur Specific [place] >= 1.030 H (1.005-1.025) Urine Protein Negative (Neg-Trace) mg/dL Urine Glucose (UA) Negative (Negative) mg/dL Urine Ketones Negative (Negative) mg/dL Urine Blood Trace H (Negative) Urine Nitrite Negative (Negative) Ur Leukocyte Esterase Trace H (Negative) Urine RBC 0-2 (0-2) /HPF Urine WBC 0-5 (0-5) /HPF Ur Squamous Epith Cells 3-5 (0-2) /HPF Urine Bacteria None Seen (None Seen) Hyaline Casts 0-2 (0-2) /LPF Medications Administered Discontinued Medications Generic Name Dose Route Start Last Admin Trade Name Freq PRN Reason Stop Dose Admin Acetaminophen 975 mg 06/24/24 18:19 06/24/24 20:21 Acetaminophen 325 Mg Tablet PO 06/24/24 18:20 975 mg ONCE ONE Administration Fentanyl 50 mcg 06/24/24 14:22 06/24/24 14:29 Fentanyl Citrate/Pf 100 Mcg/2 Ml Vial IVPUSH 06/24/24 14:23 50 mcg ONCE ONE Administration Protocol Sodium Chloride 1,000 mls @ 999 mls/hr 06/24/24 11:15 06/24/24 12:19 Ns IV 06/24/24 12:15 Infused .Q1H1M NICK Infusion Sodium Chloride 1,000 mls @ 999 mls/hr 06/24/24 14:30 06/24/24 16:28 Ns IV 06/24/24 15:30 Infused .Q1H1M NICK Infusion Iohexol 100 ml 06/24/24 12:30 06/24/24 12:30 Iohexol 350 Mg/Ml 100 Ml Infus..Btl IV 06/24/24 12:31 85 ml ONCE ONE Administration Morphine Sulfate 4 mg 06/24/24 11:07 06/24/24 11:21 Morphine Sulfate 4 Mg/Ml Cartridge IVPUSH 06/24/24 11:08 4 mg ONCE ONE Administration Protocol Ondansetron HCl 4 mg 06/24/24 11:07 06/24/24 11:21 Ondansetron Hcl 4 Mg/2 Ml Vial IVPUSH 06/24/24 11:08 4 mg ONCE ONE Administration Discharge Plan Discharge Clinical Impression: Abdominal pain Patient Disposition: Home, Self-Care Instructions: Abdominal Pain (ED) Additional Instructions: Your workup in the ER today was reassuring. This includes your ultrasound of the gallbladder, ultrasound of your uterus and ovaries. Your CT scan of the abdomen pelvis showed normal appendix we are going Your urine sample is not concerning for UTI. Your symptoms may be related to a virus. Return for new or worsening symptoms, especially develop a fever Prescriptions: New ondansetron 4 mg tablet,disintegrating 4 mg PO Q8H PRN (Reason: nausea and vomiting) Qty: 20 0RF No Action albuterol sulfate 90 mcg/actuation HFA aerosol inhaler 1 inh inhalation QID PRN (Reason: shortness of breath or wheezing) Qty: 6.7 0RF albuterol sulfate 0.63 mg/3 mL solution for nebulization 0.63 mg inhalation Q4-6H PRN (Reason: shortness of breath or wheezing) Qty: 75 0RF amoxicillin-pot clavulanate 875-125 mg tablet 1 tab PO TID Qty: 21 0RF benzonatate 100 mg capsule 100 mg PO TID PRN (Reason: cough) 5 Days Qty: 14 0RF ondansetron 4 mg tablet,disintegrating 4 mg PO Q6H PRN (Reason: nausea and vomiting) Qty: 10 0RF levofloxacin 750 mg tablet 750 mg PO DAILY Qty: 5 0RF ondansetron 4 mg tablet,disintegrating 4 mg PO Q8H PRN (Reason: nausea and vomiting) 4 Days Qty: 4 0RF Stand Alone Forms: Work/School Release Print Language: Serbian
[2024-06-24 10:11] LABS: MANUAL DIFF FLAG NO
[2024-06-24 10:14] LABS: Basophils Absolute Auto 0.1 X10*3/uL (0.0-0.2); Basophils Percent Auto 0.4 % (0-2); Eosinophils Absolute Auto 0.1 X10*3/uL (0.0-0.4); Eosinophils Percent Auto 0.4 % (0-4); Hematocrit 31.4 % (37.0-47.0); Hemoglobin 9.8 g/dl (12.0-16.0); Imm Gran Abs Auto 0.09 X10*3/uL (0.00-0.03); Imm Gran Pct Auto 0.4 % (0.0-0.4); Lymphocytes Absolute Auto 1.1 X10*3/uL (1.2-4.9); Lymphocytes Percent Auto 5.4 % (20-40); Mean Corpuscular HGB Conc 31.2 g/dl (31.0-35.0); Mean Corpuscular Hemoglobin 20.5 pg (27.0-33.0); Mean Corpuscular Volume 65.7 fL (80.0-98.0); Mean Platelet Volume 9.6 fL (9.4-12.3); Monocytes Absolute Auto 0.8 X10*3/uL (0.1-1.2); Monocytes Percent Auto 3.8 % (2-11); Neutrophils Absolute Auto 17.9 x10*3/uL (2.0-8.3); Neutrophils Percent Auto 89.6 % (45-73); Platelet Count 406 X10*3/uL (160-400); Red Blood Count 4.78 X10*6/uL (4.20-5.50); Red Cell Distribution Width 20.2 % (11.0-16.0)
[2024-06-24 10:28] LABS: Anion Gap 17 (12-20)
[2024-06-24 10:30] LABS: Albumin Level 4.4 g/dL (3.5-5.0); Aspartate Amino Transferase 22 U/L (5-31); Bilirubin Total 0.4 mg/dL (0.0-1.0); Blood Urea Nitrogen 11 mg/dL (9-16); Calcium 9.6 mg/dL (8.4-10.2); Carbon Dioxide 25 mmol/L (22-29); Chloride 103 mmol/L (96-108); Creatinine Clr Calc Pharmacy 143.7; Estimated Glomerular Filt Rate > 60; Glucose Random 116 mg/dL (60-115); Lipase 17 U/L (8-78); Magnesium 1.8 mg/dL (1.6-2.6); Potassium 3.7 mmol/L (3.3-5.1); Sodium 141 mmol/L (135-145); Total Protein 7.3 g/dL (6.5-8.0)
[2024-06-24 10:39] LABS: HCG Quantitative < 2 mIU/mL
[2024-06-24 11:02] LABS: Alanine Aminotransferase 29 U/L (0-31); Alkaline Phosphatase 78 U/L (39-117)
[2024-06-24] MEDS: 0.9 % Sodium Chloride 1,000 ML 999 ML IV ×2 (11:21→14:29)
[2024-06-24] MEDS: Morphine Sulfate 4 MG/ML CARTRIDGE IVPUSH (11:21)
[2024-06-24] MEDS: ondansetron HCL 4 MG/2 ML VIAL IVPUSH ×2 (11:21→21:25)
[2024-06-24] MEDS: iohexoL 350 MG/ML 100 ML INFUS..BTL IV (12:30)
[2024-06-24] MEDS: fentaNYL citrate/PF 100 MCG/2 ML VIAL 50 MCG IVPUSH (14:29)
[2024-06-24 20:20] LABS: Appearance Urine Cloudy; Color Urine Yellow; Glucose Urine UA Negative (Negative); Leukocyte Esterase Urine Trace (Negative); Nitrite Urine Negative (Negative); Specific Gravity - Urine >= 1.030 (1.005-1.025); UMIC TRIGGER UACC YES; Urine Blood Trace (Negative); Urine Ketones Negative (Negative); Urine Protein Negative (Neg-Trace)
[2024-06-24] MEDS: Acetaminophen 325 MG TABLET 975 MG PO (20:21)
[2024-06-24 20:41] LABS: Bacteria Urine None Seen (None Seen); Hyaline Casts Urine 0-2 /LPF (0-2); RBC Urine 0-2 /HPF (0-2); WBC Urine 0-5 /HPF (0-5)
== END 2024-06-24 21:45 | disposition home or self-care (01) ==
PROVIDERS: Physician Assistant; Physician Assistant Medical; Emergency Provider Student in an Organized Health Care Education/Training Program; PCP Internal Medicine
DX: R10.9 Unspecified abdominal pain (principal); R00.0 Tachycardia, unspecified; R09.02 Hypoxemia; R11.2 Nausea with vomiting, unspecified; E66.01 Morbid (severe) obesity due to excess calories; Z68.41 Body mass index [BMI] 40.0-44.9, adult; D50.9 Iron deficiency anemia, unspecified
CPT/HCPCS: 36415; 74177; 76705; 76830; 76856; 80053; 81001; 83690; 83735; 84702; 85025; 93005; 93975; 96361; 96374; 96375; 96376; 99284; 99285; J2270; J2405; J3010; Q9967

== ENCOUNTER → 2024-06-24 09:53 | Outpatient (BNV) | payer OTHER, SELFPAY | PROVIDERS: Emergency Provider Student in an Organized Health Care Education/Training Program; PCP Internal Medicine; Visit Provider Internal Medicine Cardiovascular Disease | DX: R00.0 Tachycardia, unspecified (principal); R94.31 Abnormal electrocardiogram [ECG] [EKG] | CPT/HCPCS: 93010 ==

== ENCOUNTER → 2024-06-24 09:53 | Outpatient (BNV) | payer OTHER, SELFPAY | PROVIDERS: Emergency Provider Student in an Organized Health Care Education/Training Program; PCP Internal Medicine; Visit Provider Radiology Diagnostic Radiology | DX: R10.31 Right lower quadrant pain (principal) | CPT/HCPCS: 74177; 76705 ==

== ENCOUNTER 2024-07-28 14:19 | Emergency (ER) | payer OTHER, SELFPAY ==
--- NOTE | ~2024-07-28 | XR_ITS ---
CLINICAL HISTORY: Cough rule out pneumonia 2 view chest x-ray Comparison: CR/NV/SR - XR CHEST 1V - 09/30/22 11:53 EDT Findings: The lungs are clear. Prominent cardiac silhouette. No acute fracture. IMPRESSION: 1. No acute findings. This document has been electronically signed by: Jeffrey Hatch MD on 07/28/2024 20:32:25
[2024-07-28 15:15] VITALS: BP 134/76; PULSE 88; RESP 20; TEMP 36.8; O2SAT 96; BMI 39.9
--- NOTE | 2024-07-28 15:15 | ED_ITS ---
HPI - General Adult General Chief complaint: Upper Respiratory Symptoms Stated complaint: SOB Flu Symptoms Time Seen by Provider: 07/28/24 18:33 History of Present Illness HPI narrative: Patient complains of 24 hours of dry cough associated with some wheezing as well as pain in her right side when she coughs. Her wheezing is typical of prior asthma attacks and she did use her inhaler just prior to coming to the ER with good relief of the wheezing. She also reports last night she had a temperature of a 102 degrees She denies shortness of breath right now, no chest pain except when she coughs no abdominal pain no nausea or vomiting, she did have 1 episode of diarrhea, her nose is not congested and there is no sinus pain, no stiff neck no rash Related Data Previous Rx's ?Medication ?Instructions ?Recorded albuterol sulfate 90 mcg/actuation 1 inh inhalation QID PRN shortness 09/20/21 aerosol inhaler of breath or wheezing #6.7 grams albuterol sulfate 0.63 mg/3 mL 0.63 mg (3 mL) inhalation Q4-6H 09/23/21 solution for nebulization PRN shortness of breath or wheezing #75 mL amoxicillin 875 mg-potassium 1 tab PO TID #21 tabs 06/03/23 clavulanate 125 mg tablet benzonatate 100 mg capsule 100 mg PO TID PRN cough 5 days #14 06/12/23 caps ondansetron 4 mg disintegrating 4 mg PO Q6H PRN nausea and 09/30/23 tablet vomiting #10 tabs levofloxacin 750 mg tablet 750 mg PO DAILY #5 tabs 10/08/23 ondansetron 4 mg disintegrating 4 mg PO Q8H PRN nausea and 10/08/23 tablet vomiting 4 days #4 tabs ondansetron 4 mg disintegrating 4 mg PO Q8H PRN nausea and 06/24/24 tablet vomiting #20 tabs prednisone 20 mg tablet 40 mg (2 x 20 mg) PO DAILY #8 tabs 07/28/24 Allergies Allergy/AdvReac Type Severity Reaction Status Date / Time apricot [APRICOT] Allergy Unknown RASH Verified 07/28/24 15:18 cephalexin [From KEFLEX] Allergy Unknown RASH Verified 07/28/24 15:18 [facility] Past Medical History Source: nursing notes reviewed Medical History History of COVID-19 Adjustment disorder in remission Morbid obesity History of posttraumatic stress disorder (PTSD) History of adjustment disorder Microcytic hypochromic anemia Mass of left upper extremity Heavy menstrual bleeding Spondyloarthropathy Mild intermittent asthma Closed right tibial fracture Tibia/fibula fracture Arthritis Surgical History Hx of section H/O foot surgery Family History Family History Father Diabetes Mother Thyroid disease Social History Social History Household Members: Other Housing: House Do you presently have visiting nurse or other home services: No Alcohol intake: never Patient Tobacco Use Status: Never used Tobacco e-Cigarette/Vaping Use: Never Used Substance Use Type: Marijuana Advance Directives: No Advance Directives Information Provided: No Do you have a plan to hurt others: No Plan service: No Current occupational status: employed 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, 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 Gender identity: Female Cognitive needs: No Hearing needs: No Vision needs: No Physical Exam ED Vital Signs: Vital Signs - 24 hr 07/28/24 15:15 07/28/24 20:11 Temperature 98.3 F 96.7 F L Pulse Rate 88 77 Respiratory Rate 20 16 Blood Pressure 134/76 109/59 L Pulse Oximetry 96 100 Oxygen Delivery Method Room Air Room Air BMI result Body Mass Index 39.9 General appearance no distress The eyes no redness or discharge The pharynx is clear without redness swelling or exudate, membranes moist Neck is supple Respiratory no distress Lungs are clear to auscultation bilateral with good full air entry symmetric Heart no murmur Abdomen soft nontender Extremities full range motion x4 Skin no rash Course Course Course Narrative: RME, this is a rapid medical exam performed by Brijesh Harris please refer to primary provider for complete H&P- 28-year-old female presents for evaluation of fevers, body aches and cough since yesterday. She reports a temperature as high as 102? last night. Plan for viral swabs Swabs for COVID flu RSV and strep are all negative Chest x-ray was ordered to rule out pneumonia due to patient's cough and fever and pain in the right side of her chest when she coughs Case signed out to physician medical billing assistant Alec harris at 19:00 Patient was given 1 dose of prednisone as she has been using her inhaler frequently Reevaluation(s) Reevaluation #1: The patient received in sign-out at change of shift pending chest x-ray. On re- evaluation, the patient is still is wheezy. They are ordered a DuoNeb for the patient. She is not in any respiratory distress, chest x-ray was clear. She will be discharged with prednisone after nebulizer treatment Time: 20:44 Medications Administered Discontinued Medications Generic Name Dose Route Start Last Admin Trade Name Freq PRN Reason Stop Dose Admin Prednisone 60 mg 07/28/24 19:15 07/28/24 19:33 Prednisone 20 Mg Tablet PO 07/28/24 19:16 60 mg ONCE ONE Administration Medical Decision Making Lab Data Labs: Lab Results 07/28/24 Range/Units 16:29 Influenza Type A (PCR) NEGATIVE (Negative) Influenza Type B (PCR) NEGATIVE (Negative) RSV RNA Qual (PCR) NEGATIVE (Negative) SARS-CoV-2 RNA (RT-PCR) NEGATIVE (Negative) S. pyogenes GrpA RAMONA Negative (Negative) Radiology Impression Discussion of test interpretation with radiology: I have reviewed the radiologist's reading. Radiologist Impression: Findings: The lungs are clear. Prominent cardiac silhouette. No acute fracture. IMPRESSION: 1. No acute findings. This document has been electronically signed by: Jeffrey Hatch MD on 07/28/2024 20:32:25 Discharge Plan Discharge Clinical Impression: Cough, Asthma Patient Disposition: Home, Self-Care Instructions: Asthma (ED) Additional Instructions: Your viral swabs were negative, your chest x-ray was clear. Take prednisone 40 mg daily for the next 4 days starting tomorrow as your 1st dose was given in the ER Follow-up with your primary doctor, return for new or worsening symptoms Prescriptions: New prednisone 20 mg tablet 40 mg PO DAILY Qty: 8 0RF No Action albuterol sulfate 90 mcg/actuation HFA aerosol inhaler 1 inh inhalation QID PRN (Reason: shortness of breath or wheezing) Qty: 6.7 0RF albuterol sulfate 0.63 mg/3 mL solution for nebulization 0.63 mg inhalation Q4-6H PRN (Reason: shortness of breath or wheezing) Qty: 75 0RF amoxicillin-pot clavulanate 875-125 mg tablet 1 tab PO TID Qty: 21 0RF benzonatate 100 mg capsule 100 mg PO TID PRN (Reason: cough) 5 Days Qty: 14 0RF ondansetron 4 mg tablet,disintegrating 4 mg PO Q6H PRN (Reason: nausea and vomiting) Qty: 10 0RF levofloxacin 750 mg tablet 750 mg PO DAILY Qty: 5 0RF ondansetron 4 mg tablet,disintegrating 4 mg PO Q8H PRN (Reason: nausea and vomiting) 4 Days Qty: 4 0RF ondansetron 4 mg tablet,disintegrating 4 mg PO Q8H PRN (Reason: nausea and vomiting) Qty: 20 0RF Stand Alone Forms: Work/School Release Print Language: Bahamian
[2024-07-28 16:48] LABS: IDNOW Serial# 08D9AD1C; Strep A Nucleic Acid Negative (Negative)
[2024-07-28 17:53] LABS: Influenza A PCR NEGATIVE (Negative); Influenza B PCR NEGATIVE (Negative); Resp Syncy Virus RNA Qual PCR NEGATIVE (Negative); SARS COV2 PCR INHOUSE NEGATIVE (Negative)
[2024-07-28] MEDS: predniSONE 20 MG TABLET 60 MG PO (19:33)
[2024-07-28 20:11] VITALS: BP 109/59; PULSE 77; RESP 16; TEMP 35.9; O2SAT 100
[2024-07-28] MEDS: Albuterol/Iprat 2.5/0.5MG 3 ML AMPUL.NEB INHALE (21:01)
[2024-07-28 21:18] VITALS: BP 109/59; PULSE 77; RESP 16; TEMP 35.9; O2SAT 100
== END 2024-07-28 21:19 | disposition home or self-care (01) ==
PROVIDERS: Physician Assistant; Emergency Provider Emergency Medicine; PCP Internal Medicine
DX: R05.9 Cough, unspecified (principal); J45.909 Unspecified asthma, uncomplicated; R06.02 Shortness of breath; Z03.818 Encounter for observation for suspected exposure to other biological agents ruled out
CPT/HCPCS: 0241U; 71046; 87651; 99283; 99284

== ENCOUNTER → 2024-07-28 19:11 | Outpatient (BNV) | payer OTHER, SELFPAY | PROVIDERS: Emergency Provider Emergency Medicine; PCP Internal Medicine; Visit Provider Radiology Diagnostic Radiology | DX: R05.9 Cough, unspecified (principal) | CPT/HCPCS: 71046 ==

== ENCOUNTER 2024-10-27 21:37 | Emergency (ER) | payer MEDICAID, SELFPAY ==
--- NOTE | ~2024-10-27 | XR_ITS ---
CLINICAL HISTORY: cough, SOB 1 view chest x-ray Comparison: Chest x-ray from 07/28/2024 Findings: No consolidation, pneumothorax, or pleural effusion. Borderline elevation of the left hemidiaphragm. Imaged mediastinum and imaged osseous structures appear unchanged. IMPRESSION: No consolidation. This document has been electronically signed by: Saroj Olivares MD on 10/27/2024 23:00:12
[2024-10-27 22:08] VITALS: BP 140/77; PULSE 87; RESP 16; TEMP 36.8; O2SAT 98; BMI 39.9
[2024-10-27 22:23] LABS: MANUAL DIFF FLAG NO
[2024-10-27 22:28] LABS: Basophils Percent Auto 0.4 % (0-2); Eosinophils Absolute Auto 0.3 X10*3/uL (0.0-0.4); Eosinophils Percent Auto 3.3 % (0-4); Hematocrit 32.4 % (37.0-47.0); Hemoglobin 10.2 g/dl (12.0-16.0); Imm Gran Abs Auto 0.03 X10*3/uL (0.00-0.03); Imm Gran Pct Auto 0.3 % (0.0-0.4); Lymphocytes Absolute Auto 1.9 X10*3/uL (1.2-4.9); Lymphocytes Percent Auto 20.2 % (20-40); Mean Corpuscular HGB Conc 31.5 g/dl (31.0-35.0); Mean Corpuscular Hemoglobin 22.4 pg (27.0-33.0); Mean Corpuscular Volume 71.2 fL (80.0-98.0); Mean Platelet Volume 9.7 fL (9.4-12.3); Monocytes Absolute Auto 0.7 X10*3/uL (0.1-1.2); Monocytes Percent Auto 7.2 % (2-11); Neutrophils Absolute Auto 6.3 x10*3/uL (2.0-8.3); Neutrophils Percent Auto 68.6 % (45-73); Platelet Count 399 X10*3/uL (160-400); Red Blood Count 4.55 X10*6/uL (4.20-5.50); Red Cell Distribution Width 21.7 % (11.0-16.0); White Blood Count 9.2 X10*3/uL (4.8-10.8)
[2024-10-27 22:37] LABS: Anion Gap 12 (12-20); Blood Urea Nitrogen 8 mg/dL (9-16); Calcium 9.3 mg/dL (8.4-10.2); Carbon Dioxide 27 mmol/L (22-29); Chloride 107 mmol/L (96-108); Creatinine Clr Calc Pharmacy 152.8; Estimated Glomerular Filt Rate > 60; Glucose Random 100 mg/dL (60-115); Potassium 3.7 mmol/L (3.3-5.1); Sodium 142 mmol/L (135-145)
[2024-10-27 23:00] LABS: Influenza A PCR NEGATIVE (Negative); Influenza B PCR NEGATIVE (Negative); Resp Syncy Virus RNA Qual PCR NEGATIVE (Negative); SARS COV2 PCR INHOUSE NEGATIVE (Negative)
--- NOTE | 2024-10-28 00:12 | ED.GENADULT ---
HPI - General Adult General Chief complaint: Upper Respiratory Symptoms Stated complaint: sob, cough, congestion Time Seen by Provider: 10/28/24 00:12 History of Present Illness ED Provider: Telma KINCAID narrative: The patient is a 28-year-old female who says she has been sick for about 3 days with cough and shortness of breath. She thinks she might have had a fever. She has had some nasal congestion. She has had a bit of a headache and felt lightheaded. She also feels that she has been wheezing. She has a history of asthma. Her last significant asthma exacerbation was over a year ago. Her only asthma medication is albuterol. Related Data Previous Rx's ?Medication ?Instructions ?Recorded albuterol sulfate 90 mcg/actuation 1 inh inhalation QID PRN shortness 09/20/21 aerosol inhaler of breath or wheezing #6.7 grams albuterol sulfate 0.63 mg/3 mL 0.63 mg (3 mL) inhalation Q4-6H 09/23/21 solution for nebulization PRN shortness of breath or wheezing #75 mL amoxicillin 875 mg-potassium 1 tab PO TID #21 tabs 06/03/23 clavulanate 125 mg tablet benzonatate 100 mg capsule 100 mg PO TID PRN cough 5 days #14 06/12/23 caps ondansetron 4 mg disintegrating 4 mg PO Q6H PRN nausea and 09/30/23 tablet vomiting #10 tabs levofloxacin 750 mg tablet 750 mg PO DAILY #5 tabs 10/08/23 ondansetron 4 mg disintegrating 4 mg PO Q8H PRN nausea and 10/08/23 tablet vomiting 4 days #4 tabs ondansetron 4 mg disintegrating 4 mg PO Q8H PRN nausea and 06/24/24 tablet vomiting #20 tabs prednisone 20 mg tablet 40 mg (2 x 20 mg) PO DAILY #8 tabs 07/28/24 azithromycin 250 mg tablet 250 mg PO DAILY 4 days #4 tabs 10/28/24 budesonide-formoterol HFA 160 2 puff inhalation BID #10.2 grams 10/28/24 mcg-4.5 mcg/actuation aerosol inhaler prednisone 20 mg tablet 20 mg PO DAILY #12 tabs 10/28/24 Allergies Allergy/AdvReac Type Severity Reaction Status Date / Time apricot [APRICOT] Allergy Unknown RASH Verified 10/27/24 22:10 cephalexin [From KEFLEX] Allergy Unknown RASH Verified 10/27/24 22:10 Review of Systems Review of Systems: Yes all other systems are reviewed and are negative [facility] Past Medical History Medical History History of COVID-19 Adjustment disorder in remission Morbid obesity History of posttraumatic stress disorder (PTSD) History of adjustment disorder Microcytic hypochromic anemia Mass of left upper extremity Heavy menstrual bleeding Spondyloarthropathy Mild intermittent asthma Closed right tibial fracture Tibia/fibula fracture Arthritis Surgical History Hx of section H/O foot surgery Family History Family History Father Diabetes Mother Thyroid disease Social History Social History Household Members: Other Housing: House Do you presently have visiting nurse or other home services: No Alcohol intake: never Patient Tobacco Use Status: Never used Tobacco e-Cigarette/Vaping Use: Never Used Substance Use Type: Marijuana Advance Directives: No Advance Directives Information Provided: Yes service: No Current occupational status: employed 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, 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 Gender identity: Female Cognitive needs: No Hearing needs: No Vision needs: No Physical Exam ED Vital Signs: Vital Signs - 24 hr 10/27/24 22:08 10/28/24 00:39 10/28/24 00:59 Temperature 98.3 F 98.0 F Pulse Rate 87 83 108 H Respiratory Rate 16 16 20 Blood Pressure 140/77 H 135/64 Pulse Oximetry 98 98 Oxygen Delivery Method Room Air Room Air 10/28/24 02:09 10/28/24 02:10 Temperature 97.9 F 97.9 F Pulse Rate 106 H 106 H Respiratory Rate 20 20 Blood Pressure 112/75 112/75 Pulse Oximetry 97 97 Oxygen Delivery Method Room Air Room Air BMI result Body Mass Index 39.9 Const Other: The patient is awake and alert and does not appear liver distress. She is pleasant and cooperative. Orientation/consciousness: patient oriented x3 HENMT Other: Face is symmetrical. Mucous membranes moist. Pharynx is normal. Eyes General: appearance normal, both eyes and all related structures Neck Neck: Yes normal visual inspection, Yes full ROM and Yes no lymphadenopathy Resp Other: no increased work of breathing. There are expiratory wheezes bilaterally. Cardio Rate: regular rate Rhythm: regular rhythm Heart sounds: S1 normal heart sound present and S2 normal heart sound present Skin Other: Skin is pale and dry Neuro General: patient oriented x3, gait normal, tone normal, moves all extremities, no focal motor deficits and CN's II-XI intact bilaterally Extrem Other: no calf swelling or tenderness. No pedal edema. No asymmetry. Medications Administered Discontinued Medications Generic Name Dose Route Start Last Admin Trade Name Freq PRN Reason Stop Dose Admin Albuterol Sulfate 5 mg/ 7.5 mg 10/28/24 00:33 10/28/24 00:38 Albuterol Sulfate 2.5 mg INHALE 10/28/24 00:34 7.5 mg ONCE ONE Administration Azithromycin 500 mg 10/28/24 00:20 10/28/24 00:58 Azithromycin 500 Mg Tablet PO 10/28/24 00:21 500 mg ONCE ONE Administration Prednisone 60 mg 10/28/24 00:20 10/28/24 00:58 Prednisone 20 Mg Tablet PO 10/28/24 00:21 60 mg ONCE ONE Administration Medical Decision Making Medical Decision Making [facility] Narrative: the patient is a 28-year-old female with history of asthma who presents with several days of respiratory symptoms including a sense of nasal congestion, cough, and chills. She also has a headache and feels somewhat lightheaded. On exam she has wheezing. I think she is having an asthma exacerbation possibly caused by some kind of respiratory infection. She was treated with bronchodilator treatments with some improvement. She will be started on a course of prednisone and azithromycin. She was prescribed additional prednisone, azithromycin, and a budesonide formoterol inhaler. The patient looks well enough for outpatient management. Lab Data 10/27/24 22:19 10/27/24 22:19 Labs: Lab Results 10/27/24 Range/Units 22:19 WBC 9.2 (4.8-10.8) X10*3/uL RBC 4.55 (4.20-5.50) X10*6/uL Hgb 10.2 L (12.0-16.0) g/dl Hct 32.4 L (37.0-47.0) % MCV 71.2 L (80.0-98.0) fL MCH 22.4 L (27.0-33.0) pg MCHC 31.5 (31.0-35.0) g/dl RDW 21.7 H (11.0-16.0) % Plt Count 399 (160-400) X10*3/uL MPV 9.7 (9.4-12.3) fL Immature Gran % (Auto) 0.3 (0.0-0.4) % Neut % (Auto) 68.6 (45-73) % Lymph % (Auto) 20.2 (20-40) % [place] % (Auto) 7.2 (2-11) % Eos % (Auto) 3.3 (0-4) % Baso % (Auto) 0.4 (0-2) % Lymph # (Auto) 1.9 (1.2-4.9) X10*3/uL [place] # (Auto) 0.7 (0.1-1.2) X10*3/uL Eos # (Auto) 0.3 (0.0-0.4) X10*3/uL Baso # (Auto) 0.0 (0.0-0.2) X10*3/uL Abs Immat Gran (auto) 0.03 (0.00-0.03) X10*3/uL Absolute Neuts (auto) 6.3 (2.0-8.3) x10*3/uL Absolute Nucleated RBC 0.000 (0.0-0.012) X10*3/uL Nucleated RBC % (auto) 0.0 (0.0-0.2) /100WBC Sodium 142 (135-145) mmol/L Potassium 3.7 (3.3-5.1) mmol/L Chloride 107 (96-108) mmol/L Carbon Dioxide 27 (22-29) mmol/L Anion Gap 12 (12-20) BUN 8 L (9-16) mg/dL Creatinine 0.72 (0.5-1.4) mg/dL Estim Creat Clear Calc 152.8 Estimated GFR > 60 Random Glucose 100 (60-115) mg/dL Calcium 9.3 (8.4-10.2) mg/dL Influenza Type A (PCR) NEGATIVE (Negative) Influenza Type B (PCR) NEGATIVE (Negative) RSV RNA Qual (PCR) NEGATIVE (Negative) SARS-CoV-2 RNA (RT-PCR) NEGATIVE (Negative) Discharge Plan Discharge Clinical Impression: Acute asthmatic bronchitis Patient Disposition: Home, Self-Care Additional Instructions: I think you have a case of asthmatic bronchitis. Please take the prednisone once a day as prescribed and also please take the azithromycin once a day as prescribed. I have sent a prescription for a new inhaler. This inhaler contains 2 medications, budesonide and formoterol. Formoterol is a bronchodilator medication like albuterol. Budesonide is an inhaled steroid medication. I think it would be more helpful for you to use this inhaler instead of albuterol. You may use this inhaler as a rescue inhaler but you may also use it as a maintenance inhaler. Please make a follow up appointment with your regular doctor to discuss your asthma further. Return to the emergency room if significantly worse. Prescriptions: New azithromycin 250 mg tablet 250 mg PO DAILY 4 Days Qty: 4 0RF Rx Instructions: start on day 2 of therapy prednisone 20 mg tablet 20 mg PO DAILY Qty: 12 0RF Rx Instructions: Take 3 tablets by mouth daily for 2 days then take 2 tablets by mouth daily for 3 days. budesonide-formoterol 160-4.5 mcg/actuation HFA aerosol inhaler 2 puff inhalation BID Qty: 10.2 0RF No Action albuterol sulfate 90 mcg/actuation HFA aerosol inhaler 1 inh inhalation QID PRN (Reason: shortness of breath or wheezing) Qty: 6.7 0RF albuterol sulfate 0.63 mg/3 mL solution for nebulization 0.63 mg inhalation Q4-6H PRN (Reason: shortness of breath or wheezing) Qty: 75 0RF amoxicillin-pot clavulanate 875-125 mg tablet 1 tab PO TID Qty: 21 0RF benzonatate 100 mg capsule 100 mg PO TID PRN (Reason: cough) 5 Days Qty: 14 0RF ondansetron 4 mg tablet,disintegrating 4 mg PO Q6H PRN (Reason: nausea and vomiting) Qty: 10 0RF levofloxacin 750 mg tablet 750 mg PO DAILY Qty: 5 0RF ondansetron 4 mg tablet,disintegrating 4 mg PO Q8H PRN (Reason: nausea and vomiting) 4 Days Qty: 4 0RF ondansetron 4 mg tablet,disintegrating 4 mg PO Q8H PRN (Reason: nausea and vomiting) Qty: 20 0RF prednisone 20 mg tablet 40 mg PO DAILY Qty: 8 0RF Interventions: ED Discharge Assessment Last Done: 10/28/24 02:10 Discharge Date/Time: 10/28/24 02:10 Print Language: Bulgarian
[2024-10-28] MEDS: Albuterol Sulfate 5 MG, Albuterol Sulfate (0.083%) 2.5 MG 7.5 MG INHALE (00:38)
[2024-10-28 00:39] VITALS: PULSE 83; RESP 16; O2SAT 98
[2024-10-28] MEDS: predniSONE 20 MG TABLET 60 MG PO (00:58)
[2024-10-28] MEDS: Azithromycin 500 MG TABLET PO (00:58)
[2024-10-28 00:59] VITALS: BP 135/64; PULSE 108; RESP 20; TEMP 36.7; O2SAT 98
[2024-10-28 02:09] VITALS: BP 112/75; PULSE 106; RESP 20; TEMP 36.6; O2SAT 97
[2024-10-28 02:10] VITALS: BP 112/75; PULSE 106; RESP 20; TEMP 36.6; O2SAT 97
== END 2024-10-28 02:10 | disposition home or self-care (01) ==
PROVIDERS: Emergency Provider Emergency Medicine; PCP Internal Medicine
DX: J45.909 Unspecified asthma, uncomplicated (principal); R06.02 Shortness of breath; R05.9 Cough, unspecified; Z03.818 Encounter for observation for suspected exposure to other biological agents ruled out
CPT/HCPCS: 0241U; 71045; 80048; 85025; 94640; 99284

== ENCOUNTER → 2024-10-27 22:33 | Outpatient (BNV) | payer OTHER, SELFPAY | PROVIDERS: Emergency Provider Emergency Medicine; PCP Internal Medicine; Visit Provider Radiology Neuroradiology | DX: R07.9 Chest pain, unspecified (principal); R06.02 Shortness of breath | CPT/HCPCS: 71045 ==

== ENCOUNTER 2025-06-21 22:57 | Emergency (ER) | payer SELFPAY ==
--- NOTE | ~2025-06-21 | US_ITS ---
CLINICAL HISTORY: LLQ Pain Tender; Vaginal Bleeding; r o Torsion US pelvis transvaginal Comparison: US/SR - US PELVIS TRANSABDOMINAL AND TRANSVAGINAL - 06/24/24 15:[address]/DC/SR - CT ABDOMEN PELVIS WITH IV CONTRAST - 06/24/24 12:25 EST Findings: The uterus is retroverted attenuation is 11 x 3 x 5.5 cm. No focal uterine wall lesions are seen. Endometrium is not thickened at 4 mm. No focal solid or cystic endometrial lesions are seen. The cervix is nondilated. Small nabothian cyst is noted. The right ovary measures 3.8 x 2.4 x 2 cm. The left ovary measures 3.7 x 2.3 x 2.8 cm. There is blood flow to both ovaries. There is trace amount of free fluid in the cul-de-sac within physiologic range. IMPRESSION: No acute sonographic abnormality in the pelvic cavity. This document has been electronically signed by: Bernard Ferrara MD on 06/22/2025 03:22:04
--- NOTE | ~2025-06-21 | US_ITS ---
CLINICAL HISTORY: LLQ Pain Tender; Vaginal Bleeding; r o Torsion US pelvis transvaginal Comparison: US/SR - US PELVIS TRANSABDOMINAL AND TRANSVAGINAL - 06/24/24 15:[address]/CO/SR - CT ABDOMEN PELVIS WITH IV CONTRAST - 06/24/24 12:25 EST Findings: The uterus is retroverted attenuation is 11 x 3 x 5.5 cm. No focal uterine wall lesions are seen. Endometrium is not thickened at 4 mm. No focal solid or cystic endometrial lesions are seen. The cervix is nondilated. Small nabothian cyst is noted. The right ovary measures 3.8 x 2.4 x 2 cm. The left ovary measures 3.7 x 2.3 x 2.8 cm. There is blood flow to both ovaries. There is trace amount of free fluid in the cul-de-sac within physiologic range. IMPRESSION: No acute sonographic abnormality in the pelvic cavity. This document has been electronically signed by: Bernard Ferrara MD on 06/22/2025 03:22:04
[2025-06-21 23:32] VITALS: BP 160/85; PULSE 105; RESP 20; TEMP 36.8; O2SAT 97; BMI 39.6
--- NOTE | 2025-06-21 23:41 | ED.ABDPAIN ---
HPI - Abdominal Pain General Chief Complaint: Abdominal Pain Stated Complaint: Stomach Pain Time Seen by Provider: 06/22/25 06:14 Source: patient Mode of arrival: ambulatory Limitations: no limitations History of Present Illness ED Provider: HPI narrative: 29-year-old woman presenting with lower abdominal cramping and passing large clots, she states she has not technically bleeding more than usual she is still going through the same number of tampons as her normal. But the size of the clots is abnormal for her and she has been using ibuprofen for abdominal cramping without much relief had slight nausea and also reported diarrhea. No fevers or chills reported. States she is not . Related Data Previous Rx's ?Medication ?Instructions ?Recorded albuterol sulfate 90 mcg/actuation 1 inh inhalation QID PRN shortness 09/20/21 aerosol inhaler of breath or wheezing #6.7 grams albuterol sulfate 0.63 mg/3 mL 0.63 mg (3 mL) inhalation Q4-6H 09/23/21 solution for nebulization PRN shortness of breath or wheezing #75 mL amoxicillin 875 mg-potassium 1 tab PO TID #21 tabs 06/03/23 clavulanate 125 mg tablet benzonatate 100 mg capsule 100 mg PO TID PRN cough 5 days #14 06/12/23 caps ondansetron 4 mg disintegrating 4 mg PO Q6H PRN nausea and 09/30/23 tablet vomiting #10 tabs levofloxacin 750 mg tablet 750 mg PO DAILY #5 tabs 10/08/23 ondansetron 4 mg disintegrating 4 mg PO Q8H PRN nausea and 10/08/23 tablet vomiting 4 days #4 tabs ondansetron 4 mg disintegrating 4 mg PO Q8H PRN nausea and 06/24/24 tablet vomiting #20 tabs prednisone 20 mg tablet 40 mg (2 x 20 mg) PO DAILY #8 tabs 07/28/24 azithromycin 250 mg tablet 250 mg PO DAILY 4 days #4 tabs 10/28/24 budesonide-formoterol HFA 160 2 puff inhalation BID #10.2 grams 10/28/24 mcg-4.5 mcg/actuation aerosol inhaler prednisone 20 mg tablet 20 mg PO DAILY #12 tabs 10/28/24 ferrous sulfate 325 mg (65 mg 325 mg PO DAILY #30 tabs 06/22/25 iron) tablet (iron) medroxyprogesterone 10 mg tablet 10 mg PO DAILY 5 days #5 tabs 06/22/25 (Provera) ondansetron 4 mg disintegrating 4 mg PO Q8H PRN nausea and 06/22/25 tablet vomiting #4 tabs Allergies Allergy/AdvReac Type Severity Reaction Status Date / Time apricot (APRICOT) Allergy Unknown RASH Verified 06/21/25 23:33 cephalexin (From KEFLEX) Allergy Unknown RASH Verified 06/21/25 23:33 Review of Systems Constitutional: Reports as per HPI [facility] Past Medical History Medical History History of COVID-19 Adjustment disorder in remission Morbid obesity History of posttraumatic stress disorder (PTSD) History of adjustment disorder Microcytic hypochromic anemia Mass of left upper extremity Heavy menstrual bleeding Spondyloarthropathy Mild intermittent asthma Closed right tibial fracture Tibia/fibula fracture Arthritis Surgical History Hx of section H/O foot surgery Family History Family History Father Diabetes Mother Thyroid disease Social History Social History Household Members: Other Housing: House Do you presently have visiting nurse or other home services: No Alcohol intake: never Patient Tobacco Use Status: Never used Tobacco e-Cigarette/Vaping Use: Never Used Substance Use Type: Marijuana Advance Directives: No Advance Directives Information Provided: Yes service: No Current occupational status: employed 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, 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 Gender identity: Female Cognitive needs: No Hearing needs: No Vision needs: No Physical Exam ED Exam Exam: ?General: ??looks age appropriate ?PERRLA, EOMI, MMM, ?CV: RRR, no obvious murmurs appreciated ?Resp: ?No wheezing rales rhonchi no stridor moving air well Abd: ?Bowel sounds are present, no right epigastric or right upper quadrant tenderness, no left lower quadrant tenderness, no right lower quadrant tenderness, obese abdomen, some suprapubic tenderness without rebound or rigidity MSK: FROM, strength 5/5 all extremities Skin: Warm, dry, intact, ?Neuro: ?Alert and oriented x3, moving upper and lower extremities symmetrically, no obvious facial asymmetry noted, cranial nerves 2-12 intact Vital Signs: Vital Signs - 24 hr 06/21/25 23:32 06/22/25 04:27 06/22/25 07:20 Temperature 98.2 F 97.7 F 97.5 F Pulse Rate 105 H 67 68 Respiratory Rate 20 18 18 Blood Pressure 160/85 H 127/59 L 87/51 L Pulse Oximetry 97 97 99 Oxygen Delivery Method Room Air Room Air Room Air 06/22/25 08:07 06/22/25 08:45 Temperature Pulse Rate 71 62 Respiratory Rate 16 16 Blood Pressure 106/67 87/57 L Pulse Oximetry 97 Oxygen Delivery Method Room Air BMI result Body Mass Index 39.6 Course Course Course Narrative: 11:41 PM 06/21/2025 (Yamini MUKHERJEE): Rapid medical examination performed, full details of HPI, exam, MDM, care plan and disposition deferred to primary provider. [age] female presenting to the ED for evaluation of severe lower abdominal/pelvic pain greater on the left which began 2 days ago after she began menses 3 days ago. Patient reports she is having increased bleeding and clots compared to baseline however reports pain and nausea is more severe in comparison to increased bleeding. 9 years ago, no other surgical abdominal history. Patient is not currently sexually active. No associated fever, vomiting or dysuria. Patient attempted ibuprofen without relief. Triage exam shows positive tenderness left pelvis, mild suprapubic tenderness, ordered for basic labs, urinalysis, urine , and ultrasound to rule out torsion. Treated with Zofran and Tylenol in triage. Returned to waiting room. Advised to notify staff if worsening symptoms or if considering leaving prior to treatment complete. Medical Decision Making Medical Decision Making MDM Narrative: 6:55 AM 06/22/2025 (Dr. Desmond Harman): By the time I evaluated the patient patient is already had pelvic ultrasound blood work, urinalysis, she is not so -related emergencies such as ectopic is ruled out, no ovarian torsion, H&H is stable, she has microcytic anemia likely iron-deficiency this is not new, I discussed with the patient that outside of unremarkable blood work and no significant hemorrhage reported there was no utility in pelvic exam and she agrees, it would not really change my clinical approach there was no reports of trauma etc. I discussed starting her on Provera she is aware that this is a control pill, she had you follow up with her PCP or OB for re-evaluation her vital signs are stable 7:22 AM 06/22/2025 (Dr. Desmond Harman): On discharge it was noted that patient is hypotensive she has not been eating drinking, we will give fluids we will reassess, she did not present hypotensive and there is no indication that she has blood loss but I will check another H&H Differential Diagnosis Differential Diagnoses: The differential diagnosis associated with the presentation includes (Menorrhagia, ectopic , ovarian torsion, appendicitis, diverticulitis, retained products of conception, threatened ) Admission/Observation Consideration of admission/observation: Escalation of care including admission/observation considered Lab Data MDM Lab Attestation statement: I reviewed the patient's lab results. 06/22/25 07:29 06/22/25 00:50 Labs: Lab Results 06/22/25 06/22/25 06/22/25 Range/Units 00:50 06:05 07:29 WBC 6.8 6.6 (4.8-10.8) X10*3/uL RBC 4.80 4.26 (4.20-5.50) X10*6/uL Hgb 10.8 L 9.8 L (12.0-16.0) g/dl Hct 34.5 L 30.6 L (37.0-47.0) % MCV 71.9 L 71.8 L (80.0-98.0) fL MCH 22.5 L 23.0 L (27.0-33.0) pg MCHC 31.3 32.0 (31.0-35.0) g/dl RDW 18.7 H 18.6 H (11.0-16.0) % Plt Count 349 308 (160-400) X10*3/uL MPV 9.9 10.3 (9.4-12.3) fL Immature Gran % (Auto) 0.3 (0.0-0.4) % Neut % (Auto) 68.9 (45-73) % Lymph % (Auto) 22.2 (20-40) % [place] % (Auto) 7.2 (2-11) % Eos % (Auto) 1.0 (0-4) % Baso % (Auto) 0.4 (0-2) % Lymph # (Auto) 1.5 (1.2-4.9) X10*3/uL [place] # (Auto) 0.5 (0.1-1.2) X10*3/uL Eos # (Auto) 0.1 (0.0-0.4) X10*3/uL Baso # (Auto) 0.0 (0.0-0.2) X10*3/uL Abs Immat Gran (auto) 0.02 (0.00-0.03) X10*3/uL Absolute Neuts (auto) 4.7 (2.0-8.3) x10*3/uL Absolute Nucleated RBC 0.000 0.000 (0.0-0.012) X10*3/uL Nucleated RBC % (auto) 0.0 0.0 (0.0-0.2) /100WBC Sodium 142 (135-145) mmol/L Potassium 4.0 (3.3-5.1) mmol/L Chloride 107 (96-108) mmol/L Carbon Dioxide 26 (22-29) mmol/L Anion Gap 13 (12-20) BUN 12 (9-16) mg/dL Creatinine 0.75 (0.5-1.4) mg/dL Estim Creat Clear Calc 144.8 Estimated GFR > 60 Random Glucose 97 (60-115) mg/dL Calcium 9.5 (8.4-10.2) mg/dL Total Bilirubin 0.4 (0.0-1.0) mg/dL AST 48 H (5-31) U/L ALT 70 H (0-31) U/L Alkaline Phosphatase 74 (39-117) U/L Total Protein 7.7 (6.5-8.0) g/dL Albumin 4.9 (3.5-5.0) g/dL Urine Color Yellow Urine Appearance Cloudy Urine pH 5.5 (5.0-9.0) Ur Specific [place] >= 1.030 H (1.005-1.025) Urine Protein 30 (1+) H (Neg-Trace) mg/dL Urine Glucose (UA) Negative (Negative) mg/dL Urine Ketones 15 (Negative) mg/dL Urine Blood Large (3+) H (Negative) Urine Nitrite Negative (Negative) Ur Leukocyte Esterase Negative (Negative) Urine RBC >20 H (0-2) /HPF Urine WBC 0-5 (0-5) /HPF Ur Squamous Epith Cells 11-20 (0-2) /HPF Urine Bacteria Trace (None Seen) Hyaline Casts 0-2 (0-2) /LPF Urine Test NEGATIVE (NEGATIVE) Radiology Impression Discussion of test interpretation with radiology: I have reviewed the radiologist's reading. ( IMPRESSION: No acute sonographic abnormality in the pelvic cavity.) External Record Review External record reviewed: Prior outpatient labs Prescription Management I considered prescription management with: Pain Medication Medications Administered Generic Name Dose Route Start Last Admin Trade Name Freq PRN Reason Stop Dose Admin Lactated Ringer's 1,000 mls @ 0 mls/hr 06/22/25 09:00 06/22/25 08:51 Lr IV 999 mls/hr .Q0M NICK Administration Wide Open Discontinued Medications Generic Name Dose Route Start Last Admin Trade Name Freq PRN Reason Stop Dose Admin Acetaminophen 975 mg 06/21/25 23:38 06/21/25 23:43 Acetaminophen 325 Mg Tablet PO 06/21/25 23:39 975 mg ONCE ONE Administration Sodium Chloride 1,000 mls @ 999 mls/hr 06/22/25 07:30 06/22/25 08:42 Ns IV 06/22/25 08:30 Infused .Q1H1M NICK Infusion Ketorolac Tromethamine 15 mg 06/22/25 06:51 06/22/25 07:31 Ketorolac Tromethamine 15 Mg/Ml Vial IM 06/22/25 06:52 15 mg ONCE ONE Administration Medroxyprogesterone Acetate 10 mg 06/22/25 06:52 06/22/25 07:36 Medroxyprogesterone Acetate 5 Mg Tablet PO 06/22/25 06:53 10 mg ONCE ONE Administration Ondansetron HCl 4 mg 06/21/25 23:41 06/21/25 23:43 Ondansetron Odt 4 Mg Tab.Rapdis TRANSLINGU 06/21/25 23:42 4 mg ONCE ONE Administration Ondansetron HCl 4 mg 06/22/25 08:22 06/22/25 08:27 Ondansetron Hcl 4 Mg/2 Ml Vial IVPUSH 06/22/25 08:23 4 mg ONCE ONE Administration Oxycodone HCl 5 mg 06/22/25 06:51 06/22/25 07:30 Oxycodone Hcl Immed Release 5 Mg Tablet PO 06/22/25 06:52 5 mg ONCE ONE Administration Critical Care Time Critical Care Time Critical Care Time: Yes Total Critical Care Time: 35 Attestation: Time is exclusive of separately billable procedures. Time includes: direct patient care, patient reassessment, coordination of patient care, interpretation of data (laboratory data, pulse oximetry, arterial blood gases and chest xrays), review of patient's medical records, medical consultation and documentation of patient care. Procedures excluded from critical care time: central intravenous line placement and electrocardiography. Discharge Plan Discharge Clinical Impression: Menorrhagia, Acute hypotension, Dehydration Patient Disposition: Home, Self-Care Additional Instructions: You do have a degree of anemia that is longstanding somewhat better today than prior visits, likely iron-deficiency I recommend iron sulfate pills, your workup today without any evidence for , significant blood loss ( you have anemia at baseline likely iron deficiency, thus I am prescribing iron supplements)), your vital signs were stable most of the night and then by the morning you had low blood pressure and required IV fluids, pelvic ultrasound without any abnormalities of the uterus or ovaries and I am fairly reassured by physical examination, you did get the 1st pill of Provera today, continue for the next 3-5 days starting tomorrow, this will slow down vaginal bleeding, and this is a control pill, continue using ibuprofen 400 mg every 6 hours, warm compresses, add Tylenol 975 mg additional every 6 hours for pain control, and Zofran 4 mg every 8 hours needed for nausea, follow up with the your display coordinator or PCP for re-evaluation worsening issues or concerns please come back to the ER. Prescriptions: New medroxyprogesterone [Provera] 10 mg tablet 10 mg PO DAILY 5 Days Qty: 5 0RF ondansetron 4 mg tablet,disintegrating 4 mg PO Q8H PRN (Reason: nausea and vomiting) Qty: 4 0RF ferrous sulfate [iron] 325 mg (65 mg iron) tablet 325 mg PO DAILY Qty: 30 0RF No Action albuterol sulfate 90 mcg/actuation HFA aerosol inhaler 1 inh inhalation QID PRN (Reason: shortness of breath or wheezing) Qty: 6.7 0RF albuterol sulfate 0.63 mg/3 mL solution for nebulization 0.63 mg inhalation Q4-6H PRN (Reason: shortness of breath or wheezing) Qty: 75 0RF amoxicillin-pot clavulanate 875-125 mg tablet 1 tab PO TID Qty: 21 0RF benzonatate 100 mg capsule 100 mg PO TID PRN (Reason: cough) 5 Days Qty: 14 0RF ondansetron 4 mg tablet,disintegrating 4 mg PO Q6H PRN (Reason: nausea and vomiting) Qty: 10 0RF levofloxacin 750 mg tablet 750 mg PO DAILY Qty: 5 0RF ondansetron 4 mg tablet,disintegrating 4 mg PO Q8H PRN (Reason: nausea and vomiting) 4 Days Qty: 4 0RF ondansetron 4 mg tablet,disintegrating 4 mg PO Q8H PRN (Reason: nausea and vomiting) Qty: 20 0RF prednisone 20 mg tablet 40 mg PO DAILY Qty: 8 0RF azithromycin 250 mg tablet 250 mg PO DAILY 4 Days Qty: 4 0RF Rx Instructions: start on day 2 of therapy prednisone 20 mg tablet 20 mg PO DAILY Qty: 12 0RF Rx Instructions: Take 3 tablets by mouth daily for 2 days then take 2 tablets by mouth daily for 3 days. budesonide-formoterol 160-4.5 mcg/actuation HFA aerosol inhaler 2 puff inhalation BID Qty: 10.2 0RF Print Language: Malagasy
[2025-06-22 00:54] LABS: MANUAL DIFF FLAG NO
[2025-06-22 00:55] LABS: Hematocrit 34.5 % (37.0-47.0); Hemoglobin 10.8 g/dl (12.0-16.0); Imm Gran Abs Auto 0.02 X10*3/uL (0.00-0.03); Imm Gran Pct Auto 0.3 % (0.0-0.4); Lymphocytes Absolute Auto 1.5 X10*3/uL (1.2-4.9); Mean Corpuscular HGB Conc 31.3 g/dl (31.0-35.0); Mean Corpuscular Hemoglobin 22.5 pg (27.0-33.0); Mean Corpuscular Volume 71.9 fL (80.0-98.0); NRBC Abs Auto 0.000 X10*3/uL (0.0-0.012); NRBC Pct Auto 0.0 /100WBC (0.0-0.2); Platelet Count 349 X10*3/uL (160-400); Red Blood Count 4.80 X10*6/uL (4.20-5.50); White Blood Count 6.8 X10*3/uL (4.8-10.8)
[2025-06-22 01:16] LABS: Alanine Aminotransferase 70 U/L (0-31); Albumin Level 4.9 g/dL (3.5-5.0); Alkaline Phosphatase 74 U/L (39-117); Anion Gap 13 (12-20); Aspartate Amino Transferase 48 U/L (5-31); Blood Urea Nitrogen 12 mg/dL (9-16); Calcium 9.5 mg/dL (8.4-10.2); Carbon Dioxide 26 mmol/L (22-29); Chloride 107 mmol/L (96-108); Creatinine Clr Calc Pharmacy 144.8; Estimated Glomerular Filt Rate > 60; Potassium 4.0 mmol/L (3.3-5.1); Sodium 142 mmol/L (135-145); Total Protein 7.7 g/dL (6.5-8.0)
[2025-06-22 04:27] VITALS: BP 127/59; PULSE 67; RESP 18; TEMP 36.5; O2SAT 97
[2025-06-22 06:15] LABS: Appearance Urine Cloudy; Glucose Urine UA Negative (Negative); PH 5.5 (5.0-9.0); Specific Gravity - Urine >= 1.030 (1.005-1.025); UMIC TRIGGER UACC YES
[2025-06-22 06:19] LABS: UPreg QC Valid YES
--- OUTSIDE RECORDS SUMMARY | 2025-06-22 06:42 | XMS_ITS | Encounter Summary ---
Author Organization [facility] Address [address] [place] [id number] Phone Care Team Providers Care Mud Plant Operator Name Role Phone Unknown, Unknown Primary Care Provider Rylie Ca MD Primary Care Provider Encounter Details Date Type Department Care Team (Late st Contact Info) Description 09/22/2020 Procedure Pass [facility] Philosophy And Religion Instructor [address] [address] Social History Tobacco Use Types Packs/Day Years Used Date Smoking Tobacco: Former Smokeless Tobacco: Never Comments Unknown Sex and Gender Information Value Date Recorded Sex Assigned at Female 04/26/2022 4:30 AM EDT Legal Sex Female 7:10 PM EST Gender Identity Female 04/26/2022 4:30 AM EDT Sexual Orientation Bisexual 04/26/2022 4: 30 AM EDT documented as of this encounter Plan of Treatment Not on file documented as of this encounter Visit Diagnoses Not on filedocumented in this encounter Additional Health Concerns Infection Onset Date Last Indicated Resolved Time CoV-Risk 04/26/2022 04/26/2022 05/07/2022 1:22 AM EDT documented as of this encounter Care Teams Mud Plant Operator Relationship Specialty Start Date End Date Unknown, Unknown, PCP - General 09/21/20 04/25/22 Rylie Dawson MD [address] [place] [address] PCP - General Internal Medicine 04/26/22 documented as of this encounter Additional Source Comments The information contained in this document represents components of the legal health record. It is not the complete legal health record.[facility]
--- OUTSIDE RECORDS SUMMARY | 2025-06-22 06:42 | XMS_ITS | Clinical Summary ---
Author Organization [facility] Address [address] [place] [address] Care Team Providers Care Biodiesel Technology Manager Name Role Phone Md, Unknown Primary Care Provider Unavailabl e Allergies Active Allergy Reactions Criticality Noted Date Comments Cephalexin Rash Low 07/24/2020 Resolved Problems Problem Noted Date Diagnosed Date Resolved Date Suspected COVID-19 virus infection 07/24/2020 02/27/2022 Social History Tobacco Use Types Packs/Day Years Used Date Smoking Tobacco: Never Assessed Comments Unknown Sex and Gender Information Value Date Recorded Sex Assigned at Not on file Legal Sex Female 4:53 AM EST Gender Identity Not on file Sexual Orientation Not on file Last Filed Vital Signs Vital Sign Reading Time Taken Comments Blood Pressure 110/66 07/24/2020 8:30 AM EST Pulse 98 07/24/2020 8:30 AM EST Temperature 37.7 C (99.8 F) 07/24/2020 7:51 AM EST Respiratory Rate 10 07/24/2020 8:30 AM EST Oxygen Saturation 98% 07/24/2020 8:30 AM EST Inhaled Oxygen Concentration - - Weight 90.7 kg (200 lb) 07/24/2020 7:51 AM EST Height 167.6 cm (5' 6 ) 07/24/2020 7:51 AM EST Body Mass Index 32.28 07/24/2020 7:51 AM EST Plan of Treatment Pending Results Name Type Priority Associated Diagnoses Date /Time [place] [facility] Lab STAT 07/24/2020 5 :58 AM EST [facility] Lab STAT 07/24/19 5:58 AM EST Health Maintenance Due Date Last Done Comments Annual Physical Exam 12/09/2013 Tdap and Td Vaccines Adult 12/09/2014 Pap Smear 12/09/2016 COVID-19 Vaccine (2024-2 6 season) 2025 Influenza Vaccine (#1) 2025 HIB Vaccines Aged Out No longer eligi ble based on patient's age to complete this topic HPV Vaccines (No Doses Required) Completed Hepatitis A Vaccines Aged Out No long er eligible based on patient's age to complete this topic IPV Vaccines Aged Out No longer eligi ble based on patient's age to complete this topic Meningococcal Vaccine Aged Out No thien klarissa eligible based on patient's age to complete this topic Pneumococcal Vaccine: Peds ( 0 to 5 Yrs) and At-Risk Pts (6 to 49 Yrs) Aged Out No lo nger eligible based on patient's age to complete this topic RSV <20 Months Aged Out No longer conner gible based on patient's age to complete this topic Insurance [employer] [id number] [place] [address] Care Teams Biodiesel Technology Manager Relationship Specialty Start Date End Date , Unknown 1 Dont Change PCP - General 07/24/20
--- OUTSIDE RECORDS SUMMARY | 2025-06-22 06:42 | XMS_ITS | Clinical Summary ---
Author Organization [facility] Address [address] [place] [id number] Phone Care Team Providers Care Certified Low Vision Therapist Name Role Phone Rylie Dawson MD Primary Care Provider Allergies Active Allergy Reactions Criticality Noted Date Comments Apricot Hives 08/21/2011 Cephalosporins Hives 08/21/2011 Medications oxyCODONE 5 MG immediate release tablet Take 1 tablet (5 mg total) by mouth every 8 (eight) hours as needed for pain (specific location in comments). Ok to partial fill 5 tablet 01/24/2018 Active benzonatate (TESSALON) 100 MG capsule Take 1 capsule (100 mg total) by mouth 3 (three) times a day as needed for cough. 20 capsule 04/26/2022 Active Active Problems Problem Noted Date Diagnosed Date Uncoded OR Crohn's disease 08/21/2011 Overview (09/03/2014): OR Crohn's disease Social History Tobacco Use Types Packs/Day Years Used Date Smoking Tobacco: Former Smokeless Tobacco: Never Education Answer Date Recorded Are you interested in more education? Not on sangita e 11/07/2022 Are you concerned about learning? Not on file 11/07/2022 No 11/07/2022 No 11/07/2022 Digital Access Answer Date Recorded No 12/09/2022 No 12/09/2022 No 12/09/2022 Reliable internet access at home? Not on file 12/09/2022 Device with a working camera? Not on file Comments Unknown Sex and Gender Information Value Date Recorded Sex Assigned at Female 04/26/2022 4:30 AM EDT Legal Sex Female 7:10 PM EST Gender Identity Female 04/26/2022 4:30 AM EDT Sexual Orientation Bisexual 04/26/2022 4: 30 AM EDT Last Filed Vital Signs Vital Sign Reading Time Taken Comments Blood Pressure 117/78 04/26/2022 11:10 AM EDT Pulse 90 04/26/2022 11:10 AM EDT Temperature 36.6 C (97.9 F) 04/26/2022 4:28 AM EDT Respiratory Rate 16 04/26/2022 11:10 AM EDT Oxygen Saturation 100% 04/26/2022 11:10 AM EDT Inhaled Oxygen Concentration - - Weight 106.6 kg (235 lb) 09/22/2020 10:46 AM EST Height 162.6 cm (5' 4 ) 09/22/2020 10:46 AM EST Body Mass Index 40.34 09/22/2020 10:46 AM EST Plan of Treatment Health Maintenance Due Date Last Done Comments DEPRESSION SCREENING 2007 SMOKING Hx and SMOKELESS TOBACCO SCREENING 12/09/2008 HEPATITIS C SCREENING 12/09/2013 HIV ONE-TIME SCREENING (18-6 5 YEARS) 12/09/2013 PAP SMEAR 12/09/2016 INFLUENZA VACCINE (#1) 2025 06/19/2016 COVID-19 VACCINE (2024-2 6 season) 2025 07/26/2021, 12/01/2020, 11/03/2020 Adult Td,Tdap Booster 03/16/2026 03/16/2016 HEPATITIS A VACCINES Aged Out No long er eligible based on patient's age to complete this topic HIB VACCINES Aged Out No longer eligi ble based on patient's age to complete this topic MENINGOCOCCAL VACCINES (ACWY) Aged Out No longer eligible based on patient's age to complete this topic MENINGOCOCCAL VACCINES (B) Aged Out N o longer eligible based on patient's age to complete this topic PNEUMOCOCCAL VACCINES (0-49 years) Aged Out No longer eligible b ased on patient's age to complete this topic Medical Devices Not on file [place] [address] [address] [address] [place] [address] [place] [address] [place] [address] [place] [address] [address] [address] [address] [address] [address] [address] [place] [address] [place] [address] ACO Care Teams Certified Low Vision Therapist Relationship Specialty Start Date End Date Rylie Dawson MD [address] [facility] [place] [address] PCP - General Internal Medicine 04/26/22 Additional Source Comments The information contained in this document represents components of the legal health record. It is not the complete legal health record.[facility]
--- OUTSIDE RECORDS SUMMARY | 2025-06-22 06:42 | XMS_ITS | Clinical Summary ---
Author Organization [facility] Address [address] [place] [address] Phone Care Team Providers Care Day [employer] Name Role Phone Rylie Dawson MD Primary Care Provider [phone] Allergies Active Allergy Reactions Criticality Noted Date Comments Apricot Flavor 06/05/2024 Cephalexin 06/05/2024 Medications ipratropium-alb uteroL (DUONEB) 0.5-2.5 mg/3 mL nebulizer solution Take 3 mL by nebulization 2 (two) times a day if needed for wheezing or shortness of breath. 3 Active albuterol HFA (ProAir HFA) 90 mcg/actuation inhaler Inhale 2 puffs by mouth every 4 (four) hours if needed for wheezing or shortness of breath. 2 Active Active Problems Problem Noted Date Diagnosed Date Vitamin B12 deficiency (dietary) anemia 09/08/19 25 Resolved Problems Problem Noted Date Diagnosed Date Resolved Date Mild asthma 09/08/2024 09/08/2024 Symptomatic anemia 09/06/2024 5 Encounters Date Type Department Care Team Description 05/02/2025 1:10 AM EDT - 05/02/2025 8:58 AM EDT Emergency [facility] Emergency [address] [place] [address] Ghazal Reyes MD Wyman, Tim, MD Viral respiratory infection (Primary Dx); Shortness of breath; Acute cough; Left-sided chest pain Discharge Disposition: Home or Self Care from Last 3 Months Surgical History Surgery Date Site/Laterality Comments SECTION, LOW TRANSVERSE TIBIA FRACTURE SURGERY Right IM Nail 2018 KNEE ARTHROSCOPY Right Medical History Medical History Date Comments Asthma Anemia Right knee pain Family History Medical History Relation Name Comments Diabetes Father thyroidectomy Mother Relation Name Status Comments Father Mother Social History Tobacco Use Types Packs/Day Years Used Date Smoking Tobacco: Never Smokeless Tobacco: Never Tobacco Cessation:Counseling Given: Not Answered Housing Instability Answer Date Recorde d Are you worried that in the next 2 months you may not have stable housing? No 09/07/2024 Food Access & Nutrition Answer Date Rec orded Do you have access to a vari ety of food including fruits and vegetables? No 09/07/2024 Access to Healthcare Answer Date Record ed Within the last 3 months, ho w many times did you visit the emergency department for your medical care? 1 09/07/2024 Health Literacy Answer Date Recorded How often do you need to hav e someone help you when you read instructions, pamphlets, or other written material from your doctor or pharmacy? Never 09/07/2024 Caregiver: How often do you need to have someone help you when you read instructions, pamphlets, or other written material from your doctor or pharmacy? Not on file 09/07/2024 Financial Risk Answer Date Recorded How hard is it for you to pa y for the very basics like food, housing, medical care, and air conditioning / heating? Not very hard 09/07/2024 Transportation Answer Date Recorded Has the lack of transportati on kept you from meetings, work, or from getting things needed for daily living? No Has the lack of transportati on kept you from medical appointments or from getting medications? No 09/07/2024 Social Isolation Answer Date Recorded How often do you feel lonely or isolated from th ose around you? Never 09/07/2024 Food Risk Answer Date Recorded Within the past 12 months we worried whether our food would run out before we got money to buy more. Never true 09/07/2024 Within the past 12 months th e food we bought just didn't last and we didn't have money to get more. Never true 09/07/2024 Dependent Care Answer Date Recorded Do you need help finding or paying for care for your loved ones. For example, child care assistant or elderly care for an older adult? No 09/07/2024 Education Answer Date Recorded Do you think completing more education or training, like finishing a GED, going to college, or learning a trade, would be helpful for you? No 09/07/2024 Employment and Income Answer Date Recor ded During the last four weeks, have you been actively looking for work? No 09/07/2024 Living Situation Answer Date Recorded What is your living situation? Unrecognized valu e 09/07/2024 Interpersonal Safety Answer Date Record ed Physical Abuse Unrecognized value 09/06/2024 Verbal Abuse Unrecognized value 09/06/2024 Comments No Sex and Gender Information Value Date Recorded Sex Assigned at Female 09/06/2024 7:54 AM EST Legal Sex Female 8:09 PM EST Gender Identity Female 09/06/2024 7:54 AM EST Sexual Orientation Straight 09/06/2024 7: 54 AM EST Last Filed Vital Signs Vital Sign Reading Time Taken Comments Blood Pressure 108/73 05/02/2025 6:37 AM EDT Pulse 83 05/02/2025 6:37 AM EDT Temperature 36.9 C (98.4 F) 05/02/2025 6:37 AM EDT Respiratory Rate 16 05/02/2025 6:37 AM EDT Oxygen Saturation 100% 05/02/2025 6:37 AM EDT Inhaled Oxygen Concentration - - Weight 115 kg (253 lb) 09/06/2024 4:37 AM EST Height 170.2 cm (5' 7 ) 09/06/2024 4:37 AM EST Body Mass Index 39.63 09/06/2024 4:37 AM EST Plan of Treatment Health Maintenance Due Date Last Done Comments Hepatitis B Vaccines (1 of 3 - 19+ 3-dose series) 12/09/2014 Cervical Cancer Screening: Pap Smear 12/09/2016 HPV Vaccines (1 - 3-dose SCDM series) 12/09/2022 Cholesterol Screening (Lipid Panel) 08/07/2023 HIV Screening 08/07/2023 Hepatitis C Screening 08/07/2023 Depression Screening 07/14/2024 COVID-19 Vaccine (2024- season) 2025 05/24/2022, 07/26/2021, 12/01/2020, Additional history exists Influenza Vaccine (#1) 2025 05/21/2022, 2015 Social Influencers of Health Screening 09/07/2025 09/07/2024 DTaP,Tdap,and Td Vaccines (3 - Td or Tdap) 12/09/2031 12/08/2021, 03/16/2016 RSV Immunization Adult Patients (1 - 1-dose 75+ series) 12/09/2070 Pneumococcal Vaccine: Pediatrics (0 to 5 Years) and At-Risk Patients (6 to 49 Years) Completed 03/03/2023 HIB Vaccines Aged Out No longer eligi ble based on patient's age to complete this topic Hepatitis A Vaccines Aged Out No long er eligible based on patient's age to complete this topic IPV Vaccines Aged Out No longer eligi ble based on patient's age to complete this topic MMR Vaccines Aged Out No longer eligi ble based on patient's age to complete this topic Meningococcal ACWY Vaccine Aged Out N o longer eligible based on patient's age to complete this topic Meningococcal B Vaccine Aged Out No l onger eligible based on patient's age to complete this topic RSV Immunization Patients Under 20 months Aged Out No longer eligible based on patient's age to complete this topic Varicella Vaccines Aged Out No longer eligible based on patient's age to complete this topic Procedures Procedure Name Priority Date/Time Associated Diagnosis Comments ECG ANNOTATED 05/03/2025 CT ANGIO CHEST WO AND/OR W CONTRAST STAT 05/02/2025 4:14 AM EDT Shortness of breath LACTATE, WITH REFLEX STAT 05/02/2025 3:45 AM EDT ECG 12-LEAD STAT 05/02/2025 1:46 AM EDT XR CHEST 2 VIEWS STAT 05/02/2025 1:44 AM EDT PROCALCITONIN Add-On 05/02/2025 1:41 AM EDT D-DIMER STAT 05/02/2025 1:41 AM EDT ACTIVATED PARTIAL THROMBOPLASTIN TIME STAT 05/02/2025 1:41 AM EDT PROTHROMBIN TIME WITH INR STAT 05/02/2025 1:41 AM EDT CBC WITH AUTO DIFFERENTIAL STAT 05/02/2025 1:41 AM EDT CBC AND DIFFERENTIAL STAT 05/02/2025 1:41 AM EDT TROPONIN I HIGH SENSITIVITY STAT 05/02/2025 1:41 AM EDT HCG, SERUM, QUALITATIVE STAT 05/02/20 1:41 AM EDT MAGNESIUM STAT 05/02/2025 1:41 AM EDT COMPREHENSIVE METABOLIC PANEL STAT 05/02/2025 1:41 AM EDT B-TYPE NATRIURETIC PEPTIDE STAT 05/02/2025 1:41 AM EDT POC , URINE DIAGNOSTIC STAT 05/02/2025 1:24 AM EDT RESPIRATORY VIRUS PANEL MOLECULAR STUDY STAT 05/02/2025 1:22 AM EDT from Last 3 Months Results * ECG-Annotated (05/03/2025) us Provider Onbase MD ECG ORDERABLES Final Result * CT Angio Chest wo and/or w Contrast (05/02/2025 4:14 AM EDT) Anatomical Region Laterality Modality Body Computed Tomogra phy 05/02/2025 7:34 AM EDT Impressions 05/02/2025 7:43 AM EDT Impression: Nondiagnostic exam for evaluation of pulmonary thromboembolic disease due to poor pulmonary artery opacification. No right heart strain is identified. Telerad YAZ ([id number]) -------- FINAL REPORT -------- Dictated By: Yoko Sparks Dictated Date: 05/02/2025 07:34 ET Assigned Physician: Yoko Sparks Reviewed and Electronically Signed By: Yoko Sparks Signed Date: 05/02/2025 07:43 ET Workstation ID: [id number] Transcribed By: Self Edit Transcribed Date: 05/02/2025 07:34 ET Narrative 05/02/2025 7:43 AM EDT History: Dyspnea. TECHNIQUE: Helical volumetric imaging of the thorax was performed in the axial plane during the rapid, uneventful intravenous administration of 90 mL Isovue-370, using the CT angiography protocol tailored for evaluation of the pulmonary arteries. Coronal and sagittal images were reformatted from the original data set and maximum intensity pixel images were reviewed, in multiple planes, on an independent CT workstation. DLP: 1479.84 mGy/cm [employer] VCT Iterative reconstruction technique Findings: Opacification of the pulmonary arteries is poor, with attenuation of the main pulmonary artery only 168HU, potentially obscuring pulmonary thromboembolic disease. No large central embolus is identified. There is no pattern of right heart strain. Mild multichamber cardiomegaly is noted. The thoracic aorta is normal in caliber and is homogeneously opacified. No pleural or pericardial effusions are seen. No thoracic lymphadenopathy is identified. The trachea and central bronchial tree are patent. There is minimal dependent density in the right lower lobe, possibly atelectasis. No suspicious pulmonary nodule is seen. A small portion of the upper abdomen included on the lowest images through the thorax is without significant abnormality. A small hemangioma is seen within the T12 vertebral body. Procedure Note Yoko Sparks MD - 05/02/2025 History: Dyspnea. TECHNIQUE: Helical volumetric imaging of the thorax was performed in theaxial plane during the rapid, uneventful intravenous administration of 90mL Isovue-370, using the CT angiography protocol tailored for evaluationof the pulmonary arteries. Coronal and sagittal images were reformattedfrom the original data set and maximum intensity pixel images werereviewed, in multiple planes, on an independent CT workstation. DLP: 1479.84 mGy/cm [employer] VCT Iterative reconstruction technique Findings: Opacification of the pulmonary arteries is poor, with attenuation of themain pulmonary artery only 168HU, potentially obscuring pulmonarythromboembolic disease. No large central embolus is identified. There isno pattern of right heart strain. Mild multichamber cardiomegaly is noted.The thoracic aorta is normal in caliber and is homogeneously opacified. No pleural or pericardial effusions are seen. No thoracic lymphadenopathyis identified. The trachea and central bronchial tree are patent. There is minimaldependent density in the right lower lobe, possibly atelectasis. Nosuspicious pulmonary nodule is seen. A small portion of the upper abdomen included on the lowest images throughthe thorax is without significant abnormality. A small hemangioma is seen within the T12 vertebral body. IMPRESSION: Impression: Nondiagnostic exam for evaluation of pulmonary thromboembolic disease dueto poor pulmonary artery opacification. No right heart strain isidentified. Naymit YAZ ([id number]) -------- FINAL REPORT -------- Dictated By: Yoko Sparks Dictated Date: 05/02/2025 07:34 ET Assigned Physician: Yoko Sparks Reviewed and Electronically Signed By: Yoko Sparks Signed Date: 05/02/2025 07:43 ET Workstation ID: [id number] Transcribed By: Self Edit Transcribed Date: 05/02/2025 07:34 ET Osman MUKHERJEE IMG CT PROCEDURES Final Res ult * Lactate, with Reflex (05/02/2025 3:45 AM EDT) [facility] LACTIC ACID 1.2 0.4 - 2.0 mmol/L LAB CHEMISTRY METHOD 05/02/2025 4:23 AM EDT [facility] Blood Venous blood specimen / Unknown Venipuncture / Unknown 05/02/2025 3:45 AM EDT 05/02/2025 3:52 AM EDT Osman MUKHERJEE LAB BLOOD ORDERABLES Final Result [facility] [address] [place] [address], [place] [phone] * 12-Lead ECG (05/02/2025 1:46 AM EDT) [facility] Ventricular Rate ECG 113 BPM GEMUSE Atrial Rate 113 BPM GEMUSE P-R Interval 160 ms GEMUSE QRS Duration 98 ms GEMUSE Q-T Interval 362 ms GEMUSE QTc 496 ms GEMUSE P Wave [place] 48 degrees GEMUSE R [place] 0 degrees GEMUSE T [place] 54 degrees GEMUSE ECG Interpretation Sinus tachycardia Nonspecific ST abnormality When compared with ECG of 06-SEP-2024 05:00, No significant change was found Confirmed by MICAH CORDOBA ([id number]) on 05/03/2025 8:50:00 AM GEMUSE 05/02/2025 1:46 AM EDT 05/03/2025 8:50 AM EDT us Osman MUKHERJEE ECG ORDERABLES Final Resul t GEMUSE * XR Chest 2 Views (05/02/2025 1:44 AM EDT) Anatomical Region Laterality Modality Body Radiographic Ana Rosa ging 05/02/2025 9:20 AM EDT Impressions 05/02/2025 9:21 AM EDT Impression: Stable radiographic appearance of the chest. No active pulmonary process identified. Telejuve MUKHERJEE ([id number]) -------- FINAL REPORT -------- Dictated By: Yoko Sparks Dictated Date: 05/02/2025 09:20 ET Assigned Physician: Yoko Sparks Reviewed and Electronically Signed By: Yoko Sparks Signed Date: 05/02/2025 09:21 ET Workstation ID: [id number] Transcribed By: Self Edit Transcribed Date: 05/02/2025 09:20 ET Narrative 05/02/2025 9:21 AM EDT History: Cough. Comparison: 04/05/23 Findings: PA and lateral views. The cardiac silhouette remains normal in size. Hilar contours and pulmonary vascularity are within normal limits. The lungs are clear. The costophrenic angles are sharp. The regional skeleton is unremarkable. Procedure Note Yoko Sparks MD - 05/02/2025 History: Cough. Comparison: 04/05/23 Findings: PA and lateral views. The cardiac silhouette remains normal in size. Hilarcontours and pulmonary vascularity are within normal limits. The lungs areclear. The costophrenic angles are sharp. The regional skeleton is unremarkable. IMPRESSION: Impression: Stable radiographic appearance of the chest. No active pulmonary processidentified. Nevin MUKHERJEE ([id number]) -------- FINAL REPORT -------- Dictated By: Yoko Sparks Dictated Date: 05/02/2025 09:20 ET Assigned Physician: Yoko Sparks Reviewed and Electronically Signed By: Yoko Sparks Signed Date: 05/02/2025 09:21 ET Workstation ID: [id number] Transcribed By: Self Edit Transcribed Date: 05/02/2025 09:20 ET Osman MUKHERJEE IMG XR PROCEDURES Final Res ult * Troponin I High Sensitivity (05/02/2025 1:41 AM EDT) [facility] High Sensitivity Troponin I <3 <=54 ng/L LAB CHEMISTRY METHOD 05/02/2025 2:24 AM EDT [facility] Blood Venous blood specimen / Unknown Venipuncture / Unknown 05/02/2025 1:41 AM EDT 05/02/2025 1:55 AM EDT Narrative [facility] - 05/02/2025 2:24 AM EDT High levels of biotin in samples may falsely decrease hsTroponin values. Use caution when interpreting hsTroponin results in patients taking biotin who exhibit renal impairment (eGFR <60) or in patients taking more than 20 mg/day of biotin. Osman MUKHERJEE LAB BLOOD ORDERABLES Final Result [facility] [address] [place] [address], * Procalcitonin (05/02/2025 1:41 AM EDT) [facility] Procalcitonin <0.02 <=0.16 ng/mL LAB CHEMISTRY METHOD 05/02/2025 10:47 AM EDT [facility] Blood Venous blood specimen / Unknown Venipuncture / Unknown 05/02/2025 1:41 AM EDT 05/02/2025 1:55 AM EDT Narrative [facility] - 05/02/2025 10:47 AM EDT Procalcitonin > 2.00 ng/ml: Procalcitonin Levels above 2.00 ng/ml, on the first day of ICU admission represent a high risk for progression to severe sepsis and/or septic shock. Procalcitonin < 0.50 ng/ml: Procalcitonin levels below 0.50 ng/ml on the first day of ICU admission represent a low risk for progression to severe sepsis and/or septic shock. Concentrations <0.5 ng/mL do not exclude an infection, on account of local ized infections (without systemic signs) which can be associated with such low concentrations, or a systemic infection in its initial stages (<6 hours). Furthermore, increased procalcitonin can occur without infection. PCT concentrations between 0.5 and 2.0 ng/mL should be interpreted taking into account the patient's history. It is recommended to retest PCT within 6-24 hours if any concentrations <2.0 ng/mL are obtained. us Osman MUKHERJEE LAB BLOOD ORDERABLES Final Result [facility] [address] [place] [address], * (ABNORMAL) CBC auto differential (05/02/2025 1:41 AM EDT) WBC 10.5 4.8 - 10.8 K/mcL LAB HEMETOLOGY METHOD 05/02/2025 2:02 AM EDT [facility] RBC 4.30 3.80 - 4.80 M/mcL LAB HEMETOLOGY METHOD 05/02/2025 2:02 AM EDT [facility] Hemoglobin 9.6(L) 11.5 - 16.0 g/dL LAB HEMETOLOGY METHOD 05/02/2025 2:02 AM [facility] Hematocrit 31.9(L) 35.0 - 47.0 % LAB HEMETOLOGY METHOD 05/02/2025 2:02 AM [facility] MCV 73.5(L) 79.0 - 98.0 FL LAB HEMETOLOGY METHOD 05/02/2025 2:02 AM [facility] MCH 22.1(L) 27.0 - 32.0 pcg LAB HEMETOLOGY METHOD 05/02/2025 2:02 AM [facility] MCHC 30.1(L) 32.0 - 37.0 g/dL LAB HEMETOLOGY METHOD 05/02/2025 2:02 AM [facility] RDW 18.6(H) 11.0 - 15.0 % LAB HEMETOLOGY METHOD 05/02/2025 2:02 AM [facility] Platelets 350 130 - 400 K/mcL LAB HEMETOLOGY METHOD 05/02/2025 2:02 AM [facility] MPV 10.7 7.0 - 11.0 FL LAB HEMETOLOGY METHOD 05/02/2025 2:02 AM [facility] NRBC 0.0 <1.0 % LAB HEMETOLOGY METHOD 05/02/2025 2:02 AM [facility] NRBC Absolute 0.00 <0.10 K/mcL LAB HEMETOLOGY METHOD 05/02/2025 2:02 AM [facility] Neutrophils Relative 67.7 % LAB HEMETOLOGY METHOD 05/02/2025 2:02 AM [facility] Lymphocytes Relative 25.1 % LAB HEMETOLOGY METHOD 05/02/2025 2:02 AM [facility] Monocytes Relative 4.8 % LAB HEMETOLOGY METHOD 05/02/2025 2:02 AM EDT [facility] Eosinophils Relative 1.8 % LAB HEMETOLOGY METHOD 05/02/2025 2:02 AM EDT [facility] Basophils Relative 0.3 % LAB HEMETOLOGY METHOD 05/02/2025 2:02 AM EDT [facility] Immature Granulocytes Relative 0.3 % LAB HEMETOLOGY METHOD 05/02/2025 2:02 AM EDT [facility] Neutrophils Absolute 7.08(H) 1.50 - 7.00 K/mcL LAB HEMETOLOGY METHOD 05/02/2025 2:02 AM EDT [facility] Lymphocytes Absolute 2.62 1.00 - 5.00 K/mcL LAB HEMETOLOGY METHOD 05/02/2025 2:02 AM EDT [facility] Monocytes Absolute 0.50 0.20 - 1.00 K/mcL LAB HEMETOLOGY METHOD 05/02/2025 2:02 AM EDT [facility] Eosinophils Absolute 0.19 0.00 - 0.50 K/mcL LAB HEMETOLOGY METHOD 05/02/2025 2:02 AM EDT [facility] Basophils Absolute 0.03 0.00 - 0.20 K/mcL LAB HEMETOLOGY METHOD 05/02/2025 2:02 AM EDT [facility] Immature Granulocytes Absolute 0.03 0.00 - 0.03 K/mcL LAB HEMETOLOGY METHOD 05/02/2025 2:02 AM T [facility] Blood Venous blood specimen / Unknown Venipuncture / Unknown 05/02/2025 1:41 AM EDT 05/02/2025 1:55 AM EDT us Osman MUKHERJEE LAB BLOOD ORDERABLES Final Result [facility] [address] [place] [address], [place] [phone] * APTT (05/02/2025 1:41 AM EDT) [facility] aPTT 33.6 24.1 - 39.3 sec LAB COAGULATION METHOD 05/02/2025 2:13 AM EDT [facility] Blood Venous blood specimen / Unknown Venipuncture / Unknown 05/02/2025 1:41 AM EDT 05/02/2025 1:55 AM EDT Osman MUKHERJEE LAB BLOOD ORDERABLES Final Result Performing Organization Address City/[facility]/ZIP Co de Phone Number [facility] [address] [place] [address], [place] [phone] * Protime-INR (05/02/2025 1:41 AM EDT) [facility] Protime 12.6 10.6 - 13.9 sec LAB COAGULATION METHOD 05/02/2025 2:12 AM EDT [facility] INR 1.0 LAB COAGULATION METHOD 05/02/2025 2:12 AM EDT [facility] Blood Venous blood specimen / Unknown Venipuncture / Unknown 05/02/2025 1:41 AM EDT 05/02/2025 1:55 AM EDT Osman MUKHERJEE LAB BLOOD ORDERABLES Final Result [facility] [address] [place] [address], [place] [phone] * (ABNORMAL) D-Dimer (Quantitative) (05/02/2025 1:41 AM EDT) [facility] D-Dimer, Quant (D-DU) 364(H) <=230 ng/mL DDU LAB COAGULATION METHOD 05/02/2025 2:13 AM EDT [facility] Blood Venous blood specimen / Unknown Venipuncture / Unknown 05/02/2025 1:41 AM EDT 05/02/2025 1:55 AM EDT Narrative [facility] - 05/02/2025 2:13 AM EDT D-Dimer <230 ng/mL (D-Dimer units) is the threshold for exclusion of DVT/PE. D-Dimer may be elevated in: Critically ill, severely infected, trauma patients, DIC, acute CVA, acute OR, unstable angina, AF, old age, , and smoking. D-Dimer may be decreased with: Initiation of heparin therapy and oral anticoagulants. us Osman MUKHERJEE LAB BLOOD ORDERABLES Final Result Performing Organization Address City/[facility]/ZIP Co de Phone Number [facility] [address] [place] [address], [place] [phone] * hCG Qualitative (05/02/2025 1:41 AM EDT) hCG Qual Negative Negative 05/02/2025 2:19 AM EDT [facility] Blood Venous blood specimen / Unknown Venipuncture / Unknown 05/02/2025 1:41 AM EDT 05/02/2025 1:55 AM EDT us Osman MUKHERJEE LAB BLOOD ORDERABLES Final Result Performing Organization Address City/[facility]/ZIP Co de Phone Number [facility] [address] [place] [address], [place] [phone] * B-Type Natriuretic Peptide (BNP) (05/02/2025 1:41 AM EDT) BNP 12 <=100 pcg/mL LAB CHEMISTRY METHOD 05/02/2025 2:30 AM EDT [facility] Blood Venous blood specimen / Unknown Venipuncture / Unknown 05/02/2025 1:41 AM EDT 05/02/2025 1:55 AM EDT Osman MUKHERJEE LAB BLOOD ORDERABLES Final Result Performing Organization Address City/[facility]/ZIP Co de Phone Number [facility] [address] [place] [address], [place] [phone] * Magnesium (05/02/2025 1:41 AM EDT) [facility] Magnesium 1.9 1.9 - 2.6 mg/dL LAB CHEMISTRY METHOD 05/02/2025 2:25 AM EDT [facility] Blood Venous blood specimen / Unknown Venipuncture / Unknown 05/02/2025 1:41 AM EDT 05/02/2025 1:55 AM EDT Osman MUKHERJEE LAB BLOOD ORDERABLES Final Result Performing Organization Address [facility]/ZIP Co de Phone Number [facility] [address] [place] [address], [place] [phone] * (ABNORMAL) Comprehensive Metabolic Panel (CMP) (05/02/2025 1:41 AM EDT) [facility] Sodium 139 133 - 145 mmol/L LAB CHEMISTRY METHOD 05/02/2025 2:35 AM T [facility] Potassium 3.0(L) 3.5 - 5.5 mmol/L LAB CHEMISTRY METHOD 05/02/2025 2:35 AM EDT [facility] Chloride 105 96 - 110 mmol/L LAB CHEMISTRY METHOD 05/02/2025 2:35 AM EDT [facility] CO2 25 21 - 32 mmol/L LAB CHEMISTRY METHOD 05/02/2025 2:35 AM EDT [facility] Anion Gap 9 3 - 11 LAB CHEMISTRY METHOD 05/02/2025 2:35 AM EDT [facility] Glucose 113(H) 70 - 100 mg/dL LAB CHEMISTRY METHOD 05/02[facility]2025 2:[facility] BUN 10 5 - 25 mg/dL LAB CHEMISTRY METHOD 05/02/2025 2:35 AM [facility] Creatinine 0.75 0.50 - 1.10 mg/dL LAB CHEMISTRY METHOD 05/02/2025 2:35 AM [facility] eGFR 111 >=60 mL/min/1. 73m2 LAB CHEMISTRY METHOD 05/02/2025 2:35 AM [facility] Comment:Calculation based on the Chronic Kidney Disease Epidemiology Collaboration (CKD-EPI) equation refit without adjustment for race. BUN/Creatinine Ratio 13.3 LAB CHEMISTRY METHOD 05/02/2025 2:35 AM [facility] Calcium 9.3 8.5 - 10.5 mg/dL LAB CHEMISTRY METHOD 05/02/2025 2:35 AM [facility] AST (SGOT) 19 10 - 42 unit/L LAB CHEMISTRY METHOD 05/02/2025 2:35 AM [facility] ALT (SGPT) 30 10 - 60 unit/L LAB CHEMISTRY METHOD 05/02/2025 2:35 AM [facility] Alkaline Phosphatase 78 42 - 121 unit/L LAB CHEMISTRY METHOD 05/02/2025 2:35 AM [facility] Total Protein 7.2 6.0 - 8.0 g/dL LAB CHEMISTRY METHOD 05/02/2025 2:35 AM [facility] Albumin 4.0 3.2 - 5.0 g/dL LAB CHEMISTRY METHOD 05/02/2025 2:35 AM [facility] Total Bilirubin 0.3 0.0 - 1.4 mg/dL LAB CHEMISTRY METHOD 05/02/2025 2:35 AM [facility] Blood Venous blood specimen / Unknown Venipuncture / Unknown 05/02/2025 1:41 AM EDT 05/02/2025 1:55 AM EDT [facility] LAB BLOOD ORDERABLES Final Result [facility] [address] [place] [address], [place] [phone] * POC , urine manually resulted (05/02/2025 1:24 AM EDT) [facility] HCG, Ur POC Negative Negative Urine Urine specimen obtained by clean catch procedure / Unknown 05/02/2025 1:24 AM EDT [facility] POINT OF CARE TEST ENTER/ED IT ORDERABLES Final Result * Respiratory virus panel molecular study (05/02/2025 1:22 AM EDT) [facility] Adenovirus Detection by PCR Not Detected Not Detected LAB MICROBIOLOGY METHOD 05/02/2025 2:51 AM EDT [facility] Influenza A PCR Not Detected Not Detected LAB MICROBIOLOGY METHOD 05/02/2025 2:51 AM EDT [facility] Influenza B PCR Not Detected Not Detected LAB MICROBIOLOGY METHOD 05/02/2025 2:51 AM EDT [facility] Coronavirus 229E Not Detected Not Detected LAB MICROBIOLOGY METHOD 05/02/2025 2:51 AM EDT [facility] Coronavirus HKU1 Not Detected Not Detected LAB MICROBIOLOGY METHOD 05/02/2025 2:51 AM EDT [facility] Coronavirus OC43 Not Detected Not Detected LAB MICROBIOLOGY METHOD 05/02/2025 2:51 AM EDT [facility] Coronavirus NL63 Not Detected Not Detected LAB MICROBIOLOGY METHOD 05/02/2025 2:51 AM EDT [facility] Parainfluenza Virus 1 Not Detected Not Detected LAB MICROBIOLOGY METHOD 05/02/2025 2:51 AM EDT [facility] Parainfluenza Virus 2 Not Detected Not Detected LAB MICROBIOLOGY METHOD 05/02/2025 2:51 AM EDT [facility] Parainfluenza Virus 3 Not Detected Not Detected LAB MICROBIOLOGY METHOD 05/02/2025 2:51 AM EDT [facility] Parainfluenza Virus 4 Not Detected Not Detected LAB MICROBIOLOGY METHOD 05/02/2025 2:51 AM EDT [facility] RSV PCR Not Detected Not Detected LAB MICROBIOLOGY METHOD 05/02/2025 2:51 AM EDT [facility] Human Metapneumovirus A and B Not Detected Not Detected LAB MICROBIOLOGY METHOD 05/02/2025 2:51 AM EDT [facility] Rhinovirus/Entero virus Not Detected Not Detected LAB MICROBIOLOGY METHOD 05/02/2025 2:51 AM EDT [facility] Bordetella pertussis Not Detected Not Detected LAB MICROBIOLOGY METHOD 05/02/2025 2:51 AM EDT [facility] Bordetella parapertussis Not Detected Not Detected LAB MICROBIOLOGY METHOD 05/02/2025 2:51 AM EDT [facility] Mycoplasma pneumo by PCR Not Detected Not Detected LAB MICROBIOLOGY METHOD 05/02/2025 2:51 AM EDT [facility] Chlamydia pneumoniae Not Detected Not Detected LAB MICROBIOLOGY METHOD 05/02/2025 2:51 AM EDT [facility] SARS COV-2 Not Detected Not Detected LAB MICROBIOLOGY METHOD 05/02/2025 2:51 AM EDT [facility] Swab Nasopharyngeal structure / Unknown Non-blood Collection / Unknown 05/02/2025 1:22 AM EDT 05/02/2025 1:57 AM EDT [facility] - 05/02/2025 2:51 AM EDT Testing was performed using the Re-vinyl Respiratory Pathogen PCR Assay. All results must be correlated with the clinical findings. Results should not be used as the sole basis for diagnosis. False Negative results may occur from the presence of sequence variants in the region targeted by the assay or the presence of inhibitors. Results may be affected by concurrent antiviral/antimicrobial therapy or levels of organisms that are below the limit of detection. us [facility] LAB MICROBIOLOGY - GENERAL ORDERABLES Final Result [facility] [address] [place] [address], [place] [phone] from Last 3 Months Insurance [place] - [place] Advance Directives * Full Code - Default (Latest Code Status on File) Date Activated Date Inactivated Comments 09/06/2024 10:49 AM 09/08/2024 6:39 PM This is ord er is used when code status has not been discussed with the patient, or code status is otherwise unknown/unconfirmed To update the patient's code status, place a code status order. Do not modify or discontinue any currently active code status orders. 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
[2025-06-22 07:20] VITALS: BP 87/51; PULSE 68; RESP 18; TEMP 36.4; O2SAT 99
[2025-06-22] MEDS: oxyCODONE HCl Immed Release 5 MG TABLET PO (07:30)
[2025-06-22 07:34] LABS: Hematocrit 30.6 % (37.0-47.0); Hemoglobin 9.8 g/dl (12.0-16.0); Mean Corpuscular HGB Conc 32.0 g/dl (31.0-35.0); Mean Corpuscular Hemoglobin 23.0 pg (27.0-33.0); Mean Corpuscular Volume 71.8 fL (80.0-98.0); NRBC Abs Auto 0.000 X10*3/uL (0.0-0.012); NRBC Pct Auto 0.0 /100WBC (0.0-0.2); Platelet Count 308 X10*3/uL (160-400); Red Blood Count 4.26 X10*6/uL (4.20-5.50); White Blood Count 6.6 X10*3/uL (4.8-10.8)
[2025-06-22 08:07] VITALS: BP 106/67; PULSE 71; RESP 16
[2025-06-22 08:45] VITALS: BP 87/57; PULSE 62; RESP 16; O2SAT 97
[2025-06-22] MEDS: Lactated Ringers 1,000 ML 999 ML IV (08:51)
--- NOTE | 2025-06-22 09:16 | PC.NURSE ---
MD aware of ongoing BP issues. medicated per MAR
[2025-06-22 10:04] VITALS: BP 112/71; PULSE 69; RESP 16; O2SAT 98
[2025-06-22 10:32] VITALS: BP 112/71; PULSE 69; RESP 16; TEMP -17.7; TEMP 0; O2SAT 98
== END 2025-06-22 10:33 | disposition home or self-care (01) ==
PROVIDERS: Physician Assistant; Emergency Provider Emergency Medicine; PCP Internal Medicine
DX: N92.0 Excessive and frequent menstruation with regular cycle (principal); I95.9 Hypotension, unspecified; E86.0 Dehydration; Z87.42 Personal history of other diseases of the female genital tract; Z79.899 Other long term (current) drug therapy
CPT/HCPCS: 36415; 76830; 76856; 80053; 81001; 81025; 85025; 85027; 93975; 96361; 96372; 96374; 99284; J1885; J2405; J7120

== ENCOUNTER → 2025-06-22 | Outpatient (BNV) | payer MEDICAID, SELFPAY | PROVIDERS: Visit Provider Radiology Diagnostic Radiology | DX: N93.9 Abnormal uterine and vaginal bleeding, unspecified (principal); R10.32 Left lower quadrant pain | CPT/HCPCS: 76830; 76856 ==

== ENCOUNTER 2025-07-04 09:00 | Emergency (ER) | payer SELFPAY ==
--- NOTE | ~2025-07-04 | XR_ITS ---
EXAMINATION: XR CHEST 2 VIEWS HISTORY: cough/sob COMPARISON: Comparison is made with the prior examination dated 10/27/2024. FINDINGS: PA and lateral views of the chest are submitted. The lungs are expanded and clear. There is no pleural effusion, pneumothorax, or pulmonary vascular congestion. The heart is normal in size. 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 XR/XR chest 2V IMPRESSION: No acute cardiopulmonary abnormality. Electronically signed by: Bhavik Hays MD 07/04/2025 09:38 AM [facility]
[2025-07-04 09:02] VITALS: BP 123/97; PULSE 107; RESP 18; TEMP 36.9; O2SAT 97; BMI 39.7
--- NOTE | 2025-07-04 09:20 | ED.URI ---
HPI - URI/Sore Throat General Chief Complaint: Upper Respiratory Symptoms Stated Complaint: resp issues, throat pain, headaches, fever Time Seen by Provider: 07/04/25 09:11 Source: patient, RN notes reviewed and old records reviewed Mode of arrival: ambulatory History of Present Illness ED Provider: Rosy Esteban PA-C HPI Narrative: 29-year-old female with a past medical history of asthma, PTSD, anemia, arthritis, presenting to the ED complaining of sore throat, dry cough, SOB, chest discomfort when coughing since yesterday. Also reports fever T-max 102 degrees, took Tylenol around 06:00. Admits to using inhaler this morning. Denies recent travel, difficulty/inability to swallow. 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 Related Data Previous Rx's ?Medication ?Instructions ?Recorded albuterol sulfate 90 mcg/actuation 1 inh inhalation QID PRN shortness 09/20/21 aerosol inhaler of breath or wheezing #6.7 grams albuterol sulfate 0.63 mg/3 mL 0.63 mg (3 mL) inhalation Q4-6H 09/23/21 solution for nebulization PRN shortness of breath or wheezing #75 mL amoxicillin 875 mg-potassium 1 tab PO TID #21 tabs 06/03/23 clavulanate 125 mg tablet benzonatate 100 mg capsule 100 mg PO TID PRN cough 5 days #14 06/12/23 caps ondansetron 4 mg disintegrating 4 mg PO Q6H PRN nausea and 09/30/23 tablet vomiting #10 tabs levofloxacin 750 mg tablet 750 mg PO DAILY #5 tabs 10/08/23 ondansetron 4 mg disintegrating 4 mg PO Q8H PRN nausea and 10/08/23 tablet vomiting 4 days #4 tabs ondansetron 4 mg disintegrating 4 mg PO Q8H PRN nausea and 06/24/24 tablet vomiting #20 tabs prednisone 20 mg tablet 40 mg (2 x 20 mg) PO DAILY #8 tabs 07/28/24 azithromycin 250 mg tablet 250 mg PO DAILY 4 days #4 tabs 10/28/24 budesonide-formoterol HFA 160 2 puff inhalation BID #10.2 grams 10/28/24 mcg-4.5 mcg/actuation aerosol inhaler prednisone 20 mg tablet 20 mg PO DAILY #12 tabs 10/28/24 ferrous sulfate 325 mg (65 mg 325 mg PO DAILY #30 tabs 06/22/25 iron) tablet (iron) medroxyprogesterone 10 mg tablet 10 mg PO DAILY 5 days #5 tabs 06/22/25 (Provera) ondansetron 4 mg disintegrating 4 mg PO Q8H PRN nausea and 06/22/25 tablet vomiting #4 tabs Allergies Allergy/AdvReac Type Severity Reaction Status Date / Time apricot (APRICOT) Allergy Unknown RASH Verified 07/04/25 09:07 cephalexin (From KEFLEX) Allergy Unknown RASH Verified 07/04/25 09:07 Review of Systems Review of Systems: Yes all other systems are reviewed and are negative Constitutional: Constitutional: Reports as per [facility] Past Medical History Attestation statement: The following information was validated with the patient. Source: old records reviewed Medical History History of COVID-19 Adjustment disorder in remission Morbid obesity History of posttraumatic stress disorder (PTSD) History of adjustment disorder Microcytic hypochromic anemia Mass of left upper extremity Heavy menstrual bleeding Spondyloarthropathy Mild intermittent asthma Closed right tibial fracture Tibia/fibula fracture Arthritis Surgical History Hx of section H/O foot surgery Family History Family History Father Diabetes Mother Thyroid disease Social History Social History Household Members: Other Housing: House Do you presently have visiting nurse or other home services: No Alcohol intake: never Patient Tobacco Use Status: Never used Tobacco e-Cigarette/Vaping Use: Never Used Substance Use Type: Marijuana Advance Directives: No Advance Directives Information Provided: No service: No Current occupational status: employed 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, 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 Gender identity: Female Cognitive needs: No Hearing needs: No Vision needs: No Physical Exam Vital Signs: Vital Signs: Last Vital Signs Temp 98.4 F 07/04/25 10:37 Pulse 107 H 07/04/25 10:37 Resp 18 07/04/25 10:37 BP 123/97 H 07/04/25 10:37 Pulse Ox 97 07/04/25 10:37 O2 Del Method Room Air 07/04/25 10:37 BMI result Body Mass Index 39.7 Const: General: cooperative, healthy appearing and no acute distress Orientation/consciousness: patient oriented x3 Limitations: no limitations HEENT: Head: Yes normal to inspection and Yes atraumatic Ears: hearing grossly normal bilaterally and external ears normal General nose exam: Normal external nose present Face and sinus: Yes normal facial exam Mouth: Normal oral and palatal mucosa present Throat: Yes posterior oropharynx normal, Yes tonsils normal, Yes uvula midline, No peritonsillar mass, No uvula laterally displaced and No uvular edema Eyes: General: appearance normal, both eyes and all related structures EOM: EOMs intact bilaterally Neck: Neck: Yes normal visual inspection and Yes no meningeal signs Resp: Effort & Inspection: normal respiratory effort, Actively coughing Quality: dry, not labored, no respiratory distress and no stridor Auscultation: clear to auscultation bilaterally and wheezes inspiratory wheezes Cardio: Rate: regular rate and tachycardic Heart sounds: S1 normal heart sound present and S2 normal heart sound present Skin: Rashes: no rashes Wounds: no wounds Neuro: General: patient oriented x3, tone normal and no meningeal signs Cranial nerves: Yes CN's II-XII intact bilaterally Gait exam (Neuro): Normal gait present Extrem: General: Yes normal to inspection Course Course Course Narrative: 1029-- chest x-ray unremarkable. COVID-19 positive. > Discussed with patient prednisone for asthma however like to defer at this time Results discussed with patient including worrisome signs and symptoms and strict return precautions, and when to return to the emergency department. They verbalized understanding and feel safe for discharge at this time. Medications Administered Discontinued Medications Generic Name Dose Route Start Last Admin Trade Name Freq PRN Reason Stop Dose Admin Albuterol Sulfate 12 puff 07/04/25 09:53 07/04/25 09:55 Albuterol Sulfate 90 Mcg 8 Gm Inhaler INHALE 07/04/25 09:54 12 puff ONCE ONE Administration Medical Decision Making Medical Decision Making [facility] Narrative: 29-year-old female with a past medical history of asthma, PTSD, anemia, arthritis, presenting to the ED complaining of sore throat, dry cough, SOB, chest discomfort when coughing since yesterday. 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 No respiratory distress. Concern for viral illness vs strep pharyngitis vs asthma exacerbation vs bronchitis. rule out pneumonia. Low suspicion for severe sepsis. Lower suspicion for ACS dissection. No evidence of FIRE AND SAFETY HELPER/retropharyngeal abscess Plan: viral testing, rapid strep, CXR, ED [facility] protocol Please refer to course for remaining clinical decision making, interpretation of labs/imaging results, and discussions with consultants and/or family members. Differential Diagnosis Differential Diagnoses: The differential diagnosis associated with the presentation includes As above Lab Data MDM Lab Attestation statement: I reviewed the patient's lab results. Labs: Lab Results 07/04/25 Range/Units 09:17 Influenza Type A (PCR) NEGATIVE (Negative) Influenza Type B (PCR) NEGATIVE (Negative) RSV RNA Qual (PCR) NEGATIVE (Negative) SARS-CoV-2 RNA (RT-PCR) POSITIVE A (Negative) S. pyogenes GrpA RAMONA Negative (Negative) Independent Interpretation I performed an independent interpretation of an: Plain X-Ray Radiology Impression Discussion of test interpretation with radiology: I have reviewed the radiologist's reading. External Record Review External record reviewed: Inpatient record, Office record, Outpatient record, Prior outpatient labs, Prior outpatient radiology, Primary care record and Outside ED record Tests considered The following testing was considered but not selected: As above Prescription Management I considered prescription management with: Pain Medication, Antiviral and Antibiotic Chronic Conditions Patient?s care impacted by: Other ( asthma) Social Determinants Patient?s care significantly limited by Social Determinants of Health including: Other Social Determinant of Health Discharge Plan Discharge Clinical Impression: COVID-19 Patient Disposition: Home, Self-Care Instructions: COVID-19 (Coronavirus Disease 2019) (ED) Additional Instructions: YOU HAVE COVID-19 At this time you will be okay for discharge. Please self isolate for 5 days. Do not expose yourself to others. You may not go to work or school. Please continue to follow cold instructions and wash your hands frequently. You may take Tylenol / Motrin as directed on the bottle for pain or fever. If you have constant or persistent shortness of breath, fever unresolved with medications, chest pain, or your unable to eat or drink please return to the ED CDC Guidelines for home isolation: - Stay away from others - WEAR A MASK if you are sick AND STAY HOME - Cover your mouth and nose with a tissue when you cough or sneeze. Dispose of tissues in a lined trash can and wash your hands immediately with soap and water for at least 20 seconds. If soap and water are not available, clean hands with alcohol-based hand water resources engineer that contains at least 60% alcohol. - Clean your hands often with soap and water for at least 20 seconds - Avoid touching your eyes, nose and mouth with unwashed hands - Do not share dishes, drinking glasses, cups, eating utensils, towels, or bedding with other people in your home. After using these items, wash them thoroughly with soap and water or put in the hydroponics grower. - Clean high-touch surfaces in your isolation area ( sick room and bathroom) every day; let a caregiver clean and disinfect high-touch surfaces in other areas of the home. Clean the area or item with soap and water or another detergent if it is dirty. Then, use a household disinfectant. - Limit contact with pets and animals: If you must care for a pet, wash your hands before and after interacting with them) Prescriptions: No Action albuterol sulfate 90 mcg/actuation HFA aerosol inhaler 1 inh inhalation QID PRN (Reason: shortness of breath or wheezing) Qty: 6.7 0RF albuterol sulfate 0.63 mg/3 mL solution for nebulization 0.63 mg inhalation Q4-6H PRN (Reason: shortness of breath or wheezing) Qty: 75 0RF amoxicillin-pot clavulanate 875-125 mg tablet 1 tab PO TID Qty: 21 0RF benzonatate 100 mg capsule 100 mg PO TID PRN (Reason: cough) 5 Days Qty: 14 0RF ondansetron 4 mg tablet,disintegrating 4 mg PO Q6H PRN (Reason: nausea and vomiting) Qty: 10 0RF levofloxacin 750 mg tablet 750 mg PO DAILY Qty: 5 0RF ondansetron 4 mg tablet,disintegrating 4 mg PO Q8H PRN (Reason: nausea and vomiting) 4 Days Qty: 4 0RF ondansetron 4 mg tablet,disintegrating 4 mg PO Q8H PRN (Reason: nausea and vomiting) Qty: 20 0RF prednisone 20 mg tablet 40 mg PO DAILY Qty: 8 0RF azithromycin 250 mg tablet 250 mg PO DAILY 4 Days Qty: 4 0RF Rx Instructions: start on day 2 of therapy prednisone 20 mg tablet 20 mg PO DAILY Qty: 12 0RF Rx Instructions: Take 3 tablets by mouth daily for 2 days then take 2 tablets by mouth daily for 3 days. budesonide-formoterol 160-4.5 mcg/actuation HFA aerosol inhaler 2 puff inhalation BID Qty: 10.2 0RF medroxyprogesterone [Provera] 10 mg tablet 10 mg PO DAILY 5 Days Qty: 5 0RF ondansetron 4 mg tablet,disintegrating 4 mg PO Q8H PRN (Reason: nausea and vomiting) Qty: 4 0RF ferrous sulfate [iron] 325 mg (65 mg iron) tablet 325 mg PO DAILY Qty: 30 0RF Referrals: Rylie Dawson MD [Primary Care Provider, Internal Medicine] - 1 week Stand Alone Forms: Work/School Release Interventions: ED Discharge Assessment Last Done: 07/04/25 10:37 Discharge Date/Time: 07/04/25 10:37 Print Language: Thai
[2025-07-04 09:30] LABS: Strep A Nucleic Acid Negative (Negative)
[2025-07-04] MEDS: Albuterol Sulfate 90 MCG 8 GM INHALER 12 PUFF INHALE (09:55)
[2025-07-04 10:08] LABS: Resp Syncy Virus RNA Qual PCR NEGATIVE (Negative); SARS COV2 PCR INHOUSE POSITIVE (Negative)
[2025-07-04 10:37] VITALS: BP 123/97; PULSE 107; RESP 18; TEMP 36.9; O2SAT 97
--- OUTSIDE RECORDS SUMMARY | 2025-07-04 10:38 | XMS_ITS | Clinical Summary ---
Author Organization [facility] Address [address] [place] [id number] Phone Care Team Providers Care Supervisor Mail Carriers Name Role Phone Rylie Dawson MD Primary [...] Problems Problem Noted Date Diagnosed Date Uncoded [place] Crohn's disease 08/21/2011 Overview (09/03/2014): NC Crohn's disease Social History Tobacco Use Types [...] topic Medical Devices Not on file Insurance [address] [address] [place] [address] [place] [address] [address] [place] [address] [place] [address] [place] [address] [address] ACO Care Teams Supervisor Mail Carriers Relationship Specialty Start Date End Date Rylie Dawson MD [address] [facility] [place] [address] PCP - General Internal Medicine 04/26/22 Additional Source Comments The information contained in this document represents components of the legal health record. It is not the complete legal health record.[facility]
--- OUTSIDE RECORDS SUMMARY | 2025-07-04 10:38 | XMS_ITS | Encounter Summary ---
Author Organization [facility] Address [address] [place] [phone] Phone Care Team Providers Care Medicinal Plant Picker Name Role Phone Unknown, Unknown Primary Care Provider Rylie Ca MD Primary Care Provider Encounter Details Date Type Department Care Team (Late st Contact Info) Description 09/22/2020 Procedure Pass [facility] Blow Pit Helper [address] [address] Social History Tobacco Use Types Packs/Day Years [...] documented as of this encounter Care Teams Medicinal Plant Picker Relationship Specialty Start Date End Date Unknown, Unknown, PCP - General 09/21/20 04/25/22 Rylie Dawson MD [address] [place] [address] PCP - General Internal Medicine 04/26/22 documented as of this encounter Additional Source Comments The information contained in this document represents components of the legal health record. It is not the complete legal health record.[facility]
--- OUTSIDE RECORDS SUMMARY | 2025-07-04 10:38 | XMS_ITS | Clinical Summary ---
Author Organization [facility] Address [address] [place] [address] Phone Care Team Providers Care Skelp Processor Name Role Phone Rylie Dawson MD Primary Care Provider [phone] Allergies Active Allergy Reactions Criticality Noted Date [...] EDT - 05/02/2025 8:58 AM EDT Emergency [facility] [address] [place] [address] Ghazal Reyes MD Wyman, Tim, [...] for your loved ones. For example, child health associate or elderly care for an older adult? [...] right heart strain is identified. [employer] YAZ ([id number]) -------- FINAL REPORT -------- Dictated By: Yoko Sparks Dictated Date: 05/02/2025 07:34 ET Assigned Physician: Yoko Sparks Reviewed and Electronically Signed By: Yoko Sparks Signed Date: 05/02/2025 07:43 ET Workstation ID: [id number] Transcribed By: Self Edit Transcribed Date: 05/02/2025 [...] independent CT workstation. DLP: 1479.84 mGy/cm GE ALENTYpeed VCT Iterative reconstruction technique Findings: Opacification of [...] independent CT workstation. DLP: 1479.84 mGy/cm GE ALENTYpeed VCT Iterative reconstruction technique Findings: Opacification of [...] artery opacification. No right heart strain isidentified. [employer] YAZ ([id number]) -------- FINAL REPORT -------- Dictated By: Yoko Sparks Dictated Date: 05/02/2025 07:34 ET Assigned Physician: Yoko Sparks Reviewed and Electronically Signed By: Yoko Sparks Signed Date: 05/02/2025 07:43 ET Workstation ID: [id number] Transcribed By: Self Edit Transcribed Date: 05/02/2025 07:34 ET Osman MUKHERJEE IMG CT PROCEDURES Final Res ult * Lactate, with Reflex (05/02/2025 3:45 AM EDT) [facility] LACTIC ACID 1.2 0.4 - 2.0 mmol/L LAB CHEMISTRY METHOD 05/02/2025 4:23 AM EDT [facility] Blood Venous blood specimen / Unknown Venipuncture / Unknown 05/02/2025 3:45 AM EDT 05/02/2025 3:52 AM EDT Osman MUKHERJEE LAB BLOOD ORDERABLES Final Result [facility] [address] [place] [address], [place] [phone] * 12-Lead ECG (05/02/2025 1:46 AM EDT) [facility] Ventricular Rate ECG 113 BPM GEMUSE Atrial Rate 113 BPM GEMUSE P-R Interval 160 ms GEMUSE QRS Duration 98 ms GEMUSE Q-T Interval 362 ms GEMUSE QTc 496 ms GEMUSE P Wave [place] 48 degrees GEMUSE R [place] 0 degrees GEMUSE T [place] 54 degrees GEMUSE ECG Interpretation Sinus tachycardia [...] No active pulmonary process identified. [employer] MUKHERJEE ([id number]) -------- FINAL REPORT -------- Dictated By: Yoko Sparks Dictated Date: 05/02/2025 09:20 ET Assigned Physician: Yoko Sparks Reviewed and Electronically Signed By: Yoko Sparks Signed Date: 05/02/2025 09:21 ET Workstation ID: [id number] Transcribed By: Self Edit Transcribed Date: 05/02/2025 [...] chest. No active pulmonary processidentified. Nevin MUKHERJEE ([id number]) -------- FINAL REPORT -------- Dictated By: Yoko Sparks Dictated Date: 05/02/2025 09:20 ET Assigned Physician: Yoko Sparks Reviewed and Electronically Signed By: Yoko Sparks Signed Date: 05/02/2025 09:21 ET Workstation ID: [id number] Transcribed By: Self Edit Transcribed Date: 05/02/2025 09:20 ET Osman MUKHERJEE IMG XR PROCEDURES Final Res ult * Troponin I High Sensitivity (05/02/2025 1:41 AM EDT) [facility] High Sensitivity Troponin I <3 <=54 ng/L LAB CHEMISTRY METHOD 05/02/2025 2:24 AM EDT [facility] Blood Venous blood specimen / Unknown Venipuncture / Unknown 05/02/2025 1:41 AM EDT 05/02/2025 1:55 AM EDT Narrative [facility] - 05/02/2025 2:24 AM EDT High levels of biotin in samples may falsely decrease hsTroponin values. Use caution when interpreting hsTroponin results in patients taking biotin who exhibit renal impairment (eGFR <60) or in patients taking more than 20 mg/day of biotin. Osman MUKHERJEE LAB BLOOD ORDERABLES Final Result [facility] [address] [place] [address], * Procalcitonin (05/02/2025 1:41 AM EDT) [facility] Procalcitonin <0.02 <=0.16 ng/mL LAB CHEMISTRY METHOD 05/02/2025 10:47 AM EDT [facility] Blood Venous blood specimen / Unknown Venipuncture / Unknown 05/02/2025 1:41 AM EDT 05/02/2025 1:55 AM EDT Narrative [facility] - 05/02/2025 10:47 AM EDT [...] Osman MUKHERJEE LAB BLOOD ORDERABLES Final Result [facility] [address] [place] [address], * (ABNORMAL) CBC auto differential (05/02/2025 1:41 AM EDT) WBC 10.5 4.8 - 10.8 K/mcL LAB HEMETOLOGY METHOD 05/02/2025 2:02 AM EDT [facility] RBC 4.30 3.80 - 4.80 M/mcL LAB HEMETOLOGY METHOD 05/02/2025 2:02 AM EDT [facility] Hemoglobin 9.6(L) 11.5 - 16.0 g/dL LAB HEMETOLOGY METHOD 05/02/2025 2:02 AM [facility] Hematocrit 31.9(L) 35.0 - 47.0 % LAB HEMETOLOGY METHOD 05/02/2025 2:02 AM [facility] MCV 73.5(L) 79.0 - 98.0 FL LAB HEMETOLOGY METHOD 05/02/2025 2:02 AM [facility] MCH 22.1(L) 27.0 - 32.0 pcg LAB HEMETOLOGY METHOD 05/02/2025 2:02 AM [facility] MCHC 30.1(L) 32.0 - 37.0 g/dL LAB HEMETOLOGY METHOD 05/02/2025 2:02 AM [facility] RDW 18.6(H) 11.0 - 15.0 % LAB HEMETOLOGY METHOD 05/02/2025 2:02 AM [facility] Platelets 350 130 - 400 K/mcL LAB HEMETOLOGY METHOD 05/02/2025 2:02 AM [facility] MPV 10.7 7.0 - 11.0 FL LAB HEMETOLOGY METHOD 05/02/2025 2:02 AM [facility] NRBC 0.0 <1.0 % LAB HEMETOLOGY METHOD 05/02/2025 2:02 AM [facility] NRBC Absolute 0.00 <0.10 K/mcL LAB HEMETOLOGY METHOD 05/02/2025 2:02 AM [facility] Neutrophils Relative 67.7 % LAB HEMETOLOGY METHOD 05/02/2025 2:02 AM [facility] Lymphocytes Relative 25.1 % LAB HEMETOLOGY METHOD 05/02/2025 2:02 AM [facility] Monocytes Relative 4.8 % LAB HEMETOLOGY METHOD 05/02/2025 2:02 AM EDT [facility] Eosinophils Relative 1.8 % LAB HEMETOLOGY METHOD 05/02/2025 2:02 AM EDT [facility] Basophils Relative 0.3 % LAB HEMETOLOGY METHOD 05/02/2025 2:02 AM EDT [facility] Immature Granulocytes Relative 0.3 % LAB HEMETOLOGY METHOD 05/02/2025 2:02 AM EDT [facility] Neutrophils Absolute 7.08(H) 1.50 - 7.00 K/mcL LAB HEMETOLOGY METHOD 05/02/2025 2:02 AM EDT [facility] Lymphocytes Absolute 2.62 1.00 - 5.00 K/mcL LAB HEMETOLOGY METHOD 05/02/2025 2:02 AM EDT [facility] Monocytes Absolute 0.50 0.20 - 1.00 K/mcL LAB HEMETOLOGY METHOD 05/02/2025 2:02 AM EDT [facility] Eosinophils Absolute 0.19 0.00 - 0.50 K/mcL LAB HEMETOLOGY METHOD 05/02/2025 2:02 AM EDT [facility] Basophils Absolute 0.03 0.00 - 0.20 K/mcL LAB HEMETOLOGY METHOD 05/02/2025 2:02 AM EDT [facility] Immature Granulocytes Absolute 0.03 0.00 - 0.03 K/mcL LAB HEMETOLOGY METHOD 05/02/2025 2:02 AM T [facility] Blood Venous blood specimen / Unknown Venipuncture / Unknown 05/02/2025 1:41 AM EDT 05/02/2025 1:55 AM EDT us Osman MUKHERJEE LAB BLOOD ORDERABLES Final Result [facility] [address] [place] [address], [place] [phone] * APTT (05/02/2025 1:41 AM EDT) [facility] aPTT 33.6 24.1 - 39.3 sec LAB COAGULATION METHOD 05/02/2025 2:13 AM EDT [facility] Blood Venous blood specimen / Unknown Venipuncture / Unknown 05/02/2025 1:41 AM EDT 05/02/2025 1:55 AM EDT Osman MUKHERJEE LAB BLOOD ORDERABLES Final Result Performing Organization Address City/[facility]/ZIP Co de Phone Number [facility] [address] [place] [address], [place] [phone] * Protime-INR (05/02/2025 1:41 AM EDT) [facility] Protime 12.6 10.6 - 13.9 sec LAB COAGULATION METHOD 05/02/2025 2:12 AM EDT [facility] INR 1.0 LAB COAGULATION METHOD 05/02/2025 2:12 AM EDT [facility] Blood Venous blood specimen / Unknown Venipuncture / Unknown 05/02/2025 1:41 AM EDT 05/02/2025 1:55 AM EDT Osman MUKHERJEE LAB BLOOD ORDERABLES Final Result [facility] [address] [place] [address], [place] [phone] * (ABNORMAL) D-Dimer (Quantitative) (05/02/2025 1:41 AM EDT) [facility] D-Dimer, Quant (D-DU) 364(H) <=230 ng/mL DDU LAB COAGULATION METHOD 05/02/2025 2:13 AM EDT [facility] Blood Venous blood specimen / Unknown Venipuncture / Unknown 05/02/2025 1:41 AM EDT 05/02/2025 1:55 AM EDT Narrative [facility] - 05/02/2025 2:13 AM EDT D-Dimer <230 ng/mL (D-Dimer units) is the threshold for exclusion of DVT/PE. D-Dimer may be elevated in: Critically ill, severely infected, trauma patients, DIC, acute CVA, acute MT, unstable angina, AF, old age, , and smoking. D-Dimer may be decreased with: Initiation of heparin therapy and oral anticoagulants. us Osman MUKHERJEE LAB BLOOD ORDERABLES Final Result Performing Organization Address City/[facility]/ZIP Co de Phone Number [facility] [address] [place] [address], [place] [phone] * hCG Qualitative (05/02/2025 1:41 AM EDT) hCG Qual Negative Negative 05/02/2025 2:19 AM EDT [facility] Blood Venous blood specimen / Unknown Venipuncture / Unknown 05/02/2025 1:41 AM EDT 05/02/2025 1:55 AM EDT us Osman MUKHERJEE LAB BLOOD ORDERABLES Final Result Performing Organization Address City/[facility]/ZIP Co de Phone Number [facility] [address] [place] [address], [place] [phone] * B-Type Natriuretic Peptide (BNP) (05/02/2025 1:41 AM EDT) BNP 12 <=100 pcg/mL LAB CHEMISTRY METHOD 05/02/2025 2:30 AM EDT [facility] Blood Venous blood specimen / Unknown Venipuncture / Unknown 05/02/2025 1:41 AM EDT 05/02/2025 1:55 AM EDT Osman MUKHERJEE LAB BLOOD ORDERABLES Final Result Performing Organization Address City/[facility]/ZIP Co de Phone Number [facility] [address] [place] [address], [place] [phone] * Magnesium (05/02/2025 1:41 AM EDT) [facility] Magnesium 1.9 1.9 - 2.6 mg/dL LAB CHEMISTRY METHOD 05/02/2025 2:25 AM EDT [facility] Blood Venous blood specimen / Unknown Venipuncture / Unknown 05/02/2025 1:41 AM EDT 05/02/2025 1:55 AM EDT Osman MUKHERJEE LAB BLOOD ORDERABLES Final Result Performing Organization Address [facility]/ZIP Co de Phone Number [facility] [address] [place] [address], [place] [phone] * (ABNORMAL) Comprehensive Metabolic Panel (CMP) (05/02/2025 1:41 AM EDT) [facility] Sodium 139 133 - 145 mmol/L LAB CHEMISTRY METHOD 05/02/2025 2:35 AM T [facility] Potassium 3.0(L) 3.5 - 5.5 mmol/L LAB CHEMISTRY METHOD 05/02/2025 2:35 AM EDT [facility] Chloride 105 96 - 110 mmol/L LAB CHEMISTRY METHOD 05/02/2025 2:35 AM EDT [facility] CO2 25 21 - 32 mmol/L LAB CHEMISTRY METHOD 05/02/2025 2:35 AM EDT [facility] Anion Gap 9 3 - 11 LAB CHEMISTRY METHOD 05/02/2025 2:35 AM EDT [facility] Glucose 113(H) 70 - 100 mg/dL LAB CHEMISTRY METHOD 05/02/2025 2:[facility] BUN 10 5 - 25 mg/dL LAB CHEMISTRY METHOD 05/02/2025 2:35 AM [facility] Creatinine 0.75 0.50 - 1.10 mg/dL LAB CHEMISTRY METHOD 05/02/2025 2:35 AM [facility] eGFR 111 >=60 mL/min/1. 73m2 LAB CHEMISTRY METHOD 05/02/2025 2:35 AM [facility] Comment:Calculation based on the Chronic Kidney Disease Epidemiology Collaboration (CKD-EPI) equation refit without adjustment for race. BUN/Creatinine Ratio 13.3 LAB CHEMISTRY METHOD 05/02/2025 2:35 AM [facility] Calcium 9.3 8.5 - 10.5 mg/dL LAB CHEMISTRY METHOD 05/02/2025 2:35 AM [facility] AST (SGOT) 19 10 - 42 unit/L LAB CHEMISTRY METHOD 05/02/2025 2:35 AM [facility] ALT (SGPT) 30 10 - 60 unit/L LAB CHEMISTRY METHOD 05/02/2025 2:35 AM [facility] Alkaline Phosphatase 78 42 - 121 unit/L LAB CHEMISTRY METHOD 05/02/2025 2:35 AM [facility] Total Protein 7.2 6.0 - 8.0 g/dL LAB CHEMISTRY METHOD 05/02/2025 2:35 AM [facility] Albumin 4.0 3.2 - 5.0 g/dL LAB CHEMISTRY METHOD 05/02/2025 2:35 AM [facility] Total Bilirubin 0.3 0.0 - 1.4 mg/dL LAB CHEMISTRY METHOD 05/02/2025 2:35 AM [facility] Blood Venous blood specimen / Unknown Venipuncture / Unknown 05/02/2025 1:41 AM EDT 05/02/2025 1:55 AM EDT Osman MUKHERJEE LAB BLOOD ORDERABLES Final Result [facility] [address] [place] [address], [place] [phone] * POC , urine manually resulted (05/02/2025 1:24 AM EDT) [facility] HCG, Ur POC Negative Negative Urine Urine specimen obtained by clean catch procedure / Unknown 05/02/2025 1:24 AM EDT Osman MUKHERJEE POINT OF CARE TEST ENTER/ED IT ORDERABLES Final Result * Respiratory virus panel molecular study (05/02/2025 1:22 AM EDT) [facility] Adenovirus Detection by PCR Not Detected Not Detected LAB MICROBIOLOGY METHOD 05/02/2025 2:51 AM EDT [facility] Influenza A PCR Not Detected Not Detected LAB MICROBIOLOGY METHOD 05/02/2025 2:51 AM EDT [facility] Influenza B PCR Not Detected Not Detected LAB MICROBIOLOGY METHOD 05/02/2025 2:51 AM EDT [facility] Coronavirus 229E Not Detected Not Detected LAB MICROBIOLOGY METHOD 05/02/2025 2:51 AM EDT [facility] Coronavirus HKU1 Not Detected Not Detected LAB MICROBIOLOGY METHOD 05/02/2025 2:51 AM EDT [facility] Coronavirus OC43 Not Detected Not Detected LAB MICROBIOLOGY METHOD 05/02/2025 2:51 AM EDT [facility] Coronavirus NL63 Not Detected Not Detected LAB MICROBIOLOGY METHOD 05/02/2025 2:51 AM EDT [facility] Parainfluenza Virus 1 Not Detected Not Detected LAB MICROBIOLOGY METHOD 05/02/2025 2:51 AM EDT [facility] Parainfluenza Virus 2 Not Detected Not Detected LAB MICROBIOLOGY METHOD 05/02/2025 2:51 AM EDT [facility] Parainfluenza Virus 3 Not Detected Not Detected LAB MICROBIOLOGY METHOD 05/02/2025 2:51 AM EDT [facility] Parainfluenza Virus 4 Not Detected Not Detected LAB MICROBIOLOGY METHOD 05/02/2025 2:51 AM EDT [facility] RSV PCR Not Detected Not Detected LAB MICROBIOLOGY METHOD 05/02/2025 2:51 AM EDT [facility] Human Metapneumovirus A and B Not Detected Not Detected LAB MICROBIOLOGY METHOD 05/02/2025 2:51 AM EDT [facility] Rhinovirus/Entero virus Not Detected Not Detected LAB MICROBIOLOGY METHOD 05/02/2025 2:51 AM EDT [facility] Bordetella pertussis Not Detected Not Detected LAB MICROBIOLOGY METHOD 05/02/2025 2:51 AM EDT [facility] Bordetella parapertussis Not Detected Not Detected LAB MICROBIOLOGY METHOD 05/02/2025 2:51 AM EDT [facility] Mycoplasma pneumo by PCR Not Detected Not Detected LAB MICROBIOLOGY METHOD 05/02/2025 2:51 AM EDT [facility] Chlamydia pneumoniae Not Detected Not Detected LAB MICROBIOLOGY METHOD 05/02/2025 2:51 AM EDT [facility] SARS COV-2 Not Detected Not Detected LAB MICROBIOLOGY METHOD 05/02/2025 2:51 AM EDT [facility] Swab Nasopharyngeal structure / Unknown Non-blood Collection / Unknown 05/02/2025 1:22 AM EDT 05/02/2025 1:57 AM EDT [facility] - 05/02/2025 2:51 AM EDT Testing was performed using the [employer] Respiratory Pathogen PCR Assay. All results must [...] - GENERAL ORDERABLES Final Result [facility] RE[facility] [place] ([facility]) [facility] [address] [place] [address], [place] [phone] from Last 3 Months Insurance [place]ICA[place] Advance Directives * Full Code - Default [...] currently active code status orders. Care Teams Skelp Processor Relationship Specialty Start Date End Date Rylie Dawson MD [address] [place] [address] PCP - General Internal Medicine 06/05/24
--- OUTSIDE RECORDS SUMMARY | 2025-07-04 10:38 | XMS_ITS | Clinical Summary ---
Author Organization [facility] Address [address] [place] [address] Care Team Providers Care Stem Cleaning Machine Feeder Name Role Phone Md, Unknown Primary Care [...] Name Type Priority Associated Diagnoses Date /Time [place] draw Lab STAT 07/24/2020 5 :58 AM [...] complete this topic Insurance [employer] [address] [place] [address] Care Teams Stem Cleaning Machine Feeder Relationship Specialty Start Date End Date , Unknown 1 Dont Change PCP - General 07/24/20
== END 2025-07-04 10:37 | disposition home or self-care (01) ==
PROVIDERS: Emergency Provider Emergency Medicine; PCP Internal Medicine
DX: U07.1 COVID-19 (principal); R05.9 Cough, unspecified; R06.02 Shortness of breath; R07.89 Other chest pain; R50.9 Fever, unspecified
CPT/HCPCS: 71046; 87637; 87651; 99282; 99284

== ENCOUNTER → 2025-07-04 09:20 | Outpatient (BNV) | payer SELFPAY | PROVIDERS: Emergency Provider Emergency Medicine; PCP Internal Medicine; Visit Provider Radiology Diagnostic Radiology | DX: R05.9 Cough, unspecified (principal); R06.02 Shortness of breath | CPT/HCPCS: 71046 ==